=== PATIENT | male | born 1945 | race Caucasian/White ===

== ENCOUNTER 2023-03-28 07:35 | Outpatient (OUT) | payer MEDICARE, SELFPAY ==
--- NOTE | 2023-03-28 08:55 | CA_ITS ---
Patient: GHAZALA BOLAÑOS Exam Date: 03/28/2023 : 1945 Gender:M Ordering : DR ATIYA BREWER D.O. Admission #: [id number] Family : Order #: [id number] CLICK HERE TO VIEW EXAM ECHOCARDIOGRAM REPORT PROCEDURE: CA ECHO DOPPLER COMPLETE INDICATIONS: Nonrheumatic aortic stenosis, hypertension COMPARISON: None. DESCRIPTION: COMPLETE ECHOCARDIOGRAM Real-time transthoracic echocardiography with 2D, M-mode, spectral and color flow Doppler performed. QUALITY: Technical quality was good. LEFT VENTRICLE: Normal chamber size. Proximal septal hypertrophy (sigmoid septum). Normal systolic function. LV EF: Normal left ventricular ejection fraction, (>55%). DIASTOLIC: Grade I diastolic dysfunction. ATRIAL SEPTUM: LEFT ATRIUM: Normal chamber size. RIGHT ATRIUM: Normal chamber size. RIGHT VENTRICLE: Normal chamber size. Normal right ventricular systolic function. TRICUSPID VALVE: Normal mobility and thickness. Normal with mild regurgitation. Doppler studies reveal moderately (45-60) elevated right sided pressures. RVSP 46 mmHg MITRAL VALVE: Normal mobility and thickness. No evidence of mitral valve stenosis. There is no mitral annular calcification. Trivial mitral regurgitation. AORTIC VALVE: Normal trileaflet appearance. Moderately calcified aortic valve. Moderately diminished mobility. Doppler velocity suggest moderate aortic valve stenosis. DVI 0.36, FLAVIA 1.1 cm2. No aortic regurgitation. AORTIC ROOT: Normal diameter and appearance. PULMONIC VALVE: Normal thickness and mobility. No stenosis. Trivial regurgitation. PERICARDIUM: No evidence of pericardial effusion. IVC: Collapses with inspirations. IVC is normal in size. PLEURA: CONCLUSION: 1. Normal ventricular systolic function. LVEF is 55 to 60%. 2. Mild diastolic dysfunction. 3. Mild diastolic dysfunction. 4. Moderate aortic valve stenosis. 5. Moderately elevated right-sided pressures. RVSP is 46 mmHg. Adult Echocardiography Procedure Report Left Ventricle LVEDD (3.7 - 5.6 cm): 3.84 cm LVESD (2.2 - 4.0 cm): 2.38 cm LVIVS thickness (0.6 - 1.2 cm): 1.61 cm LVPW thickness (0.5 - 1.0 cm): 1.09 cm e': 0.07 m/s E - e': 8.78 LVOT Max Gradient: 4.34 mm[Hg], 4.46 mm[Hg] LVOT Area (cm2): 1.05 m/s Peak Velocity (LVOT): 1.04 m/s, 1.06 m/s Mean Velocity (LVOT): 0.79 m/s LVOT Diameter 2.02 cm Left Atrium Left Atrium Systolic Dimension: 3.70 cm Mitral Valve MV E to A Ratio: 0.55 Mitral Valve A-Wave Peak Velocity: 1.10 m/s Mitral Valve E-Wave Peak Velocity: 0.61 m/s Right Ventricle Aorta AO Root Diam: 3.11 cm Ascending Ao Diam: 2.23 cm Aortic Valve AoV Area (Peak Dwayne): 1.38 cm2, 1.62 cm2, 1.39 cm2 AoV Area (VTI): 1.51 cm2, 1.72 cm2, 1.56 cm2 Peak Velocity(Antegrade Flow): 2.06 m/s, 2.43 m/s, 2.76 m/s Peak Gradient(Antegrade Flow): 16.97 mm[Hg], 23.66 mm[Hg], 30.58 mm[Hg] Mean Velocity(Antegrade Flow): 1.49 m/s, 1.70 m/s, 1.98 m/s Mean Gradient(Antegrade Flow): 9.88 mm[Hg], 12.96 mm[Hg], 17.71 mm[Hg] Velocity Time Integral: 46.06 cm, 52.12 cm, 60.98 cm Tricuspid Valve Peak Velocity (Regurgitant Flow): 3.21 m/s, 3.29 m/s Pulmonic Valve Peak Velocity: 0.97 m/s Peak Gradient: 3.75 mm[Hg] Right Atrium Dictated by: Oscar Meyer M.D. on 03/28/2023 at 19:03 Approved by: Oscar Meyer M.D. on 03/28/2023 at 19:07
--- NOTE | 2023-03-28 08:55 | CA_ITS ---
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 (right MARYANA 1.07, left MARYANA 1.05) Electronically Signed On 03-30-2023 10:00:29 EDT by SIN GALICIA
== END 2023-03-28 07:36 | disposition home or self-care (01) ==
LOC: CARD 07:35
PROVIDERS: PCP Family Medicine; Visit Provider Family Medicine
DX: I35.0 Nonrheumatic aortic (valve) stenosis (principal); I73.9 Peripheral vascular disease, unspecified
CPT/HCPCS: 93306; 93923

== ENCOUNTER 2025-01-27 07:17 | Outpatient (OUT) | payer MEDICARE, SELFPAY ==
--- OUTSIDE RECORDS SUMMARY | 2024-04-07 06:00 | XMS_ITS | Encounter Summary ---
Author Name [facility] [place] [place] Organization [facility] [place] Address [address] [place] [id number] Care Team Providers Care Barista Name Role Phone NAY BARNES Primary Care Provider Unavail able Insurance Providers: All historical and current Section Date Range: From patient's date of to the date document was created. This section includes the names of all active insurance providers for the patient. Insurance Provider Type of Coverage Plan Name Start of Policy Coverage End of Policy Coverage Group Number Member ID Insurance Provider's Telephone Number Policy York's Name Patient's Relationship to Policy York [facility] (WNR) MEDICARE ADVANTAGE [facility] (WNR) Sep 09, 2021 [facility] 0 [id number] Aleta BOLAÑOS PATIENT [facility] (WNR) MEDICARE ADVANTAGE [facility] (WNR) Sep 09, 2021 [facility] [id number] Aleta BOLAÑOS PATIENT Selected Encounter This section includes the information on record at [place] for the Encounter. Date/Time Encounter Type Encounter Description Reason Provider Source Apr 07, 2024 10:00 AM OFFICE O/P NEW MOD 45 MIN PRIMARY CARE/MEDICINE ICD-10-CM I10 Essential (primary) hypertension NARESH PARK Encounter Template Text not used by [facility] Assessments - Encounter Diagnoses This section includes the primary and secondary diagnoses documented for the Encounter. Date/Time Primary/Secondary Diagnosis Diagnosis Name Provider Source Apr 07, 2024 10:44 AM PRIMARY Essential (primary) hypertension NARESH PARK [facility] Apr 07, 2024 10:44 AM SECONDARY Benign prostatic hyperplasia with lower urinary tract symp NARESH PARK [facility] Apr 07, 2024 10:44 AM SECONDARY Cardiac arrhythmia, unspecified NARESH PARK [facility] Apr 07, 2024 10:44 AM SECONDARY Cardiac murmur, unspecified NARESH PARK [facility] Apr 07, 2024 10:44 AM SECONDARY Hyperlipidemia, unspecified NARESH PARK [facility] Apr 07, 2024 10:44 AM SECONDARY Tobacco use NARESH PARK [facility] Apr 07, 2024 10:44 AM SECONDARY Unspecified macular degeneration NARESH PARK [facility] Plan of Treatment: Future Appointments (+ 6 months) and Future Tests (+/- 45 days) The Plan of Treatment section includes future care activities for the patient from [facility] [place] [facility] This section includes future appointments and future orders which are active, pending or scheduled. Future Appointments This section includes appointments that were scheduled to occur 6 months from the date of the Encounter, up to a maximum of 20 appointments. The data comes from all [place] treatment facilities. Appointment Date/Time Appointment Type Appointme nt Facility Name Apr 20, 2024 10:30 AM AMBULATORY - PSYCHIATRY [facility] May 25, 2024 10:30 AM AMBULATORY - PSYCHIATRY [facility] Oct 01, 2024 10:00 AM AMBULATORY - NONE [facility] Oct 08, 2024 09:30 AM AMBULATORY - NONE [facility] Lab Results: +/- 30 days of the encounter This section includes the Chemistry and Hematology Lab Results on record with [place] for the patient. Radiology Reports and Pathology Reports are provided separately, in subsequent sections. Lab Results This section contains the Chemistry/Hematology Results that were resulted 30 days before or 30 daysafter the date of the Encounter. Date/Time Source Result Type Result - Unit Interpretation Reference Range Specimen Type Comment Apr 07, 2024 10:44 AM [facility] COMPREHENSIVE METABOLIC PANEL PLASMA Specimen Type: PLASMA Comment: LDL REF RANGE: OPTIMAL: <100 mg/dL BORDERLINE HIGH: 130-159 mg/dL LDL HIGH: 160-189 mg/dL VERY HIGH: >=190 TRIG REF RANGE: NORMAL <150 mg/dL BORDERLINE HIGH: 150-199 mg/dL TRIG HIGH: 200-499 mg/dL VERY HIGH: >=500 mg/dL Ordering Provider: NARESH PARK Report Released Date/Time: Apr 07, 2024 10:25 AM Reporting Lab: [address] [id number] Performing Lab: [address] [phone] ALBUMIN 4.5 g/dL 3.2-4.6 ALKALINE PHOSPHATASE 177 U/L H 46-116 ALT/SGPT 24 U/L 0-55 AST/SGOT 28 U/L 5-34 BUN 18 mg/dL 9-23 CALCIUM 9.9 mg/dL 8.5-10.1 CREATININE 1.1 mg/dL 0.7-1.3 CO2 24 mmol/L 22-29 GLUCOSE 109 mg/dL H 74-100 PROTEIN, TOTAL 7.9 g/dL 6.4-8.3 SODIUM 136 mmol/L 136-145 CHLORIDE 103 mmol/L 98-107 BILIRUBIN, TOTAL 0.8 mg/dL 0.2-1.2 POTASSIUM 4.1 mmol/L 3.5-5.1 ANION GAP 13.0 10-20 EGFR (CALCULATED) 68.0 mL/min Apr 07, 2024 10:44 AM [facility] LIPID PROFILE PLASMA Specimen Type: PLASMA Comment: LDL REF RANGE: OPTIMAL: <100 mg/dL BORDERLINE HIGH: 130-159 mg/dL LDL HIGH: 160-189 mg/dL VERY HIGH: >=190 TRIG REF RANGE: NORMAL <150 mg/dL BORDERLINE HIGH: 150-199 mg/dL TRIG HIGH: 200-499 mg/dL VERY HIGH: >=500 mg/dL Ordering Provider: NARESH PARK Report Released Date/Time: Apr 07, 2024 10:25 AM Reporting Lab: [address] [id number] Performing Lab: [address] [phone] CHOLESTEROL 175 mg/dL 0-200 LDL CHOLESTEROL 128 mg/dL H 0-100 HDL CHOLESTEROL 39 mg/dL L 40-60 TRIGLYCERIDE 150 mg/dL 0-150 Apr 07, 2024 10:44 AM [facility] CBC BLOOD Specimen Type: BLOOD No comment entered. Ordering Provider: NARESH PARK Report Released Date/Time: Apr 07, 2024 10:25 AM Reporting Lab: [address] [phone] Performing Lab: [address] [address] WBC COUNT 9.7 10*3/uL 3.6-11.0 RBC COUNT 4.56 10*6/uL 4.47-5.83 HGB 14.4 g/dL 13.6-17.4 HCT 43.3 40.0-51.0 MCV 95.1 fL 80.0-96.0 MCH 31.6 pg H 27.0-31.0 MCHC 33.2 g/dL 31.5-36.5 PLT 374 10*3/uL 150-400 LYMPHS % 34.1 21.0-51.0 MONOCYTES % 7.3 4.0-8.0 NUCLEATED RBC/100WBC 0.2 /100{WBCs} None Established-None Established RDW 15.0 11.2-15.8 NEUTROPHIL % 57.3 54.0-78.0 EOSINOPHIL % 0.7 0.0-3.0 BASOPHIL % 0.6 0.0-3.0 ABSOLUTE LYMPHOCYTE COUNT 3.3 10*3/uL 0. 8-5.0 ABSOLUTE NEUTROPHIL COUNT 5.5 10*3/uL 1. 9-8.6 ABSOLUTE BASOPHIL COUNT 0.1 10*3/uL 0.0- 0.3 ABSOLUTE MONOCYTE COUNT 0.7 10*3/uL 0.1- 0.9 ABSOLUTE EOSINOPHIL COUNT 0.1 10*3/uL 0. 0-0.3 MPV 7.6 fL 7.4-11.4 Apr 07, 2024 10:44 AM [facility] MAGNESIUM PLASMA Specimen Type: PLASMA Comment: LDL REF RANGE: OPTIMAL: <100 mg/dL BORDERLINE HIGH: 130-159 mg/dL LDL HIGH: 160-189 mg/dL VERY HIGH: >=190 TRIG REF RANGE: NORMAL <150 mg/dL BORDERLINE HIGH: 150-199 mg/dL TRIG HIGH: 200-499 mg/dL VERY HIGH: >=500 mg/dL Ordering Provider: NARESH PARK Report Released Date/Time: Apr 07, 2024 10:25 AM Reporting Lab: [address] [phone] Performing Lab: [address] [address] MAGNESIUM 2.3 mg/dL 1.6-2.6 Apr 07, 2024 10:44 AM [facility] URINALYSIS URINE Specimen Type: URINE No comment entered. Ordering Provider: NARESH PARK Report Released Date/Time: Apr 07, 2024 10:25 AM Reporting Lab: [address] [phone] Performing Lab: [address] [address] SPECIFIC GRAVITY 1.009 L 1.016-1.022 URINE GLUCOSE Negative mg/dL Negative URINE PROTEIN Negative mg/dL Negative URINE PH 7.0 5.0-8.0 NITRITE, URINE Negative Negative ESTERASE(WBC) Negative Negative URINE CLARITY Clear Clear URINE BILIRUBIN Negative mg/dL <=0.4 URINE BLOOD Negative mg/dL <0.05 UROBILINOGEN Negative mg/dL <=1 URINE KETONES Negative mg/dL <=9 URINE COLOR Light-Yellow Social History: Smoking Status (Most current) and Tobacco Use (All prior to encounter date) This section includes the most current, and the historical, smoking and tobacco- related health factors from the [place] facility where the Encounter took place. Current Smoking Status This section includes the most current smoking, or tobacco-related health factor, from the [place] facility where the Encounter took place. Date/Time Current Smoking Status Comment Marlys ity Apr 07, 2024 10:00 AM [place]-TOBACCO FORMER USER [facility] Tobacco Use History This section includes a history of the smoking, or tobacco-related health factors, that were collected on or before the date of the Encounter. The data comes from the [place] facility where the Encounter took place. Date/Time Smoking Status/Tobacco Use Comment F acility Apr 07, 2024 10:00 AM [place]-TOBACCO QUIT 15 YRS OR MORE [facility] Encounter Notes: All associated encounter notes This section contains the clinical notes associated to the Encounter. Date/Time Encounter Note(s) Provider Source Apr 08, 2024 06:35 AM DISCHARGE NOTE: LOCAL TITLE: AFTER VISIT SUMMARY NOTE STANDARD TITLE: DISCHARGE NOTE DICT DATE: APR 08, 2024@06:35:28 ENTRY DATE: APR 08, 2024@06:35:29 DICTATED BY: NARESH PARK EXP COSIGNER: URGENCY: STATUS: COMPLETED If the patient did not receive a copy of the after-visit summary or had a virtual visit, a copy of the after-visit summary will be mailed. The after-visit summary includes information pertaining to the patient's encounter, including diagnoses, vital signs, medications, and new orders, as well as a list of any any upcoming appointments and information regarding the patient's ongoing care. The patient's medications were reviewed with the patient by the provider and were provided to the patient as an updated list of medications. The patient was instructed to inform the provider of any medication changes or discrepancies that were noted. Otherwise, the patient was instructed to continue the medications as prescribed. A copy of the after-visit summary provided to the patient is available in [employer]. SCANNED DOCUMENT SIGNATURE NOT REQUIRED Electronically Filed: 04/08/2024 by: NARESH GREGORY [facility] Apr 07, 2024 10:04 AM INTERNAL MEDICINE OUTPATIENT NOTE: LOCAL TITLE: PRIMARY CARE OUTPATIENT NOTE (T) STANDARD TITLE: INTERNAL MEDICINE OUTPATIENT NOTE DATE OF NOTE: APR 07, 2024@10:04 ENTRY DATE: APR 07, 2024@10:04:26 AUTHOR: NARESH PARK EXP COSIGNER: URGENCY: STATUS: COMPLETED In-person Note Emergency contact number obtained/confirmed. 78yo Reason for Visit: initial visit to [facility] with clinic. lmd - dr. ontiveros. retinal spec - dr. janette chapman PAST MEDICAL HISTORY: Medical: hx of hypertension, hyperlipidemia, bph with luts. hx of arrhythmia and cardiac murmur. hx of dry macular degeneration. denies any hx of dm, renal or hepatic dz. denies any seizure disorders Surgical: prostate bx - benign. lap lam. vein stripping left leg per dr. hodges. hx of bilat cats with iol Psychiatric: denies FAMILY HISTORY: Cancers: denies Diabetes: mother Hypertension: mother Coronary Disease: mother Stroke: father in his 80's SOCIAL HISTORY: History: us [employer]. 1962-. 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 pouch would last 2 wks- states started prior to being a teenager. also smoked as a child, once per week. smoked x 10 yrs with a suni lasting over 1 wk Alcohol History / Current Use: aver 1-2 beers per month Illicit Substance Use History / Current Use: denies Family/Living Situation: . 3 daugh and 1 son REVIEW OF SYSTEMS: const: (-) fever (-)chills (-)fatigue (-) changes in weight (-)night sweats heent: (-)headache (-)vision changes (-)hearing changes (-)tinnitis (-) earache (-)sore throat (-)nasal congestion (-)dysphagia (-odynophagia (-)hoarseness neck: (-)pain (-)stiffness (-)swelling lymph: (-)swollen (-)tender (-) cervical (-)axillary (-)inguinal endo: (-)polyuria (-)polydipsia (-)polyphagia (-)fatigue (-)weight gain/loss (-)heat or cold intolerance cor: (-)cp (-)sob (-)dizziness (-)palpitations (-)alcala (-)edema (-)pnd (-)alcala ()orthopnea pulm: (-)cough (-)congestion (-)sob (-)wheezing (-)pain with breathing (-)hemoptysis gi: (-)abd pain (-)nausea (-)vomitting (-)dysphagia (-)constipation (-) diarrhea (-)blood in stool (-)change in stool (-)dark stools (-)mucus in stool gu: (-)dysuria (-)frequency (-)urgency (-)malodorous (-)dribbling (-) hematuria (-)nocturia msk: (-)muscle pain (-)weakness (-)spasms (-)muscle tone (-)back pain (-)joint pain neuro: (-)headache (-)change in vision (-)weakness (-)change in memory (-)seizures (-)abnormal movements (-) tremors (-)radiculopathy integ: (-)rash (-)lesions (-)itching (-)xerosis psyche: (-)anxiety (-)depression (-)ptsd PATIENT ALLERGIES DETAILED ALLERGIES/ADVERSE REACTIONS Type: OTHER Date/Time Reactant Severity Reaction 04/07/2024 09:51 SEASONAL ALLERGIES WATERING EYE AMRS - MEDS (REC SUCCINCT) Active and Recently Inpatient, Outpatient and Clinic Medications (including Supplies): atorvastatin 10mg daily lisinopril 30mg daily meloxicam 7.5mg amlodipine 10mg daily hctz 12.5mg daily tamsulosin 0.4mg daily asa 81 mg b12 2500 micrograms lutein 6mg vit 3 180mg adult mvi coq10 zyrtec 10mg z-areds 2 plus PHYSICAL EXAM: Vital Signs: T: 99.6 F [37.6 C] (04/07/2024 09:46) P: 94 (04/07/2024 09:46) R: 16 (04/07/2024 09:46) BP: 152/68 (04/07/2024 09:46) Pain: 3 (04/07/2024 09:46) Height: 66.5 in [168.9 cm] (04/07/2024 09:46) Weight: 199.6 lb [90.54 kg] (04/07/2024 09:46) Pulse Ox: PE gen: 78y w/m alert ox4, well-groomed and dressed, ambulatory without assistive devices heent: normocephalic anicteric perrla eomi. (+)arcus senilus. nares patent. eacs/tms without giselle, bulging or retractions. oral mucosa and hypopharynx moist and pink. uvula midline. no oral lesions noted neck: supple. trachea midline. no bruits noted lymph: no ant or posterior adenopathy noted endo: no thyromegaly appreciated cor: hrrr with m noted. no c or g chest: ctab. chest symm abd: soft, nt, nd, bs x 4 ausc. no organomegaly or bruits noted msk: (+)5/5 ue and lower extrem prox and distally integ: no rashes noted. (+)sks, skin tags neuro: pt alert ox4, perrla, eomi, cn 2-12 intact. no tremors or abnormal movts noted psyche: mood and affect appropriate. recent and remote memory intact ASSESSMENT/PLAN: 1) hypertension- cont with current meds. encouraged to monitor bp 2) hyperlipidemia- cont with atorvastatin. obtain lipids, lfts. will forward results to pt. reviewed a heart healthy diet. daily exercise 3) bph with luts- cont with tamsulosin 4) heart murmur- asym. 5) hx of arrhythmia- asym. cont with daily asa 6) remote tobacco use- cont with abstinence 7) hx of dry macular degeneration- followed per retinal spec - dr. chapman 8) hx of vein stripping lle- cont with daily asa 9) (+)depression/ptsd screen - denied need for warm handoff. submit consult to [facility] 10) meds reviewed with pt. declined need for meds at this time. agreeable to labs. will forward results to pt 11) reviewed a heart healthy diet of no added salt, diet low in fat, chol and processed foods. increase fluids, fruits, veg, fiber and bran in diet. daily exercise for 30 min, increase as tolerated HEALTH MAINTENANCE/CLINICAL REMINDERS: Clinical Reminders Activity HIV Screening: Patient has been offered HIV testing and has declined. I have explained that HIV testing is recommended for all adults, even if all risk factors are absent. Hepatitis C Testing: Patient declines HCV lab test. Sexual Orientation: The patient thinks of their sexual orientation as: Straight or Heterosexual Follow-Up Pos PTSD/Depression: I have reviewed the results of the Mental Health screens and have evaluated the patient. Based on the evaluation, the following disposition plan will be implemented: Patient to be evaluated by Mental Health Routine/Non-emergent Mental Health Evaluation needed. MEDICATION RECONCILIATION Medication Reconciliation report reviewed and discussed with patient/caregiver. VA prescription medications, non-VA prescription medications, OTC and herbal medications reviewed: Patient/caregiver verifies that the list is complete and accurate and voices understanding. FOLLOW-UP: 6mos with labs 1- 2 wks including cbc, cmp, mg, lipids I am the Attending Physician. TOTAL TIME SPENT: Spent 45 minutes in care of this patient today including review of records, exam, and placing orders. /lester/ NARESH PARK PHYSICIAN Signed: 04/07/2024 10:49 NARESH PARK [facility] Apr 07, 2024 09:45 AM PRIMARY CARE IBIS BARRETT NOTE: LOCAL TITLE: OUTPATIENT NURSING INTAKE NOTE (T) STANDARD TITLE: PRIMARY CARE NURSING NOTE DATE OF NOTE: APR 07, 2024@09:45 ENTRY DATE: APR 07, 2024@09:45:37 AUTHOR: ATIYA OBANDO EXP COSIGNER: URGENCY: STATUS: COMPLETED Hemoglobin A1C Results: No Hemoglobin A1C Results Review Allergies <----Click here to document new allergy or toni No Known Allergies box. New temperature reading was documented at this visit. 99.6 F (37.6 C) Pulse reading was documented at this visit. 94 Respiration reading was documented at this visit. 16 New blood pressure reading was documented at this visit. 152/68 Pain scale was documented at this visit. 3 A new weight was documented at this visit. 199.6 lb (90.7 kg) A new height was documented at this visit. 66.5 in [168.9 cm) Click here to document a new pulse ox. 96 MEDICATION LIST REVIEW REPORT Other - List 1. Has the patient been feeling sad or distressed? Yes. Name of PCP notified for follow-up/disposition: Dr. Park 2. Has the patient been having personal or family problems? No 3. Has the patient been experiencing worry and/or stress? Yes. Name of PCP notified for follow-up/disposition: Dr. Park 4. Has the patient been having problems with drugs and/or alcohol? No 5. [place] [facility] pocket card was provided to patient. Yes [facility] MAP ('s [place], [place] and [place]) What matters most to you? Comment: Family and health Clinical Reminders Activity Advance Directive Education Screen: Patient received information regarding Advance Directives: Yes - Patient has been given information/education regarding Advance Directives. Patient advised to follow up with Social Work Service. Level of Understanding: Fair Alcohol Use Screen (AUDIT-C): Alcohol Screen: SCREEN FOR ALCOHOL (AUDIT-C) An alcohol screening test (AUDIT-C) was negative (score=2). 1. How often did you have a drink containing alcohol in the past year? Consider a drink to be a 12 ounce can or bottle of regular beer, 8 ounces of malt liquor, a 5 ounce glass of table wine, or a 1.5 ounce shot of liquor (like scotch, gin, or vodka). Two to four times a month 2. How many drinks containing alcohol did you have on a typical day when you were drinking in the past year? One or two drinks 3. How often did you have six or more drinks on one occasion in the past year? Never COVID-19 Immunization: Refused Pfizer Monovalent COVID-19 vaccine Immunization: COVID-19 (PFIZER), MRNA, LNP-S, PF, KUSUM-SUCROSE, 30 MCG/0.3 ML (AGES 12+ YEARS) Refusal Reason: PATIENT DECISION Patient refuses all immunization(s) in the COVID-19 group Date Documented: 04/07/24 09:53 Depression Screening: Perform PHQ-2 A PHQ-2 screen was performed. The score was 2 which is a negative screen for depression. Over the past two weeks, how often have you been bothered by the following problems? 1. Little interest or pleasure in doing things Several days 2. Feeling down, depressed, or hopeless Several days Fall Screen: Patient was asked if he/she has had any falls within the past 12 months. Patients states no falls in past 12 months. Teaching Method: Verbal discussion Education Topic: Falls Risk Level of Understanding: Fair Frail/Elderly Screen: ADL Screen - Escobar Index of [place] in Activities of Daily Living Record INDEX of ADL. Score = 17 1. Bathing: either sponge bath, tub bath or shower. Receives no assistance (gets in and out of tub by self, if tub is usual means of bathing). 2. Dressing: gets clothes from closets and drawers, including under-clothes, outer garments and using fasteners (including braces if worn). Gets clothes and dresses self without assistance. 3. Toileting: going to the toilet room for bowel and urine elimination; cleaning self after elimination and arranging clothes. (May use cane, walker, or wheelchair, and manage bedpan or commode, emptying same next morning). No assistance needed. 4. Transfer: Moves in and out of bed, or chair, without assistance (may use support object like cane or walker). 5. Continence: Has occasional accidents of urination or bowels. 6. Feeding: Feeds self without assistance. IADL Screen - Julio César Instrumental Activities of Daily Living Scale Ability to use telephone: (1 point) Operates Telephone on own initiative; looks up and dials numbers. Shopping: (0 points) Needs to be accompanied on any shopping trip. Food preparation: (1 point) Plans, prepares, and serves adequate meals independently. Housekeeping: (1 point) Maintains house alone with occasional assistance (heavy work). Laundry: (1 point) Does personal laundry completely. Mode of transportation: (1 point) Travels independently on public transportation or drives own car. Responsibility for own medications: (1 point) Is responsible for taking medications in correct dosages at correct times. Ability to handle finances: (1 point) Manages financial matters independently (budgets, writes checks, pays rent and bills, goes to bank); collects and keeps track of income. Total score: 7 points 8 = High function, independent 0 = Low function, dependent Homelessness/Food Insecurity Screen: In the past 2 months, have you been living in stable housing that you own, rent, or stay in as part of a household? Yes - Living in stable housing. Are you worried or concerned that in the next 2 months you may NOT have stable housing that you own, rent, or stay in as part of a household? No - Not worried about housing near future The [place] reports the following: Within the past 12 months, you worried whether your food would run out before you got money to buy more. Never true Within the past 12 months, the food you bought just didn't last and you didn't have money to get more. Never true Learning Assessment: LEARNING NEEDS ASSESSMENT: I. Learning Preference: Hands-on II. Barriers to Learning: No Barriers to Learning Visual Limitations : Macular degeneration III. Social Influences Related to Educational Needs: No social barriers to learning IV. Readiness to Learn: Patient Appears ready to learn. MST Screening: Patient denies experiencing sexual trauma (MST). PTSD Screening: PC-PTSD-5 A PTSD screening test (PC-PTSD-5) was positive (score=4). IN THE PAST MONTH, have you ever had any experience that was so frightening, horrible or traumatic. For example: A serious accident or fire a physical or sexual assault or abuse An earthquake or flood A war Seeing someone be killed or seriously injured Having a loved one through homicide or suicide 1. Have you ever experienced this kind of event? YES 2. Had nightmares about the event(s) or thought about the event(s) when you did not want to? YES 3. Tried hard not to think about the event(s) or went out of your way to avoid situations that reminded you of the event(s)? YES 4. Been constantly on guard, watchful, or easily startled? YES 5. [place] numb or detached from people, activities, or your surroundings? YES 6. [place] guilty or unable to stop blaming yourself or others for the event(s) or any problems the event(s) may have caused? NO Licensed Independent Provider notified of positive screen and need for follow-up. Name of provider notified: Dr. Park Suicide Screen: C-SSRS Screening [place] Suicide Severity Rating Scale (C-SSRS) screener 1. Over the past month, have you wished you were or wished you could go to sleep and not wake up? No 2. Over the past month, have you had any actual thoughts of killing yourself? No 3. Over the past month, have you been thinking about how you might do this? Response not required due to responses to other questions. 4. Over the past month, have you had these thoughts and had some intention of acting on them? Response not required due to responses to other questions. 5. Over the past month, have you started to work out or worked out the details of how to kill yourself? Response not required due to responses to other questions. 6. If yes, at any time in the past month did you intend to carry out this plan? Response not required due to responses to other questions. 7. In your lifetime, have you ever done anything, started to do anything, or prepared to do anything to end your life (for example, collected pills, obtained a gun, gave away valuables, went to the roof but didn't jump)? No 8. If YES, was this within the past 3 months? Response not required due to responses to other questions. Tdap Immunization: The patient declines to receive the recommended dose of Tdap vaccine. Immunization: TDAP Refusal Reason: PATIENT DECISION Patient refuses all immunization(s) in the TDAP group Date Documented: 04/07/24 10:02 Tobacco Pack Year History: Patient used cigarettes in the past, but quit and does not currently use them: Quit smoking GREATER THAN OR EQUAL to 15 years ago. Tobacco Use Screening: The patient is a former tobacco user. The patient quit fifteen or more years ago. 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 Printed information was offered and contact information for local resources were provided if requested. No questions at this time /caregiver was informed of local points of contact. Contact information for local resources: Presumptive Condition(s): Shayla Vásquez, Environmental Health Clinician, ext. [phone] Benefits/Claims: Adela Mejia, Legal Admin Specialist, ext. [phone] [facility] Enrollment: Filiberto Gomes, Video Game Script Writer. ext. [phone] Registry: Shayla Vásquez, Environmental Health Clinician, ext. [phone] /es/ ATIYA OBANDO LICENSED PRACTICAL NURSE Signed: 04/07/2024 10:05 ATIYA OBANDO OC
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
--- OUTSIDE RECORDS SUMMARY | 2024-05-25 06:30 | XMS_ITS | Encounter Summary ---
Author Name [facility] [place] Organization [place] Address [address] [place] [address] Care Team Providers Care Shaving Machine Operator Name Role Phone NAY BARNES Primary Care [...] York's Name Patient's Relationship to Policy [facility] (WNR) Sep 09, 2021 OHRWP 0 [id number] Aleta BOLAÑOS [facility] (WNR) Sep 09, 2021 [facility] [id number] Aleta BOLAÑOS PATIENT Selected Encounter This section includes the information on record at [place] for the Encounter. Date/Time Encounter Type Encounter Description Reason Provider Source May 25, 2024 10:30 AM PSYTX W PT 30 MINUTES PCMHI INDIV ICD-10-CM F43.23 Adjustment disorder with mixed anxiety and depressed mood CHAYO CHENG Encounter Template Text not used by [facility] Assessments - Encounter Diagnoses This section includes the primary and secondary diagnoses documented for the Encounter. Date/Time Primary/Secondary Diagnosis Diagnosis Name Provider Source May 25, 2024 04:36 PM PRIMARY Adjustment disorder with mixed anxiety and depressed mood CHAYO CHENG [facility] May 25, 2024 04:36 PM SECONDARY Insomnia, unspecified CHAYO CHENG CB May 25, 2024 04:36 PM SECONDARY Other specified problems related to upbringing CHAYO CHENG Plan of Treatment: Future Appointments (+ 6 months) and Future Tests (+/- 45 days) The Plan of Treatment section includes future care activities for the patient from all [place] treatment[place]ilities. This section includes future appointments and future orders which are active, pending or scheduled. Future Appointments This section includes appointments that were scheduled to occur 6 months from the date of the Encounter, up to a maximum of 20 appointments. The data comes from all [place] treatment facilities. Appointment Date/Time Appointment Type Appointme nt Facility Name Oct 01, 2024 10:00 AM AMBULATORY - NONE RAF[facility] Oct 08, 2024 09:30 AM AMBULATORY - NONE SHASHANK Underwood [facility] Social History: Smoking Status (Most current) and Tobacco Use (All prior to encounter date) This section includes the most current, and the historical, smoking and tobacco- related health factors from the [place] facility where the Encounter took place. Current Smoking Status This section includes the most current smoking, or tobacco-related health factor, from the [place] facility where the Encounter took place. Date/Time Current Smoking Status Comment Facil ity Apr 07, 2024 10:00 AM [place]-TOBACCO FORMER USER [facility] Tobacco Use History This section includes a history of the smoking, or tobacco-related health factors, that were collected on or before the date of the Encounter. The data comes from the [place] facility where the Encounter took place. Date/Time Smoking Status/Tobacco Use Comment F acility Apr 07, 2024 10:00 AM [place]IT 15 YRS OR MORE [facility] Encounter Notes: All associated encounter notes This section contains the clinical notes associated to the Encounter. Date/Time Encounter Note(s) Provider Source May 25, 2024 10:50 AM MENTAL HEALTH NOTE : LOCAL TITLE: PRIMARY CARE MENTAL HEALTH INTEGRATION NOTE STANDARD TITLE: MENTAL HEALTH NOTE DATE OF NOTE: MAY 25, 2024@10:50 ENTRY DATE: MAY 25, 2024@10:50:40 AUTHOR: CHAYO CHENG EXP COSIGNER: URGENCY: STATUS: COMPLETED PRIMARY CARE MENTAL HEALTH INTEGRATION NOTE SESSION TIME AND DURATION: 10:29am - 11:06am 37 minutes SESSION NUMBER: 3 SESSION MODALITY: Face to face; Individual Kelly participated in PCMHI session today as a scheduled in person apt. Kelly was informed of the purpose and process of [facility] sessions, information about this provider, limits of confidentiality, and agreed to proceed. Kelly informed of crisis hotline. CONCERN: Kelly reported issues with his eyes, sensitivity to light. He mentioned that the office lights were bothering him and after the provider turned them off and allowed natural light from outside, the expressed feeling better. The client also shared that he had recently returned from a trip to [place], he visited his daughter and son-in-la. he reported having a great time, enjoying good food and noted that the cost of dinner was surprisingly high. Client also expressed feeling pleased after seeing his doctor, he has lost 7lbs. He mentioned that his goal is to lose an additional 7lbs. he conveyed that brief counseling sessions were helpful but feels that he no longer needs to continue. The expressed gratitude to the provider for listening and stated that it was beneficial to have someone to talk to. DIAGNOSIS: Adjustment disorder with mixed anxiety and depressed mood. Problems Related to Upbringing,Oth Spec Insomnia D/O,Unspec ASSESSMENT: Kelly shows progress in managing health and emotional well-being. His recent weight loss and commitment to continuing his goals demonstrate positive physical health progress. The has expressed that the brief counseling sessions were effective and he feels confident in his ability to manage independently. No further counseling sessions scheduled as per the veterans request. Mental Status: ORIENTATION AND CONSCIOUSNESS: Alert and [...] VIOLENT IDEATION: None MEMORY: Intact SUICIDAL/HOMICIDAL RISK: Kelly denies SI/HI now or since last session. PHQ-9 Total Score (past 180 days): 05/25/2024 3 04/20/2024 8 04/08/2024 7 The patient stated that the symptoms made it somewhat difficult to work, take care of things at home, or get along with others. MI-7 Total Score (past 180 days): 05/25/2024 5 04/20/2024 6 04/08/2024 6 INTERVENTION: - Used active listening, empathic reflection, and emotion validation to gather information on presenting problem. - Facilitated discussions through open-ended questions and reflections. - Encouraged Vet to engage in activities that have previously brought him kathy, such as spending time with his or engaging in hobbies like fishing. -Validated the veterans efforts to improve his mood and reinforce the importance of seeking support when needed. -Encouraged the to follow up with healthcare provider regarding eye sensitivity. -The provider respected the clients decision to conclude counseling, acknowledging the veterans self-assessment that he no longer felt the need for continued sessions while expressing openness for future support if needed. Plan: 1. No further counseling (PCMHI) sessions scheduled as per the 's request. is aware to contact the clinic or the Veterans Crisis Line with concerns. /lester/ CHAYO CHENG CLINICAL ENTRY LEVEL ACCOUNT MANAGER Signed: 05/26/2024 11:13 CHAYO CHENG [facility]
--- OUTSIDE RECORDS SUMMARY | 2024-10-08 05:30 | XMS_ITS | Encounter Summary ---
Author Name [facility] [place] Organization [facility] ([place] Address [address] [place] [address] Care Team Providers Care Publication Manager Name Role Phone NAY BARNES Primary Care [...] York's Name Patient's Relationship to Policy [place] [facility] ([facility]NR[facility] MEDICARE ADVANTAGE [facility] (WNR) Sep 09, 2021 OHRWP 0 [id number] Aleta BOLAÑOS PATIENT ANTHALEX [facility] (WNR) MEDICARE ADVANTAGE [facility] (WNR) Sep 09, 2021 [facility] [id number] Aleta BOLAÑOS PATIENT Selected Encounter This section includes the information on record at [place] for the Encounter. Date/Time Encounter Type Encounter Description Reason Provider Source Oct 08, 2024 09:30 AM [facility] FEE PRIMARY CARE/MEDICINE ICD-10-CM I10 Essential (primary) hypertension ATIYA OBANDO Encounter Template Text not used by [facility] Assessments - Encounter Diagnoses This section includes the primary and secondary diagnoses documented for the Encounter. Date/Time Primary/Secondary Diagnosis Diagnosis Name Provider Source Oct 08, 2024 01:28 PM PRIMARY Essential (primary) hypertension ATIYA OBANDO [facility] Lab Results: +/- 30 days of the encounter This section includes the Chemistry and Hematology Lab Results on record with [facility] for the patient. Radiology Reports and Pathology Reports are provided separately, in subsequent sections. Lab Results This section contains the Chemistry/Hematology Results that were resulted 30 days before or 30 daysafter the date of the Encounter. Date/Time Source Result Type Result - Unit Interpretation Reference Range Specimen Type Comment Oct 01, 2024 09:46 AM [facility] COMPREHENSIVE METABOLIC PANEL PLASMA Specimen Type: PLASMA Comment: DLDLREF RANGE: NEAR OR ABOVE OPTIMAL: 100-129 mg/dL BORDERLINE DLDLHIGH: 130-159 mg/dL HIGH: 160-189 mg/dL VERY HIGH: >=190 GLUCOSE The ADA recommends a fasting glucose of 99 mg/dL as the GLUCOSE upper limit of normal. TP Per package insert reference range for recumbent is 6.0 to 7.8 TP g/dL and for >60 y/o is lower by 0.2 g/dL. Plasma samples will TP generally have higher values (about 0.2 to 0.4 g/dL higher) due TP to presence of fibrinogen. TRIG REF RANGE: BORDERLINE HIGH: 150-199 mg/dL HIGH: 200-499 mg/dL TRIG VERY HIGH: >=500 mg/dL CHOL REF RANGE: BORDERLINE HIGH: 200-239 mg/dL HIGH: >=240 mg/dL HDLC Values >60 are a negative risk factor for heart disease. Ordering Provider: NARESH ACE Report Released Date/Time: Apr 07, 2024 10:34 AM Reporting Lab: [facility] [id number] [place] [phone] Performing Lab: [facility] [id number] [place] [phone] ALBUMIN 4.0 g/dL 3.5-4.8 ALKALINE PHOSPHATASE 392 U/L H 40-150 ALT/SGPT 73 U/L H <55 AST/SGOT 53 U/L H 10-40 BUN 29.0 mg/dL H 8.4-25.7 CALCIUM 9.2 mg/dL 8.6-10.3 CREATININE 1.0 mg/dL 0.7-1.3 CO2 27 mmol/L 22-30 GLUCOSE 108 mg/dL H 74-99 PROTEIN, TOTAL 7.6 g/dL 6.4-8.3 SODIUM 142 mmol/L 134-144 CHLORIDE 107 mmol/L 99-112 BILIRUBIN, TOTAL 0.7 mg/dL 0.2-1.2 POTASSIUM 4.4 mmol/L 3.5-5.1 ANION GAP 12 mmol/L 10-20 EGFR (CALCULATED) 76.0 mL/min Oct 01, 2024 09:46 AM [facility] LIPID PROFILE PLASMA Specimen Type: PLASMA Comment: DLDLREF RANGE: NEAR OR ABOVE OPTIMAL: 100-129 mg/dL BORDERLINE DLDLHIGH: 130-159 mg/dL HIGH: 160-189 mg/dL VERY HIGH: >=190 GLUCOSE The ADA recommends a fasting glucose of 99 mg/dL as the GLUCOSE upper limit of normal. TP Per package insert reference range for recumbent is 6.0 to 7.8 TP g/dL and for >60 y/o is lower by 0.2 g/dL. Plasma samples will TP generally have higher values (about 0.2 to 0.4 g/dL higher) due TP to presence of fibrinogen. TRIG REF RANGE: BORDERLINE HIGH: 150-199 mg/dL HIGH: 200-499 mg/dL TRIG VERY HIGH: >=500 mg/dL CHOL REF RANGE: BORDERLINE HIGH: 200-239 mg/dL HIGH: >=240 mg/dL HDLC Values >60 are a negative risk factor for heart disease. Ordering Provider: NARESH ACE Report Released Date/Time: Apr 07, 2024 10:34 AM Reporting Lab: [address] [phone] Performing Lab: [address] [phone] CHOLESTEROL 189 mg/dL <199 LDL CHOLESTEROL 136 mg/dL H 0-99 HDL CHOLESTEROL 47 mg/dL >40 TRIGLYCERIDE 154 mg/dL H <149 Oct 01, 2024 09:46 AM [facility] CBC BLOOD Specimen Type: BLOOD No comment entered. Ordering Provider: NARESH ACE Report Released Date/Time: Apr 07, 2024 10:34 AM Reporting Lab: [address] [id number] Performing Lab: [address] [phone] WBC COUNT 10.4 10*3/uL 3.6-11.0 RBC COUNT 4.42 10*6/uL L 4.47-5.83 HGB 14.2 g/dL 13.6-17.4 HCT 42.7 40.0-51.0 MCV 96.7 fL H 80.0-96.0 MCH 32.2 pg H 27.0-31.0 MCHC 33.3 g/dL 31.5-36.5 PLT 383 10*3/uL 150-400 LYMPHS % 34.5 21.0-51.0 MONOCYTES % 8.6 H 4.0-8.0 NUCLEATED RBC/100WBC 0.0 /100{WBCs} RDW 15.5 11.2-15.8 NEUTROPHIL % 55.1 54.0-78.0 EOSINOPHIL % 1.4 0.0-3.0 BASOPHIL % 0.4 0.0-3.0 ABSOLUTE LYMPHOCYTE COUNT 3.6 10*3/uL 0. 8-5.0 ABSOLUTE NEUTROPHIL COUNT 5.7 10*3/uL 1. 9-8.6 ABSOLUTE BASOPHIL COUNT 0.0 10*3/uL 0.0- 0.3 ABSOLUTE MONOCYTE COUNT 0.9 10*3/uL 0.1- 0.9 ABSOLUTE EOSINOPHIL COUNT 0.1 10*3/uL 0. 0-0.3 MPV 7.7 fL 7.4-11.4 Oct 01, 2024 09:46 AM [facility] MAGNESIUM PLASMA Specimen Type: PLASMA Comment: DLDLREF RANGE: NEAR OR ABOVE OPTIMAL: 100-129 mg/dL BORDERLINE DLDLHIGH: 130-159 mg/dL HIGH: 160-189 mg/dL VERY HIGH: >=190 GLUCOSE The ADA recommends a fasting glucose of 99 mg/dL as the GLUCOSE upper limit of normal. TP Per package insert reference range for recumbent is 6.0 to 7.8 TP g/dL and for >60 y/o is lower by 0.2 g/dL. Plasma samples will TP generally have higher values (about 0.2 to 0.4 g/dL higher) due TP to presence of fibrinogen. TRIG REF RANGE: BORDERLINE HIGH: 150-199 mg/dL HIGH: 200-499 mg/dL TRIG VERY HIGH: >=500 mg/dL CHOL REF RANGE: BORDERLINE HIGH: 200-239 mg/dL HIGH: >=240 mg/dL HDLC Values >60 are a negative risk factor for heart disease. Ordering Provider: NARESH ACE Report Released Date/Time: Apr 07, 2024 10:34 AM Reporting Lab: [facility] [address] [facility] [phone] Performing Lab: [facility] [address] [facility] [phone] MAGNESIUM 2.3 mg/dL 1.6-2.6 Social History: Smoking Status (Most current) and Tobacco Use (All prior to encounter date) This section includes the most current, and the historical, smoking and tobacco- related health factors from the [place] facility where the Encounter took place. Current Smoking Status This section includes the most current smoking, or tobacco-related health factor, from the [place] facility where the Encounter took place. Date/Time Current Smoking Status Comment Facil ity Apr 07, 2024 10:00 AM [place]-TOBACCO FORMER USER [facility] Tobacco Use History This section includes a history of the smoking, or tobacco-related health factors, that were collected on or before the date of the Encounter. The data comes from the [place] facility where the Encounter took place. Date/Time Smoking Status/Tobacco Use Comment F acility Apr 07, 2024 10:00 AM [place]-TOBACCO QUIT 15 YRS OR MORE [facility] Encounter Notes: All associated encounter notes This section contains the clinical notes associated to the Encounter. Date/Time Encounter Note(s) Provider Source Oct 08, 2024 09:28 AM PRIMARY CARE [facility] NOTE: LOCAL TITLE: OUTPATIENT NURSING INTAKE NOTE (T) STANDARD TITLE: PRIMARY CARE NURSING NOTE DATE OF NOTE: OCT 08, 2024@09:28 ENTRY DATE: OCT 08, 2024@09:28:13 AUTHOR: ATIYA OBANDO COSIGNER: URGENCY: STATUS: COMPLETED Hemoglobin A1C Results: No Hemoglobin A1C Results Review Allergies Allergies reviewed and updated per protocol. ALLERGIES/ADVERSE REACTIONS Type: OTHER Date/Time Reactant Severity Reaction 04/07/2024 09:51 SEASONAL ALLERGIES WATERING EYE New blood pressure reading was documented at this visit. 127/68 MEDICATION LIST REVIEW REPORT OTC/Herbal was documented at this visit. 1. Has the patient been feeling sad or distressed? No 2. Has the patient been having personal or family problems? Yes. Name of PCP notified for follow-up/disposition: Dr. Mohan 3. Has the patient been experiencing worry and/or stress? No 4. Has the patient been having problems with drugs and/or alcohol? No 5. [place] [facility] pocket card was provided to patient. No/patient declined Last Whole Health MAP ('s Muir, Aspiration, & Purpose): No Data Available Clinical Reminders Activity COVID-19 Immunization: Refused Pfizer Monovalent COVID-19 vaccine Immunization: COVID-19 (PFIZER), MRNA, LNP-S, PF, KUSUM-SUCROSE, 30 MCG/0.3 ML (AGES 12+ YEARS) Refusal Reason: PATIENT DECISION Patient refuses all immunization(s) in the COVID-19 group Date Documented: 10/08/24 09:33 Influenza Immunization: Deferral / Refusal The patient declines to receive the recommended dose of seasonal influenza vaccine. Immunization: INFLUENZA, UNSPECIFIED FORMULATION Refusal Reason: PATIENT DECISION Patient refuses all immunization(s) in the FLU group Date Documented: 10/08/24 09:33 Pain, Brief Evaluation: Type of pain: Ongoing Location: Low back Intensity: Currently: 3 Usually: 3 Description of Pain: Aching Evaluation: Patient declines pain evaluation today. Patient Education Documentation: LEARNING NEEDS ASSESSMENT: Learning Preference: Hearing Barriers to Learning: No Barriers to Learning Social Influences Related to Educational Needs: No social barriers to learning RSV Immunization: Respiratory Syncytial Virus (RSV) Vaccine: Refused Seeq (Abrysvo, RSVpreF vaccine). Immunization: RSV, BIVALENT, PROTEIN SUBUNIT RSVPREF, DILUENT RECONSTITUTED, 0.5 ML, PF Refusal Reason: PATIENT DECISION Patient refuses all immunization(s) in the RSV group Date Documented: 10/08/24 09:35 Tdap Immunization: The patient declines to receive the recommended dose of Tdap vaccine. Immunization: TDAP Refusal Reason: PATIENT DECISION Patient refuses all immunization(s) in the TDAP group Date Documented: 10/08/24 09:35 /lester/ ATIYA OBANDO LICENSED PRACTICAL NURSE Signed: 10/08/2024 09:36 ATIYA OBANDO OC
--- OUTSIDE RECORDS SUMMARY | 2024-12-22 05:26 | XMS_ITS ---
Author Organization [facility] [place] Address [address] [place] [address] Care Team Providers Care Household Refrigerator Mechanic Name Role Phone Ernesto Rodger Primary Care Provider REASON FOR VISIT med refill Medications Medication SIG (Take, Route, Frequency, Duration) Notes Start Date End Date Status hydroCHLOROthiazide 12.5 MG 1 tablet Ora lly Once a day for 90 days Active Atorvastatin Calcium 10 MG 1 tablet Oral ly Once a day for 90 days Active amLODIPine Besylate 10 MG 1 tablet Orall y Once a day for 90 days Active Lisinopril 30 MG 1 tablet Orally Once a day for 90 days Active Flomax 0.4 MG 1 capsule Orally Onc e a day for 30 days 11/08/2022 Active Meloxicam 7.5 MG 1 tablet Orally Once a day for 90 days Active Encounters Encounter Location Date Provider Diagnosis [facility] [address] [place] [address] 12/22/2024 Rodger Orozco Hypertensive chronic kidney disease with stage 1 through stage 4 chronic kidney disease, or unspecified chronic kidney disease I12.9 ; Hyperlipidemia, unspecified hyperlipidemia type E78.5 and Benign prostatic hyperplasia with lower urinary tract symptoms N40.1 Assessments Encounter Date Diagnosis (ICD Code) Assessment Notes Treatment Notes Treatment Clinical Notes Section Notes 12/22/2024 Hypertensive chronic kidney disease with stage 1 through stage 4 chronic kidney disease, or unspecified chronic kidney disease (ICD-10 - I12.9) 12/22/2024 Hyperlipidemia, unspecified hyperlipidemia type (ICD-10 - E78.5) 12/22/2024 Benign prostatic hyperplasia with lower urinary tract symptoms (ICD-10 - N40.1) Plan Of Treatment Medication Medication Name Sig Start Date Stop Date Notes hydroCHLOROthiazide 12.5 MG 1 tablet Ora lly Once a day for 90 days Atorvastatin Calcium 10 MG 1 tablet Oral ly Once a day for 90 days amLODIPine Besylate 10 MG 1 tablet Orall y Once a day for 90 days Lisinopril 30 MG 1 tablet Orally Once a day for 90 days Flomax 0.4 MG 1 capsule Orally Onc e a day for 30 days 11/08/2022 Meloxicam 7.5 MG 1 tablet Orally Once a day for 90 days Next Appt Details Provider Name:Rodger baugh, 03/24/2025 09:00:00 AM, [address] [place] [address], [phone], Progress Notes * Bro STOVERDOB:1945 (79 yo M)Acc No.[id number]:12/22/2024 Patient: Bro ENGEL :1945 A ge:79 Y S ex:Male Address:[address] [place] [phone] * Refills Refill Meloxicam Tablet, 7.5 MG, Orally, 90 Tablet, 1 tablet, Once a day, 90 days, Refills=1 Refill Lisinopril Tablet, 30 MG, Orally, 90 Tablet, 1 tablet, Once a day, 90 days, Refills=1 Refill Atorvastatin Calcium Tablet, 10 MG, Orally, 90, 1 tablet, Once a day, 90 days, Refills=1 Refill amLODIPine Besylate Tablet, 10 MG, Orally, 90 Tablet, 1 tablet, Once a day, 90 days, Refills=1 Refill hydroCHLOROthiazide Tablet, 12.5 MG, Orally, 90 Tablet, 1 tablet, Once a day, 90 days, Refills=1 Refill Flomax Capsule, 0.4 MG, Orally, 30 tablet, 1 capsule, Once a day, 30 days, Refills=11 * true * Date: Generated for Luis baugh/Mi/Ryan on: 0 01/27/2025 07:24 AM EDT
--- OUTSIDE RECORDS SUMMARY | 2024-12-30 05:30 | XMS_ITS | Continuity of Care Document ---
Author Organization [facility] Address [address] [email or web address] [address] Phone Care Team Providers Care Cryptologist Name Role Phone Zhao Dumont Jr, MD Unavailable Unavailable Allergies, Adverse Reactions, Alerts Substance Reaction Status Criticality latex Hives / Skin Rash(moderate) Active No Information Medications Medication Instructions Dosage Effective Dates (start - stop) Status Comments Avastin 25 mg/mL intravenous solution Direct Patient Administration Only - Active Flomax 0.4 mg capsule take 1 capsule by oral route every day 1/2 hour following the same meal each day 0.4 MG - Active PreserVision AREDS-2 250 mg-90 mg-40 mg-1 mg capsule take 2 capsule by oral route every day 2 capsule - Active Refresh Plus 0.5 % eye drops in a dropperette instill 1 drop by ophthalmic route every 8 hours as needed 1 drop - Active Vitamin C ER 500 mg tablet,extended release take 1 tablet by oral route every day 1 tablet - Active multivitamin with minerals tablet take 1 tablet by oral route every day 1 tablet - Active VITAMIN B-12 (unknown strength) take 1 tablet by oral route every day Not Available - Active CO Q-10 (unknown strength) take 1 tablet by oral route every day Not Available - Active Aspirin Low Dose 81 mg tablet,delayed release take 1 tablet by oral route every day 81 MG - Active hydrochlorothiazide 12.5 mg tablet take 1 tablet by oral route every day 12.5 MG - Active lisinopril 30 mg tablet take 1 tablet by oral route every day 30 MG - Active Mobic 7.5 mg tablet take 1 tablet by oral route every day 7.5 MG - Active atorvastatin 10 mg tablet take 1 tablet by oral route every day 10 MG - Active amlodipine 10 mg tablet take 1 tablet by oral route every day 10 MG - Active Procedures Procedure Date Ophthal DX Image Post Retina I And R Uni Or Bi OFFICE/OUTPATIENT VISIT, EST, Low Ophthal DX Image Post Retina I And R Uni Or Bi OFFICE/OUTPATIENT VISIT, EST, Low Intravitreal Injection Of Phamacologic A gent Ophthal DX Image Post Retina I And R Uni Or Bi Injection Bevacizumab .25 MG Intraocular Avastin Intravitreal Injection Of Phamacologic A gent Ophthal DX Image Post Retina I And R Uni Or Bi Injection Bevacizumab .25 MG Intraocular Avastin OFFICE/OUTPATIENT VISIT, EST, Moderate J Intravitreal Injection Of Phamacologic A gent Ophthal DX Image Post Retina I And R Uni Or Bi Injection Bevacizumab .25 MG Intraocular Avastin Intravitreal Injection Of Phamacologic A gent Ophthal DX Image Post Retina I And R Uni Or Bi Injection Bevacizumab .25 MG Intraocular Avastin Intravitreal Injection Of Phamacologic A gent Ophthal DX Image Post Retina I And R Uni Or Bi Injection Bevacizumab .25 MG Intraocular Avastin Intravitreal Injection Of Phamacologic A gent Ophthal DX Image Post Retina I And R Uni Or Bi Injection Bevacizumab .25 MG Intraocular Avastin Intravitreal Injection Of Phamacologic A gent Ophthal DX Image Post Retina I And R Uni Or Bi Fluorescein Angiography With I And R Uni Or Bi Injection Bevacizumab .25 MG Intraocular Avastin OFFICE/OUTPATIENT VISIT, EST, Moderate S Ophthal DX Image Post Retina I And R Uni Or Bi Eye Exam Established Patient Comprehensi ve 1 Or More Visits Ophthal DX Image Post Retina I And R Uni Or Bi Eye Exam New Patient Comprehensive 1 Or More Visits Advance Directives Directive Yes / No Effective Date File Name No Information Encounters Encounter Description Practice Location Reason(s) For Visit Diagnoses Date Provider Providers Copied on Encounter OFFICE/OUTPA TIENT VISIT, EST, Low [facility], [address] [place], [address], [place] tel:[phone] RVA Juan Carlos macular degeneration (chief complaint) AMD WET W/INACTIVE NV OSNexdt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 degn, bilateral, early dry stage 5 Julia Churchill. [address] [place] [place], [place], [place], [id number] , [place]. [phone] Referring Provider: Zhao Everett, [address] [place], [place], [address] . tel:[phone] OFFICE/OUTPA TIENT VISIT, EST, Low [facility], [address] [place], [place], [facility], [place] tel:[phone] RVA Juan Carlos AMD (chief complaint) Exdtve age-rel mclr degn, left eye, with actv chrdl neovasNexdt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 degn, bilateral, early dry stage 5 Julia Churchill. [address] [place], [place], [place], [id number] , [place]. [phone] Specialist : Marshal Wells, [facility] [address] [place], [address]. tel:[phone] erring Provider: Zhao Everett, [address], [place], [address] . tel:[phone] [facility], [address] [place], [address], [place] [phone] [facility] [place] No Information 5 Julia Churchill. [address] [place], [place], [place], [id number] , [place]. tel:[phone] [facility], [address] [place], [address], [place] tel: [phone] [facility] [place] macular degeneration followup (chief complaint) Exdtve age-rel mclr degn, left eye, with actv chrdl neovasNexdt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 degn, bilateral, early dry stage Oct-0 4 Julia Churchill. [address] [place], [place], [place], [id number] , [place]. tel:[phone] Referring Provider: Zhao Everett, [address] [place], [place], [address] . tel:[phone] OFFICE/OUTPA TIENT VISIT, EST, Moderate [facility], [address] [place], [address], [place] tel:[phone] [facility] [place] AMD (chief complaint) Exdtve age-rel mclr degn, left eye, with actv chrdl neovasNexdt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 degn, bilateral, early dry stage Jeremias-2 4 Julia Churchill. [address] [place], [place], [place], [id number] , [place]. tel:[phone] Referring Provider: Zhao Everett, [address] [place], [place], [address] . tel:[phone] [facility], [address] [place], [address], [place] [phone] RVA Juan Carlos macular degeneration followup/IO (chief complaint) Exdtve age-rel mclr degn, left eye, with actv chrdl neovas Mar-2 4 Julia Churchill. [address] [place], [place], [place], [id number] , [place]. tel:[phone] Referring Provider: Zhao Everett, [address] [place], [place], [address] . tel:[phone] [facility], [address] [place], [address], [place] tel:[phone] [facility] [place] macular degeneration followup (chief complaint) Exdtve age-rel mclr degn, left eye, with actv chrdl neovasNexdt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 degn, bilateral, early dry stage 4 Julia Churchill. [address] [place], [place], [place], [id number] , [place]. tel:[phone] Referring Provider: Zhao Everett, [address] [place], [place], [address] . tel:[phone] [facility], [address] [place], [place], [facility], [place] tel:[phone] [facility] [place] macular degeneration followup/IO (chief complaint) Exdtve age-rel mclr degn, left eye, with actv chrdl neovas Nov- 3 Julia Churchill. [address], [address], [place], [place], [id number] , [place]. tel:[phone] Referring Provider: Zhao Everett, [address] [place], [place], [address] . tel:[phone] [facility], [address] [place], [address], [place] tel:[phone] RVA Juan Carlos AMD (chief complaint) Exdtve age-rel mclr degn, left eye, with actv chrdl neovas Oct-0 3 Julia Churchill. [address] [place], [place], [place], [address] , [place]. tel:[phone] Referring Provider: Zhao Everett, [address], [place], [address] . tel:[phone] OFFICE/OUTPA TIENT VISIT, EST, Moderate [facility], [address] [place], [address], [place] tel:[phone] RVA Juan Carlos AMD (chief complaint) Exdtve age-rel mclr degn, left eye, with actv chrdl neovasNexdt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 degn, bilateral, early dry stage Sep-0 3 Julia Churchill. [address] [place], [place], [place], [id number] , [place]. tel:[phone] Specialist : Marshal Wells, [facility] [address] [place], [address]. tel:[phone] erring Provider: Zhao Everett, [address], [place], [address] . tel:[phone] [facility], [address] [place], [address], [place] tel:[phone] RVA Juan Carlos macular degeneration followup (chief complaint) Nexdt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 degn, bilateral, early dry stagePeripheral retinal neovascularization of left eye Apr-2 2 Julia Churchill. [address] [place], [place], [place], [id number] , [place]. tel:[phone] Referring Provider: Marshal Wells, [facility] [address], [address]. tel:[phone] [facility], [address] [place], [address], [place] tel:[phone] [facility] [place] retinal scar tissue (chief complaint)sta ble vision (chief complaint) Nexdt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 degn, bilateral, early dry stagePresence of intraocular lensPeripheral retinal neovascularization of left eye Oct-2 1 Julia Churchill. [address], [place], [place], [id number] , [place]. tel:[phone] Referring Provider: Marshal Wells, [facility] [address], [place], [address]. tel:[phone] [facility], [address] [facility], [place], [address], [place] tel:[phone] RVA Juan Carlos No Information Julia Churchill. [address], [address], [place], [place], [id number] , [place]. tel:[phone] Family History Family Member Type Diagnosis Age At Onset No Information Payers Payer name Insurance type Covered constitution party ID Miguel eganwendy(s) Anthem Medicare BL [id number] Social History Type Description Quantity Date Captured Comments Alcohol Use Details Unknown Caffeine Use Details Unknown Tobacco Use Status Ex-cigarette smoker 025 Smoking Status Former smoker Smoking Tobacco Use Details Cigarette: Age Started: 15, Age Stopped: 29, Years Used 13 Cigarette: 0.5 Packs per day, Pack Year: 7 Sex Male Vital Signs Date / Time: Height Weight BMI Pulse Rate Blood Pressure Temperature Respiratory Rate Body Surface Area Head Circumference Head Circ. Percentile Wt./Aleks. Percentile BMI percentile Pulse Ox Inhaled Ox 9:44 AM 83 /min 146/73 mm[Hg] Chief Complaint And Reason For Visit From encounter dated '12/30/2024 09:30'. macular degeneration (chief complaint). Description: The 79 year old patient presents for evaluation of macular degeneration in the right and left eyes. The patient denies new vision change in eithereye since his last exam about 10wks ago. The patient continues to have difficulty adjusting from light to dark. Reason For Referral Reason For Referral No Information Plan Of Treatment Date Type Action Status Goal Tobacco cessation counseling completed Goal Tobacco cessation counseling completed Goal Tobacco cessation counseling completed Goal Tobacco cessation counseling completed Goal Tobacco cessation counseling completed Goal Tobacco cessation counseling completed Goal Tobacco cessation counseling completed Appointment Bro Stover / 5 Mos Fu Oc t BOOKED History Of Present Illness Encounter Date Complaint History Of Prese nt Illness macular degeneration The 79 year old patient presents for evaluation of macular degeneration in the right and left eyes. The patient denies new vision change in either eye since his last exam about 10wks ago. The patient continues to have difficulty adjusting from light to dark. AMD The 79 year old male presents for evaluation of AMD in the right eye and left eye. Patient states vision has been stable since last visit. Patient states he still has squiggly lines in vision which is more prominent in brighter light. macular degeneration followup Th e 78 year old patient presents for evaluation of macular degeneration followup in the right and left eyes. C/O fluctuating vision OS x 4 months. AMD The 78 year old male presents for evaluation of AMD in the right eye and left eye. Patient reports stable vision since last visit 3 months ago. macular degeneration followup/IO The 78 year old patient presents for evaluation of macular degeneration followup/IO in the left eye. macular degeneration followup Th e 78 year old patient presents for evaluation of macular degeneration followup in the right and left eyes. The patient denies new vision change in either eye since his lst exam about 8 weeks ago. He describes continued poor central VA OS. macular degeneration followup/IO The 77 year old patient presents for evaluation of macular degeneration followup/IO in the left eye. AMD The 77 year old male presents for treatment of AMD in the left eye. AMD The 77 year old male presents for evaluation of AMD in the right eye and left eye. Patient reports decline in vision OS x 5-6 weeks. has a blur spot in central vision. Patient reports intermittent 'specs' in vision most visible in bright light. macular degeneration followup Th e 76 year old male presents for evaluation of macular degeneration followup in the right and left eyes. No noted change in vision OU x 6 months. C/O burning feeling OU x 3 months intermittently. 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 Masrhal Wells. stable vision The patient repo rts stable vision in the right and left eyes. It occurs constantly. It affects both near and distance vision. Associated symptoms include: floaters off and on. patient states that he went in for his regular eye exam and was referred to Dr. Dumont. Patient has history of cataract surgery OU by Dr. Kennedy. Functional Status Date Functional Assessmen t No Information Instructions Date Instruction Additional Infor mation 5mth fu oct ou Related to AMD W ET W/INACTIVE NV OS Impression/Plan Related to Prese nce of intraocular lens Impression/Plan Related to Nexdt 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 degn, bilateral, early dry stage Impression/Plan Related to AMD W ET W/INACTIVE NV OS Impression/Plan Related to Prese nce of intraocular lens Impression/Plan Related to Nexdt 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 degn, bilateral, early dry stage Impression/Plan Related to Exdtv e age-rel mclr degn, left eye, with actv chrdl neovas 4 months FU/OCT/poss AVN OS-january Related to Exdtve age-rel mclr degn, left eye, with actv chrdl neovas Impression/Plan Related to Nexdt 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 degn, bilateral, early dry stage Impression/Plan Related to Exdtv e age-rel mclr degn, left eye, with actv chrdl neovas Impression/Plan Related to Prese nce of intraocular lens Impression/Plan Related to Nexdt 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 degn, bilateral, early dry stage Impression/Plan Related to Exdtv e age-rel mclr degn, left eye, with actv chrdl neovas 10wk IO AVN OS OCT Related to Ex dtve age-rel mclr degn, left eye, with actv chrdl neovas Impression/Plan Related to Nexdt 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 degn, bilateral, early dry stage Impression/Plan Related to Exdtv e age-rel mclr degn, left eye, with actv chrdl neovas - Return in 4 weeks IO/OCT/AVN O S Impression/Plan Related to Nexdt 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 degn, bilateral, early dry stage Impression/Plan Related to Exdtv e age-rel mclr degn, left eye, with actv chrdl neovas Impression/Plan Related to Prese nce of intraocular lens Impression/Plan Related to 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 Left. Bilateral Patient Care Teams Name Effective Dates (start - stop) Status Members No Information
--- OUTSIDE RECORDS SUMMARY | 2025-01-13 17:42 | XMS_ITS | Continuity of Care Document ---
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 It does not include entries that were removed or entered in error. Problem Status Onset Date Problem Type Date of Resolution Comments Source Essential hypertension Active Condition [facility] Ex-tobacco user Active Condition [facility] Heart murmur, undetermined whether functional or organic Active Condition [facility] History of cardiac arrhythmia Active Condition [facility] History of macular degeneration Active Condition [facility] Hyperlipidemia Active [facility] Lower urinary tract symptoms due to benign prostatic hypertrophy Active Condition [facility] Diagnosis: ICD-10-CM I10 Essential (primary) hypertension Active Diagnosis [facility] Diagnosis: ICD-10-CM F43.23 Adjustment disorder with mixed anxiety and depressed mood Active Diagnosis [facility] Medications Combined list of outpatient medications from Department [facility] and [facility] facilities.Medications provided include 1) outpatient medications from the last 15 months, and 2) patient-reported medications. Medication Details Route Status Patient Instructions Prescription Expires Prescription Number Last Dispense Date Ordering Provider Order Date Order Qty Source AMLODIPINE BESYLATE 10MG TAB TAKE ONE TABLET BY MOUTH EVERY DAY ORAL ACTIVE SAJAN HDEZ 2024 [facility] ASPIRIN 81MG TAB,EC TAKE ONE TABLET BY MOUTH EVERY DAY ORAL ACTIVE SAJAN HDEZ 2024 [facility] ATORVASTATI N CA 10MG TAB TAKE ONE TABLET BY MOUTH EVERY DAY ORAL ACTIVE SAJAN HDEZ 2024 [facility] CETIRIZINE HCL 10MG TAB TAKE ONE TABLET BY MOUTH EVERY DAY ORAL ACTIVE SAJAN HDEZ 2024 [facility] CHOLECALCIF KENZIE CAP,ORAL TAKE BY MOUTH EVERY 4 WEEKS ORAL ACTIVE SAJAN HDEZ 2024 [facility] COENZYME Q10 CAP/TAB TAKE 1 CAPSULE (300MG) BY MOUTH EVERY DAY ORAL ACTIVE SAJAN HDEZ 2024 [facility] CYANOCOBALA MIN 500MCG TAB TAKE ONE TABLET BY MOUTH EVERY DAY ORAL ACTIVE LEMUEL,SAJAN 2024 [facility] HYDROCHLORO THIAZIDE 12.5MG CAP TAKE 1 CAPSULE BY MOUTH EVERY DAY ORAL ACTIVE ,SAJAN 2024 [facility] LISINOPRIL 30MG TAB TAKE ONE TABLET BY MOUTH EVERY DAY ORAL ACTIVE ,SAJAN 2024 [facility] LUTEIN SUPPLEMENTS CAP/TAB TAKE BY MOUTH TWICE A DAY ORAL ACTIVE ,SAJAN 2024 [facility] MELOXICAM 7.5MG TAB TAKE ONE TABLET BY MOUTH EVERY DAY ORAL ACTIVE ,SAJAN 2024 [facility] MULTIVITAMI NS W/MINERALS TAB TAKE ONE TABLET BY MOUTH EVERY DAY ORAL ACTIVE ,SAJAN 2024 [facility] PRESERVISIO N AREDS2 CAP/TAB TAKE BY MOUTH TWICE A DAY ORAL ACTIVE ,SAJAN 2024 [facility] TAMSULOSIN HCL 0.4MG CAP TAKE 1 CAPSULE BY MOUTH AT BEDTIME ORAL ACTIVE ,SAJAN 2024 [facility] VITAMIN E CAP,ORAL TAKE 200MG BY MOUTH EVERY DAY ORAL ACTIVE ,SAJAN 2024 [facility] Allergies, Adverse Reactions, Alerts Combined list of allergies from [facility] facilities. It does not include entries that were removed or entered in error. Substance Category Reaction Severity Reaction type Status Date Reported Comments Source SEASONAL ALLERGIES Propensity to adverse reaction (finding) Watery eye SEVERE active 4 [facility] Immunizations Combined list of available immunizations from the Department of Defense and Veterans Affairs facilities. Immunization Series Date Given Administered By Site Reaction Lot Number CVX Code Drug Grounds Restoration Specialist Status Comments Source ZOSTER RECOMBINANT 2 2022 187 complet ed HISTORICA L INFORMATI ON - FROM OTHER REGISTRY, [facility] INFLUENZA, HIGH-DOSE, QUADRIVALENT, PF 6 2022 197 complet ed HISTORICA L INFORMATI ON - FROM OTHER REGISTRY, [facility] ZOSTER RECOMBINANT 1 2022 187 complet ed HISTORICA L INFORMATI ON - FROM OTHER REGISTRY, [facility] PNEUMOCOCCAL CONJUGATE PCV20, POLYSACCHARID E [id number] CONJUGATE, ADJUVANT, PF 3 2022 216 complet ed HISTORICA L INFORMATI ON - FROM OTHER REGISTRY, [facility] INFLUENZA, RECOMBINANT, QUADRIVALENT, PF 5 2021 185 complet ed HISTORICA L INFORMATI ON - FROM OTHER REGISTRY, [facility] INFLUENZA, HIGH-DOSE, QUADRIVALENT, PF 4 2020 197 complet ed HISTORICA L INFORMATI ON - FROM OTHER REGISTRY, [facility] INFLUENZA, SPLIT VIRUS, QUADRIVALENT, PRESERVATIVE 3 2019 158 complet ed HISTORICA L INFORMATI ON - FROM OTHER REGISTRY, [facility] INFLUENZA, SPLIT VIRUS, QUADRIVALENT, PRESERVATIVE 2 2018 158 complet ed HISTORICA L INFORMATI ON - FROM OTHER REGISTRY, [facility] INFLUENZA, SPLIT VIRUS, QUADRIVALENT, PRESERVATIVE 1 2017 158 complet ed HISTORICA L INFORMATI ON - FROM OTHER REGISTRY, [facility] PNEUMOCOCCAL CONJUGATE PCV 13 2 2014 133 complet ed HISTORICA L INFORMATI ON - FROM OTHER REGISTRY, [facility] PNEUMOCOCCAL POLYSACCHARID E PPV23 1 2009 33 complet ed HISTORICA L INFORMATI ON - FROM OTHER REGISTRY, [facility] Results Combined list of recent chemistry, hematology and other laboratory results from [facility] Defense and [facility], ranging from 15 months to all on record, depending upon the facility. Order Name Results Value Reference Range Date Interpretation Specimen Comments Source COMPREHE NSIVE METABOLI C PANEL ALBUMIN [MASS/VOLU ME] IN SERUM OR PLASMA 4.0 g/dL 3.5 - 4.8 10/01 Specimen Type: PLASMA Comment: DLDLREF RANGE: NEAR [...] risk factor for heart disease. Ordering Provider: ROLLY ACE R Report Released Date/Time: Apr 07, 2024 10:34 AM Reporting Lab: [place] [phone] Performing Lab: [place] [phone] [facility] COMPREHE NSIVE METABOLI C PANEL ALKALINE PHOSPHATAS E [ENZYMATIC ACTIVITY/V OLUME] IN SERUM OR PLASMA 392 U/L 40 - 150 10/01 H Specimen Type: PLASMA Comment: DLDLREF RANGE: NEAR [...] risk factor for heart disease. Ordering Provider: ROLLY ACE R Report Released Date/Time: Apr 07, 2024 10:34 AM Reporting Lab: [address] [address] Performing Lab: [address] [address] [facility] COMPREHE NSIVE METABOLI C PANEL ALANINE AMINOTRANS FERASE [ENZYMATIC ACTIVITY/V OLUME] IN SERUM OR PLASMA 73 U/L <55 - 55 10/01 H Specimen Type: PLASMA Comment: DLDLREF RANGE: NEAR [...] risk factor for heart disease. Ordering Provider: ROLLY ACE Report Released Date/Time: Apr 07, 2024 10:34 AM Reporting Lab: [address] [address] Performing Lab: [address] [address] [facility] COMPREHE NSIVE METABOLI C PANEL ASPARTATE AMINOTRANS FERASE [ENZYMATIC ACTIVITY/V OLUME] IN SERUM OR PLASMA 53 U/L 10 - 40 10/01 H Specimen Type: PLASMA Comment: DLDLREF RANGE: NEAR [...] risk factor for heart disease. Ordering Provider: ROLLY ACE Report Released Date/Time: Apr 07, 2024 10:34 AM Reporting Lab: [address] [address] Performing Lab: [address] [address] [facility] COMPREHE NSIVE METABOLI C PANEL UREA NITROGEN [MASS/VOLU ME] IN SERUM OR PLASMA 29.0 mg/dL 8.4 - 25.7 10/01 H Specimen Type: PLASMA Comment: DLDLREF RANGE: NEAR [...] risk factor for heart disease. Ordering Provider: ROLLY ACE Report Released Date/Time: Apr 07, 2024 10:34 AM Reporting Lab: [address] [address] Performing Lab: [address] [address] [facility] COMPREHE NSIVE METABOLI C PANEL CALCIUM [MASS/VOLU ME] IN SERUM OR PLASMA 9.2 mg/dL 8.6 - 10.3 10/01 Specimen Type: PLASMA Comment: DLDLREF RANGE: NEAR [...] risk factor for heart disease. Ordering Provider: ROLLY ACE R Report Released Date/Time: Apr 07, 2024 10:34 AM Reporting Lab: [address] [address] Performing Lab: [place] [phone] [place] [address] [employer] [place] ProjectE NSIVE METABOLI C PANEL CREATININE [MASS/VOLU ME] IN SERUM OR PLASMA 1.0 mg/dL 0.7 - 1.3 10/01 Specimen Type: PLASMA Comment: DLDLREF RANGE: NEAR [...] risk factor for heart disease. Ordering Provider: ROLLY ACE R Report Released Date/Time: Apr 07, 2024 10:34 AM Reporting Lab: [address] [address] Performing Lab: [place] [id number] [place] [address] COMPREHE NSIVE METABOLI C PANEL CARBON DIOXIDE, TOTAL [MOLES/VOL UME] IN SERUM OR PLASMA 27 mmol/L 22 - 30 10/01 Specimen Type: PLASMA Comment: DLDLREF RANGE: NEAR [...] risk factor for heart disease. Ordering Provider: ROLLY ACE Report Released Date/Time: Apr 07, 2024 10:34 AM Reporting Lab: [address] [address] Performing Lab: [address] [address] [facility] COMPREHE NSIVE METABOLI C PANEL GLUCOSE [MASS/VOLU ME] IN SERUM OR PLASMA 108 mg/dL 74 - 99 10/01 H Specimen Type: PLASMA Comment: DLDLREF RANGE: NEAR [...] risk factor for heart disease. Ordering Provider: ROLLY ACE Report Released Date/Time: Apr 07, 2024 10:34 AM Reporting Lab: [address] [address] Performing Lab: [place] [phone] [facility] COMPREHE NSIVE METABOLI C PANEL PROTEIN [MASS/VOLU ME] IN SERUM OR PLASMA 7.6 g/dL 6.4 - 8.3 10/01 Specimen Type: PLASMA Comment: DLDLREF RANGE: NEAR [...] risk factor for heart disease. Ordering Provider: ROLLY ACE Report Released Date/Time: Apr 07, 2024 10:34 AM Reporting Lab: [address] [address] Performing Lab: [address] [address] [facility] COMPREHE NSIVE METABOLI C PANEL SODIUM [MOLES/VOL UME] IN SERUM OR PLASMA 142 mmol/L 134 - 144 10/01 Specimen Type: PLASMA Comment: DLDLREF RANGE: NEAR [...] risk factor for heart disease. Ordering Provider: ROLLY ACE Report Released Date/Time: Apr 07, 2024 10:34 AM Reporting Lab: [place] [phone] Performing Lab: [place] [phone] [facility] COMPREHE NSIVE METABOLI C PANEL CHLORIDE [MOLES/VOL UME] IN SERUM OR PLASMA 107 mmol/L 99 - 112 10/01 Specimen Type: PLASMA Comment: DLDLREF RANGE: NEAR [...] risk factor for heart disease. Ordering Provider: ROLLY ACE Report Released Date/Time: Apr 07, 2024 10:34 AM Reporting Lab: [place] [phone] Performing Lab: [address] [address] [facility] COMPREHE NSIVE METABOLI C PANEL BILIRUBIN. TOTAL [MASS/VOLU ME] IN SERUM OR PLASMA 0.7 mg/dL 0.2 - 1.2 10/01 Specimen Type: PLASMA Comment: DLDLREF RANGE: NEAR [...] risk factor for heart disease. Ordering Provider: ROLLY ACE Report Released Date/Time: Apr 07, 2024 10:34 AM Reporting Lab: [address] [address] Performing Lab: [address] [address] [facility] COMPREHE NSIVE METABOLI C PANEL POTASSIUM [MOLES/VOL UME] IN SERUM OR PLASMA 4.4 mmol/L 3.5 - 5.1 10/01 Specimen Type: PLASMA Comment: DLDLREF RANGE: NEAR [...] risk factor for heart disease. Ordering Provider: ROLLY ACE R Report Released Date/Time: Apr 07, 2024 10:34 AM Reporting Lab: [address] [address] Performing Lab: [address] [address] [facility] COMPREHE NSIVE METABOLI C PANEL ANION GAP IN SERUM OR PLASMA 12 mmol/L 10/01 Specimen Type: PLASMA Comment: DLDLREF RANGE: NEAR [...] risk factor for heart disease. Ordering Provider: ROLLY ACE Report Released Date/Time: Apr 07, 2024 10:34 AM Reporting Lab: [address] [address] Performing Lab: [address] [address] [facility] COMPREHE NSIVE METABOLI C PANEL GLOMERULAR FILTRATION RATE/1.73 SQ M.PREDICTE D [VOLUME RATE/AREA] IN SERUM, PLASMA OR BLOOD BY CREATININE -BASED FORMULA (CKD-EPI 2020) 76.0 mL/min 10/01 Specimen Type: PLASMA Comment: DLDLREF RANGE: NEAR [...] risk factor for heart disease. Ordering Provider: ROLLY ACE Report Released Date/Time: Apr 07, 2024 10:34 AM Reporting Lab: [address] [address] Performing Lab: [address] [address] [facility] LIPID PROFILE CHOLESTERO L [MASS/VOLU ME] IN SERUM OR PLASMA 189 mg/dL <199 - 199 10/01 Specimen Type: PLASMA Comment: DLDLREF RANGE: NEAR [...] risk factor for heart disease. Ordering Provider: ROLLY ACE R Report Released Date/Time: Apr 07, 2024 10:34 AM Reporting Lab: [address] [address] Performing Lab: [address] [address] [facility] LIPID PROFILE CHOLESTERO L IN LDL [MASS/VOLU ME] IN SERUM OR PLASMA BY DIRECT ASSAY 136 mg/dL 0 - 99 10/01 H Specimen Type: PLASMA Comment: DLDLREF RANGE: NEAR [...] risk factor for heart disease. Ordering Provider: ROLLY ACE R Report Released Date/Time: Apr 07, 2024 10:34 AM Reporting Lab: [address] [address] Performing Lab: [address] [address] [facility] LIPID PROFILE CHOLESTERO L IN HDL [MASS/VOLU ME] IN SERUM OR PLASMA 47 mg/dL 40 10/01 Specimen Type: PLASMA Comment: DLDLREF RANGE: NEAR [...] risk factor for heart disease. Ordering Provider: ROLLY ACE Report Released Date/Time: Apr 07, 2024 10:34 AM Reporting Lab: [address] [address] Performing Lab: [address] [address] [facility] LIPID PROFILE TRIGLYCERI DE [MASS/VOLU ME] IN SERUM OR PLASMA 154 mg/dL <149 - 149 10/01 H Specimen Type: PLASMA Comment: DLDLREF RANGE: NEAR [...] risk factor for heart disease. Ordering Provider: ROLLY ACE Report Released Date/Time: Apr 07, 2024 10:34 AM Reporting Lab: [address] [address] Performing Lab: [address] [address] [facility] CBC LEUKOCYTES [#/VOLUME] IN BLOOD BY AUTOMATED COUNT 10.4 10*3/uL 3.6 - 11.0 10/01 Specimen Type: BLOOD No comment entered. Ordering Provider: ROLLY ACE Report Released Date/Time: Apr 07, 2024 10:34 AM Reporting Lab: [address] [address] Performing Lab: [place] [phone] [place] [address] CBC ERYTHROCYT ES [#/VOLUME] IN BLOOD BY AUTOMATED COUNT 4.42 10*6/uL 4.47 - 5.83 10/01 L Specimen Type: BLOOD No comment entered. Ordering Provider: ROLLY ACE R Report Released Date/Time: Apr 07, 2024 10:34 AM Reporting Lab: [place] [phone] Performing Lab: [place] [phone] CBC HEMOGLOBIN [MASS/VOLU ME] IN BLOOD 14.2 g/dL 13.6 - 17.4 10/01 Specimen Type: BLOOD No comment entered. Ordering Provider: ROLLY ACE Report Released Date/Time: Apr 07, 2024 10:34 AM Reporting Lab: [place] [phone] Performing Lab: [place] [phone] CBC HEMATOCRIT [VOLUME FRACTION] OF BLOOD BY AUTOMATED COUNT 42.7 40.0 - 51.0 10/01 Specimen Type: BLOOD No comment entered. Ordering Provider: ROLLY ACE Report Released Date/Time: Apr 07, 2024 10:34 AM Reporting Lab: [address] [address] Performing Lab: [place] [phone] [facility] CBC MCV [ENTITIC VOLUME] BY AUTOMATED COUNT 96.7 fL 80.0 - 96.0 10/01 H Specimen Type: BLOOD No comment entered. Ordering Provider: ROLLY ACE R Report Released Date/Time: Apr 07, 2024 10:34 AM Reporting Lab: [address] [address] Performing Lab: [place] [phone] [facility] CBC MCH [ENTITIC MASS] BY AUTOMATED COUNT 32.2 pg 27.0 - 31.0 10/01 H Specimen Type: BLOOD No comment entered. Ordering Provider: ROLLY ACE Report Released Date/Time: Apr 07, 2024 10:34 AM Reporting Lab: [place] [phone] Performing Lab: [place] [phone] [place] [address] CBC MCHC [MASS/VOLU ME] BY AUTOMATED COUNT 33.3 g/dL 31.5 - 36.5 10/01 Specimen Type: BLOOD No comment entered. Ordering Provider: ROLLY ACE Report Released Date/Time: Apr 07, 2024 10:34 AM Reporting Lab: [place] [phone] Performing Lab: [place] [phone] CBC PLATELETS [#/VOLUME] IN BLOOD BY AUTOMATED COUNT 383 10*3/uL 150 - 400 10/01 Specimen Type: BLOOD No comment entered. Ordering Provider: ROLLY ACE Report Released Date/Time: Apr 07, 2024 10:34 AM Reporting Lab: [place] [phone] Performing Lab: [place] [phone] [place] [address] CBC LYMPHOCYTE S/100 LEUKOCYTES IN BLOOD BY AUTOMATED COUNT 34.5 21.0 - 51.0 10/01 Specimen Type: BLOOD No comment entered. Ordering Provider: ROLLY ACE Report Released Date/Time: Apr 07, 2024 10:34 AM Reporting Lab: [place] [phone] Performing Lab: [place] [phone] CBC MONOCYTES/ 100 LEUKOCYTES IN BLOOD BY AUTOMATED COUNT 8.6 4.0 - 8.0 10/01 H Specimen Type: BLOOD No comment entered. Ordering Provider: ROLLY ACE R Report Released Date/Time: Apr 07, 2024 10:34 AM Reporting Lab: [address] [address] Performing Lab: [address] [address] [facility] CBC NUCLEATED ERYTHROCYT ES/100 LEUKOCYTES [RATIO] IN BLOOD BY MANUAL COUNT 0.0 /100{WBC s} 10/01 Specimen Type: BLOOD No comment entered. Ordering Provider: ROLLY ACE Report Released Date/Time: Apr 07, 2024 10:34 AM Reporting Lab: [address] [address] Performing Lab: [address] [address] [facility] CBC ERYTHROCYT E DISTRIBUTI ON WIDTH [RATIO] BY AUTOMATED COUNT 15.5 11.2 - 15.8 10/01 Specimen Type: BLOOD No comment entered. Ordering Provider: ROLLY ACE Report Released Date/Time: Apr 07, 2024 10:34 AM Reporting Lab: [address] [address] Performing Lab: [address] [address] [facility] CBC NEUTROPHIL S/100 LEUKOCYTES IN BLOOD BY AUTOMATED COUNT 55.1 54.0 - 78.0 10/01 Specimen Type: BLOOD No comment entered. Ordering Provider: ROLLY ACE Report Released Date/Time: Apr 07, 2024 10:34 AM Reporting Lab: [address] [address] Performing Lab: [place] [phone] [facility] CBC EOSINOPHIL S/100 LEUKOCYTES IN BLOOD BY AUTOMATED COUNT 1.4 0.0 - 3.0 10/01 Specimen Type: BLOOD No comment entered. Ordering Provider: ROLLY ACE Report Released Date/Time: Apr 07, 2024 10:34 AM Reporting Lab: [address] [address] Performing Lab: [address] [address] [facility] CBC BASOPHILS/ 100 LEUKOCYTES IN BLOOD BY AUTOMATED COUNT 0.4 0.0 - 3.0 10/01 Specimen Type: BLOOD No comment entered. Ordering Provider: ROLLY ACE R Report Released Date/Time: Apr 07, 2024 10:34 AM Reporting Lab: [address] [address] Performing Lab: [place] [phone] [facility] CBC LYMPHOCYTE S [#/VOLUME] IN BLOOD BY AUTOMATED COUNT 3.6 10*3/uL 0.8 - 5.0 10/01 Specimen Type: BLOOD No comment entered. Ordering Provider: ROLLY ACE R Report Released Date/Time: Apr 07, 2024 10:34 AM Reporting Lab: [place] [phone] Performing Lab: [place] [phone] [place] [address] CBC NEUTROPHIL S [#/VOLUME] IN BLOOD 5.7 10*3/uL 1.9 - 8.6 10/01 Specimen Type: BLOOD No comment entered. Ordering Provider: ROLLY ACE R Report Released Date/Time: Apr 07, 2024 10:34 AM Reporting Lab: [place] [phone] Performing Lab: [place] [phone] [facility] CBC BASOPHILS [#/VOLUME] IN BLOOD BY AUTOMATED COUNT 0.0 10*3/uL 0.0 - 0.3 10/01 Specimen Type: BLOOD No comment entered. Ordering Provider: ROLLY ACE R Report Released Date/Time: Apr 07, 2024 10:34 AM Reporting Lab: [address] [address] Performing Lab: [place] [phone] [facility] CBC MONOCYTES [#/VOLUME] IN BLOOD BY AUTOMATED COUNT 0.9 10*3/uL 0.1 - 0.9 10/01 Specimen Type: BLOOD No comment entered. Ordering Provider: ROLLY ACE R Report Released Date/Time: Apr 07, 2024 10:34 AM Reporting Lab: [address] [address] Performing Lab: [place] [phone] [facility] CBC EOSINOPHIL S [#/VOLUME] IN BLOOD BY AUTOMATED COUNT 0.1 10*3/uL 0.0 - 0.3 10/01 Specimen Type: BLOOD No comment entered. Ordering Provider: ROLLY ACE Report Released Date/Time: Apr 07, 2024 10:34 AM Reporting Lab: [place] [phone] Performing Lab: [place] [phone] [place] [address] CBC PLATELET MEAN VOLUME [ENTITIC VOLUME] IN BLOOD BY AUTOMATED COUNT 7.7 fL 7.4 - 11.4 10/01 Specimen Type: BLOOD No comment entered. Ordering Provider: ROLLY ACE Report Released Date/Time: Apr 07, 2024 10:34 AM Reporting Lab: [place] [phone] Performing Lab: [place] [phone] MAGNESIU M MAGNESIUM [MASS/VOLU ME] IN SERUM OR PLASMA 2.3 mg/dL 1.6 - 2.6 10/01 Specimen Type: PLASMA Comment: DLDLREF RANGE: NEAR [...] risk factor for heart disease. Ordering Provider: ROLLY ACE Report Released Date/Time: Apr 07, 2024 10:34 AM Reporting Lab: [address] [place] [address] Performing Lab: [address] [address] [facility] COMPREHE NSIVE METABOLI C PANEL ALBUMIN [MASS/VOLU ME] IN SERUM OR PLASMA 4.5 g/dL 3.2 - 4.6 04/07 Specimen Type: PLASMA Comment: LDL REF RANGE: OPTIMAL: <100 mg/dL BORDERLINE HIGH: 130-159 mg/dL LDL HIGH: 160-189 mg/dL VERY HIGH: >=190 TRIG REF RANGE: NORMAL <150 mg/dL BORDERLINE HIGH: 150-199 mg/dL TRIG HIGH: 200-499 mg/dL VERY HIGH: >=500 mg/dL Ordering Provider: ROLLY ACE Report Released Date/Time: Apr 07, 2024 10:25 AM Reporting Lab: [address] [address] Performing Lab: [address] [address] [facility] COMPREHE NSIVE METABOLI C PANEL ALKALINE PHOSPHATAS E [ENZYMATIC ACTIVITY/V OLUME] IN SERUM OR PLASMA 177 U/L 46 - 116 04/07 H Specimen Type: PLASMA Comment: LDL REF RANGE: OPTIMAL: <100 mg/dL BORDERLINE HIGH: 130-159 mg/dL LDL HIGH: 160-189 mg/dL VERY HIGH: >=190 TRIG REF RANGE: NORMAL <150 mg/dL BORDERLINE HIGH: 150-199 mg/dL TRIG HIGH: 200-499 mg/dL VERY HIGH: >=500 mg/dL Ordering Provider: ROLLY ACE Report Released Date/Time: Apr 07, 2024 10:25 AM Reporting Lab: [address] [address] Performing Lab: [address] [address] [facility] COMPREHE NSIVE METABOLI C PANEL ALANINE AMINOTRANS FERASE [ENZYMATIC ACTIVITY/V OLUME] IN SERUM OR PLASMA 24 U/L 0 - 55 04/07 Specimen Type: PLASMA Comment: LDL REF RANGE: OPTIMAL: <100 mg/dL BORDERLINE HIGH: 130-159 mg/dL LDL HIGH: 160-189 mg/dL VERY HIGH: >=190 TRIG REF RANGE: NORMAL <150 mg/dL BORDERLINE HIGH: 150-199 mg/dL TRIG HIGH: 200-499 mg/dL VERY HIGH: >=500 mg/dL Ordering Provider: ROLLY ACE R Report Released Date/Time: Apr 07, 2024 10:25 AM Reporting Lab: [place] [phone] Performing Lab: [place] [phone] [place] [address] COMPREHE NSIVE METABOLI C PANEL ASPARTATE AMINOTRANS FERASE [ENZYMATIC ACTIVITY/V OLUME] IN SERUM OR PLASMA 28 U/L 5 - 34 04/07 Specimen Type: PLASMA Comment: LDL REF RANGE: OPTIMAL: <100 mg/dL BORDERLINE HIGH: 130-159 mg/dL LDL HIGH: 160-189 mg/dL VERY HIGH: >=190 TRIG REF RANGE: NORMAL <150 mg/dL BORDERLINE HIGH: 150-199 mg/dL TRIG HIGH: 200-499 mg/dL VERY HIGH: >=500 mg/dL Ordering Provider: ROLLY ACE R Report Released Date/Time: Apr 07, 2024 10:25 AM Reporting Lab: [place] [phone] Performing Lab: [place] [id number] [place] [address] COMPREHE NSIVE METABOLI C PANEL UREA NITROGEN [MASS/VOLU ME] IN SERUM OR PLASMA 18 mg/dL - 04/07 Specimen Type: PLASMA Comment: LDL REF RANGE: OPTIMAL: <100 mg/dL BORDERLINE HIGH: 130-159 mg/dL LDL HIGH: 160-189 mg/dL VERY HIGH: >=190 TRIG REF RANGE: NORMAL <150 mg/dL BORDERLINE HIGH: 150-199 mg/dL TRIG HIGH: 200-499 mg/dL VERY HIGH: >=500 mg/dL Ordering Provider: ROLLY ACE EX R Report Released Date/Time: Apr 07, 2024 10:25 AM Reporting Lab: [facility] [id number] Performing Lab: [facility] [id number] [place] [address] COMPREHE NSIVE METABOLI C PANEL CALCIUM [MASS/VOLU ME] IN SERUM OR PLASMA 9.9 mg/dL 8.5 - 10.1 04/07 Specimen Type: PLASMA Comment: LDL REF RANGE: OPTIMAL: <100 mg/dL BORDERLINE HIGH: 130-159 mg/dL LDL HIGH: 160-189 mg/dL VERY HIGH: >=190 TRIG REF RANGE: NORMAL <150 mg/dL BORDERLINE HIGH: 150-199 mg/dL TRIG HIGH: 200-499 mg/dL VERY HIGH: >=500 mg/dL Ordering Provider: ROLLY ACE R Report Released Date/Time: Apr 07, 2024 10:25 AM Reporting Lab: [facility] [id number] Performing Lab: [facility] [id number] [place] [address] COMPREHE NSIVE METABOLI C PANEL CREATININE [MASS/VOLU ME] IN SERUM OR PLASMA 1.1 mg/dL 0.7 - 1.3 04/07 Specimen Type: PLASMA Comment: LDL REF RANGE: OPTIMAL: <100 mg/dL BORDERLINE HIGH: 130-159 mg/dL LDL HIGH: 160-189 mg/dL VERY HIGH: >=190 TRIG REF RANGE: NORMAL <150 mg/dL BORDERLINE HIGH: 150-199 mg/dL TRIG HIGH: 200-499 mg/dL VERY HIGH: >=500 mg/dL Ordering Provider: ROLLY ACE Report Released Date/Time: Apr 07, 2024 10:25 AM Reporting Lab: [place] [phone] Performing Lab: [place] [id number] [place] [address] COMPREHE NSIVE METABOLI C PANEL CARBON DIOXIDE, TOTAL [MOLES/VOL UME] IN SERUM OR PLASMA 24 mmol/L 04/07 Specimen Type: PLASMA Comment: LDL REF RANGE: OPTIMAL: <100 mg/dL BORDERLINE HIGH: 130-159 mg/dL LDL HIGH: 160-189 mg/dL VERY HIGH: >=190 TRIG REF RANGE: NORMAL <150 mg/dL BORDERLINE HIGH: 150-199 mg/dL TRIG HIGH: 200-499 mg/dL VERY HIGH: >=500 mg/dL Ordering Provider: ROLLY ACE R Report Released Date/Time: Apr 07, 2024 10:25 AM Reporting Lab: [place] [phone] Performing Lab: [address] [phone] [facility] COMPREHE NSIVE METABOLI C PANEL GLUCOSE [MASS/VOLU ME] IN SERUM OR PLASMA 109 mg/dL 74 - 100 04/07 H Specimen Type: PLASMA Comment: LDL REF RANGE: OPTIMAL: <100 mg/dL BORDERLINE HIGH: 130-159 mg/dL LDL HIGH: 160-189 mg/dL VERY HIGH: >=190 TRIG REF RANGE: NORMAL <150 mg/dL BORDERLINE HIGH: 150-199 mg/dL TRIG HIGH: 200-499 mg/dL VERY HIGH: >=500 mg/dL Ordering Provider: ROLLY ACE R Report Released Date/Time: Apr 07, 2024 10:25 AM Reporting Lab: [place] [phone] Performing Lab: [place] [phone] [facility] COMPREHE NSIVE METABOLI C PANEL PROTEIN [MASS/VOLU ME] IN SERUM OR PLASMA 7.9 g/dL 6.4 - 8.3 04/07 Specimen Type: PLASMA Comment: LDL REF RANGE: OPTIMAL: <100 mg/dL BORDERLINE HIGH: 130-159 mg/dL LDL HIGH: 160-189 mg/dL VERY HIGH: >=190 TRIG REF RANGE: NORMAL <150 mg/dL BORDERLINE HIGH: 150-199 mg/dL TRIG HIGH: 200-499 mg/dL VERY HIGH: >=500 mg/dL Ordering Provider: ROLLY ACE R Report Released Date/Time: Apr 07, 2024 10:25 AM Reporting Lab: [address] [phone] Performing Lab: [place] [phone] [facility] COMPREHE NSIVE METABOLI C PANEL SODIUM [MOLES/VOL UME] IN SERUM OR PLASMA 136 mmol/L 136 - 145 04/07 Specimen Type: PLASMA Comment: LDL REF RANGE: OPTIMAL: <100 mg/dL BORDERLINE HIGH: 130-159 mg/dL LDL HIGH: 160-189 mg/dL VERY HIGH: >=190 TRIG REF RANGE: NORMAL <150 mg/dL BORDERLINE HIGH: 150-199 mg/dL TRIG HIGH: 200-499 mg/dL VERY HIGH: >=500 mg/dL Ordering Provider: DB,AL EX R Report Released Date/Time: Apr 07, 2024 10:25 AM Reporting Lab: [place] [phone] Performing Lab: [place] [phone] COMPREHE NSIVE METABOLI C PANEL CHLORIDE [MOLES/VOL UME] IN SERUM OR PLASMA 103 mmol/L 98 - 107 04/07 Specimen Type: PLASMA Comment: LDL REF RANGE: OPTIMAL: <100 mg/dL BORDERLINE HIGH: 130-159 mg/dL LDL HIGH: 160-189 mg/dL VERY HIGH: >=190 TRIG REF RANGE: NORMAL <150 mg/dL BORDERLINE HIGH: 150-199 mg/dL TRIG HIGH: 200-499 mg/dL VERY HIGH: >=500 mg/dL Ordering Provider: ROLLY ACE R Report Released Date/Time: Apr 07, 2024 10:25 AM Reporting Lab: [place] [phone] Performing Lab: [place] [id number] [place] [address] COMPREHE NSIVE METABOLI C PANEL BILIRUBIN. TOTAL [MASS/VOLU ME] IN SERUM OR PLASMA 0.8 mg/dL 0.2 - 1.2 04/07 Specimen Type: PLASMA Comment: LDL REF RANGE: OPTIMAL: <100 mg/dL BORDERLINE HIGH: 130-159 mg/dL LDL HIGH: 160-189 mg/dL VERY HIGH: >=190 TRIG REF RANGE: NORMAL <150 mg/dL BORDERLINE HIGH: 150-199 mg/dL TRIG HIGH: 200-499 mg/dL VERY HIGH: >=500 mg/dL Ordering Provider: ROLLY ACE Report Released Date/Time: Apr 07, 2024 10:25 AM Reporting Lab: [place] [phone] Performing Lab: [place] [id number] [place] [address] COMPREHE NSIVE METABOLI C PANEL POTASSIUM [MOLES/VOL UME] IN SERUM OR PLASMA 4.1 mmol/L 3.5 - 5.1 04/07 Specimen Type: PLASMA Comment: LDL REF RANGE: OPTIMAL: <100 mg/dL BORDERLINE HIGH: 130-159 mg/dL LDL HIGH: 160-189 mg/dL VERY HIGH: >=190 TRIG REF RANGE: NORMAL <150 mg/dL BORDERLINE HIGH: 150-199 mg/dL TRIG HIGH: 200-499 mg/dL VERY HIGH: >=500 mg/dL Ordering Provider: ROLLY ACE Report Released Date/Time: Apr 07, 2024 10:25 AM Reporting Lab: [place] [phone] Performing Lab: [place] [phone] [facility] COMPREHE NSIVE METABOLI C PANEL ANION GAP IN SERUM OR PLASMA 13.0 10 - 20 04/07 Specimen Type: PLASMA Comment: LDL REF RANGE: OPTIMAL: <100 mg/dL BORDERLINE HIGH: 130-159 mg/dL LDL HIGH: 160-189 mg/dL VERY HIGH: >=190 TRIG REF RANGE: NORMAL <150 mg/dL BORDERLINE HIGH: 150-199 mg/dL TRIG HIGH: 200-499 mg/dL VERY HIGH: >=500 mg/dL Ordering Provider: ROLLY ACE Report Released Date/Time: Apr 07, 2024 10:25 AM Reporting Lab: [place] [phone] Performing Lab: [place] [phone] [facility] COMPREHE NSIVE METABOLI C PANEL GLOMERULAR FILTRATION RATE/1.73 SQ M.PREDICTE D [VOLUME RATE/AREA] IN SERUM, PLASMA OR BLOOD BY CREATININE -BASED FORMULA (CKD-EPI 2020) 68.0 mL/min 04/07 Specimen Type: PLASMA Comment: LDL REF RANGE: OPTIMAL: <100 mg/dL BORDERLINE HIGH: 130-159 mg/dL LDL HIGH: 160-189 mg/dL VERY HIGH: >=190 TRIG REF RANGE: NORMAL <150 mg/dL BORDERLINE HIGH: 150-199 mg/dL TRIG HIGH: 200-499 mg/dL VERY HIGH: >=500 mg/dL Ordering Provider: ROLLY ACE Report Released Date/Time: Apr 07, 2024 10:25 AM Reporting Lab: [address] [phone] Performing Lab: [place] [phone] [facility] LIPID PROFILE CHOLESTERO L [MASS/VOLU ME] IN SERUM OR PLASMA 175 mg/dL 0 - 200 04/07 Specimen Type: PLASMA Comment: LDL REF RANGE: OPTIMAL: <100 mg/dL BORDERLINE HIGH: 130-159 mg/dL LDL HIGH: 160-189 mg/dL VERY HIGH: >=190 TRIG REF RANGE: NORMAL <150 mg/dL BORDERLINE HIGH: 150-199 mg/dL TRIG HIGH: 200-499 mg/dL VERY HIGH: >=500 mg/dL Ordering Provider: ROLLY ACE Report Released Date/Time: Apr 07, 2024 10:25 AM Reporting Lab: [place] [phone] Performing Lab: [place] [id number] [place] [address] LIPID PROFILE CHOLESTERO L IN LDL [MASS/VOLU ME] IN SERUM OR PLASMA BY DIRECT ASSAY 128 mg/dL 0 - 100 04/07 H Specimen Type: PLASMA Comment: LDL REF RANGE: OPTIMAL: <100 mg/dL BORDERLINE HIGH: 130-159 mg/dL LDL HIGH: 160-189 mg/dL VERY HIGH: >=190 TRIG REF RANGE: NORMAL <150 mg/dL BORDERLINE HIGH: 150-199 mg/dL TRIG HIGH: 200-499 mg/dL VERY HIGH: >=500 mg/dL Ordering Provider: ROLLY ACE Report Released Date/Time: Apr 07, 2024 10:25 AM Reporting Lab: [place] [phone] Performing Lab: [place] [id number] [place] [address] LIPID PROFILE CHOLESTERO L IN HDL [MASS/VOLU ME] IN SERUM OR PLASMA 39 mg/dL 40 - 60 04/07 L Specimen Type: PLASMA Comment: LDL REF RANGE: OPTIMAL: <100 mg/dL BORDERLINE HIGH: 130-159 mg/dL LDL HIGH: 160-189 mg/dL VERY HIGH: >=190 TRIG REF RANGE: NORMAL <150 mg/dL BORDERLINE HIGH: 150-199 mg/dL TRIG HIGH: 200-499 mg/dL VERY HIGH: >=500 mg/dL Ordering Provider: ROLLY ACE Report Released Date/Time: Apr 07, 2024 10:25 AM Reporting Lab: [place] [phone] Performing Lab: [address] [phone] [facility] LIPID PROFILE TRIGLYCERI DE [MASS/VOLU ME] IN SERUM OR PLASMA 150 mg/dL 0 - 150 04/07 Specimen Type: PLASMA Comment: LDL REF RANGE: OPTIMAL: <100 mg/dL BORDERLINE HIGH: 130-159 mg/dL LDL HIGH: 160-189 mg/dL VERY HIGH: >=190 TRIG REF RANGE: NORMAL <150 mg/dL BORDERLINE HIGH: 150-199 mg/dL TRIG HIGH: 200-499 mg/dL VERY HIGH: >=500 mg/dL Ordering Provider: ROLLY ACE R Report Released Date/Time: Apr 07, 2024 10:25 AM Reporting Lab: [address] [phone] Performing Lab: [phone] [place] [address] CBC LEUKOCYTES [#/VOLUME] IN BLOOD BY AUTOMATED COUNT 9.7 10*3/uL 3.6 - 11.0 04/07 Specimen Type: BLOOD No comment entered. Ordering Provider: ROLLY ACE Report Released Date/Time: Apr 07, 2024 10:25 AM Reporting Lab: [address] [address] Performing Lab: [address] [phone] [facility] CBC ERYTHROCYT ES [#/VOLUME] IN BLOOD BY AUTOMATED COUNT 4.56 10*6/uL 4.47 - 5.83 04/07 Specimen Type: BLOOD No comment entered. Ordering Provider: ROLLY ACE Report Released Date/Time: Apr 07, 2024 10:25 AM Reporting Lab: [address] [phone] Performing Lab: [address] [address] [facility] CBC HEMOGLOBIN [MASS/VOLU ME] IN BLOOD 14.4 g/dL 13.6 - 17.4 04/07 Specimen Type: BLOOD No comment entered. Ordering Provider: ROLLY ACE R Report Released Date/Time: Apr 07, 2024 10:25 AM Reporting Lab: [address] [phone] Performing Lab: [address] [address] [facility] CBC HEMATOCRIT [VOLUME FRACTION] OF BLOOD BY AUTOMATED COUNT 43.3 40.0 - 51.0 04/07 Specimen Type: BLOOD No comment entered. Ordering Provider: ROLLY ACE Report Released Date/Time: Apr 07, 2024 10:25 AM Reporting Lab: [address] [address] Performing Lab: [place] [phone] [facility] CBC MCV [ENTITIC VOLUME] BY AUTOMATED COUNT 95.1 fL 80.0 - 96.0 04/07 Specimen Type: BLOOD No comment entered. Ordering Provider: ROLLY ACE Report Released Date/Time: Apr 07, 2024 10:25 AM Reporting Lab: [place] [phone] Performing Lab: [place] [id number] [place] [address] CBC MCH [ENTITIC MASS] BY AUTOMATED COUNT 31.6 pg 27.0 - 31.0 04/07 H Specimen Type: BLOOD No comment entered. Ordering Provider: ROLLY ACE Report Released Date/Time: Apr 07, 2024 10:25 AM Reporting Lab: [address] [address] Performing Lab: [place] [phone] [place] [address] CBC MCHC [MASS/VOLU ME] BY AUTOMATED COUNT 33.2 g/dL 31.5 - 36.5 04/07 Specimen Type: BLOOD No comment entered. Ordering Provider: ROLLY ACE Report Released Date/Time: Apr 07, 2024 10:25 AM Reporting Lab: [address] [address] Performing Lab: [place] [phone] [facility] CBC PLATELETS [#/VOLUME] IN BLOOD BY AUTOMATED COUNT 374 10*3/uL 150 - 400 04/07 Specimen Type: BLOOD No comment entered. Ordering Provider: DB,AL EX R Report Released Date/Time: Apr 07, 2024 10:25 AM Reporting Lab: [place] [phone] Performing Lab: [place] [phone] [place] [address] CBC LYMPHOCYTE S/100 LEUKOCYTES IN BLOOD BY AUTOMATED COUNT 34.1 21.0 - 51.0 04/07 Specimen Type: BLOOD No comment entered. Ordering Provider: ROLLY ACE R Report Released Date/Time: Apr 07, 2024 10:25 AM Reporting Lab: [address] [address] Performing Lab: [place] [phone] [place] [address] CBC MONOCYTES/ 100 LEUKOCYTES IN BLOOD BY AUTOMATED COUNT 7.3 4.0 - 8.0 04/07 Specimen Type: BLOOD No comment entered. Ordering Provider: ROLLY ACE R Report Released Date/Time: Apr 07, 2024 10:25 AM Reporting Lab: [place] [phone] Performing Lab: [place] [phone] [place] [address] CBC NUCLEATED ERYTHROCYT ES/100 LEUKOCYTES [RATIO] IN BLOOD BY MANUAL COUNT 0.2 /100{WBC s} 04/07 Specimen Type: BLOOD No comment entered. Ordering Provider: ROLLY ACE R Report Released Date/Time: Apr 07, 2024 10:25 AM Reporting Lab: [place] [phone] Performing Lab: [place] [phone] [place] [address] CBC ERYTHROCYT E DISTRIBUTI ON WIDTH [RATIO] BY AUTOMATED COUNT 15.0 11.2 - 15.8 04/07 Specimen Type: BLOOD No comment entered. Ordering Provider: ROLLY ACE R Report Released Date/Time: Apr 07, 2024 10:25 AM Reporting Lab: [address] [phone] Performing Lab: [address] [address] [facility] CBC NEUTROPHIL S/100 LEUKOCYTES IN BLOOD BY AUTOMATED COUNT 57.3 54.0 - 78.0 04/07 Specimen Type: BLOOD No comment entered. Ordering Provider: ROLLY ACE R Report Released Date/Time: Apr 07, 2024 10:25 AM Reporting Lab: [place] [phone] Performing Lab: [place] [phone] [place] [address] CBC EOSINOPHIL S/100 LEUKOCYTES IN BLOOD BY AUTOMATED COUNT 0.7 0.0 - 3.0 04/07 Specimen Type: BLOOD No comment entered. Ordering Provider: ROLLY ACE R Report Released Date/Time: Apr 07, 2024 10:25 AM Reporting Lab: [place] [phone] Performing Lab: [place] [phone] CBC BASOPHILS/ 100 LEUKOCYTES IN BLOOD BY AUTOMATED COUNT 0.6 0.0 - 3.0 04/07 Specimen Type: BLOOD No comment entered. Ordering Provider: ROLLY ACE Report Released Date/Time: Apr 07, 2024 10:25 AM Reporting Lab: [place] [phone] Performing Lab: [place] [phone] CBC LYMPHOCYTE S [#/VOLUME] IN BLOOD BY AUTOMATED COUNT 3.3 10*3/uL 0.8 - 5.0 04/07 Specimen Type: BLOOD No comment entered. Ordering Provider: ROLLY ACE Report Released Date/Time: Apr 07, 2024 10:25 AM Reporting Lab: [place] [phone] Performing Lab: [place] [phone] CBC NEUTROPHIL S [#/VOLUME] IN BLOOD 5.5 10*3/uL 1.9 - 8.6 04/07 Specimen Type: BLOOD No comment entered. Ordering Provider: ROLLY ACE Report Released Date/Time: Apr 07, 2024 10:25 AM Reporting Lab: [place] [phone] Performing Lab: [place] [phone] [facility] CBC BASOPHILS [#/VOLUME] IN BLOOD BY AUTOMATED COUNT 0.1 10*3/uL 0.0 - 0.3 04/07 Specimen Type: BLOOD No comment entered. Ordering Provider: ROLLY ACE Report Released Date/Time: Apr 07, 2024 10:25 AM Reporting Lab: [place] [phone] Performing Lab: [place] [phone] [place] [address] CBC MONOCYTES [#/VOLUME] IN BLOOD BY AUTOMATED COUNT 0.7 10*3/uL 0.1 - 0.9 04/07 Specimen Type: BLOOD No comment entered. Ordering Provider: ROLLY ACE Report Released Date/Time: Apr 07, 2024 10:25 AM Reporting Lab: [place] [phone] Performing Lab: [place] [phone] CBC EOSINOPHIL S [#/VOLUME] IN BLOOD BY AUTOMATED COUNT 0.1 10*3/uL 0.0 - 0.3 04/07 Specimen Type: BLOOD No comment entered. Ordering Provider: ROLLY ACE Report Released Date/Time: Apr 07, 2024 10:25 AM Reporting Lab: [place] [phone] Performing Lab: [place] [phone] CBC PLATELET MEAN VOLUME [ENTITIC VOLUME] IN BLOOD BY AUTOMATED COUNT 7.6 fL 7.4 - 11.4 04/07 Specimen Type: BLOOD No comment entered. Ordering Provider: ROLLY ACE Report Released Date/Time: Apr 07, 2024 10:25 AM Reporting Lab: [place] [phone] Performing Lab: [place] [phone] [facility] MAGNESIU M MAGNESIUM [MASS/VOLU ME] IN SERUM OR PLASMA 2.3 mg/dL 1.6 - 2.6 04/07 Specimen Type: PLASMA Comment: LDL REF RANGE: OPTIMAL: <100 mg/dL BORDERLINE HIGH: 130-159 mg/dL LDL HIGH: 160-189 mg/dL VERY HIGH: >=190 TRIG REF RANGE: NORMAL <150 mg/dL BORDERLINE HIGH: 150-199 mg/dL TRIG HIGH: 200-499 mg/dL VERY HIGH: >=500 mg/dL Ordering Provider: ROLLY ACE Report Released Date/Time: Apr 07, 2024 10:25 AM Reporting Lab: [place] [phone] Performing Lab: [place] [phone] URINALYS IS SPECIFIC GRAVITY OF URINE 1.009 1.016 - 1.022 04/07 L Specimen Type: URINE No comment entered. Ordering Provider: ROLLY ACE Report Released Date/Time: Apr 07, 2024 10:25 AM Reporting Lab: [place] [phone] Performing Lab: [place] [phone] URINALYS IS GLUCOSE [MASS/VOLU ME] IN URINE BY TEST STRIP Negative mg/dL 04/07 Specimen Type: URINE No comment entered. Ordering Provider: ROLLY ACE Report Released Date/Time: Apr 07, 2024 10:25 AM Reporting Lab: [place] [phone] Performing Lab: [place] [phone] URINALYS IS PROTEIN [MASS/VOLU ME] IN URINE BY TEST STRIP Negative mg/dL 04/07 Specimen Type: URINE No comment entered. Ordering Provider: ROLLY ACE Report Released Date/Time: Apr 07, 2024 10:25 AM Reporting Lab: [place] [phone] Performing Lab: [address] URINALYS IS PH OF URINE BY TEST STRIP 7.0 5.0 - 8.0 04/07 Specimen Type: URINE No comment entered. Ordering Provider: ROLLY ACE Report Released Date/Time: Apr 07, 2024 10:25 AM Reporting Lab: [place] [phone] Performing Lab: [place] [phone] [facility] URINALYS IS NITRITE [PRESENCE] IN URINE BY TEST STRIP Negative 04/07 Specimen Type: URINE No comment entered. Ordering Provider: ROLLY ACE Report Released Date/Time: Apr 07, 2024 10:25 AM Reporting Lab: [place] [phone] Performing Lab: [place] [phone] [place] [address] URINALYS IS LEUKOCYTE ESTERASE [PRESENCE] IN URINE BY TEST STRIP Negative 04/07 Specimen Type: URINE No comment entered. Ordering Provider: ROLLY ACE Report Released Date/Time: Apr 07, 2024 10:25 AM Reporting Lab: [place] [phone] Performing Lab: [place] [phone] URINALYS IS CLARITY OF URINE Clear 04/07 Specimen Type: URINE No comment entered. Ordering Provider: ROLLY ACE Report Released Date/Time: Apr 07, 2024 10:25 AM Reporting Lab: [place] [phone] Performing Lab: [place] [phone] [place] [address] URINALYS IS BILIRUBIN. TOTAL [MASS/VOLU ME] IN URINE BY TEST STRIP Negative mg/dL - 0.4 04/07 Specimen Type: URINE No comment entered. Ordering Provider: ROLLY ACE Report Released Date/Time: Apr 07, 2024 10:25 AM Reporting Lab: [place] [phone] Performing Lab: [place] [phone] URINALYS IS HEMOGLOBIN [PRESENCE] IN URINE BY TEST STRIP Negative mg/dL <0.05 - 0.05 04/07 Specimen Type: URINE No comment entered. Ordering Provider: ROLLY ACE Report Released Date/Time: Apr 07, 2024 10:25 AM Reporting Lab: [address] [address] Performing Lab: [place] [phone] [facility] URINALYS IS UROBILINOG EN [MASS/VOLU ME] IN URINE Negative mg/dL - 1 04/07 Specimen Type: URINE No comment entered. Ordering Provider: ROLLY ACE Report Released Date/Time: Apr 07, 2024 10:25 AM Reporting Lab: [address] [phone] Performing Lab: [address] [address] [facility] URINALYS IS KETONES [MASS/VOLU ME] IN URINE BY TEST STRIP Negative mg/dL - 9 04/07 Specimen Type: URINE No comment entered. Ordering Provider: ROLLY ACE Report Released Date/Time: Apr 07, 2024 10:25 AM Reporting Lab: [address] [address] Performing Lab: [address] [address] [facility] URINALYS IS COLOR OF URINE Light-Ye llow 04/07 Specimen Type: URINE No comment entered. Ordering Provider: ROLLY ACE Report Released Date/Time: Apr 07, 2024 10:25 AM Reporting Lab: [address] [phone] Performing Lab: [place] [phone] [facility] Vital Signs Combined list of inpatient and outpatient Vital Signs from Department of Defense and Veterans Affairs, ranging from 12 months to all on record, depending upon the facility. Vital Sign Value Date Comments Source SYSTOLIC BLOOD PRESSURE 145 10/08/2024 09:26:47 [facility] DIASTOLIC BLOOD PRESSURE 69 10/08/2024 09:26:47 [facility] PULSE OXIMETRY 95 10/08/2024 09:26:47 [facility] WEIGHT 201.6 10/08/2024 09:26:47 [facility] BMI 32 kg/m2 10/08/2024 09:26:47 [facility] PAIN 3 10/08/2024 09:26:47 [facility] TEMPERATURE 99.8 10/08/2024 09:26:47 [facility] PULSE 89 10/08/2024 09:26:47 [facility] RESPIRATION 16 10/08/2024 09:26:47 [facility] SYSTOLIC BLOOD PRESSURE 152 04/07/2024 09:46:00 [facility] DIASTOLIC BLOOD PRESSURE 68 04/07/2024 09:46:00 [facility] WEIGHT 199.6 04/07/2024 09:46:00 [facility] BMI 32 kg/m2 04/07/2024 09:46:00 [facility] PAIN 3 04/07/2024 09:46:00 [facility] HEIGHT 66.5 04/07/2024 09:46:00 [facility] TEMPERATURE 99.6 04/07/2024 09:46:00 [facility] PULSE 94 04/07/2024 09:46:00 [facility] RESPIRATION 16 04/07/2024 09:46:00 [facility] Encounters Combined list of: 1) Encounters from Department of Veterans Affairs facilities going backup to the last 18 months, not all [place] inpatient encounters are included; 2) Encounters from the Department of Defense facilities going backup to 280 months. 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 Social History Type Response Date Comment Sourc e Tobacco smoking status NHIS [facility]AC[facility] FORMER USER 04/07/2024 [facility] History of tobacco use [place]-TO[place]ACCO QUIT 1 5 YRS OR MORE 04/07/2024 [facility] Plan of Care List of future care activities from Department of Veterans Affairs facilities. Additional future care activities may be listed in the Assessment and Plan section. Date/Time Care Activity Care Activity Detail Facili ty 04/20/2025 AMBULATORY - NONE AMBULATORY - NONE [facility]
--- OUTSIDE RECORDS SUMMARY | 2025-01-15 05:45 | XMS_ITS ---
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) Active confirmed Vital Signs Blood pressure systolic 150 mm Hg 01/16/20 25 Blood pressure diastolic 62 mm Hg 025 Heart Rate 92 /min 01/15/2025 Respiratory Rate 16 /min 01/15/2025 Height 67 in 01/15/2025 Weight 201.7 lbs 01/15/2025 BMI 31.59 kg/m2 01/15/2025 Oximetry 95 % 01/15/2025 Encounters Encounter Location Date Provider Diagnosis [facility] [address] [place] [address] 01/15/2025 Rodger Orozco Cellulitis of right toe [...] call if not better and then rec reagan echavarria and then jia d/w pt steroid shot if worsens rtc prn Plan Of Treatment Medication Medication Name Sig Start Date Stop Date Notes Lisinopril 30 MG 1 tablet Orally Once a day hydroCHLOROthiazide 12.5 MG 1 tablet Orally Once a day amLODIPine Besylate 10 MG 1 tablet Orally Once a day Mupirocin 2 % 1 application Bicycle Messenger ally bid for 5 days 01/15/2025 Atorvastatin [...] Name Order Date HEMOGLOBIN A1C (GLYCO) 01/15/2025 LIPID PANEL (CHOL/TRIG/HDL/LDL) 01/16/20 25 PSA, TOTAL 01/15/2025 MICROALBUMIN w POLICE COMMISSIONER RATIO 01/15/2025 CMP (COMP MET CHE) w/eGFR CKD-EPI 2024 Next Appt Details Follow Up: 3 Months, Reason: MWV Provider Name:Rodger baugh, 03/24/2025 09:00:00 AM, [address] [place] [address], [address], Progress Notes * Bro STOVERDOB:1945 (79 yo M)Acc No.[id number]:01/15/2025 Established Patient: Bro ENGEL Provider: Yasmine Orozco DO :1945 A ge:79 Y S ex:Male Date:01/15/2025 Address:[address] [place], [place] [id number] Check In:09:20 AM ESTCheck O ut:10:00 AM [...] u nspecified seasonality, unspecified trigger Onset Date:01/12/2018Modified On:02/02/2022W/U Status:confirmed I35.0 Nonrheumatic aortic (valve) stenosis Onset Date:01/13/2018Modified On:11/13/2023W/U Status:confirmed I51.9 Heart disease, unspe cified Onset Date:10/12/2019Modified On:02/02/2022W/U Status:confirmed I51.7 Left ventricular hyp ertrophy Onset Date:10/12/2019Modified On:02/02/2022W/U Status:confirmed 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 Onset Date:03/19/2018Modified On:02/02/2022W/U Status:confirmed N40.1 Benign prostatic hyp erplasia with lower urinary tract symptoms, symptom details unspecified Onset Date:03/26/2021Modified On:02/27/2022U Status:confirmed H35.30 Macular degeneration of both eyes, unspecified type Onset Date:09/21/2021Modified On:11/08/2022 Status:confirmed R25.2 Cramp and spasm Onset Date:03/26/2021Modified On:02/02/2022U Status:confirmed K21.9 Gastro-esophageal re flux disease without esophagitis Onset Date:09/22/2019Modified On:02/02/2022U Status:confirmed E78.5 Hyperlipidemia, unsp ecified hyperlipidemia type [...] macular degeneration, left eye, stage unspecified Modified On:11/13/2023U Status:confirmed Z68.30 Body mass index [BMI ] [...] Once a day. L AB: MICROALBUMIN w POLICE COMMISSIONER RATIO Notes: monitor bmp and urine diet/exercise [...] HK (Check Out) true * Provider: Yasmine Orozco DO Date: 01/15/2025 Generated for Luis baugh/Mi/eTransmitting on: 01/27/2025 07:21 AM EDT History and Physical Notes * [...]
--- OUTSIDE RECORDS SUMMARY | 2025-01-16 17:36 | XMS_ITS ---
Author Organization The [facility] in [place] Address [address] [place] [address] Care Team Providers Care Stars Analytical Lead Name Role Phone Rodger Orozco Primary Care Provider REASON FOR VISIT [facility] Encounters Encounter Location Date Provider Diagnosis [facility] [address] [place] [address] 01/16/2025 Rodger Orozco Plan Of Treatment Next Appt Details Provider Name:Rodger baugh, 03/24/2025 09:00:00 AM, [address] [place], [address], Progress Notes * Bro STOVERDOB:1945 (79 yo M)Acc No.[id number]:01/16/2025 Patient: Norma Bro MASSEY :1945 A ge:79 Y S ex:Male Address:[address] [place] [phone] * true * Date: Generated for Luis baugh/Mi/eTransmitting on: 0 01/27/2025 07:23 AM EDT
--- OUTSIDE RECORDS SUMMARY | 2025-01-27 07:22 | XMS_ITS | Clinical Summary ---
Author Organization [employer] [facility] tem Address [id number] [address] [place] [address] Care Team Providers Care Emergency Worker Name Role Phone Rodger Orozco DO Primary Care Provider Allergies No known active allergies Medications lisinopril (PRINIVIL,ZESTRI L) 10 mg tablet Take 10 mg by mouth daily. Active atorvastatin (LIPITOR) 10 mg tablet Take 10 mg by mouth daily. Active aspirin 81 mg Take 81 mg by mouth daily. Active Active Problems Problem Noted Date Diagnosed Date Hypertension goal BP (blood pressure) < 130/80 1 Blood cholesterol decreased 06/20/2017 Overview (06/09/2018): problem replaced by 2018 ICD 18 June Update Family History Medical History Relation Name Comments Diabetes Mother Heart disease Mother Kidney disease Mother Relation Name Status Comments Father Mother Social History Tobacco Use Types Packs/Day Years Used Date Smoking Tobacco: Never Smokeless Tobacco: Never Alcohol Use Standard Drinks/Week Comments Yes 0 (1 standard drink = 0.6 oz pur e alcohol) rarely Childcare Answer Date Recorded Childcare Unknown 02/18/2019 Employment Answer Date Recorded Employment Unknown 02/18/2019 Purpose - Life Answer Date Recorded Purpose and direction in life Unknown Sex and Gender Information Value Date Recorded Sex Assigned at Not on file Legal Sex Male 11:30 AM EDT Gender Identity Not on file Sexual Orientation Not on file Last Filed Vital Signs Vital Sign Reading Time Taken Comments Blood Pressure 135/70 08/22/2017 12:16 PM EST Pulse 75 08/22/2017 12:16 PM EST Temperature 37.6 C (99.6 F) 08/22/2017 10:28 AM EST Respiratory Rate 16 08/22/2017 10:28 AM EST Oxygen Saturation 95% 08/22/2017 12:16 PM EST Inhaled Oxygen Concentration - - Weight 77.1 kg (170 lb) 08/22/2017 10:28 AM EST Height 170.2 cm (5' 7 ) 08/22/2017 10:28 AM EST Body Mass Index 26.63 08/22/2017 10:28 AM EST Plan of Treatment Not on file Medical Devices Implanted Type Area Pest Control Chemical Technician Device Identifier Shelf Expiration Date Model / Serial / Lot Lens 22.5 Diopter Repl [id number] - [id number] - [id number] Implanted:Qty: 1 on 06/26/2017 by Prabha Kennedy MD at [facility] Lens [employer] 10/27/2021 [id number] / [id number] / [id number] Lens 22.5 Diopter Repl [id number] - [id number] - [id number] Implanted:Qty: 1 on 08/22/2017 by Prabha Kennedy MD at [facility] Lens Left: Eye [employer] 09/08/2021 [id number] / [id number] / N/A Insurance MEDICARE [facility] Care Teams Emergency Worker Relationship Specialty Start Date End Date Rodger Orozco DO [address] [place] [address] PCP - General 06/13/17
--- OUTSIDE RECORDS SUMMARY | 2025-01-27 07:24 | XMS_ITS | Encounter Summary ---
Author Name [facility] ([place]) Organization [facility] ([place] Address [address] [place] [address] Care Team Providers Care Cte Teacher Name Role Phone NAY BARNES Primary Care [...] York's Name Patient's Relationship to Policy York [facility] MEDICARE ADVANTAGE [facility] (WNR) Sep 09, 2021 [facility] [id number] Aleta BOLAÑOS PATIENT [facility]) MEDICARE ADVANTAGE [facility] (WNR) Sep 09, 2021 [facility] [id number] Aleta BOLAÑOS PATIENT Selected Encounter This section includes the information on record at [place] for the Encounter. Date/Time Encounter Type Encounter Description Reason Pro vider Source IHE Encounter Template Text not used by [place]
--- OUTSIDE RECORDS SUMMARY | 2025-01-27 07:24 | XMS_ITS | Patient Health Record ---
Author Organization The [facility] in [place] Address [address] [place] [address] Care Team Providers Care Craft Coordinator Name Role Phone Rodger Orozco Primary Care Provider Allergies No Known Allergies Results Component Value Reference Range Notes UA DIP AUTO WO MICRO (65877) - IN OFFICE Reviewed date:07/30/2024 10:11:51 AM Interpretation: Performing Lab: Notes/Report: COLOR dark yellow YELLOW - AYESHA CLARITY clear CLEAR - CLEAR GLUCOSE, URINE neg NEG - NEG MG/DL BILIRUBIN, URINE neg NEG - NEG KETONES, URINE neg NEG - NEG MG/DL SPECIFIC GRAVITY 1.015 1.001 - 1.035 BLOOD, URINE neg NEG - NEG MG/DL PH, URINE 6.0 5.0 - 9.0 PROTEIN (ALB), URINE neg NEG - NEG MG/DL UROBILINOGEN, URINE 0.2 0.2 - 1.0 MG/DL NITRITE, URINE neg NEG - NEG ESTERASE neg NEG - NEG Reason For Referral No Information Medications Medication SIG (Take, Route, Frequency, Duration) Notes Start Date End Date Status hydroCHLOROthiazide 12.5 MG 1 tablet Ora lly Once a day Active Mupirocin 2 % 1 application Externally bid for 5 days 01/15/2025 Active Lisinopril 30 MG 1 tablet Orally Once a day Active B12 po daily Active amLODIPine Besylate 10 MG 1 tablet Orall y Once a day Active Atorvastatin Calcium 10 MG 1 tablet Oral ly Once a day Active Lutein 20 MG 1 capsule Orally Once a day Active Flomax 0.4 MG 1 capsule Orally Once a day for 30 days 11/08/2022 Active Aspirin 81 MG 1 tablet Orally Once a day Active Vitamin E 400iu QD Active Turmeric Not-Taking Allergy Relief otc Activ e Meloxicam 7.5 MG 1 tablet Orally Once a day for 90 days Active PreserVision AREDS 2 Active Centrum Silver 1 po qd Activ e Cephalexin 500 MG 1 capsule Orally tid for 7 days 01/15/2025 Active Co Q10 100 MG - Orally Active Immunizations Vaccine Route Administration Date Status Comme nts Flu, Flublok (52894) 18yr+, single-dose (9841-4471) Unknown 08/08/2022 Administered Pneumococcal (Pneumovax 23) Unknown 09/09/2009 Administ ered Pneumococcal (Prevnar 13) Unknown 06/30/2015 Administer ed Social History Tobacco Use: Social History Observation Description Date Details (start date - stop date) Never Smoker NA - NA Tobacco Use/Smoking Question Answer Notes Patient is a nonsmoker Alcohol Screen (Audit-C) Question Answer Notes Did you have a drink containing alcohol in the p ast year? Yes How often did you have 6 or more drinks on one occasion in the past year? Never (0 point) Points 0 Interpretation Negative Problems Problem Type SNOMED Code ICD Code Onset Dates Problem Status W/U Status Risk Notes Problem 00352921 Peripheral vascu lar disease, unspecified (I73.9) Active confirmed Problem 575939728 Gastro-esophagea l reflux disease without esophagitis (K21.9) 2019 Active confirmed diet stable monitor pepcid 20mg daily if worsens Problem 833703730 Personal history of malignant neoplasm of prostate (Z85.46) Active confirmed Problem 544510347 Other obesity du e to excess calories (E66.09) Active confirmed Problem 289536420750938 Obesity, unspeci fied (E66.9) Active confirmed Problem 03135172 Post-traumatic stress disorder, unspecified (F43.10) Active confirmed Problem 31483306 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, or unspecified chronic kidney disease (I12.9) Active confirmed Problem 948151743 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) 2017 Active confirmed rec echo - pt to hold off as no acute CHF s/s Problem 2543463 Other ill-define d heart diseases (I51.89) Active confirmed Problem 64415076 Heart disease, unspecified (I51.9) 2019 Active confirmed continue meds stable monitor echo BP control Problem 59341131 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) 2017 Active confirmed continue compression stockings refer to vascular if worsens Problem 056311429 Other seasonal allergic rhinitis (J30.2) Active confirmed Problem 96355063 Other allergic rhinitis (J30.89) Active confirmed Problem 308811644 Spondylosis with out myelopathy or radiculopathy, lumbar region (M47.816) Active confirmed Problem 584982530 Chronic kidney disease, stage 2 (mild) (N18.2) Active confirmed Problem 91815725 Cramp and spasm (R25.2) 2020 Active confirmed hydrate d/w pt that he can try otc Mg/Ca/K if wishes daily to see if helps Problem 88804673 Left ventricular hypertrophy (I51.7) 2019 Active confirmed Problem 722244669 Prostate cancer (C61) Active confirmed Problem 72033178 Constipation, unspecified constipation type (K59.00) Active confirmed Problem 486578342 Primary osteoarthritis of both knees (M17.0) Active confirmed Problem 939208697 Primary pulmonar y HTN (I27.0) Active confirmed Problem 90010027 Hyperlipidemia, unspecified hyperlipidemia type (E78.5) 2017 Active confirmed continue lipitor 10mg daily - erx done labs yearly diet/exercis e Problem 6040751600118 Benign prostatic hyperplasia with lower urinary tract symptoms (N40.1) Active confirmed Problem 609283761 Pure hypercholesterolemia (E78.00) Active confirmed Problem 294950555 Nonexudative age-related macular degeneration, left eye, 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) Active confirmed Problem 882676323 Other specified diabetes mellitus without complication, without long-term current use of insulin (E13.9) Active confirmed Problem 08573923 Primary hyperten bettina (I10) Active confirmed Problem 863990231 Benign prostatic hyperplasia with lower urinary tract symptoms, symptom details unspecified (N40.1) 2020 Active confirmed d/w pt flomax if wishes Problem 350768313 Macular degenera tion of both eyes, unspecified type (H35.30) 2021 Active confirmed f/u eye doctor as directed Problem 97534162 Allergic rhiniti s, unspecified seasonality, unspecified trigger (J30.9) 2017 Active confirmed flonase/clar itin otc rtc if s/s worsen Problem 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) Active confirmed Problem 819835528 Body mass index [BMI] 31.0-31.9, adult (Z68.31) Active confirmed Problem 508766773 Body mass index [BMI] 32.0-32.9, adult (Z68.32) Active confirmed Problem 432135928 Body mass index [BMI] 30.0-30.9, adult (Z68.30) Active confirmed Vital Signs Heart Rate 92 /min 01/15/2025 Respiratory Rate 16 /min 01/15/2025 Oximetry 95 % 01/15/2025 Blood pressure diastolic 62 mm Hg 01/15/2025 Height 67 in 01/15/2025 Blood pressure systolic 150 mm Hg 01/15/2025 Weight 201.7 lbs 01/15/2025 BMI 31.59 kg/m2 01/15/2025 Encounters Encounter Location Date Provider Diagnosis [facility] [address] [place] [address] 04/01/2024 Rodger Orozco Primary hypertension I10 [facility] [address] [place] [address] 04/02/2024 Rodger Orozco Primary hypertension I10 [facility] [address] [place] [address] 05/09/2024 Rodger Orozco [facility] [address] [place] [address] 06/03/2024 Rodger Orozco Hyperlipidemia, unspecified hyperlipidemia type E78.5 [facility] [address] [place] [address] 06/17/2024 Rodger Orozco [facility] [address] [place] [address] 06/22/2024 Rodger Orozco Hypertensive chronic kidney disease with stage 1 through stage 4 chronic kidney disease, or unspecified chronic kidney disease I12.9 [facility] [address] [place] [address] 06/30/2024 Rodger Orozco Hypertensive chronic kidney disease with stage 1 through stage 4 chronic kidney disease, or unspecified chronic kidney disease I12.9 [facility] [address] [place] [address] 08/19/2024 Rodger Orozco Hypertensive chronic kidney disease with stage 1 through stage 4 chronic kidney disease, or unspecified chronic kidney disease I12.9 [facility] [address] [place] [address] 09/07/2024 Rodger Orozco Hyperlipidemia, unspecified hyperlipidemia type E78.5 [facility] [address] [place] [address] 12/22/2024 Rodger Orozco Hypertensive chronic kidney disease with stage 1 through stage 4 chronic kidney disease, or unspecified chronic kidney disease I12.9 ; Hyperlipidemia, unspecified hyperlipidemia type E78.5 and Benign prostatic hyperplasia with lower urinary tract symptoms N40.1 [facility] [address] [place] [address] 01/16/2025 Rodger Orozco [facility] [address] [place] [address] 05/08/2024 Rodger Orozco Other obesity due to excess calories E66.09 ; Body mass index [BMI] 31.0-31.9, adult Z68.31 ; Post-traumatic stress disorder, unspecified F43.10 ; Nonrheumatic aortic (valve) stenosis I35.0 ; Allergic rhinitis, unspecified seasonality, unspecified trigger J30.9 ; Chronic kidney disease, stage 2 (mild) N18.2 ; Prediabetes R73.03 ; Hyperlipidemia, unspecified hyperlipidemia type E78.5 ; Peripheral vascular disease, unspecified I73.9 and Hypertensive chronic kidney disease with stage 1 through stage 4 chronic kidney disease, or unspecified chronic kidney disease I12.9 [facility] [address] [place] [address] 07/30/2024 Rodger Orozco Generalized abdomina l pain R10.84 ; Other obesity due to excess calories E66.09 ; Body mass index [BMI] 30.0-30.9, adult Z68.30 ; Obesity, class 1 E66.811 and Spondylosis without myelopathy or radiculopathy, lumbar region M47.816 [facility] [address] [place] [address] 01/15/2025 Rodger Orozco Cellulitis of right toe [...] Treatment Notes Treatment Clinical Notes Section Notes 05/08/2024 Other obesity due to excess calories (ICD-10 - E66.09) diet/exercise 05/08/2024 Body mass index [BMI] 31.0-31.9, adult (ICD-10 - Z68.31) 07/30/2024 Generalized abdominal pain (ICD-10 - R10.84) ?constipation vs kidney stone vs ? rec metamucil daily to r/o constipation as an issue UA negative for blood/infection d/w pt that I dont think his pains are renal related 07/30/2024 Other obesity due to excess calories (ICD-10 - E66.09) diet/exercise 01/15/2025 Cellulitis of right toe (ICD-10 - L03.031) keep clean rtc if not better ?podiatry if not better with tx rec foot exam daily 01/15/2025 Unspecified open wound of unspecified toe(s) without damage to nail, initial encounter (ICD-10 - S91.109A) see above 04/01/2024 Primary hypertension (ICD-10 - I10) 04/02/2024 Primary hypertension (ICD-10 - I10) 06/03/2024 Hyperlipidemia, unspecified hyperlipidemia type (ICD-10 - E78.5) 06/22/2024 Hypertensive chronic kidney disease with stage 1 through stage 4 chronic kidney disease, or unspecified chronic kidney disease (ICD-10 - I12.9) 06/30/2024 Hypertensive chronic kidney disease with stage 1 through stage 4 chronic kidney disease, or unspecified chronic kidney disease (ICD-10 - I12.9) 08/19/2024 Hypertensive chronic kidney disease with stage 1 through stage 4 chronic kidney disease, or unspecified chronic kidney disease (ICD-10 - I12.9) 09/07/2024 Hyperlipidemia, unspecified hyperlipidemia type (ICD-10 - E78.5) 12/22/2024 Hypertensive chronic kidney disease with stage 1 through stage 4 chronic kidney disease, or unspecified chronic kidney disease (ICD-10 - I12.9) 12/22/2024 Hyperlipidemia, unspecified hyperlipidemia type (ICD-10 - E78.5) 01/15/2025 Prediabetes (ICD-10 - R73.03) monitor a1c and tx if >7 diet/execise eye exam yearly - dilated foot exam daily stable 07/30/2024 Body mass index [BMI] 30.0-30.9, adult (ICD-10 - Z68.30) 05/08/2024 Post-traumatic stress disorder, unspecified (ICD-10 - F43.10) f/u counselor at [facility] as directed 05/08/2024 Nonrheumatic aortic (valve) stenosis (ICD-10 - I35.0) no s/s of acute CHF from rec monitoring echo in 2024 call if edema worsens or isnt improved in the am as well as if CAMACHO worsens 07/30/2024 Obesity, class 1 (ICD-10 - E66.811) 01/15/2025 Hyperlipidemia, unspecified hyperlipidemia type (ICD-10 - E78.5) diet/exercise LDL goal <100 uncontrolled ?add zetia 12/22/2024 Benign prostatic hyperplasia with lower urinary tract symptoms (ICD-10 - N40.1) 01/15/2025 Encounter for screening for malignant neoplasm of prostate (ICD-10 - Z12.5) 07/30/2024 Spondylosis without myelopathy or radiculopathy, lumbar region (ICD-10 - M47.816) ?KUB/L spine xray if persists heat/massage to lumbar area 05/08/2024 Allergic rhinitis, unspecified seasonality, unspecified trigger (ICD-10 - J30.9) continue antihistamine daily rec flonase otc daily d/w pt that we can do kenalog 40mg IM if he wishes - he will hold off ?singulair rtc prn 05/08/2024 Chronic kidney disease, stage 2 (mild) (ICD-10 - N18.2) stable monitor bp control MEGAN montior urine microalbumin 01/15/2025 Other obesity due to excess calories (ICD-10 - E66.09) diet/exercise due to HTN/prediabetes - see above for tx 01/15/2025 Body mass index [BMI] 31.0-31.9, adult (ICD-10 - Z68.31) 05/08/2024 Prediabetes (ICD-10 - R73.03) stable monitor a1c diet/exercise med if >7 05/08/2024 Hyperlipidemia, unspecified hyperlipidemia type (ICD-10 - E78.5) uncontrolled ?add zetia or fibrate diet/exercise monitor lab 01/15/2025 Obesity, class 1 (ICD-10 - E66.811) 01/15/2025 Hypertensive chronic kidney disease with stage 1 through stage 4 chronic kidney disease, or unspecified chronic kidney disease (ICD-10 - I12.9) monitor bmp and urine diet/exercise bp check daily goal <130/80 uncontrolled today ?increase MEGAN or hctz if not at goal rtc 3 months 05/08/2024 Peripheral vascular disease, unspecified (ICD-10 - I73.9) MARYANA normal recently rec weight loss elevate legs rec JESSICA hose rec walking more 05/08/2024 Hypertensive chronic kidney disease with stage 1 through stage 4 chronic kidney disease, or unspecified chronic kidney disease (ICD-10 - I12.9) bp check daily goal <130/80 diet/exercise controlled for age 0501/15/2025 Chronic kidney disease, stage 2 (mild) (ICD-10 [...] pt steroid shot if worsens rtc prn 05/08/2024 Other Plan Of Treatment Pending Test Test Name Order Date HEMOGLOBIN A1C (GLYCO) 01/15/2025 LIPID PANEL (CHOL/TRIG/HDL/LDL) 01/16/20 25 Cerumen Removal - performed 03/11/2023 Echocardiogram 2D M Mode w/ Doppler (maria teresa sure RVSP) 03/11/2023 PSA, TOTAL 01/15/2025 MARYANA Ankle Brachial Index (74290) 023 MICROALBUMIN w RICE FARMWORKER RATIO 01/15/2025 CMP (COMP MET CHE) w/eGFR CKD-EPI 2024 Next Appt Details Provider Name:Rodger baugh, 03/24/2025 09:00:00 AM, [address] [place], [address], Insurance Providers Payer Name Payer Address Payer Phone Subscriber Number Group Number Insured Name Patient Relationship to Insured Coverage Start Date Coverage End Date [employer]TH MEDICARE ADV PLAN [address] [place] [phone] [id number] [id number] - patient is the insured 3 Medical (General) History Medical History History ICD Code Hypercholesterolemia Hypertension macular degeneration OA allergic rhinitis prostate cancer diastolic dysfunction moderate aortic stenosis L DDD CKD-2 Surgical History Surgery Date(Month/Year) Biopsy of prostate - all negative 2019 Cholecystectomy 01/27/2014 Colonoscopy 08/09/2007 Left leg vein stripping 2009 cologuard - negative - 11/2022
[2025-01-27 08:07] LABS: Alanine Aminotransferase 252 U/L (16-63); Albumin Globulin Ratio 0.8; Albumin Level 3.5 g/dL (3.4-5.0); Alkaline Phosphatase 575 U/L (46-116); Aspartate Amino Transferase 122 U/L (15-37); BUN Creatinine Ratio 20.6; Bilirubin Total 0.9 mg/dL (0.2-1.0); Calcium 9.3 mg/dL (8.5-10.1); Carbon Dioxide 29.1 mmol/L (21.0-32.0); Chloride 105 mmol/L (98-107); Chol HDL Ratio 2.8; Cholesterol 185 mg/dL (<=200); Estimated GFR (African America >60 (>=60 mL/min/1.73m^2); Estimated GFR (Non-African Ame >60 (>=60 mL/min/1.73m^2); Globulin 4.3 g/dL; Glucose 108 mg/dL (74-106); HDL Cholesterol 65 mg/dL (40-60); Potassium 4.1 mmol/L (3.5-5.1); Sodium 144 mmol/L (136-145); Total Protein 7.8 g/dL (6.4-8.2); Triglycerides 95 mg/dL (<=150)
[2025-01-27 08:08] LABS: Creatinine Urine Random 86.66 mg/dL (20.00-300.00); Microalbumin Urine Random <1.3 mg/dL (<=30.0)
[2025-01-27 08:25] LABS: Prostate Specific Antigen Scrn 6.17 ng/mL (<=4.00)
[2025-01-27 08:42] LABS: Estimated Average Glucose 123 mg/dL; Glycohemoglobin A1C 5.9 % (4.5-6.2)
== END 2025-01-27 07:18 | disposition home or self-care (01) ==
LOC: LAB 07:19
PROVIDERS: PCP Family Medicine; Visit Provider Family Medicine
DX: E78.5 Hyperlipidemia, unspecified (principal); Z12.5 Encounter for screening for malignant neoplasm of prostate; I10 Essential (primary) hypertension; R73.03 Prediabetes
CPT/HCPCS: 36415; 80053; 80061; 82043; 82570; 83036; G0103

== ENCOUNTER 2025-03-21 18:13 | Emergency (ER) | payer MEDICARE, SELFPAY ==
[2025-03-21] VITALS (8 sets, daily range): BP systolic 133–177; BP diastolic 65–86; PULSE 83–89; TEMP 37.1; O2SAT 96–100; BMI 29.0
--- NOTE | 2025-03-21 19:33 | ECG_ITS ---
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
--- NOTE | 2025-03-21 19:33 | ED.GENADUL1 ---
HPI HPI - General Adult General Chief complaint: Nausea/Vomiting/Diarrhea Stated complaint: JAUNDICE SKIN Time Seen by Provider: 03/21/25 18:48 Source: patient Mode of arrival: walk-in Limitations: no limitations History of Present Illness HPI narrative: This 79-year-old male who is status post cholecystectomy 8 to 10 years ago presents for evaluation of generalized abdominal pain and jaundice skin color. The patient and his recently returned from a trip to [place]. While he was down there his granddaughter told him that his eyes looked yellow. He has gradually become jaundiced over the course of the last week. He has also been having intermittent lower abdominal pain, cramping in nature and multiple episodes of diarrhea. He states at times he has had some blood in his stool but his stool has not been melanotic. He denies any chest pain or shortness of breath. He does not drink alcohol. He states his abdomen is smaller than it typically is. He denies any recent fever. He admits to an approx 15 pound weight loss in the past several months. He states he does not have much of an appetite and everything he eats has been running thru him. Related Data Home Medications ?Medication ?Instructions ?Recorded ?Confirmed amlodipine 10 mg tablet mg 03/21/25 atorvastatin 10 mg tablet mg 03/21/25 hydrochlorothiazide 12.5 mg tablet mg 03/21/25 lisinopril 30 mg tablet 30 mg PO DAILY 03/21/25 03/21/25 meloxicam 7.5 mg tablet 7.5 mg PO DAILY 03/21/25 03/21/25 tamsulosin 0.4 mg capsule 0.4 mg PO DAILY 03/21/25 03/21/25 Allergies Allergy/AdvReac Type Severity Reaction Status Date / Time latex Allergy Mild Rash Verified 03/21/25 18:43 Review of Systems ROS Status of ROS 10 or more systems reviewed and unremarkable except as noted in history and below PFSH PFSH Social History Little interest or pleasure in doing things: not at all Feeling down, depressed, or hopeless: not at all Exam Narrative Exam Narrative: Vital signs and Nursing Notes reviewed: Patient is afebrile with a normal pulse, blood pressure is elevated 159/71, he is not hypoxic with pulse ox of 99% on room air General: Awake, alert, oriented, no acute distress, lying comfortably on the stretcher HEENT: Normocephalic atraumatic, mucous membranes are moist and pink, sclera are jaundiced Neck: Supple, no meningeal signs, no anterior or posterior cervical lymphadenopathy Chest: Lungs are clear to auscultation with good air entry, there is no wheezing rhonchi or rales appreciated no accessory muscle use, patient is speaking in complete sentences-no chest wall tenderness to palpation CVS: Regular rate and rhythm S1-S2, no murmurs rubs or gallops, pulses are brisk and equal bilaterally ABD: Soft, round, positive fluid wave, diffusely tender localizing to the left lower quadrant Extremities: Moving all extremities, no lower extremity tenderness or swelling noted, negative Homans' sign, pulses are brisk and equal bilaterally Skin: Normal in appearance without rash,pallor, petechiae or purpura Neuro: No focal deficits Constitutional Vital Signs, click to edit/add: Last Vital Signs Temp 98.7 F 03/21/25 18:39 Pulse 83 03/21/25 22:43 Resp 18 03/21/25 22:43 BP 138/69 03/22/25 00:30 Pulse Ox 98 03/22/25 00:30 O2 Del Method Room Air 03/21/25 18:39 Course Vital Signs Vital signs: Vital Signs Temperature 98.7 F 03/21/25 18:39 Pulse Rate 88 03/21/25 18:39 Respiratory Rate 16 03/21/25 18:39 Blood Pressure 159/71 H 03/21/25 18:39 Pulse Oximetry 99 03/21/25 18:39 Oxygen Delivery Method Room Air 03/21/25 18:39 Temperature 98.7 F 03/21/25 18:39 Pulse Rate 83 03/21/25 22:43 Respiratory Rate 18 03/21/25 22:43 Blood Pressure 138/69 03/22/25 00:30 Pulse Oximetry 98 03/22/25 00:30 Oxygen Delivery Method Room Air 03/21/25 18:39 Medical Decision Making MDM Narrative Medical decision making narrative: This 79-year-old male who is status postcholecystectomy many years ago with Dr. Greer presents for evaluation of lower abdominal pain with jaundice. The patient has been having diarrhea for the past week or so some with small amounts of blood in it. He was visiting family members in [place] when his granddaughter told him that his eyes looked yellow. He has marked jaundice with scleral icterus. He is mentating normally. He denies any chest pain or shortness of breath. He does have a distended abdomen with a fluid wave. An IV was placed and he was medicated with gentle hydration. Routine labs were ordered. His white count is elevated at 13.3 with a stable hemoglobin of 13. Platelet count is normal. Electrolytes are normal. Lactic acid is normal 0.9. Liver function tests are abnormal with total bilirubin of 15.8. AST of 166, ALT of 146, alk phos is 1125. Ammonia is normal at 28. Troponin is normal at 7.4. EKG done upon arrival is a sinus rhythm with a right bundle branch block at 83 bpm. Left axis deviation, no acute ST segment elevation or T wave inversion noted CT scan of the abdomen pelvis with IV contrast shows normal heart size with cholecystectomy with dilated intrahepatic bile ducts, ectatic common bile duct, no acute process seen in the pancreas or spleen. 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 Case discussed with Dr Paredes, [facility] Hospitalists - he states that he will require transfer to a tertiary hospital capable of doing ERCP or MRCP. This was discussed with the patient's and the patient himself. I explained to them that the CT scan does not show any acute findings but he will need additional testing that is not able to be performed here. He request to be transferred to [facility] in [place] where his son works. 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 Case discussed with Dr Rm at [facility] and he is accepted for transfer to [facility]. Medical Records Medical records reviewed: Yes I reviewed the patient's medical records Lab Data Lab results reviewed: Yes I reviewed the patient's lab results Labs: Lab Results 03/21/25 03/21/25 Range/Units 19:40 19:50 WBC 13.3 H (4.0-11.0) 10^3/uL RBC 3.95 L (4.70-6.10) 10^6/uL Hgb 13.1 L (14.0-18.0) g/dL Hct 37.8 L (42.0-54.0) % MCV 95.7 H (80.0-94.0) fL MCH 33.2 (25.9-34.0) pg MCHC 34.7 (29.9-35.2) g/dL RDW 19.7 H (11.0-15.0) % Plt Count 345 (150-450) 10^3/uL MPV 10.2 (9.5-13.5) fL Neut % (Auto) 65.7 (43.0-75.0) % Lymph % (Auto) 21.9 (20.5-60.0) % [place] % (Auto) 10.2 (1.7-12.0) % Eos % (Auto) 1.1 (0.9-7.0) % Baso % (Auto) 0.5 (0.2-2.0) % Neut # (Auto) 8.7 H (1.4-6.5) 10^3/uL Lymph # (Auto) 2.9 (1.2-3.8) 10^3/uL [place] # (Auto) 1.4 H (0.3-0.8) 10^3/uL Eos # (Auto) 0.1 (0.0-0.7) 10^3/uL Baso # (Auto) 0.1 (0.0-0.1) 10^3/uL Abs Immat Gran (auto) 0.08 H (0.00-0.03) 10^3/uL Imm/Tot Granulo (auto) 0.6 H (0.0-0.5) % PT 15.1 H (9.0-11.6) sec INR 1.48 Sodium 139 (136-145) mmol/L Potassium 3.4 L (3.5-5.1) mmol/L Chloride 102 (98-107) mmol/L Carbon Dioxide 24.9 (21.0-32.0) mmol/L Anion Gap 15.5 BUN 30.0 H (7.0-18.0) mg/dL Creatinine 0.87 (0.70-1.30) mg/dL Est GFR ( Amer) >60 (>=60 mL/min/1.73m^2) Est GFR (Non-Af Amer) >60 (>=60 mL/min/1.73m^2) BUN/Creatinine Ratio 34.5 Glucose 111 H (74-106) mg/dL Lactate 0.9 (0.4-2.0) mmol/L Calcium 9.1 (8.5-10.1) mg/dL Total Bilirubin 15.8 H (0.2-1.0) mg/dL AST 166 H (15-37) U/L ALT 146 H (16-63) U/L Alkaline Phosphatase 1125 H (46-116) U/L Ammonia 28 (11-32) umol/L Troponin I High Sens 7.4 (4.0-76.1) pg/mL Total Protein 7.5 (6.4-8.2) g/dL Albumin 2.5 L (3.4-5.0) g/dL Globulin 5.0 g/dL Albumin/Globulin Ratio 0.5 Lipase 17.0 (16.0-77.0) U/L Urine Color Dk. orange (YELLOW) Urine Clarity Clear (CLEAR) Urine pH 5.5 (5.0-9.0) Ur Specific [place] 1.025 (1.005-1.025) Urine Protein Trace (NEG/TRACE) mg/dL Urine Glucose (UA) Negative (NEGATIVE) mg/dL Urine Ketones Negative (NEGATIVE) mg/dL Urine Occult Blood Negative (NEGATIVE) Urine Nitrite Negative (NEGATIVE) Urine Bilirubin Large A (NEGATIVE) Urine Urobilinogen 0.2 (0.2-1.0) EU/dL Ur Leukocyte Esterase Negative (NEGATIVE) Urine RBC None seen (0-2) #/HPF Urine WBC 0-2 A (NONE SEEN) #/HPF Ur Squamous Epith Cells Rare (NONE/RARE) #/LPF Urine Crystals Seen A (None Seen) #/HPF Amorphous Sediment Rare Urine Bacteria None seen (NONE SEEN) #/HPF Urine Casts None seen (NONE SEEN) #/LPF Urine Mucus None seen (NONE SEEN) Ur Culture Indicated? No ECG Data Attestation: I personally reviewed and interpreted this ECG as follows: (Sinus rhythm 83 bpm, right bundle branch block, left axis deviation, no acute ST segment elevation or T wave inversion) Discharge Plan Discharge Chief Complaint: Nausea/Vomiting/Diarrhea Clinical Impression: Jaundice, Diarrhea Patient Disposition: [facility] Time of Disposition Decision: 04:04 Discharge Location: [facility] Condition: Fair Mode of Transportation: EMS
[2025-03-21 19:47] LABS: Hematocrit 37.8 % (42.0-54.0); Hemoglobin 13.1 g/dL (14.0-18.0); Immature Granulocytes Abs Auto 0.08 10^3/uL (0.00-0.03); Immature Granulocytes Pct Auto 0.6 % (0.0-0.5); Lymphocytes Absolute Auto 2.9 10^3/uL (1.2-3.8); Mean Corpuscular HGB Conc 34.7 g/dL (29.9-35.2); Mean Corpuscular Hemoglobin 33.2 pg (25.9-34.0); Mean Corpuscular Volume 95.7 fL (80.0-94.0); Platelet Count 345 10^3/uL (150-450); Red Blood Count 3.95 10^6/uL (4.70-6.10); White Blood Count 13.3 10^3/uL (4.0-11.0)
--- NOTE | 2025-03-21 19:49 | XR_ITS ---
The [address] [address] Patient Name: GHAZALA BOLAÑOS MRN: [id number] date: 1945 Sex: M Assigned Patient Location: ED.MAIN Current Patient Location: Accession/Order Number: [id number] Exam Date: 03/22/2025 08:52 Report Date: 03/22/2025 08:54 At the request of: DAYTON ZAMORANO MD Procedure: XR chest 2V PA AND LATERAL CHEST: CLINICAL HISTORY: new onset jaundice COMPARISON: None There is subpleural fat at the mid to lower periphery of the lungs as well as pericardial fat pads. There is no focal parenchymal consolidation, effusion or pneumothorax. The cardiac, hilar and mediastinal silhouettes are within normal limits. There is no vascular congestion. The visualized bony thorax is intact. End plate spurring is seen. XR/XR chest 2V IMPRESSION: NO ACUTE CARDIOPULMONARY ABNORMALITY. Impression dictated by: Kellee Donato M.D. 03/22/2025 8:54 AM Dictation Location: [place] [address] Electronically authenticated by: [id number] Y Date: 03/22/2025 08:54
[2025-03-21 20:01] LABS: Ammonia 28 umol/L (11-32)
[2025-03-21 20:02] LABS: INR 1.48; Prothrombin Time 15.1 sec (9.0-11.6)
[2025-03-21 20:07] LABS: Lactate/Lactic Acid 0.9 mmol/L (0.4-2.0)
[2025-03-21 20:18] LABS: Alanine Aminotransferase 146 U/L (16-63); Albumin Globulin Ratio 0.5; Albumin Level 2.5 g/dL (3.4-5.0); Alkaline Phosphatase 1125 U/L (46-116); Anion Gap 15.5; Aspartate Amino Transferase 166 U/L (15-37); Blood Urea Nitrogen 30.0 mg/dL (7.0-18.0); Calcium 9.1 mg/dL (8.5-10.1); Carbon Dioxide 24.9 mmol/L (21.0-32.0); Chloride 102 mmol/L (98-107); Estimated GFR (African America >60 (>=60 mL/min/1.73m^2); Estimated GFR (Non-African Ame >60 (>=60 mL/min/1.73m^2); Globulin 5.0 g/dL; Glucose 111 mg/dL (74-106); Potassium 3.4 mmol/L (3.5-5.1); Sodium 139 mmol/L (136-145); Total Protein 7.5 g/dL (6.4-8.2)
[2025-03-21] MEDS: 0.9 % SODIUM CHLORIDE 1,000 ML 125 ML IV (20:20)
[2025-03-21 21:46] LABS: Glucose Urine UA NEGATIVE (NEGATIVE)
[2025-03-21 21:50] LABS: Lipase 17.0 U/L (16.0-77.0)
[2025-03-21 21:53] LABS: Crystals Seen? Seen #/HPF (None Seen)
[2025-03-21 21:54] LABS: Cast Seen? NONE SEEN #/LPF (NONE SEEN); Urine Culture Indicated NO
--- NOTE | 2025-03-21 23:40 | PC.NURSE ---
Call placed to [facility] transfer line and spoke with Shaylee. Awaiting return call at this time. Dr. Lehman aware.
[2025-03-22] VITALS: BP 147/80; O2SAT 98
[2025-03-22 00:30] VITALS: BP 138/69; O2SAT 98
--- NOTE | 2025-03-22 00:44 | PC.NURSE ---
Dr. Lehman speaks with [facility] at this time.
[2025-03-22 07:08] VITALS: BP 136/88
== END 2025-03-22 07:46 | disposition short-term general hospital (02) ==
PROVIDERS: Emergency Medicine; Emergency Provider Emergency Medicine; PCP Family Medicine
DX: R17 Unspecified jaundice (principal); R19.7 Diarrhea, unspecified; Z90.49 Acquired absence of other specified parts of digestive tract; R10.84 Generalized abdominal pain; M51.369 Other intervertebral disc degeneration, lumbar region without mention of lumbar back pain or lower extremity pain; K40.20 Bilateral inguinal hernia, without obstruction or gangrene, not specified as recurrent; K42.9 Umbilical hernia without obstruction or gangrene
CPT/HCPCS: 36415; 71046; 74177; 80053; 81001; 82140; 83605; 83690; 84484; 85025; 85610; 93005; 99285; Q9967

== ENCOUNTER 2025-03-29 07:30 | Outpatient (OUT) | payer MEDICARE, SELFPAY ==
--- OUTSIDE RECORDS SUMMARY | 2024-04-20 06:30 | XMS_ITS | Encounter Summary ---
Author Name [facility] [place] Organization [place] Address [address] [place] [id number] Care Team Providers Care Manager Environmental Services Name Role Phone NAY BARNES Primary Care [...] York's Name Patient's Relationship to Policy York [facility] (WNR) MEDICARE ADVANTAGE [facility] (WNR) Sep 09, 2021 OHRWP 0 [id number] Aleta BOLAÑOS PATIENT [facility] ([facility]NR) MEDICARE ADVANTAGE [facility] (WNR) Sep 09, 2021 [facility] [id number] Aleta BOLAÑOS PATIENT Selected Encounter This section includes the information on record at [place] for the Encounter. Date/Time Encounter Type Encounter Description Reason Provider Source Apr 20, 2024 10:30 AM PSYTX W PT 45 MINUTES PCMHI INDIV ICD-10-CM F43.23 Adjustment disorder with mixed anxiety and depressed mood CHAYO CHENG Encounter Template Text not used by [facility] Assessments - Encounter Diagnoses This section includes the primary and secondary diagnoses documented for the Encounter. Date/Time Primary/Secondary Diagnosis Diagnosis Name Provider Source Apr 20, 2024 11:53 AM PRIMARY Adjustment disorder with mixed anxiety and depressed mood CHAYO CHENGY [facility] Apr 20, 2024 11:53 AM SECONDARY Insomnia, unspecified CHAYO CHENG [facility] Apr 20, 2024 11:53 AM SECONDARY Other specified problems related to upbringing CHAYO CHENG RAFAT DONOVAN Plan of Treatment: Future Appointments (+ 6 months) and Future Tests (+/- 45 days) The Plan of Treatment section includes future care activities for the patient from [facility] [place] [facility]. This section includes future appointments and future orders which are active, pending or scheduled. Future Appointments This section includes appointments that were scheduled to occur 6 months from the date of the Encounter, up to a maximum of 20 appointments. The data comes from all [place] treatment facilities. Appointment Date/Time Appointment Type Appointme nt Facility Name May 25, 2024 10:30 AM AMBULATORY - PSYCHIATRY [facility] Oct 01, 2024 10:00 AM AMBULATORY - NONE RAFAT [facility] Oct 08, 2024 09:30 AM AMBULATORY - NONE SHASHANK Underwood [facility] Lab Results: +/- 30 days of the encounter This section includes the Chemistry and Hematology Lab Results on record with [place] for the patient. Radiology Reports and Pathology Reports are provided separately, in subsequent sections. Lab Results This section contains the Chemistry/Hematology Results that were resulted 30 days before or 30 daysafter the date of the Encounter. Date/Time Source Result Type Result - Unit Interpretation Reference Range Specimen Type Comment Apr 07, 2024 10:44 AM [facility] COMPREHENSIVE METABOLIC PANEL PLASMA Specimen Type: PLASMA Comment: LDL REF RANGE: OPTIMAL: <100 mg/dL BORDERLINE HIGH: 130-159 mg/dL LDL HIGH: 160-189 mg/dL VERY HIGH: >=190 TRIG REF RANGE: NORMAL <150 mg/dL BORDERLINE HIGH: 150-199 mg/dL TRIG HIGH: 200-499 mg/dL VERY HIGH: >=500 mg/dL Ordering Provider: NARESH ACE Report Released Date/Time: Apr 07, 2024 10:25 AM Reporting Lab: [facility] [id number] [place] [id number] Performing Lab: [address] [phone] ALBUMIN 4.5 g/dL 3.2-4.6 ALKALINE PHOSPHATASE 177 [...] 68.0 mL/min Apr 07, 2024 10:44 AM [facility] LIPID PROFILE PLASMA Specimen Type: PLASMA Comment: LDL REF RANGE: OPTIMAL: <100 mg/dL BORDERLINE HIGH: 130-159 mg/dL LDL HIGH: 160-189 mg/dL VERY HIGH: >=190 TRIG REF RANGE: NORMAL <150 mg/dL BORDERLINE HIGH: 150-199 mg/dL TRIG HIGH: 200-499 mg/dL VERY HIGH: >=500 mg/dL Ordering Provider: NARESH ACE Report Released Date/Time: Apr 07, 2024 10:25 AM Reporting Lab: [address] [id number] Performing Lab: [address] [phone] CHOLESTEROL 175 mg/dL 0-200 LDL CHOLESTEROL 128 mg/dL H 0-100 HDL CHOLESTEROL 39 mg/dL L 40-60 TRIGLYCERIDE 150 mg/dL 0-150 Apr 07, 2024 10:44 AM [facility] CBC BLOOD Specimen Type: BLOOD No comment entered. Ordering Provider: NARESH ACE Report Released Date/Time: Apr 07, 2024 10:25 AM Reporting Lab: [address] [phone] Performing Lab: [address] [phone] WBC COUNT 9.7 10*3/uL 3.6-11.0 RBC COUNT [...] fL 7.4-11.4 Apr 07, 2024 10:44 AM [facility] MAGNESIUM PLASMA Specimen Type: PLASMA Comment: LDL REF RANGE: OPTIMAL: <100 mg/dL BORDERLINE HIGH: 130-159 mg/dL LDL HIGH: 160-189 mg/dL VERY HIGH: >=190 TRIG REF RANGE: NORMAL <150 mg/dL BORDERLINE HIGH: 150-199 mg/dL TRIG HIGH: 200-499 mg/dL VERY HIGH: >=500 mg/dL Ordering Provider: NARESH ACE Report Released Date/Time: Apr 07, 2024 10:25 AM Reporting Lab: [address] [phone] Performing Lab: [address] [phone] MAGNESIUM 2.3 mg/dL 1.6-2.6 Apr 07, 2024 10:44 AM [facility] URINALYSIS URINE Specimen Type: URINE No comment entered. Ordering Provider: NARESH ACE Report Released Date/Time: Apr 07, 2024 10:25 AM Reporting Lab: [address] [phone] Performing Lab: [address] [address] SPECIFIC GRAVITY 1.009 L 1.016-1.022 URINE GLUCOSE [...] and tobacco- related health factors from the [place] facility where the Encounter took place. Current Smoking Status This section includes the most current smoking, or tobacco-related health factor, from the [place] facility where the Encounter took place. Date/Time Current Smoking Status Comment Facil ity Apr 07, 2024 10:00 AM [place]-TOBACCO FORMER USER [facility] Tobacco Use History This section includes a history of the smoking, or tobacco-related health factors, that were collected on or before the date of the Encounter. The data comes from the [place] facility where the Encounter took place. Date/Time Smoking Status/Tobacco Use Comment F acility Apr 07, 2024 10:00 AM [place]-TOBACCO QUIT 15 YRS OR MORE [facility] Encounter Notes: All associated encounter notes This section contains the clinical notes associated to the Encounter. Date/Time Encounter Note(s) Provider Source Apr 20, 2024 10:59 AM MENTAL HEALTH NOTE : LOCAL TITLE: PRIMARY CARE MENTAL HEALTH INTEGRATION NOTE STANDARD TITLE: MENTAL HEALTH NOTE DATE OF NOTE: APR 20, 2024@10:59 ENTRY DATE: APR 20, 2024@11:00:01 AUTHOR: CHAYO CHENG EXP COSIGNER: URGENCY: STATUS: COMPLETED PRIMARY CARE MENTAL HEALTH INTEGRATION NOTE SESSION TIME AND DURATION: 10:29am - 11:09pm 40 minutes SESSION NUMBER: 2 SESSION MODALITY: Individual Kegley participated in PCMHI session today as a scheduled in person apt. was informed of the purpose and process of PCMHI sessions, information about this provider, limits of confidentiality, and agreed to proceed. informed of crisis hotline. CONCERN: The reports a noticeable improvement in is mood since the last session. He mentions a significant decrease in episodes of crying, which has provided some relief. He reports although intrusive thoughts persist, he is actively trying to stay busy and engage in distraction to manage them. The also reports that his spiritual beliefs play an essential role in keeping him grounded. Despite the mood improvement, he continues to experience fatigue due to inadequate sleep. The reports waking up a couple times during the night to use the restroom, which he finds frustrating but necessary to avoid accidents. He reports having a wonderful weekend with is family, celebrating his daughters 40th birthday. DIAGNOSIS: Adjustment disorder with mixed anxiety and depressed mood. Problems Related to Upbringing,Oth Spec Insomnia D/O,Unspec ASSESSMENT: The 's mood has improved, with a ojtswid5nd in emotional distress. Intrusive thoughts are still present but are being actively managed with distraction techniques. Sleep disturbance remain an issues, contributing to ongoing fatigue, but the is taking steps to manage. Social interaction with family and his reliance on spiritual beliefs appear to have had a positive impact on his mood. No other needs at this time. Kegley is calm and stable at the end of the appointment. No S/H ideation noted. Mental Status: ORIENTATION AND CONSCIOUSNESS: Alert and attentive appeared more relaxed and engaged. No signs of distress APPEARANCE AND BEHAVIOR: Cooperative and reasonable SPEECH: Normal rate/rhythm LANGUAGE: Intact MOOD AND AFFECT: Anxious mood affect brighter more talkative PERCEPTUAL DISTURBANCE (Hallucinations, Illusions): None THOUGHT PROCESS AND ASSOCIATION: Normal, coherent THOUGHT CONTENT (delusions, Obsessions, etc): No unusual thought content SUICIDAL OR VIOLENT IDEATION: None MEMORY: Intact SUICIDAL/HOMICIDAL RISK: Kegley denies SI/HI now or since last session. PHQ-9 Total Score (past 180 days): 04/20/2024 8 04/08/2024 7 MI-7 Total Score (past 180 days): 04/20/2024 6 04/08/2024 6 GOAL/TARGETED BEHAVIOR: The wants to reduce the number of nighttime awakenings to once per night by limiting fluid intake in the evening and engaging in relaxation techniques before bed. RESPONSE: The responded positively to the goal of improving sleep quality, recognizing that it will help with his fatigue. He expressed a willingness to make an effort to enhance his sleep routine and address his nighttime awakenings. INTERVENTION: - Used active listening, empathic reflection, and emotion validation to gather information on presenting problem. - Facilitated discussions through open-ended questions and reflections. - Explored the possibility of trauma-focused therapy (BHIP)to address unresolved issues from his childhood. - Encouraged Vet to engage in activities that have previously brought him kathy, such as spending time with his or engaging in hobbies like fishing. -Validated the veterans efforts to improve his mood and reinforce the importance of seeking support when needed. Plan: 1. to follow up with this therapist in [facility] clinic 2. Kegley will contact clinic/VCL with concerns PRN. 3. will start implementing the sleep hygiene strategies discussed. NEXT APPOINTMENT: RTC placed is aware to contact the clinic or the Veterans Crisis Line with concerns prior to the next scheduled visit. /lester/ CHAYO CHENG CLINICAL DOCUMENTATION LIAISON Signed: 04/21/2024 15:04 CHAYO CHENGUSKY [facility]
--- OUTSIDE RECORDS SUMMARY | 2025-01-15 05:45 | XMS_ITS ---
Author Organization 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 Name Role Phone Rodger Orozco Primary Care Provider Allergies No Known Allergies Results Component Value Reference Range Notes LIPID PANEL (CHOL/TRIG/HDL/L DL) Reviewed date:01/27/2025 11:49:20 AM Interpretation: Performing Lab: Notes/Report: REASON FOR VISIT sore on foot Medications Medication SIG (Take, Route, Frequency, Duration) Notes Start Date End Date Status Vitamin E 400iu QD Active Turmeric Not-Taking Meloxicam 7.5 MG 1 tablet Orally Once a day for 90 days Active PreserVision AREDS 2 Active Lisinopril 30 MG 1 tablet Orally Once a day Active Lutein 20 MG 1 capsule Orally Once a day Active Flomax 0.4 MG 1 capsule Orally Once a day for 30 days 11/08/2022 Active hydroCHLOROthiazide 12.5 MG 1 tablet Ora lly Once a day Active amLODIPine Besylate 10 MG 1 tablet Orall y Once a day Active Co Q10 100 MG - Orally Active Aspirin 81 MG 1 tablet Orally Once a day Active Mupirocin 2 % 1 application Externally bid for 5 days 01/15/2025 Active B12 po daily Active Atorvastatin Calcium 10 MG 1 tablet Oral ly Once a day Active Centrum Silver 1 po qd Activ e Allergy Relief otc Activ e Cephalexin 500 MG 1 capsule Orally tid for 7 days 01/15/2025 Active Social History Tobacco Use: Social History Observation Description Date Details (start date - stop date) Never Smoker NA - NA Tobacco Use/Smoking Question Answer Notes Patient is a nonsmoker Problems Problem Type SNOMED Code ICD Code Onset Dates Problem Status W/U Status Risk Notes Problem [id number] Other seasonal allergic rhinitis (J30.2) Active confirmed Problem 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) Active confirmed Vital Signs Weight 201.7 lbs 01/15/2025 Height 67 in 01/15/2025 Blood pressure systolic 150 mm Hg 01/16/20 25 Blood pressure diastolic 62 mm Hg 025 Heart Rate 92 /min 01/15/2025 Respiratory Rate 16 /min 01/15/2025 BMI 31.59 kg/m2 01/15/2025 Oximetry 95 % 01/15/2025 Encounters Encounter Location Date Provider Diagnosis [facility] [address] [place] [address] 01/15/2025 Rodger Orozco Cellulitis of right toe L03.031 ; Unspecified open wound of unspecified toe(s) without damage to nail, initial encounter S91.109A ; Prediabetes R73.03 ; Hyperlipidemia, unspecified hyperlipidemia type E78.5 ; Encounter for screening for malignant neoplasm of prostate Z12.5 ; Other obesity due to excess calories E66.09 ; Body mass index [BMI] 31.0-31.9, adult Z68.31 ; Obesity, class 1 E66.811 ; Hypertensive chronic kidney disease with stage 1 through stage 4 chronic kidney disease, or unspecified chronic kidney disease I12.9 ; Chronic kidney disease, stage 2 (mild) N18.2 ; Personal history of malignant neoplasm of prostate Z85.46 and Other seasonal allergic rhinitis J30.2 Assessments Encounter Date Diagnosis (ICD Code) Assessment Notes Treatment Notes Treatment Clinical Notes Section Notes 01/15/2025 Cellulitis of right toe (ICD-10 - L03.031) keep clean rtc if not better ?podiatry if not better with tx rec foot exam daily 01/15/2025 Unspecified open wound of unspecified toe(s) without damage to nail, initial encounter (ICD-10 - S91.109A) see above 01/15/2025 Prediabetes (ICD-10 - R73.03) monitor a1c and tx if >7 diet/execise eye exam yearly - dilated foot exam daily stable 01/15/2025 Hyperlipidemia, unspecified hyperlipidemia type (ICD-10 - E78.5) diet/exercise LDL goal <100 uncontrolled ?add zetia 01/15/2025 Encounter for screening for malignant neoplasm of prostate (ICD-10 - Z12.5) 01/15/2025 Other obesity due to excess calories (ICD-10 - E66.09) diet/exercise due to HTN/prediabetes - see above for tx 01/15/2025 Body mass index [BMI] 31.0-31.9, adult (ICD-10 - Z68.31) 01/15/2025 Obesity, class 1 (ICD-10 - E66.811) 01/15/2025 Hypertensive chronic kidney disease with stage 1 through stage 4 chronic kidney disease, or unspecified chronic kidney disease (ICD-10 - I12.9) monitor bmp and urine diet/exercise bp check daily goal <130/80 uncontrolled today ?increase MEGAN or hctz if not at goal rtc 3 months 01/15/2025 Chronic kidney disease, stage 2 (mild) (ICD-10 - N18.2) monitor bmp neph if worsens ?farxiga urine microablumin yearly continue MEGAN bp control 01/15/2025 Personal history of malignant neoplasm of prostate (ICD-10 - Z85.46) psa yearly rec urology as directed 01/15/2025 Other seasonal allergic rhinitis (ICD-10 - J30.2) continue zyrtec call if not better and then rec flonase daioy and then singulair d/w pt steroid shot if worsens rtc prn Plan Of Treatment Medication Medication Name Sig Start Date Stop Date Notes Lisinopril 30 MG 1 tablet Orally Once a day hydroCHLOROthiazide 12.5 MG 1 tablet Orally Once a day amLODIPine Besylate 10 MG 1 tablet Orally Once a day Mupirocin 2 % 1 application Stained Glass Glazier Helper ally bid for 5 days 01/15/2025 Atorvastatin Calcium 10 MG 1 tablet Orally Once a day Cephalexin 500 MG 1 capsule Orally tid for 7 days 01/15/2025 Treatment Notes Assessment Notes Cellulitis of right toe keep clean rtc if not better ?podiatry if not better with tx rec foot exam daily Unspecified open wound of un specified toe(s) without damage to nail, initial encounter see above Prediabetes monitor a1c and tx if >7 diet/execise eye exam yearly - dilated foot exam daily stable Hyperlipidemia, unspecified hyperlipidemia type diet/exercise LDL goal <100 uncontrolled ?add zetia Other obesity due to excess calories diet/exercise due to HTN/prediabetes - see above for tx Hypertensive chronic kidney disease with stage 1 through stage 4 chronic kidney disease, or unspecified chronic kidney disease monitor bmp and urine diet/exercise bp check daily goal <130/80 uncontrolled today ?increase MEGAN or hctz if not at goal rtc 3 months Chronic kidney disease, stage 2 (mild) monitor bmp neph if worsens ?farxiga urine microablumin yearly continue MEGAN bp control Personal history of malignan t neoplasm of prostate psa yearly rec urology as directed Other seasonal allergic rhinitis continue zyrtec call if not better and then rec flonase daioy and then singulair d/w pt steroid shot if worsens rtc prn Pending Test Test Name Order Date HEMOGLOBIN A1C (GLYCO) 01/15/2025 PSA, TOTAL 01/15/2025 MICROALBUMIN w TEAM PSYCHOLOGIST RATIO 01/15/2025 CMP (COMP MET CHE) w/eGFR CKD-EPI 2024 Next Appt Details Follow Up: 3 Months, Reason: MWV Progress Notes * STOVER, BroDOB:1945 (79 yo M)Acc No.[id number]:01/15/2025 Established Patient: Bro ENGEL Provider: Yasmine Orozco DO :1945 A ge:79 Y S ex:Male Date:01/15/2025 Address:[address] [place], [place] [id number] Check In:09:20 AM ESTCheck O ut:10:00 AM EST Subjective: * Chief Complaints: * S ore on foot * HPI: G eneral: Patient presents today for sore on the bottom of foot. Patient states it has been there for awhile. He states he has some allergy concerns as well.-MV - - - - - - - - -- R 4th toe with medial area with drainage and erythema no otc tx done pt just keeps it clean s/s for 2 months - - - - - - - - started zyrtec recently for allergy flare ups sneezing/rhinorrhea/watery eyes no f/c no sore throat - - - - - - - no CP/palp/dizzy/SOB no GI/ c/o no rashes mood ok - - - - - - - - - 08/2024 A1c 5.9 tolerating all meds without side effects not checking BS at home - - - - - - - - 04/2024 labs reviewed - cbc normal, Cr 1.1, GFR 68, TC 175, TG 150, HDL 39, LDL 128 - - - - - - -- not checking BP at home - - - - - - - 2018 prostate bx +cancer 2019 prostate bx - negative per pt not seeing urology 2023 PSA 3.83. * ROS: G eneral/Constitutional: Significant change in weight d enies. E xercise Intolerance d enies. N ight sweats d enies. F ever d enies. E yes: Dry eyes D enies. V ision changes a dmits. ? E NMT: Sore Throat d enies. N ose Bleeds d enies. D ifficulty hearing a dmits. E ar pain d enies. N ose/sinus problems a dmits. S noring d enies. B leeding gums d enies. D ry mouth d enies. M outh ulcers denies. O ral abnormalities d enies. T eeth problems d enies. C ardiovascular: Shortness of Breath w/Walking d enies. S hortness of Breath w/lying flat d enies. A rm pain on exertion d enies. C hest pain d enies.?Heart murmur d enies. P alpitations d enies. R espiratory: Coughing up blood d enies. C ough d enies. S hortness of breath d enies. W heezing d enies. G astrointestinal: Change in appetite d enies. V omiting blood d enies. A bdominal pain d enies. C onstipation d enies. D iarrhea d enies. V omiting d enies. G enitourinary: Dysuria/Increased Frequency d enies. H ematuria d enies. I ncontinence d enies. D ifficulty urinating , admits. M usculoskeletal: Swelling in the extremities d enies. A rthralgias/joint pain A dmits. B ack pain d enies. W eakness of muscles d enies. M uscle aches d enies.? S kin: Jaundice D enies. M ole(s) d enies. R khris d enies. N eurologic: Dizziness d enies. L oss of consciousness d enies.?Numbness d enies. W eakness d enies. H eadache d enies. S eizures d enies. P sychiatric: Alcohol abuse d enies. F eeling safe in relationship?denies. D epression d enies. A nxiety d enies. S leep Disturbances d enies. E ndocrine: Fatigue a dmits. H ematologic/Lymphatic: Swollen Glands d enies. B ruising d enies. ? A llergy/Immunology: Runny nose a dmits. S inus pressure d enies. F requent sneezing a dmits. H javier d enies. I tching d enies. 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 Onset Date:03/19/2018Modified On:02/02/2022W/U Status:confirmed N40.1 Benign prostatic hyp erplasia with lower urinary tract symptoms, symptom details unspecified Onset Date:03/26/2021Modified On:02/27/2022W/U Status:confirmed H35.30 Macular degeneration of both eyes, unspecified type Onset Date:09/21/2021Modified On:11/08/2022 Status:confirmed R25.2 Cramp and spasm Onset Date:03/26/2021Modified On:02/02/2022 Status:confirmed K21.9 Gastro-esophageal re flux disease without esophagitis Onset Date:09/22/2019Modified On:02/02/2022 Status:confirmed E78.5 Hyperlipidemia, unsp ecified hyperlipidemia type Onset Date:01/10/2018Modified On:11/13/2023 Status:confirmed E13.9 Other specified diab etes mellitus without complication, without long-term current use of insulin Modified On:02/27/2022 Status:confirmed E78.00 Pure hypercholestero lemia Modified On:03/18/2023 Status:confirmed K59.00 Constipation, unspec ified constipation type Modified On:11/13/2023 Status:confirmed C61 Prostate cancer Modified On:11/13/2023 Status:confirmed I27.0 Primary pulmonary HT N Modified On:07/12/2022 Status:confirmed I10 Primary hypertension Modified On:11/13/2023 Status:confirmed N40.1 Benign prostatic hyp erplasia with lower urinary tract symptoms Modified On:11/08/2022 Status:confirmed 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 Modified On:11/08/2022 Status:confirmed I73.9 Peripheral vascular disease, unspecified Modified On:11/13/2023 Status:confirmed Z68.31 Body mass index [BMI ] 31.0-31.9, adult Modified On:03/18/2023 Status:confirmed E66.9 Obesity, unspecified Modified On:05/15/2023 Status:confirmed 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, left eye, stage unspecified Modified On:11/13/2023 Status:confirmed Z68.30 Body mass index [BMI ] 30.0-30.9, adult Modified On:05/15/2023 Status:confirmed J30.89 Other allergic rhini tis Modified On:05/15/2023 Status:confirmed I51.89 Other ill-defined he art diseases Modified On:05/15/2023 Status:confirmed M47.816 Spondylosis without myelopathy or radiculopathy, lumbar region Modified On:11/13/2023 Status:confirmed E66.09 Other obesity due to excess calories Modified On:11/13/2023 Status:confirmed Z68.32 Body mass index [BMI ] 32.0-32.9, adult Modified On:11/13/2023 Status:confirmed Z85.46 Personal history of malignant neoplasm of prostate Modified On:11/13/2023 Status:confirmed F43.10 Post-traumatic stres s disorder, unspecified Modified On:05/09/2024 Status:confirmed N18.2 Chronic kidney disea se, stage 2 (mild) Modified On:05/09/2024 Status:confirmed I12.9 Hypertensive chronic kidney disease with stage 1 through stage 4 chronic kidney disease, or unspecified chronic kidney disease Modified On:05/11/2024 Status:confirmed E11.3513 Diabetic macular che ma of both eyes with proliferative retinopathy associated with type 2 diabetes mellitus Modified On:01/16/2025 Status:confirmed J30.2 Other seasonal aller gic rhinitis Modified On:01/16/2025 Status:confirmed * Medical History: * Surgical History: B iopsy of prostate - all negative 06/16/2020Cholecystectomy 01/27/2014Colonoscopy 08/09/2007Left leg vein stripping 2009cologuard - negative - 11/2022 * Hospitalization/Major Diagno stic Procedure: N o Hospitalization History. * Family History: F ather: , coronary arteriosclerosis, cerebrovascular accident. M other: , coronary arteriosclerosis. * Social History: T obacco Use: T obacco Use/Smoking P atient is a n onsmoker * Medications: T akingAllergy Relief , Notes to Pharmacist: otcamLODIPine Besylate 10 MG Tablet 1 tablet Orally Once a day Aspirin 81 MG Tablet Delayed Release 1 tablet Orally Once a day Atorvastatin Calcium 10 MG Tablet 1 tablet Orally Once a day B12 , Notes to Pharmacist: po dailyCentrum Silver , Notes to Pharmacist: 1 po qdCo Q10 100 MG Capsule - Orally Flomax 0.4 MG Capsule 1 capsule Orally Once a day hydroCHLOROthiazide 12.5 MG Tablet 1 tablet Orally Once a day Lisinopril 30 MG Tablet 1 tablet Orally Once a day Lutein 20 MG Capsule 1 capsule Orally Once a day Meloxicam 7.5 MG Tablet 1 tablet Orally Once a day PreserVision AREDS 2 Vitamin E , Notes to Pharmacist: 400iu QDTaking Allergy Relief , Notes to Pharmacist: otcTaking amLODIPine Besylate 10 MG Tablet 1 tablet Orally Once a day Taking Aspirin 81 MG Tablet Delayed Release 1 tablet Orally Once a day Taking Atorvastatin Calcium 10 MG Tablet 1 tablet Orally Once a day Taking B12 , Notes to Pharmacist: po dailyTaking Centrum Silver , Notes to Pharmacist: 1 po qdTaking Co Q10 100 MG Capsule - Orally Taking Flomax 0.4 MG Capsule 1 capsule Orally Once a day Taking hydroCHLOROthiazide 12.5 MG Tablet 1 tablet Orally Once a day Taking Lisinopril 30 MG Tablet 1 tablet Orally Once a day Taking Lutein 20 MG Capsule 1 capsule Orally Once a day Taking Meloxicam 7.5 MG Tablet 1 tablet Orally Once a day Taking PreserVision AREDS 2 Taking Vitamin E , Notes to Pharmacist: 400iu QDNot-Taking/PRNTurmeric Medication List reviewed and reconciled with the patientNot-Taking/PRN Turmeric Medication List reviewed and reconciled with the patient * Allergies: N .K.D.A.no[Allergies Verified] Objective: * Vitals: W t:201.7lbs, Ht: 67 in, BP:150/62mm Hg, HR:92/min, RR:16/min, BMI:31.59Index, Oxygen sat %:95%, Ht-cm: 170.18 cm, Wt-k.49 kg. * Examination: G eneral Examination: GENERAL APPEARANCE: h ealthy Appearing , well nourished , well developed Level of distress: NAD, + gait abnormal, obese. ENMT: E ACs clear, TMs clear, +poor hearing b/l, no lesions on external ears, +nares pink and congested turbinates b/l, no sinus tenderness, no nasal discharge, no mouth or lip ulcers, no bleeding gums, moist mucous membranes, no erythema, no exudates. HEAD: n ormocephalic, atraumatic. EYES: n on-injected, no discharge, no pallor, PERRLA , EOMI, s clera non-icteric, peripheral vision grossly intact, acuity grossly intact. LUNGS: n o dyspnea, breath sounds normal , good air movement, CTA except as noted, no wheezing, no rales/crackles, no rhonchi. CARDIO: n ot displaced, RRR, S1, S2 normal , no murmurs, rubs, gallops , no carotid bruits, normal throughout. ABDOMEN: n ormal bowel sounds , soft, non tender. BACK: n ormal curvature. MUSCULOSKELETAL: n ormal motor strength, normal tone, normal movement of all extremities, +OA changes b/l hands. SKIN: n o rash, no lesions, no ulcer, no abnormal nevi, no induration, no nodules, good turgor, no jaundice. EXTREMITIES: + R 4th toe medially and proximally with erythema and mild drainage - mildly dry skin noted as well (see picture). NEUROLOGIC: c ranial nerves grossly intact, sensation grossly intact, no tremor. PSYCH: j udgement and insight good, active and alert, normal mood, normal affect. NECK/THYROID: N ethel supple, trachea midline, no masses, FROM, no cervical LAD, no enlargement, non-tender, no nodules. Assessment: * Assessment: 1. C ellulitis of right toe - L03.031 (Primary) 2 . U nspecified open wound of unspecified toe(s) without damage to nail, initial encounter - S91.109A 3 . P rediabetes - R73.03 4 . H yperlipidemia, unspecified hyperlipidemia type - E78.5 5 . E ncounter for screening for malignant neoplasm of prostate - Z12.5 ? 6 . O ther obesity due to excess calories - E66.09 7 . B kendrick mass index [BMI] 31.0-31.9, adult - Z68.31 8 . O besity, class 1 - E66.811 & #160; 9 . H ypertensive chronic kidney disease with stage 1 through stage 4 chronic kidney disease, or unspecified chronic kidney disease - I12.9 1 0. C hronic kidney disease, stage 2 (mild) - N18.2 1 1. P ersonal history of malignant neoplasm of prostate - Z85.46 1 2. O ther seasonal allergic rhinitis - J30.2 Plan: * Treatment: 2. U nspecified open wound of unspecified toe(s) without damage to nail, initial encounter Notes: see above 3. P rediabetes L AB: HEMOGLOBIN A1C (GLYCO) Notes: monitor a1c and tx if >7 diet/execise eye exam yearly - dilated foot exam daily stable 4. H yperlipidemia, unspecified hyperlipidemia type Continue Atorvastatin Calcium Tablet, 10 MG, 1 tablet, Orally, Once a day. L AB: LIPID PANEL (CHOL/TRIG/HDL/LDL) L AB: CMP (COMP MET CHE) w/eGFR CKD-EPI Notes: diet/exercise LDL goal <100 uncontrolled ?add zetia 5. E ncounter for screening for malignant neoplasm of prostate L AB: PSA, TOTAL 6. O ther obesity due to excess calories Notes: diet/exercise due to HTN/prediabetes - see above for tx 7. H ypertensive chronic kidney disease with stage 1 through stage 4 chronic kidney disease, or unspecified chronic kidney disease Continue hydroCHLOROthiazide Tablet, 12.5 MG, 1 tablet, Orally, Once a day; C ontinue amLODIPine Besylate Tablet, 10 MG, 1 tablet, Orally, Once a day; C ontinue Lisinopril Tablet, 30 MG, 1 tablet, Orally, Once a day. L AB: MICROALBUMIN w TEAM PSYCHOLOGIST RATIO Notes: monitor bmp and urine diet/exercise bp check daily goal <130/80 uncontrolled today ?increase MEGAN or hctz if not at goal rtc 3 months 8. C hronic kidney disease, stage 2 (mild) Notes: monitor bmp neph if worsens ?farxiga urine microablumin yearly continue MEGAN bp control 9. P ersonal history of malignant neoplasm of prostate Notes: psa yearly rec urology as directed 10. O ther seasonal allergic rhinitis Notes: continue zyrtec call if not better and then rec flonase daioy and then singulair d/w pt steroid shot if worsens rtc prn * Procedure Codes: * Follow Up: 3 Months (Reason: MWV) * Images * mobile_01/15/2025 09:46:22 * Sign off status: Completed Visit Status: C HK (Check Out) true * Provider: Yasmine Orozco, DO Date: 0 01/15/2025 Generated for Luis baugh/Mi/Priyaitting on: 0 03/29/2025 07:33 AM EDT History and Physical Notes * Examination Category Sub-Category Detail Notes Category Not es General Examination GENERAL APPEARANCE: healthy Appearing , well nourished , well developed Level of distress: NAD, +gait abnormal, obese EYES: non-injected, no dis charge, no pallor, PERRLA , EOMI, sclera non-icteric, peripheral vision grossly intact, acuity grossly intact CARDIO: not displaced, RRR, S1, S2 normal , no murmurs, rubs, gallops , no carotid bruits, normal throughout LUNGS: no dyspnea, breath s ounds normal , good air movement, CTA except as noted, no wheezing, no rales/crackles, no rhonchi ABDOMEN: normal bowel sounds , soft, non tender NEUROLOGIC: cranial nerves gross ly intact, sensation grossly intact, no tremor SKIN: no rash, no lesions, no ulcer, no abnormal nevi, no induration, no nodules, good turgor, no jaundice EXTREMITIES: +R 4th toe medially and proximally with erythema and mild drainage - mildly dry skin noted as well (see picture) BACK: normal curvature MUSCULOSKELETAL: normal motor strengt h, normal tone, normal movement of all extremities, +OA changes b/l hands PSYCH: judgement and insigh t good, active and alert, normal mood, normal affect ENMT: EACs clear, TMs eveline r, +poor hearing b/l, no lesions on external ears, +nares pink and congested turbinates b/l, no sinus tenderness, no nasal discharge, no mouth or lip ulcers, no bleeding gums, moist mucous membranes, no erythema, no exudates HEAD: normocephalic, atrau matic NECK/THYROID: Neck supple, trachea midline, no masses, FROM, no cervical LAD, no enlargement, non-tender, no nodules
--- OUTSIDE RECORDS SUMMARY | 2025-01-16 17:36 | XMS_ITS ---
Author Organization The [facility] in [place] Address [address] [place] [address] Care Team Providers Care Christian Science Practitioner Name Role Phone Rodger Orozco Primary Care Provider REASON FOR VISIT [facility] Encounters Encounter Location Date Provider Diagnosis [facility] [address] [place] [address] 01/16/2025 Rodger Orozco Plan Of Treatment No Information Progress Notes * Bro BOLAÑOSDOB:1945 (79 yo M)Acc No.[id number]:01/16/2025 Patient: Bro ENGEL :1945 A ge:79 Y S ex:Male Address:[address] [place] [phone] * true * Date: Generated for Taei amauri/Mi/eTransmitting on: 0 03/29/2025 07:33 AM EDT
--- OUTSIDE RECORDS SUMMARY | 2025-02-12 21:14 | XMS_ITS | Continuity of Care Document ---
Author Name [facility] Organization [facility] Care Team Providers Care Staff Certified Nurse Midwife Name Role Phone [facility] Unavailable Unavailable Problems Combined list of problems from Department [facility] and [facility] facilities. It does not include entries that [...] ICD-10-CM I10 Essential (primary) hypertension Active Diagnosis [facility] Diagnosis: ICD-10-CM F43.23 Adjustment disorder with mixed anxiety and depressed mood Active Diagnosis [facility] Medications Combined list of outpatient medications from Department [facility] and [facility] facilities.Medications provided include 1) outpatient medications from the last 15 months, and 2) patient-reported medications. Medication Details Route Status Patient Instructions Prescription Expires Prescription Number Last Dispense Date Ordering Provider Order Date Order Qty Source AMLODIPINE BESYLATE 10MG TAB TAKE ONE TABLET BY MOUTH EVERY DAY ORAL ACTIVE SAJNA HDEZ 2024 [facility] ASPIRIN 81MG [...] reaction (finding) Watery eye SEVERE active 4 [facility] Immunizations Combined list of available immunizations from the Department of Defense and Veterans Affairs facilities. 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 Comments Source ZOSTER RECOMBINANT 2 2022 187 complet ed HISTORICA L INFORMATI ON - FROM OTHER REGISTRY, [facility] INFLUENZA, HIGH-DOSE, QUADRIVALENT, PF 6 2022 197 complet ed HISTORICA L INFORMATI ON - FROM OTHER REGISTRY, [facility] ZOSTER RECOMBINANT 1 2022 187 complet ed HISTORICA L INFORMATI ON - FROM OTHER REGISTRY, [facility] PNEUMOCOCCAL CONJUGATE PCV20, POLYSACCHARID E [id number] CONJUGATE, ADJUVANT, PF 3 2022 216 complet ed HISTORICA L INFORMATI ON - FROM OTHER REGISTRY, [facility] INFLUENZA, RECOMBINANT, QUADRIVALENT, PF 5 2021 185 complet ed HISTORICA L INFORMATI ON - FROM OTHER REGISTRY, [facility] INFLUENZA, HIGH-DOSE, QUADRIVALENT, PF 4 2020 197 complet ed HISTORICA L INFORMATI ON - FROM OTHER REGISTRY, [facility] INFLUENZA, SPLIT VIRUS, QUADRIVALENT, PRESERVATIVE 3 2019 158 complet ed HISTORICA L INFORMATI ON - FROM OTHER REGISTRY, [facility] INFLUENZA, SPLIT VIRUS, QUADRIVALENT, PRESERVATIVE 2 2018 158 complet ed HISTORICA L INFORMATI ON - FROM OTHER REGISTRY, [facility] INFLUENZA, SPLIT VIRUS, QUADRIVALENT, PRESERVATIVE 1 2017 158 complet ed HISTORICA L INFORMATI ON - FROM OTHER REGISTRY, [facility] PNEUMOCOCCAL CONJUGATE PCV 13 2 2014 133 complet ed HISTORICA L INFORMATI ON - FROM OTHER REGISTRY, [facility] PNEUMOCOCCAL POLYSACCHARID E PPV23 1 2009 33 complet ed HISTORICA L INFORMATI ON - FROM OTHER REGISTRY, [facility] Results Combined list of recent chemistry, hematology [...] Apr 07, 2024 10:34 AM Reporting Lab: [place] [id number] Performing Lab: [place] [id number] [facility] COMPREHE NSIVE METABOLI C PANEL ALKALINE PHOSPHATAS [...] Apr 07, 2024 10:34 AM Reporting Lab: [address] [address] Performing Lab: [address] [address] [facility] COMPREHE NSIVE METABOLI C PANEL ALANINE AMINOTRANS [...] Apr 07, 2024 10:34 AM Reporting Lab: [address] [address] Performing Lab: [address] [address] [facility] COMPREHE NSIVE METABOLI C PANEL ASPARTATE AMINOTRANS [...] Apr 07, 2024 10:34 AM Reporting Lab: [address] [address] Performing Lab: [address] [address] [facility] COMPREHE NSIVE METABOLI C PANEL UREA NITROGEN [...] Apr 07, 2024 10:34 AM Reporting Lab: [address] [address] Performing Lab: [address] [address] [facility] COMPREHE NSIVE METABOLI C PANEL CALCIUM [MASS/VOLU [...] Apr 07, 2024 10:34 AM Reporting Lab: [address] [address] Performing Lab: [place] [phone] [place] [address] [facility] Expect[facility] NSIVE METABOLI C PANEL CREATININE [MASS/VOLU ME] [...] Apr 07, 2024 10:34 AM Reporting Lab: [address] [address] Performing Lab: [place] [id number] [place] [address] COMPREHE NSIVE METABOLI C PANEL CARBON DIOXIDE, [...] Apr 07, 2024 10:34 AM Reporting Lab: [address] [address] Performing Lab: [address] [address] [facility] COMPREHE NSIVE METABOLI C PANEL GLUCOSE [MASS/VOLU [...] Apr 07, 2024 10:34 AM Reporting Lab: [address] [address] Performing Lab: [place] [phone] [facility] COMPREHE NSIVE METABOLI C PANEL PROTEIN [MASS/VOLU [...] Apr 07, 2024 10:34 AM Reporting Lab: [address] [address] Performing Lab: [address] [address] [facility] COMPREHE NSIVE METABOLI C PANEL SODIUM [MOLES/VOL [...] Apr 07, 2024 10:34 AM Reporting Lab: [place] [id number] Performing Lab: [place] [phone] [facility] COMPREHE NSIVE METABOLI C PANEL CHLORIDE [MOLES/VOL [...] Apr 07, 2024 10:34 AM Reporting Lab: [place] [id number] Performing Lab: [address] [address] [facility] COMPREHE NSIVE METABOLI C PANEL BILIRUBIN. TOTAL [...] Apr 07, 2024 10:34 AM Reporting Lab: [address] [address] Performing Lab: [address] [address] [facility] COMPREHE NSIVE METABOLI C PANEL POTASSIUM [MOLES/VOL [...] Apr 07, 2024 10:34 AM Reporting Lab: [address] [address] Performing Lab: [address] [address] [facility] COMPREHE NSIVE METABOLI C PANEL ANION GAP [...] factor for heart disease. Ordering Provider: ROLLY CAE Report Released Date/Time: Apr 07, 2024 10:34 AM Reporting Lab: [address] [address] Performing Lab: [address] [address] [facility] COMPREHE NSIVE METABOLI C PANEL GLOMERULAR FILTRATION [...] Apr 07, 2024 10:34 AM Reporting Lab: [address] [address] Performing Lab: [address] [address] [facility] LIPID PROFILE CHOLESTERO L [MASS/VOLU ME] IN [...] Apr 07, 2024 10:34 AM Reporting Lab: [address] [address] Performing Lab: [address] [address] [facility] LIPID PROFILE CHOLESTERO L IN LDL [MASS/VOLU [...] Apr 07, 2024 10:34 AM Reporting Lab: [address] [address] Performing Lab: [address] [address] [facility] LIPID PROFILE CHOLESTERO L IN HDL [MASS/VOLU [...] Apr 07, 2024 10:34 AM Reporting Lab: [address] [address] Performing Lab: [address] [address] [facility] LIPID PROFILE TRIGLYCERI DE [MASS/VOLU ME] IN [...] Apr 07, 2024 10:34 AM Reporting Lab: [address] [address] Performing Lab: [address] [address] [facility] CBC LEUKOCYTES [#/VOLUME] IN BLOOD BY AUTOMATED COUNT 10.4 10*3/uL 3.6 - 11.0 10/01 Specimen Type: BLOOD No comment entered. Ordering Provider: ROLLY ACE Report Released Date/Time: Apr 07, 2024 10:34 AM Reporting Lab: [address] [address] Performing Lab: [place] [phone] [place] [address] CBC ERYTHROCYT ES [#/VOLUME] IN BLOOD BY AUTOMATED COUNT 4.42 10*6/uL 4.47 - 5.83 10/01 L Specimen Type: BLOOD No comment entered. Ordering Provider: ROLLY ACE R Report Released Date/Time: Apr 07, 2024 10:34 AM Reporting Lab: [place] [id number] Performing Lab: [place] [phone] CBC HEMOGLOBIN [MASS/VOLU ME] IN BLOOD 14.2 g/dL 13.6 - 17.4 10/01 Specimen Type: BLOOD No comment entered. Ordering Provider: ROLLY ACE Report Released Date/Time: Apr 07, 2024 10:34 AM Reporting Lab: [place] [id number] Performing Lab: [place] [phone] CBC HEMATOCRIT [VOLUME FRACTION] OF BLOOD BY AUTOMATED COUNT 42.7 40.0 - 51.0 10/01 Specimen Type: BLOOD No comment entered. Ordering Provider: ROLLY ACE Report Released Date/Time: Apr 07, 2024 10:34 AM Reporting Lab: [address] [address] Performing Lab: [place] [phone] [facility] CBC MCV [ENTITIC VOLUME] BY AUTOMATED COUNT 96.7 fL 80.0 - 96.0 10/01 H Specimen Type: BLOOD No comment entered. Ordering Provider: ROLLY ACE R Report Released Date/Time: Apr 07, 2024 10:34 AM Reporting Lab: [address] [address] Performing Lab: [place] [phone] [facility] CBC MCH [ENTITIC MASS] BY AUTOMATED COUNT 32.2 pg 27.0 - 31.0 10/01 H Specimen Type: BLOOD No comment entered. Ordering Provider: ROLLY ACE Report Released Date/Time: Apr 07, 2024 10:34 AM Reporting Lab: [place] [phone] Performing Lab: [place] [phone] [place] [address] CBC MCHC [MASS/VOLU ME] BY AUTOMATED COUNT 33.3 g/dL 31.5 - 36.5 10/01 Specimen Type: BLOOD No comment entered. Ordering Provider: ROLLY ACE Report Released Date/Time: Apr 07, 2024 10:34 AM Reporting Lab: [place] [phone] Performing Lab: [place] [phone] CBC PLATELETS [#/VOLUME] IN BLOOD BY AUTOMATED COUNT 383 10*3/uL 150 - 400 10/01 Specimen Type: BLOOD No comment entered. Ordering Provider: ROLLY ACE Report Released Date/Time: Apr 07, 2024 10:34 AM Reporting Lab: [place] [phone] Performing Lab: [place] [phone] [place] [address] CBC LYMPHOCYTE S/100 LEUKOCYTES IN BLOOD BY AUTOMATED COUNT 34.5 21.0 - 51.0 10/01 Specimen Type: BLOOD No comment entered. Ordering Provider: ROLLY ACE Report Released Date/Time: Apr 07, 2024 10:34 AM Reporting Lab: [place] [phone] Performing Lab: [place] [phone] CBC MONOCYTES/ 100 LEUKOCYTES IN BLOOD BY AUTOMATED COUNT 8.6 4.0 - 8.0 10/01 H Specimen Type: BLOOD No comment entered. Ordering Provider: ROLLY ACE R Report Released Date/Time: Apr 07, 2024 10:34 AM Reporting Lab: [address] [address] Performing Lab: [address] [address] [facility] CBC NUCLEATED ERYTHROCYT ES/100 LEUKOCYTES [RATIO] IN BLOOD BY MANUAL COUNT 0.0 /100{WBC s} 10/01 Specimen Type: BLOOD No comment entered. Ordering Provider: ROLLY ACE Report Released Date/Time: Apr 07, 2024 10:34 AM Reporting Lab: [address] [address] Performing Lab: [address] [address] [facility] CBC ERYTHROCYT E DISTRIBUTI ON WIDTH [RATIO] BY AUTOMATED COUNT 15.5 11.2 - 15.8 10/01 Specimen Type: BLOOD No comment entered. Ordering Provider: ROLLY ACE Report Released Date/Time: Apr 07, 2024 10:34 AM Reporting Lab: [address] [address] Performing Lab: [address] [address] [facility] CBC NEUTROPHIL S/100 LEUKOCYTES IN BLOOD BY AUTOMATED COUNT 55.1 54.0 - 78.0 10/01 Specimen Type: BLOOD No comment entered. Ordering Provider: ROLLY ACE Report Released Date/Time: Apr 07, 2024 10:34 AM Reporting Lab: [address] [address] Performing Lab: [place] [phone] [facility] CBC EOSINOPHIL S/100 LEUKOCYTES IN BLOOD BY AUTOMATED COUNT 1.4 0.0 - 3.0 10/01 Specimen Type: BLOOD No comment entered. Ordering Provider: ROLLY ACE Report Released Date/Time: Apr 07, 2024 10:34 AM Reporting Lab: [address] [address] Performing Lab: [address] [address] [facility] CBC BASOPHILS/ 100 LEUKOCYTES IN BLOOD BY AUTOMATED COUNT 0.4 0.0 - 3.0 10/01 Specimen Type: BLOOD No comment entered. Ordering Provider: ROLLY ACE R Report Released Date/Time: Apr 07, 2024 10:34 AM Reporting Lab: [address] [address] Performing Lab: [place] [phone] [facility] CBC LYMPHOCYTE S [#/VOLUME] IN BLOOD BY AUTOMATED COUNT 3.6 10*3/uL 0.8 - 5.0 10/01 Specimen Type: BLOOD No comment entered. Ordering Provider: ROLLY ACE R Report Released Date/Time: Apr 07, 2024 10:34 AM Reporting Lab: [place] [phone] Performing Lab: [place] [phone] [place] [address] CBC NEUTROPHIL S [#/VOLUME] IN BLOOD 5.7 10*3/uL 1.9 - 8.6 10/01 Specimen Type: BLOOD No comment entered. Ordering Provider: ROLLY ACE R Report Released Date/Time: Apr 07, 2024 10:34 AM Reporting Lab: [place] [phone] Performing Lab: [place] [phone] [facility] CBC BASOPHILS [#/VOLUME] IN BLOOD BY AUTOMATED COUNT 0.0 10*3/uL 0.0 - 0.3 10/01 Specimen Type: BLOOD No comment entered. Ordering Provider: ROLLY ACE R Report Released Date/Time: Apr 07, 2024 10:34 AM Reporting Lab: [address] [address] Performing Lab: [place] [phone] [facility] CBC MONOCYTES [#/VOLUME] IN BLOOD BY AUTOMATED COUNT 0.9 10*3/uL 0.1 - 0.9 10/01 Specimen Type: BLOOD No comment entered. Ordering Provider: ROLLY ACE R Report Released Date/Time: Apr 07, 2024 10:34 AM Reporting Lab: [address] [address] Performing Lab: [place] [phone] [facility] CBC EOSINOPHIL S [#/VOLUME] IN BLOOD BY AUTOMATED COUNT 0.1 10*3/uL 0.0 - 0.3 10/01 Specimen Type: BLOOD No comment entered. Ordering Provider: ROLLY ACE Report Released Date/Time: Apr 07, 2024 10:34 AM Reporting Lab: [place] [phone] Performing Lab: [place] [phone] [place] [address] CBC PLATELET MEAN VOLUME [ENTITIC VOLUME] IN BLOOD BY AUTOMATED COUNT 7.7 fL 7.4 - 11.4 10/01 Specimen Type: BLOOD No comment entered. Ordering Provider: ROLLY ACE Report Released Date/Time: Apr 07, 2024 10:34 AM Reporting Lab: [place] [phone] Performing Lab: [place] [phone] MAGNESIU M MAGNESIUM [MASS/VOLU ME] IN [...] Apr 07, 2024 10:34 AM Reporting Lab: [address] [place] [address] Performing Lab: [address] [address] [facility] COMPREHE NSIVE METABOLI C PANEL ALBUMIN [MASS/VOLU [...] Apr 07, 2024 10:25 AM Reporting Lab: [address] [address] Performing Lab: [address] [address] [facility] COMPREHE NSIVE METABOLI C PANEL ALKALINE PHOSPHATAS [...] Apr 07, 2024 10:25 AM Reporting Lab: [address] [address] Performing Lab: [address] [address] [facility] COMPREHE NSIVE METABOLI C PANEL ALANINE AMINOTRANS [...] Apr 07, 2024 10:25 AM Reporting Lab: [place] [phone] Performing Lab: [place] [phone] [place] [address] COMPREHE NSIVE METABOLI C PANEL ASPARTATE AMINOTRANS [...] Apr 07, 2024 10:25 AM Reporting Lab: [place] [phone] Performing Lab: [place] [phone] [place] [address] COMPREHE NSIVE METABOLI C PANEL UREA NITROGEN [...] Apr 07, 2024 10:25 AM Reporting Lab: [place] [phone] Performing Lab: [place] [phone] [place] [address] COMPREHE NSIVE METABOLI C PANEL CALCIUM [MASS/VOLU [...] Apr 07, 2024 10:25 AM Reporting Lab: [place] [phone] Performing Lab: [place] [phone] [place] [address] COMPREHE NSIVE METABOLI C PANEL CREATININE [MASS/VOLU [...] Apr 07, 2024 10:25 AM Reporting Lab: [place] [phone] Performing Lab: [place] [phone] [place] [address] COMPREHE NSIVE METABOLI C PANEL CARBON DIOXIDE, [...] Apr 07, 2024 10:25 AM Reporting Lab: [place] [phone] Performing Lab: [address] [address] [facility] COMPREHE NSIVE METABOLI C PANEL GLUCOSE [MASS/VOLU [...] Apr 07, 2024 10:25 AM Reporting Lab: [place] [phone] Performing Lab: [place] [phone] [facility] COMPREHE NSIVE METABOLI C PANEL PROTEIN [MASS/VOLU [...] Apr 07, 2024 10:25 AM Reporting Lab: [address] [address] Performing Lab: [place] [phone] [facility] COMPREHE NSIVE METABOLI C PANEL SODIUM [MOLES/VOL [...] Apr 07, 2024 10:25 AM Reporting Lab: [place] [phone] Performing Lab: [place] [phone] COMPREHE NSIVE METABOLI C PANEL CHLORIDE [...] Apr 07, 2024 10:25 AM Reporting Lab: [place] [phone] Performing Lab: [place] [phone] [place] [address] COMPREHE NSIVE METABOLI C PANEL BILIRUBIN. TOTAL [...] Apr 07, 2024 10:25 AM Reporting Lab: [place] [phone] Performing Lab: [place] [phone] [place] [address] COMPREHE NSIVE METABOLI C PANEL POTASSIUM [MOLES/VOL [...] Apr 07, 2024 10:25 AM Reporting Lab: [place] [phone] Performing Lab: [place] [phone] [facility] COMPREHE NSIVE METABOLI C PANEL ANION GAP [...] Apr 07, 2024 10:25 AM Reporting Lab: [place] [phone] Performing Lab: [place] [phone] [facility] COMPREHE NSIVE METABOLI C PANEL GLOMERULAR FILTRATION [...] Apr 07, 2024 10:25 AM Reporting Lab: [address] [address] Performing Lab: [place] [phone] [facility] LIPID PROFILE CHOLESTERO L [MASS/VOLU ME] IN [...] Apr 07, 2024 10:25 AM Reporting Lab: [place] [phone] Performing Lab: [place] [phone] [place] [address] LIPID PROFILE CHOLESTERO L IN LDL [MASS/VOLU [...] Apr 07, 2024 10:25 AM Reporting Lab: [place] [phone] Performing Lab: [place] [phone] [place] [address] LIPID PROFILE CHOLESTERO L IN HDL [MASS/VOLU [...] Apr 07, 2024 10:25 AM Reporting Lab: [place] [id number] Performing Lab: [address] [address] [facility] LIPID PROFILE TRIGLYCERI DE [MASS/VOLU ME] IN [...] Apr 07, 2024 10:25 AM Reporting Lab: [address] [address] Performing Lab: [address] [phone] [place] [address] CBC LEUKOCYTES [#/VOLUME] IN BLOOD BY AUTOMATED COUNT 9.7 10*3/uL 3.6 - 11.0 04/07 Specimen Type: BLOOD No comment entered. Ordering Provider: ROLLY ACE Report Released Date/Time: Apr 07, 2024 10:25 AM Reporting Lab: [address] [address] Performing Lab: [address] [address] [facility] CBC ERYTHROCYT ES [#/VOLUME] IN BLOOD BY AUTOMATED COUNT 4.56 10*6/uL 4.47 - 5.83 04/07 Specimen Type: BLOOD No comment entered. Ordering Provider: ROLLY ACE Report Released Date/Time: Apr 07, 2024 10:25 AM Reporting Lab: [address] [address] Performing Lab: [address] [address] [facility] CBC HEMOGLOBIN [MASS/VOLU ME] IN BLOOD 14.4 g/dL 13.6 - 17.4 04/07 Specimen Type: BLOOD No comment entered. Ordering Provider: ROLLY ACE R Report Released Date/Time: Apr 07, 2024 10:25 AM Reporting Lab: [address] [address] Performing Lab: [address] [address] [facility] CBC HEMATOCRIT [VOLUME FRACTION] OF BLOOD BY AUTOMATED COUNT 43.3 40.0 - 51.0 04/07 Specimen Type: BLOOD No comment entered. Ordering Provider: ROLLY ACE Report Released Date/Time: Apr 07, 2024 10:25 AM Reporting Lab: [address] [address] Performing Lab: [place] [phone] [facility] CBC MCV [ENTITIC VOLUME] BY AUTOMATED COUNT 95.1 fL 80.0 - 96.0 04/07 Specimen Type: BLOOD No comment entered. Ordering Provider: ROLLY ACE Report Released Date/Time: Apr 07, 2024 10:25 AM Reporting Lab: [place] [phone] Performing Lab: [place] [phone] [place] [address] CBC MCH [ENTITIC MASS] BY AUTOMATED COUNT 31.6 pg 27.0 - 31.0 04/07 H Specimen Type: BLOOD No comment entered. Ordering Provider: ROLLY ACE Report Released Date/Time: Apr 07, 2024 10:25 AM Reporting Lab: [address] [address] Performing Lab: [place] [phone] [place] [address] CBC MCHC [MASS/VOLU ME] BY AUTOMATED COUNT 33.2 g/dL 31.5 - 36.5 04/07 Specimen Type: BLOOD No comment entered. Ordering Provider: ROLLY ACE Report Released Date/Time: Apr 07, 2024 10:25 AM Reporting Lab: [address] [address] Performing Lab: [place] [phone] [facility] CBC PLATELETS [#/VOLUME] IN BLOOD BY AUTOMATED COUNT 374 10*3/uL 150 - 400 04/07 Specimen Type: BLOOD No comment entered. Ordering Provider: DB,AL EX R Report Released Date/Time: Apr 07, 2024 10:25 AM Reporting Lab: [place] [phone] Performing Lab: [place] [phone] [place] [address] CBC LYMPHOCYTE S/100 LEUKOCYTES IN BLOOD BY AUTOMATED COUNT 34.1 21.0 - 51.0 04/07 Specimen Type: BLOOD No comment entered. Ordering Provider: ROLLY ACE R Report Released Date/Time: Apr 07, 2024 10:25 AM Reporting Lab: [address] [address] Performing Lab: [place] [phone] [place] [address] CBC MONOCYTES/ 100 LEUKOCYTES IN BLOOD BY AUTOMATED COUNT 7.3 4.0 - 8.0 04/07 Specimen Type: BLOOD No comment entered. Ordering Provider: ROLLY ACE R Report Released Date/Time: Apr 07, 2024 10:25 AM Reporting Lab: [place] [phone] Performing Lab: [place] [phone] [place] [address] CBC NUCLEATED ERYTHROCYT ES/100 LEUKOCYTES [RATIO] IN BLOOD BY MANUAL COUNT 0.2 /100{WBC s} 04/07 Specimen Type: BLOOD No comment entered. Ordering Provider: ROLLY ACE R Report Released Date/Time: Apr 07, 2024 10:25 AM Reporting Lab: [place] [phone] Performing Lab: [place] [phone] [place] [address] CBC ERYTHROCYT E DISTRIBUTI ON WIDTH [RATIO] BY AUTOMATED COUNT 15.0 11.2 - 15.8 04/07 Specimen Type: BLOOD No comment entered. Ordering Provider: ROLLY ACE R Report Released Date/Time: Apr 07, 2024 10:25 AM Reporting Lab: [address] [address] Performing Lab: [address] [address] [facility] CBC NEUTROPHIL S/100 LEUKOCYTES IN BLOOD BY AUTOMATED COUNT 57.3 54.0 - 78.0 04/07 Specimen Type: BLOOD No comment entered. Ordering Provider: ROLLY ACE R Report Released Date/Time: Apr 07, 2024 10:25 AM Reporting Lab: [place] [phone] Performing Lab: [place] [phone] [place] [address] CBC EOSINOPHIL S/100 LEUKOCYTES IN BLOOD BY AUTOMATED COUNT 0.7 0.0 - 3.0 04/07 Specimen Type: BLOOD No comment entered. Ordering Provider: ROLLY ACE R Report Released Date/Time: Apr 07, 2024 10:25 AM Reporting Lab: [place] [id number] Performing Lab: [place] [phone] CBC BASOPHILS/ 100 LEUKOCYTES IN BLOOD BY AUTOMATED COUNT 0.6 0.0 - 3.0 04/07 Specimen Type: BLOOD No comment entered. Ordering Provider: ROLLY ACE Report Released Date/Time: Apr 07, 2024 10:25 AM Reporting Lab: [place] [id number] Performing Lab: [place] [phone] CBC LYMPHOCYTE S [#/VOLUME] IN BLOOD BY AUTOMATED COUNT 3.3 10*3/uL 0.8 - 5.0 04/07 Specimen Type: BLOOD No comment entered. Ordering Provider: ROLLY ACE Report Released Date/Time: Apr 07, 2024 10:25 AM Reporting Lab: [place] [phone] Performing Lab: [place] [id number] CBC NEUTROPHIL S [#/VOLUME] IN BLOOD 5.5 10*3/uL 1.9 - 8.6 04/07 Specimen Type: BLOOD No comment entered. Ordering Provider: ROLLY ACE Report Released Date/Time: Apr 07, 2024 10:25 AM Reporting Lab: [place] [id number] Performing Lab: [place] [id number] [facility] CBC BASOPHILS [#/VOLUME] IN BLOOD BY AUTOMATED COUNT 0.1 10*3/uL 0.0 - 0.3 04/07 Specimen Type: BLOOD No comment entered. Ordering Provider: ROLLY ACE Report Released Date/Time: Apr 07, 2024 10:25 AM Reporting Lab: [place] [id number] Performing Lab: [place] [id number] [place] [address] CBC MONOCYTES [#/VOLUME] IN BLOOD BY AUTOMATED COUNT 0.7 10*3/uL 0.1 - 0.9 04/07 Specimen Type: BLOOD No comment entered. Ordering Provider: ROLLY ACE Report Released Date/Time: Apr 07, 2024 10:25 AM Reporting Lab: [place] [id number] Performing Lab: [place] [phone] CBC EOSINOPHIL S [#/VOLUME] IN BLOOD BY AUTOMATED COUNT 0.1 10*3/uL 0.0 - 0.3 04/07 Specimen Type: BLOOD No comment entered. Ordering Provider: ROLLY ACE Report Released Date/Time: Apr 07, 2024 10:25 AM Reporting Lab: [place] [id number] Performing Lab: [place] [phone] CBC PLATELET MEAN VOLUME [ENTITIC VOLUME] IN BLOOD BY AUTOMATED COUNT 7.6 fL 7.4 - 11.4 04/07 Specimen Type: BLOOD No comment entered. Ordering Provider: ROLLY ACE Report Released Date/Time: Apr 07, 2024 10:25 AM Reporting Lab: [place] [id number] Performing Lab: [place] [id number] [facility] MAGNESIU M MAGNESIUM [MASS/VOLU ME] IN SERUM [...] Apr 07, 2024 10:25 AM Reporting Lab: [place] [id number] Performing Lab: [place] [id number] URINALYS IS SPECIFIC GRAVITY OF URINE 1.009 1.016 - 1.022 04/07 L Specimen Type: URINE No comment entered. Ordering Provider: ROLLY ACE Report Released Date/Time: Apr 07, 2024 10:25 AM Reporting Lab: [place] [id number] Performing Lab: [place] [phone] URINALYS IS GLUCOSE [MASS/VOLU ME] IN URINE BY TEST STRIP Negative mg/dL 04/07 Specimen Type: URINE No comment entered. Ordering Provider: ROLLY ACE Report Released Date/Time: Apr 07, 2024 10:25 AM Reporting Lab: [place] [id number] Performing Lab: [place] [phone] URINALYS IS PROTEIN [MASS/VOLU ME] IN URINE BY TEST STRIP Negative mg/dL 04/07 Specimen Type: URINE No comment entered. Ordering Provider: ROLLY ACE Report Released Date/Time: Apr 07, 2024 10:25 AM Reporting Lab: [place] [id number] Performing Lab: [address] URINALYS IS PH OF URINE BY TEST STRIP 7.0 5.0 - 8.0 04/07 Specimen Type: URINE No comment entered. Ordering Provider: ROLLY ACE Report Released Date/Time: Apr 07, 2024 10:25 AM Reporting Lab: [place] [id number] Performing Lab: [place] [id number] [facility] URINALYS IS NITRITE [PRESENCE] IN URINE BY TEST STRIP Negative 04/07 Specimen Type: URINE No comment entered. Ordering Provider: ROLLY ACE Report Released Date/Time: Apr 07, 2024 10:25 AM Reporting Lab: [place] [id number] Performing Lab: [place] [phone] [place] [address] URINALYS IS LEUKOCYTE ESTERASE [PRESENCE] IN URINE BY TEST STRIP Negative 04/07 Specimen Type: URINE No comment entered. Ordering Provider: ROLLY ACE Report Released Date/Time: Apr 07, 2024 10:25 AM Reporting Lab: [place] [id number] Performing Lab: [place] [phone] URINALYS IS CLARITY OF URINE Clear 04/07 Specimen Type: URINE No comment entered. Ordering Provider: ROLLY ACE Report Released Date/Time: Apr 07, 2024 10:25 AM Reporting Lab: [place] [id number] Performing Lab: [place] [phone] [place] [address] URINALYS IS BILIRUBIN. TOTAL [MASS/VOLU ME] IN URINE BY TEST STRIP Negative mg/dL - 0.4 04/07 Specimen Type: URINE No comment entered. Ordering Provider: ROLLY ACE Report Released Date/Time: Apr 07, 2024 10:25 AM Reporting Lab: [place] [id number] Performing Lab: [place] [phone] URINALYS IS HEMOGLOBIN [PRESENCE] IN URINE BY TEST STRIP Negative mg/dL <0.05 - 0.05 04/07 Specimen Type: URINE No comment entered. Ordering Provider: ROLLY ACE Report Released Date/Time: Apr 07, 2024 10:25 AM Reporting Lab: [address] [phone] Performing Lab: [place] [phone] [facility] URINALYS IS UROBILINOG EN [MASS/VOLU ME] IN URINE Negative mg/dL - 1 04/07 Specimen Type: URINE No comment entered. Ordering Provider: ROLLY ACE Report Released Date/Time: Apr 07, 2024 10:25 AM Reporting Lab: [address] [phone] Performing Lab: [address] [address] [facility] URINALYS IS KETONES [MASS/VOLU ME] IN URINE BY TEST STRIP Negative mg/dL - 9 04/07 Specimen Type: URINE No comment entered. Ordering Provider: ROLLY ACE Report Released Date/Time: Apr 07, 2024 10:25 AM Reporting Lab: [address] [phone] Performing Lab: [address] [address] [facility] URINALYS IS COLOR OF URINE Light-Ye llow 04/07 Specimen Type: URINE No comment entered. Ordering Provider: ROLLY ACE Report Released Date/Time: Apr 07, 2024 10:25 AM Reporting Lab: [address] [phone] Performing Lab: [place] [id number] [facility] Vital Signs Combined list of inpatient and outpatient Vital Signs from Department of Defense and Veterans Affairs, ranging from 12 months to all on record, depending upon the facility. Vital Sign Value Date Comments Source SYSTOLIC BLOOD PRESSURE 145 10/08/2024 09:26:47 [facility] DIASTOLIC BLOOD PRESSURE 69 10/08/2024 09:26:47 [facility] PULSE OXIMETRY 95 10/08/2024 09:26:47 [facility] [place] WEIGHT 201.6 10/08/2024 09:26:47 [facility] BMI 32 kg/m2 10/08/2024 09:26:47 [facility] PAIN 3 10/08/2024 09:26:47 [facility] TEMPERATURE 99.8 10/08/2024 09:26:47 [facility] PULSE 89 10/08/2024 09:26:47 [facility] RESPIRATION 16 10/08/2024 09:26:47 [facility] SYSTOLIC BLOOD PRESSURE 152 04/07/2024 09:46:00 [facility] DIASTOLIC BLOOD PRESSURE 68 04/07/2024 09:46:00 [facility] WEIGHT 199.6 04/07/2024 09:46:00 [facility] BMI 32 kg/m2 04/07/2024 09:46:00 [facility] PAIN 3 04/07/2024 09:46:00 [facility] HEIGHT 66.5 04/07/2024 09:46:00 [facility] TEMPERATURE 99.6 04/07/2024 09:46:00 [facility] PULSE 94 04/07/2024 09:46:00 [facility] RESPIRATION 16 04/07/2024 09:46:00 [facility] Encounters Combined list of: 1) Encounters from Department of Veterans Affairs facilities going backup to the last 18 months, not all [place] inpatient encounters are included; 2) Encounters from the Department of Defense facilities going backup to 280 months. 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 GETTIS,RAQ UEL M 04/07 [facility] Outpatient Encounter [id number] 04/09 [facility] PSYTX W PT 45 MINUTES [id number] Diagnos is: ICD-10- CM 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 CHAGO CHENG 04/20 [place] [facility] PSYTX W PT 30 MINUTES [id number] Diagnos is: ICD-10- CM 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 Social History Type Response Date Comment Sourc e Tobacco smoking status NHIS [facility]-TO[facility]AC[place] FORMER USER 04/07/2024 [facility] History of tobacco use [place] 1 5 YRS OR MORE 04/07/2024 [facility] Plan of Care List of future care activities from Department of Veterans Affairs facilities. Additional future care activities may be listed in the Assessment and Plan section. Date/Time Care Activity Care Activity Detail Facili ty 04/20/2025 AMBULATORY - NONE AMBULATORY - NONE [facility]
--- OUTSIDE RECORDS SUMMARY | 2025-03-22 09:17 | XMS_ITS | Encounter Summary ---
Author Organization [facility] Address [address] [place] [address] Care Team Providers Care Mud Tank Operator Name Role Phone OrozcoRodger Primary Care Provider [phone] Reason for Referral * Consultation (Routine) - Pending Review Specialty Diagnoses / Procedures Referred By Contac t Referred To Contact Hematology and Oncology Diagnoses Increased bilirubin level Coagulopathy Procedures RI OFFICE/OUTPATIENT NEW HIGH MDM 60 MINUTES Man Costa MD [address] [place] [address] Phone: tel: fax: Yolanda Kirkland [facility] [address] [place] [place] [address] Phone: tel: fax: Referral ID Status Reason Start Date Expiration Date Visits Requested Visits Authorized [id number] Pending Review Specialty Services Required 03/26/2025 03/26/2026 1 1 * (Routine) - Pending Review Specialty Diagnoses / Procedures Referred By Contac t Referred To Contact Procedures ECG 12 lead Dario Prieto PA-C [address] [place] [address] Phone: tel: fax: Referral ID Status Reason Start Date Expiration Date V isits Requested Visits Authorized [id number] Pending Review 03/22/2025 03/22/2026 1 1 Reason for Visit * Auth/Cert (Routine) Specialty Diagnoses / Procedures Referred By Contac t Referred To Contact Diagnoses Liver failure, Elevated liver enzymes Procedures NO CODEDED SERVICE Mazin Marks MD [place] [address] Phone: tel: fax: [address] [place] [address] Phone: tel: Referral ID Status Reason Start Date Expiration Date Visits Re quested Visits Authorized [id number] 1 1 Encounter Details Date Type Department Care Team (Late st Contact Info) Description 03/22/2025 9:17 AM EDT - 03/26/2025 11:25 AM EDT Hospital Encounter [facility] 6A Ortho [place] [address] Mazin Marks MD [address] [place] [address] Man Costa MD [address] [place] [address] Shaikh Warner MD [address] [place], [place] [address]sp[place]. [place] [address] [place], [place] [id number] Increased bilirubin level (Primary Dx); Coagulopathy Discharge Disposition: Home or Self Care () Social History Tobacco Use Types Packs/Day Years Used Date Smoking Tobacco: Former Cigarettes Smokeless Tobacco: Never Tobacco Cessation:Counseling Given: No [facility] Utilities Answer Date Recorded In the past 12 months has [employer], gas, oil, or water [employer] threatened to shut off services in your home? No 03/22/2025 Humiliation, Afraid, Rape, and Kick questionnair e Answer Date Recorded Within the last year, have y ou been afraid of your partner or ex-partner? No 03/22/2025 Emotionally Abused Not on file 03/22/2025 Physically Abused Not on file 03/22/2025 Sexually Abused Not on file 03/22/2025 Overall Financial Resource Strain (CARDIA) Answe r Date Recorded How hard is it for you to pa y for the very basics like food, housing, medical care, and heating? Not very hard 03/22/2025 Transportation Answer Date Recorded In the past 12 months, has l ack of transportation kept you from medical appointments or from getting medications? No 03/22/2025 Lack of Transportation (Non-Medical) Not on file 03/22/2025 Housing Stability Vital Sign Answer Ezra e Recorded In the last 12 months, was t here a time when you were not able to pay the mortgage or rent on time? No 03/22/2025 Number of Times Moved in the Last Year Not on fi le 03/22/2025 At any time in the past 12 m [facility], were you homeless or living in a alf (including now)? No 03/22/2025 Hunger Vital Sign Answer Date Recorded Within the past 12 months, y ou worried that your food would run out before you got the money to buy more. Never true 03/22/20 25 Ran Out of Food in the Last Year Not on file 03/22/2025 Sex and Gender Information Value Date Recorded Sex Assigned at Male 03/23/2025 4:50 PM EDT Legal Sex Male 11:55 PM EDT Gender Identity Male 03/23/2025 4:50 PM EDT Sexual Orientation Heterosexual or Straight 03/09 4:50 PM EDT Travel History Travel Start Travel End [place] 03/20/2025 03/22/2025 documented as of this encounter Last Filed Vital Signs Vital Sign Reading Time Taken Comments Blood Pressure 130/71 03/26/2025 8:26 AM EDT Pulse 92 03/26/2025 8:26 AM EDT Temperature 36.9 C (98.4 F) 03/26/2025 8:26 AM EDT Respiratory Rate 16 03/26/2025 8:26 AM EDT Oxygen Saturation 97% 03/26/2025 8:26 AM EDT Inhaled Oxygen Concentration - - Weight 79.5 kg (175 lb 4.3 oz) 03/26/2025 6:42 A M EDT Height 170.2 cm (5' 7 ) 03/23/2025 5:32 PM EDT Body Mass Index 27.45 03/23/2025 5:32 PM EDT documented in this encounter Functional Status * Suicidal Ideation Question Answer Date of Assessment Author 1. Wish to be (Lifetime) No 03/22/2025 10:20 AM EDT Ata Pacheco RN 2. Non-Specific Active Suici barbi Thoughts (Lifetime) No 03/22/2025 10:20 AM EDT Ata Pacheco, R N documented as of this encounter Discharge Summaries * Man Costa MD - 03/26/2025 11:25 AM EDT Images from the original note were not included. 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 The patient reported noticing yellowing of the skin beginning approximately one week prior to admission. He also endorsed a 6- week history of worsening diarrhea, described as foul-smelling with a grassy or sauerkraut-like odor. He had noted blood in the stool previously, though this resolved a week ago. He denied a history of hemorrhoids and reported a negative Cologuard test two years ago. Associated symptoms included chills, nausea, palpitations, and increased flatulence. On admission, further evaluation for the cause of jaundice and diarrhea was undertaken. HOSPITAL COURSE: 1. 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 ERCP on 03/23/2025 revealed a stricture involving the common bile duct and both right and left hepatic ducts. Two biliary stents were placed. Biopsy of the stricture obtained during ERCP. 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 Referrals to hematology/oncology were placed. Patient is scheduled for oncology follow-up on 03/29/2025. 2. Clostridioides difficile Colitis Treated with oral vancomycin. To complete a total 10-day course. 3. Hypokalemia Potassium repleted during hospitalization. Discharged with plan to monitor electrolytes with repeat BMP in 1 week. 4. Coagulopathy Likely secondary to underlying liver dysfunction. Treated with vitamin K and FFP preoperatively for ERCP. No active bleeding or further intervention required during hospitalization. FOLLOW-UP PLAN: Oncology: Appointment scheduled for 03/29/2025 Primary Care: Within 1 week for repeat BMP and lab monitoring GI/Hepatology: As coordinated based on biopsy results DISCHARGE CONDITION: The patient is medically stable for discharge home on 03/26/2025. Discharge instructions and plan of care were discussed thoroughly with the patient and his at the bedside. He is alert, oriented, and tolerating oral intake. Surgical, Invasive or Diagnostic Procedures Done During Admission: ERCP Consultations During Admission: Gastroenterology Dear DO Orozco James is advised to follow up with you within 1-2 weeks. Items to follow up in ambulatory setting: Biopsy results. Follow-up with: Gastroenterology and Hematology/Oncology Scheduled appointments: Future Appointments Date Time Provider Department Center 03/29/2025 10:30 AM Lew Contreras MD [facility] Your medication list START taking these medications Instructions Last Dose Given Next Dose Due vancomycin 50 mg/mL oral solution Commonly known as: Firvanq Take 2.5 mL (125 mg) by mouth four times daily for 31 doses. CONTINUE taking these medications Instructions Last Dose Given Next Dose Due amLODIPine 10 mg tablet Commonly known as: Norvasc hydroCHLOROthiazide 12.5 mg tablet lisinopril 30 mg tablet meloxicam 7.5 mg tablet Commonly known as: Mobic tamsulosin 0.4 mg 24 hr capsule Commonly known as: Flomax STOP taking these medications atorvastatin 10 mg tablet Commonly known as: Lipitor Where to Get Your Medications These medications were sent to [facility] - [address] [place] [address] [address] [facility] [place] [address], [facility] [address] vancomycin 50 mg/mL oral solution Bro is allergic to latex. Disposition: Home or Self Care () Discharge Condition: Stable Code Status: Prior Diagnostic Results Hematology: Results from last 7 days Lab Units 03/26/25 0440 03/25/25 0557 03/24/25 0610 03/23/25 1623 03/23/25 0521 03/22/25 1234 WBC AUTO 10*3/uL 14.43* 16.77* < > -- < > 12.96* HEMOGLOBIN g/dL 10.9* 11.8* < > -- < > 12.1* HEMATOCRIT % 31.4* 34.5* < > -- < > 35.3* MCV fL 95.2 95.0 < > -- < > 94.1 PLATELETS AUTO 10*3/uL 355 343 < > -- < > 337 INR -- -- -- 1.24* -- 1.63* < > = values in this interval not displayed. Chemistry: Results from last 7 days Lab Units 03/26/25 0440 03/25/25 0556 03/24/25 0610 SODIUM mmol/L 136 135* 137 POTASSIUM mmol/L 3.0* 3.3* 3.2* CHLORIDE mmol/L 102 102 103 CO2 mmol/L 27 25 24 BUN mg/dL 25 23 22 CREATININE mg/dL 0.89 0.92 0.99 GLUCOSE mg/dL 105* 113* 118* CALCIUM mg/dL 8.4* 8.7 9.0 Results from last 7 days Lab Units 03/26/25 0440 03/25/25 0556 03/24/25 0610 03/23/25 0520 03/22/25 1234 AST U/L 118* 125* 126* 123* 133* ALT U/L 86* 89* 92* 96* 103* ALK PHOS U/L 664* 669* 778* 796* 901* BILIRUBIN TOTAL mg/dL 16.9* 17.7* 17.9* 13.7* 14.6* BILIRUBIN DIRECT mg/dL -- -- -- 7.9* 8.1* Test Results Pending At Discharge: Pending Labs Order Current Status Histology - tissue exam In process Non-locomotive engineer electric cytology - cellular exam In process Diet at the time of discharge: regular diet and cardiac diet Nutrition Screen Activity: Patient currently has no discharge activity orders Objective Blood pressure 130/71, pulse 92, temperature 36.9 ??C (98.4 ??F), resp. rate 16, height 1.702 m (5'7 ), weight 79.5 kg (175 lb 4.3 oz), SpO2 97%. Cardiology: Normal rate, regular rhythm. Lungs: Clear to auscultation, no wheezes, rales or rhonchi, symmetric air entry. Abdomen: Soft, non tender, non distended. Total time for discharge - review of data, exam, discussion with providers and care-team, med-rec and orders, arranging follow up, counseling of patient and/or family and documentation was 42 minutes. Signed Man Costa MD [facility] Medicine 03/26/2025 4:25 PM CC: DO Ernesto documented in this encounter Discharge Instructions * Discharge Instructions* Man Costa MD - 03/26/2025 9:30 AM EDT -Call Hospitalist Dr Costa at [phone] for questions regarding your discharge. -Follow up closely with Gastroenterology and Oncology as discussed. What Is a Biliary Tumor? The biliary system includes the gallbladder and bile ducts, which help in digesting fats by transporting bile from the liver to the intestine. A biliary tumor is an abnormal growth in this system. These tumors can be benign (non- cancerous) or malignant (cancerous), and they can affect bile flow, causing symptoms such as: Jaundice (yellowing of the skin or eyes) Abdominal pain Itchy skin Nausea or vomiting Pale stools or dark urine Why Do I Need a Biopsy? A biopsy is a procedure to collect a small sample of the tumor tissue. This sample is sent to a laboratory to determine the nature of the tumor -- whether it is benign or malignant, and if malignant,what type of cancer it may be. The results of the biopsy will help your doctors decide: Whether treatment is needed What type of treatment would be most effective (e.g., surgery, chemotherapy, or other therapies) What to Expect While Waiting Waiting for biopsy results can be stressful, but it's an important part of getting the right diagnosis and treatment. While you wait: Follow any dietary or activity guidelines given by your care team Take any medications as prescribed (e.g., for itching, nausea, or pain) Stay hydrated and rest when needed Reach out for emotional support -- anxiety is normal, and talking with a counselor or support groupcan help Next Steps After Results Once biopsy results are available, your doctor will: Explain the findings in detail Discuss whether the tumor is cancerous or not Talk through treatment options if needed Refer you to other specialists (e.g., oncologist, surgeon) if appropriate [place] Points to Remember Not all biliary tumors are cancerous. Biopsy is essential for accurate diagnosis and personalized treatment. Your care team is here to support you every step of the way. * Discharge Instr - Activity* Casandra Ramirez LPN - 03/26/2025 8:56 AM EDT ASSIST WITH ADLS/TRANSFERS FALL RISK PRECAUTIONS * Discharge Instr - Diet* Casandra Ramirez LPN - 03/26/2025 8:31 AM EDT REGULAR DIET,THIN LIQUIDS * Appointments* Alma Landin RN - 03/26/2025 10:22 AM EDT [facility] APPOINTMENTS : List of future care activities from [facility] facilities. Additional future care activities may be listed in the Assessment and Plan section. Plan of Care Date/Time Care Activity Care Activity Detail Facility 04/20/2025 AMBULATORY - NONE AMBULATORY - NONE [facility] NOTES : Recommend oncology consult, as ERCP findings highly suspicious for Klatskin tumor Follow-up histopathology results Patient will need repeat ERCP in 6 weeks for biliary stent removal * Discharge Instr - Other Orders* Alma Landin RN - 03/26/2025 10:17 AM EDT LABS : CHECK BMP in 3-5 DAYS(~around MARCH 29)-->>results to Your PCP (Script given to patient). You may return to [facility] Outpatient lab or go to Outpatient Lab of your choice for lab drawl. documented in this encounter Medications at Time of Discharge amLODIPine (Norvasc) 10 mg tablet Take 10 mg by mouth in the morning. hydroCHLOROthiazi de 12.5 mg tablet Take 12.5 mg by mouth in the morning. lisinopril 30 mg tablet Take 30 mg by mouth in the morning. meloxicam (Mobic) 7.5 mg tablet Take 7.5 mg by mouth in the morning. tamsulosin (Flomax) 0.4 mg 24 hr capsule Take 0.4 mg by mouth in the morning. vancomycin (Firvanq) 50 mg/mL oral solutionIndicatio ns:Increased bilirubin level Take 2.5 mL (125 mg) by mouth four times daily for 31 doses. 77.5 mL 03/26/2025 04/03/2025 documented as of this encounter Progress Notes * Guilherme Brink, NOLVIA - 03/26/2025 8:36 AM EDT Gastroenterology/Hepatology Progress Note IDENTIFYING DATA PATIENT: Bro Stover ADMIT DATE: 03/22/2025 TIME OF EVALUATION: 03/26/2025 8:36 AM Reason for Consult: Jaundice Admitting Physician: Man Costa MD SUBJECTIVE/INTERVAL HISTORY Bro Stover's overnight events were reviewed. 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 Common hepatic duct stricture and right/main hepatic ducts were dilated with balloon dilator, and 2 plastic biliary stents placed. Patient seen and evaluated, sitting in chair at bedside. He reports feeling well without nausea, vomiting, abdominal pain. Reports that early this morning he had a formed bowel movement. LFTs remain elevated with AST 118, ALT 86, ALP 664, TB 16.9. OBJECTIVE MEDICATIONS SCHEDULED: amLODIPine, 10 mg, oral, Daily [Held by provider] enoxaparin, 40 mg, subcutaneous, Daily hydroCHLOROthiazide, 12.5 mg, oral, Daily lisinopril, 30 mg, oral, Daily potassium chloride CR, 40 mEq, oral, q1h tamsulosin, 0.4 mg, oral, Daily vancomycin, 125 mg, oral, 4x daily PRNs: [Held by provider] acetaminophen, 650 mg, q6h PRN ondansetron ODT, 4 mg, q8h PRN Or ondansetron, 4 mg, q6h PRN sennosides-docusate sodium, 1 tablet, BID PRN sodium chloride, 10 mL, q8h PRN Physical VITALS: BP 130/71 Pulse 92 Temp 36.9 ??C (98.4 ??F) Resp 16 Ht 1.702 m (5' 7 ) Wt 79.5 kg(175 lb 4.3 oz) SpO2 97% BMI 27.45 kg/m?? GEN: Alert and oriented x3, NAD CV: Regular rate and rhythm PULM: Breathing comfortably ABD: Soft, non-tender, non-distended NEURO: Moves all visualized extremities spontaneously LABS AND IMAGING CBC: Results from last 7 days Lab Units 03/26/25 0440 03/25/25 0557 03/24/25 0610 WBC AUTO 10*3/uL 14.43* 16.77* 14.84* RBC AUTO 10*6/uL 3.30* 3.63* 3.83* HEMOGLOBIN g/dL 10.9* 11.8* 12.2* HEMATOCRIT % 31.4* 34.5* 36.1* MCV fL 95.2 95.0 94.3 RDW % 19.6* 19.3* 19.4* PLATELETS AUTO 10*3/uL 355 343 374 PT/INR Results from last 7 days Lab Units 03/23/25 1623 03/22/25 1234 PROTIME Seconds 15.7* 19.4* INR 1.24* 1.63* BMP: Results from last 7 days Lab Units 03/26/25 0440 03/25/25 0556 03/24/25 0610 SODIUM mmol/L 136 135* 137 POTASSIUM mmol/L 3.0* 3.3* 3.2* CHLORIDE mmol/L 102 102 103 BUN mg/dL 25 23 22 CREATININE mg/dL 0.89 0.92 0.99 EGFR mL/min/1.73m*2 86.6 84.1 77.0 GLUCOSE mg/dL 105* 113* 118* LFTs: Results from last 7 days Lab Units 03/26/25 0440 03/25/25 0556 03/24/25 0610 03/23/25 0520 03/22/25 1234 BILIRUBIN TOTAL mg/dL 16.9* 17.7* 17.9* 13.7* 14.6* BILIRUBIN DIRECT mg/dL -- -- -- 7.9* 8.1* ALK PHOS U/L 664* 669* 778* 796* 901* GGT U/L -- -- -- -- 573* AST U/L 118* 125* 126* 123* 133* ALT U/L 86* 89* 92* 96* 103* ALBUMIN g/dL 2.9* 3.1* 3.3* 2.9* 3.0* TOTAL PROTEIN g/dL 5.6* 6.4 6.9 5.7* 6.2 B12/Folate/Iron studies: No results found for: EDWPIOHF89 , FOLATE , IRON , TIBC , UIBC , IRONSAT , FERRITIN Viral Hepatitis No results found for: HEPAIGM , HAV , HEPBSAG , HEPBSAB , HEPBEAB , HEPBIGM , HEPBCAB , HEPBCOREAB , HBVNAT , HCVSCR , HEPCAB , HCVNAT , HCVPCR , HCVTMA Liver workup No results found for: LORENZO , SMOOTHMUSCAB , CERULOPLSM , [id number] , TTGA , IGA , TSH , FREET4 , AFP Pancreatitis Lab Results Component Value Date CALCIUM 8.4 (L) 03/26/2025 IMAGING: MR abdomen w and wo contrast MRCP 03/22/25: IMPRESSION: 1. Apparent nodular lesion near the biliary confluence causing moderate to severe intrahepatic biliary dilatation, findings worrisome for Klatskin tumor. Consider ERCP/tissue sampling, as appropriate. 2. Nodular 2 cm enhancing splenic observation, favor benign angiomatous lesion. ASSESSMENT AND PLAN Bro Stover is a 79 y.o. male with PMHx of hypertension, hyperlipidemia, BPH, history of arrhythmia presenting from [facility] due to concern for yellowish discoloration of skin. Patient is transferred from [facility] for further evaluation by GI for jaundice Assessment Hyperbilirubinemia differential diagnosis obstructive jaundice versus intrahepatic cholestasis CT abdomen pelvis at [facility] demonstrated intrahepatic biliary dilation, ectatic common bile duct, cholecystectomy, no obstructing mass or stone identified. Total bilirubin of 14.6, direct bilirubin 8.1 Differential diagnoses include cholangiocarcinoma, intrahepatic cholestasis. 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 Common hepatic duct stricture and right/main hepatic ducts were dilated with balloon dilator, and 2 plastic biliary stents placed. Elevated liver enzymes likely due to above C difficile positive, started on PO vancomycin Plan Okay for regular diet as tolerated from GI standpoint Trend daily LFTs Recommend oncology consult, as ERCP findings highly suspicious for Klatskin tumor Follow-up histopathology results Patient will need repeat ERCP in 6 weeks for biliary stent replacement/removal Agree with PO vancomycin for treatment of C. Diff Remainder of care per primary No contraindication to discharge from GI perspective GI will respectfully sign off; however, we are readily available if additional questions or concerns arise. We will arrange for outpatient ERCP in 6 weeks. The case will be discussed with the attending physician Gastroenterology 6 am to 4 pm weekdays in house: [phone] 4 pm to 6 am or weekends: Please contact the platen drier operator to page the fellow content strategist * Man Costa MD - 03/25/2025 3:40 PM EDT Images from the original note were not included. Hospital Medicine Daily Progress Note - 03/25/2025 3:41 PM; Room: [address] [place] [address] Admission: 03/22/2025 9:17 AM; Length of stay: 3 days THE HOSPITALIST TEAM PREFERS TO USE [employer] CHAT FOR NON-URGENT COMMUNICATION 7AM- 7PM. IF I DO NOT RESPOND WITHIN 20 MINUTES OR URGENT MATTERS, PLEASE CALL THROUGH THE HIDE DYER. FROM 7PM-7AM, PLEASE PAGE [phone](COVR). Code Status: Full Code Barriers to Discharge: Pending improvement with LFT Expected Discharge Date: 1 to 2 days Discharge Destination: home Overview Patient is seen for evaluation and management of obstructive jaundice. Subjective patient seen evaluated bedside, at the bedside, patient reporting no new symptoms. Overall feeling better and tolerating diet. Physical Exam Visit Vitals BP 114/53 (BP Location: Left arm, Patient Position: Lying) Pulse 88 Temp 36.3 ??C (97.3 ??F) (Oral) Resp 16 No intake or output data in the 24 hours ending 03/25/25 1541 Physical Exam Eyes: General: Scleral icterus present. Pupils: Pupils are equal, round, and reactive to light. Cardiovascular: Rate and Rhythm: Normal rate and regular rhythm. Pulmonary: Effort: Pulmonary effort is normal. Breath sounds: Normal breath sounds. Abdominal: General: Bowel sounds are normal. Palpations: Abdomen is soft. Neurological: Mental Status: He is alert and oriented to person, place, and time. Psychiatric: Mood and Affect: Mood normal. Estimated body mass index is 27.86 kg/m?? as calculated from the following: Height as of this encounter: 1.702 m (5' 7 ). Weight as of this encounter: 80.7 kg (177 lb 14.6 oz). Assessment and Plan Assessment & Plan Jaundice Transaminitis - Status post MRCP 03/23/2025 showing nodular lesion near the biliary confluence causing moderate tosevere intrahepatic biliary dilation. 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 we will send referrals to hematology/oncology clinic. C. difficile colitis - continue with oral vancomycin Hyperlipidemia Atorvastatin held at this time Benign prostatic hyperplasia with lower urinary tract symptoms Continue home medication Hypokalemia -Replace and monitor. Coagulopathy -Due to liver injury, status post vitamin K and FFP infusion preoperatively VTE Prophylaxis: Contraindicated due to coagulopathy Scheduled Meds amLODIPine, 10 mg, oral, Daily [Held by provider] enoxaparin, 40 mg, subcutaneous, Daily hydroCHLOROthiazide, 12.5 mg, oral, Daily lisinopril, 30 mg, oral, Daily tamsulosin, 0.4 mg, oral, Daily vancomycin, 125 mg, oral, 4x daily Pertinent Investigations Hematology: Results from last 7 days Lab Units 03/25/25 0557 03/24/25 0610 03/23/25 1623 03/23/25 0521 03/22/25 1234 WBC AUTO 10*3/uL 16.77* 14.84* -- < > 12.96* HEMOGLOBIN g/dL 11.8* 12.2* -- < > 12.1* HEMATOCRIT % 34.5* 36.1* -- < > 35.3* MCV fL 95.0 94.3 -- < > 94.1 PLATELETS AUTO 10*3/uL 343 374 -- < > 337 INR -- -- 1.24* -- 1.63* < > = values in this interval not displayed. Chemistry: Results from last 7 days Lab Units 03/25/25 0556 03/24/25 0610 03/23/25 0520 SODIUM mmol/L 135* 137 137 POTASSIUM mmol/L 3.3* 3.2* 3.2* CHLORIDE mmol/L 102 103 108* CO2 mmol/L 25 24 23 BUN mg/dL 23 22 25 CREATININE mg/dL 0.92 0.99 1.10 GLUCOSE mg/dL 113* 118* 100 CALCIUM mg/dL 8.7 9.0 8.2* Results from last 7 days Lab Units 03/25/25 0556 03/24/25 0610 03/23/25 0520 03/22/25 1234 AST U/L 125* 126* 123* 133* ALT U/L 89* 92* 96* 103* ALK PHOS U/L 669* 778* 796* 901* BILIRUBIN TOTAL mg/dL 17.7* 17.9* 13.7* 14.6* BILIRUBIN DIRECT mg/dL -- -- 7.9* 8.1* Historical Values: (Includes values prior to this admission) No results found for: PREALBUMIN , TSH , T3FREE , FREET4 , CORTISOL , FEV1 , [id number] , DLCO , RVSP , HDL , LDL No results found for: [id number] , IRON , TIBC , C3 , C4 , LORENZO , CANCA , ASO , PSA , CEA , CA125 , CA199 , AFP , CA153 Imaging Fl in Endo Narrative: CLINICAL INFORMATION: Obstructive jaundice. FINDINGS: Reference air kerma = 442 mGy. Impression: * Intraoperative fluoroscopy provided for ERCP, biopsy and stent. Please note, no radiologist was present during the procedure. A radiologist reviewed the procedural images. Electronically signed: AKBAR ALBRIGHT MD. ERCP w/ Biopsy, w/ Stent Placement Table formatting from the original result was not included. Endoscopic Retrograde Cholangiopancreatography (ERCP) Procedure Note Procedure: ERCP with stent placement, balloon dilations, biopsies, brushing, and biliary sphincterotomy Indications: An 79-year-old male presented with jaundice and weight loss. CT abdomen pelvis at [facility] demonstrated intrahepatic biliary dilation, ectatic common bile duct, and cholecystectomy. Total bilirubin of 14.6, direct bilirubin 8.1. MRCP revealed nodular lesion near the biliary confluence causing moderate to severe intrahepatic biliary dilatation, findings worrisome for Klatskin tumor. Plan for ERCP today. 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 Risks of pancreatitis, infection, perforation, hemorrhage, adverse drug reaction and aspiration were discussed. The patient was placed in the left lateral decubitus position. The patient was monitored continuously with ECG tracing, pulse oximetry, blood pressure monitoring, and direct observations. The duodenoscope was inserted into the mouth and advanced to the third portion of the duodenum; findings and interventions are described below. The patient tolerated the procedure well, and there were no immediate complications. He was taken to the recovery area in stable condition. Findings: The major papilla was identified and looked unremarkable. The Rx/44 sphincterotome loaded with a 0.035 inch guidewire was then used to cannulate the common bile duct which was successfully achieved. Contrast was injected. High-grade stricture was noted at the common hepatic duct extending to right and left main hepatic ducts. Biliary sphincterotomy was performed and the sphincterotome was removed after placing the guidewire up to the left intrahepatic ducts. A second guidewire was then used through the sphincterotome to access the right intrahepatic duct which was successfully achieved. The sphincterotome was removed over the guidewire. A 6 mm x 4 cm HurriCaine dilating balloon catheter was then advanced over the guidewire up to the right main hepatic duct. The stricture was dilated then the balloon was advanced up to the left intrahepatic duct and the stricture was dilated as well. The dilating balloon catheter was removed over the guidewire and the pediatric biopsy forceps was advanced into the common bile duct. Biopsies were obtained from the common hepatic duct/right main hepatic duct. The biopsy forceps was removed and the brushing catheter was then advanced over the guidewire into the common bile duct and up to the common hepatic duct and left main hepatic duct. Brushing for cytology was performed. The brushing catheter was removed over the guidewire and two 7 [place] by 15 cm plastic biliary stents were placed up to the right and left intrahepatic ducts. Good biliary drainage was achieved. The procedure was performed under fluoroscopic guidance and I did the interpretation of the fluoroscopic images. The scope was then withdrawn and the patient tolerated the procedure well and was sent to the recovery area in stable condition. 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 Biopsies and brushing were obtained to rule out malignancy. The common hepatic duct stricture and the right and main hepatic ducts were dilated with 6 mm balloon dilator. Two 7 [place] by 15 cm plastic biliary stents were placed into the common bile duct up to the right and left intrahepatic ducts. Good biliary drainage was achieved. Recommendations: Keep the patient n.p.o. overnight and start diet the following day if patient is asymptomatic. Follow-up histopathology results. Follow-up liver function test. Further plan depends upon the histopathology results. Repeat ERCP in 6 weeks for biliary stents replacement. Attending Attestation: I performed the procedure. Discharge Planning Expected Discharge Disposition: Home or Self Care () OT Discharge Recommendations: Patient is able to return to prior living environment Signed Man Costa MD Hospital Medicine 03/25/2025 3:41 PM * Guilherme Brink CNP - 03/25/2025 10:00 AM EDT Gastroenterology/Hepatology Progress Note IDENTIFYING DATA PATIENT: Bro Stover ADMIT DATE: 03/22/2025 TIME OF EVALUATION: 03/25/2025 10:14 AM Reason for Consult: Jaundice Admitting Physician: Man Costa MD SUBJECTIVE/INTERVAL HISTORY Bro Stover's overnight events were reviewed. 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 Common hepatic duct stricture and right/main hepatic ducts were dilated with balloon dilator, and 2 plastic biliary stents placed. Today patient seen and evaluated, sitting in chair at bedside. He reports mild abdominal fullness/discomfort after eating breakfast this morning, however no significant pain or nausea/vomiting. Last evening he had a bowel movements which he describes as formed. LFTs remain elevated with AST 125, ALT 89, ALP 669, TB 17.7. OBJECTIVE MEDICATIONS SCHEDULED: amLODIPine, 10 mg, oral, Daily [Held by provider] enoxaparin, 40 mg, subcutaneous, Daily hydroCHLOROthiazide, 12.5 mg, oral, Daily lisinopril, 30 mg, oral, Daily tamsulosin, 0.4 mg, oral, Daily vancomycin, 125 mg, oral, 4x daily PRNs: [Held by provider] acetaminophen, 650 mg, q6h PRN ondansetron ODT, 4 mg, q8h PRN Or ondansetron, 4 mg, q6h PRN sennosides-docusate sodium, 1 tablet, BID PRN sodium chloride, 10 mL, q8h PRN Physical VITALS: BP 114/53 (BP Location: Left arm, Patient Position: Lying) Pulse 88 Temp 36.3 ??C (97.3??F) (Oral) Resp 16 Ht 1.702 m (5' 7 ) Wt 80.7 kg (177 lb 14.6 oz) SpO2 94% BMI 27.86 kg/m?? GEN: Alert and oriented x3, NAD CV: Regular rate and rhythm PULM: Breathing comfortably ABD: Soft, non-tender, non-distended NEURO: Moves all visualized extremities spontaneously LABS AND IMAGING CBC: Results from last 7 days Lab Units 03/25/25 0557 03/24/25 0610 03/23/25 0521 WBC AUTO 10*3/uL 16.77* 14.84* 11.78* RBC AUTO 10*6/uL 3.63* 3.83* 3.48* HEMOGLOBIN g/dL 11.8* 12.2* 11.1* HEMATOCRIT % 34.5* 36.1* 33.2* MCV fL 95.0 94.3 95.4 RDW % 19.3* 19.4* 19.4* PLATELETS AUTO 10*3/uL 343 374 331 PT/INR Results from last 7 days Lab Units 03/23/25 1623 03/22/25 1234 PROTIME Seconds 15.7* 19.4* INR 1.24* 1.63* BMP: Results from last 7 days Lab Units 03/25/25 0556 03/24/25 0610 03/23/25 0520 SODIUM mmol/L 135* 137 137 POTASSIUM mmol/L 3.3* 3.2* 3.2* CHLORIDE mmol/L 102 103 108* BUN mg/dL 23 22 25 CREATININE mg/dL 0.92 0.99 1.10 EGFR mL/min/1.73m*2 84.1 77.0 67.9 GLUCOSE mg/dL 113* 118* 100 LFTs: Results from last 7 days Lab Units 03/25/25 0556 03/24/25 0610 03/23/25 0520 03/22/25 1234 BILIRUBIN TOTAL mg/dL 17.7* 17.9* 13.7* 14.6* BILIRUBIN DIRECT mg/dL -- -- 7.9* 8.1* ALK PHOS U/L 669* 778* 796* 901* GGT U/L -- -- -- 573* AST U/L 125* 126* 123* 133* ALT U/L 89* 92* 96* 103* ALBUMIN g/dL 3.1* 3.3* 2.9* 3.0* TOTAL PROTEIN g/dL 6.4 6.9 5.7* 6.2 B12/Folate/Iron studies: No results found for: [id number] , FOLATE , IRON , TIBC , UIBC , IRONSAT , FERRITIN Viral Hepatitis Lab Results Component Value Date HEPAIGM Nonreactive 03/22/2025 HEPBSAG Nonreactive 03/22/2025 HEPBCAB Nonreactive 03/22/2025 HEPCAB Nonreactive 03/22/2025 Liver workup No results found for: LORENZO , SMOOTHMUSCAB , CERULOPLSM , [id number] , TTGA , IGA , TSH , FREET4 , AFP Pancreatitis Lab Results Component Value Date CALCIUM 8.7 03/25/2025 IMAGING: MR abdomen w and wo contrast MRCP 03/22/25: IMPRESSION: 1. Apparent nodular lesion near the biliary confluence causing moderate to severe intrahepatic biliary dilatation, findings worrisome for Klatskin tumor. Consider ERCP/tissue sampling, as appropriate. 2. Nodular 2 cm enhancing splenic observation, favor benign angiomatous lesion. ASSESSMENT AND PLAN Bro Stover is a 79 y.o. male with PMHx of hypertension, hyperlipidemia, BPH, history of arrhythmia presenting from [facility] due to concern for yellowish discoloration of skin. Patient is transferred from [facility] for further evaluation by GI for jaundice Assessment Hyperbilirubinemia differential diagnosis obstructive jaundice versus intrahepatic cholestasis CT abdomen pelvis at [facility] demonstrated intrahepatic biliary dilation, ectatic common bile duct, cholecystectomy, no obstructing mass or stone identified. Total bilirubin of 14.6, direct bilirubin 8.1 Differential diagnoses include cholangiocarcinoma, intrahepatic cholestasis. 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 Common hepatic duct stricture and right/main hepatic ducts were dilated with balloon dilator, and 2 plastic biliary stents placed. Elevated liver enzymes likely due to above C difficile positive, started on PO vancomycin Plan Okay for regular diet as tolerated from GI standpoint Trend daily LFTs Recommend oncology consult, as ERCP findings highly suspicious for Klatskin tumor Follow-up histopathology results Patient will need repeat ERCP in 6 weeks for biliary stent removal Agree with PO vancomycin for treatment of C. Diff Remainder of care per primary No contraindication to discharge from GI perspective The case will be discussed with the attending physician Gastroenterology 6 am to 4 pm weekdays in house: [phone] 4 pm to 6 am or weekends: Please contact the platen drier operator to page the fellow content strategist * Leanna Andrade OT - 03/24/2025 3:32 PM EDT Occupational Therapy Occupational Therapy Evaluation Patient Name: Bro Stover : 1945 Today's Date: 03/24/2025 Start Time: 1427 Stop Time: 1454 Time Calculation (min): 27 min OT Evaluation Time Entry OT Evaluation (Moderate) Time Entry: 27 General Subjective: The patient stated he has been sitting on edge of bed to eat meals and has been walkingto bathroom. The patient was friendly and cooperative during evaluation. Patient Summary: The patient is an 79 year old male who was admitted from [place] with new onset jaundice. Patient has PMH of HTN, HPL, BPH, and arrhythmia. Problem List[1] Medical History[2] Surgical History[3] Precautions Precautions Medical Precautions: telemetry, isolation (C-Diff Precautions) Pain Pain Assessment Pain Assessment: No/denies pain Cognition Cognition Overall Cognitive Status: Within Functional Limits Arousal/Alertness: Appropriate responses to stimuli Orientation Level: Oriented X4 Following Commands: Follows all commands and directions without difficulty Safety Judgment: Good awareness of safety precautions Deficits: Fully aware of deficits Memory: Appears intact Problem Solving: Able to problem solve independently Communication: Intact General Assessment General Assessment Hearing: WNL. Skin Integrity: All visible areas intact. Patient reports he tends to get skin breakdown on his coccyx if he lays or sits in one spot too long. Hand Dominance: Right Home Living Home Living Type of Home: House Lives With: Spouse, Daughter Home Adaptive Equipment: Cane, Transport chair Home Living Comments: Patient reports his older daughter stays on second floor. Patient reports he frequently goes down into basement and his family recently put wider steps and a rail on the left going down to the basement. Home Layout: Multi-level, Stairs to alternate level with rails, Able to live on main level with bedroom/bathroom Alternate Level Stairs-Rails: Left (Stairs to basement. The patient rarely walks upstairs to secondfloor.) Alternate Level Stairs-Number of Steps: Full flight Home Access: Stairs to enter without rails Entrance Stairs-Rails: None (Patient reports he plans to have his family put railing back up.) Entrance Stairs-Number of Steps: 3 Bathroom Shower/Tub: Tub/shower unit, Door, Curtain (Patient reports the shower/tub has both a curtain and a door) Bathroom Toilet: Handicapped height Prior Level of Function Prior Function Level of [place]: Independent with ADLs and functional transfers, Independent with homemaking with ambulation Prior Functional Mobility: Independent without device, Community distances, Household distances Receives Help From: Family ADL Assistance: Independent Homemaking Assistance: Needs assistance Meal Prep: Total ( does most of the cooking. Patient has macular degeneration.) Laundry: Total ( normally does laundry) Vacuuming: Total Yard Work: Independent Driving: Independent (Patient drives occasionally only in daytime due to macular degeneration.) Vocational: Retired Leisure: Patient reported he enjoys walking down to his neighbors house to visit, fishing, travelling, going on [employer], and watching his grand-daughters softball games. Prior Function Comments: Patient reports he has not been as active the last 6 weeks due to C-Diff. Prior IADLs Static Sitting Balance Static Sitting Balance Static Sitting-Balance Support: Feet supported Static Sitting-Level of Assistance: Independent Dynamic Sitting Balance Dynamic Sitting Balance Dynamic Sitting-Balance Support: Feet supported Dynamic Sitting-Balance: Reaching for objects Dynamic Sitting Balance-Level of Assistance: Independent Static Standing Balance Static Standing Balance Static Standing-Balance Support: No upper extremity supported Static Standing-Level of Assistance: Independent Dynamic Standing Balance Dynamic Standing Balance Dynamic Standing-Balance Support: No upper extremity supported Dynamic Standing-Balance: Reaching for objects Dynamic Standing Balance-Level of Assistance: Independent Dynamic Standing-Comments: Patient stood to reach for his shirt off the bed and put his shirt on. ADL ADL Eating Assistance: Independent UE Dressing Assistance: Independent (Patient retrieved and put on a t-shirt while standing.) LE Dressing Assistance: Independent (Patient put on socks and slip on shoes independently) Bed Mobility Bed Mobility Bed Mobility: Yes Bed Mobility 1 Bed Mobility From 1: Supine Bed Mobility Type 1: To Bed Mobility to 1: Short sit Transfers Transfers Ambulation comments: The patient walked the length of hallway with distant supervision and occasional cues regarding obstacles in hallway as the bright lights and glare made it difficult for the patient to see with his macular degeneration. Patient demonstrated good balance and did not need an assistive device. Transfer: Yes Transfer 1 Transfer From 1: Bed Transfer Type 1: To and from Transfer to 1: Chair with arms Technique 1: Sit to stand, Stand to sit Transfer Level of Assistance 1: Independent Objective General Assessments Activity Tolerance Endurance: Stage IV Activity Tolerance Comments: Patient walked in hallway with good balance with no signs of shortnessor breath or fatigue. Vision - Basic Assessment Current Vision: Wears glasses only for reading (Occasionally wears [facility] glasses for reading) Visual History: Macular degeneration, Corrective eye surgery (Patient reports he had cataracts removed and lens implants) Vision - Complex Assessment Static Visual Acuity: Patient able to read the menu in a well lit room without a glare and by usinghis finger as a guide on the line to follow the print. Vision Comments: The patient had some difficulty with the glare of the lights in the hallway which affected his ability to see some of the obstacles in the hallway. Sensation Light Touch: No apparent deficits Perception Inattention/Neglect: Appears intact Initiation: Appears intact Perseveration: Not present Coordination Movements are Fluid and Coordinated: Yes Hand Function Gross Grasp: Functional Coordination: Functional Extremity Assessments RUE Assessment RUE Assessment: Within Functional Limits LUE Assessment LUE Assessment: Within Functional Limits RLE Assessment RLE Assessment: Within Functional Limits LLE Assessment LLE Assessment: Within Functional Limits Outcome Assessments AM-PAC 6 Clicks Putting on and taking off regular lower body clothing?: None (Independent) Bathing(Including washing,rinsing,drying)?: None (Independent) Toileting, which includes using the toilet,bedpan,or urinal?: None (Independent) Putting on and taking off regular upper body clothing?: None (Independent) Taking care of personal grooming such as brushing teeth?: None (Independent) Eating meals?: None (Independent) Total Score OT [facility]: 24 Assessment/Plan OT Assessment OT Impairments: Visual deficit OT Assessment/SATYA Summary: Patient is performing ADLS and walking independently in the room. OT encouraged the patient to keep walking to bathroom and to sit up 3 times a day for meals. The patient has macular degeneration and the bright lights and glare made it difficult for the patient to see obstacles in the hallway. OT suggested patient walk with family or staff in hallway due to patient's vision problems. No additional OT treatment is needed at this time as patient is functioning at baseline. The patient hopes to be discharged home with his after testing is completed. Prognosis: Good Evaluation/Treatment Tolerance: Patient tolerated treatment well Medical Staff Made Aware: Yes Strengths: Ability to acquire knowledge, Living arrangement secure, Support and attitude of living partners, Leisure activity, Capable of completing ADLs semi/independent Plan OT Plan: No skilled OT No Skilled OT: At baseline function OT Discharge Recommendations: Patient is able to return to prior living environment OT - Discharge Recommendations Placed: Yes OT Goals Multi-Disciplinary Problems (from Occupational Therapy) Active Problems Problem: OT Misc Start Date: 03/24/25 Goal Start Date Expected End Date End Date LTG - Patient will complete OT evaluation and discharge recommendations will be made. 03/24/25 03/24/25 -- [1] Patient Active Problem List Diagnosis Jaundice Primary hypertension Hyperlipidemia Benign prostatic hyperplasia with lower urinary tract symptoms Coagulopathy Transaminitis Hypokalemia C. difficile colitis [2] History reviewed. No pertinent past medical history. [3] History reviewed. No pertinent surgical history. * Dione Vanessa PT - 03/24/2025 3:17 PM EDT Physical Therapy Name: Bro Stover Date of : 1945 Today's Date: 03/24/25 Pt seen by OT- she reports pt is independent with mobility and strength is WNL. No PT needs identified at this time. PT signing off- please re-consult if new needs arise. Check No Charge Dione Vanessa PT, MPT * Man Costa MD - 03/24/2025 12:42 PM EDT Images from the original note were not included. [facility] Medicine Daily Progress Note - 03/24/2025 12:42 PM; Room: 6126/6126-01 Admission: 03/22/2025 9:17 AM; Length of stay: 2 days THE HOSPITALIST TEAM PREFERS TO USE [employer] CHAT FOR NON-URGENT COMMUNICATION 7AM- 7PM. IF I DO NOT RESPOND WITHIN 20 MINUTES OR URGENT MATTERS, PLEASE CALL THROUGH THE HIDE D[employer]ER. FROM 7PM-7AM, PLEASE PAGE [phone](COVR). Code Status: Full Code Barriers to Discharge: Pending improvement with LFT Expected Discharge Date: 1 to 2 days Discharge Destination: home Overview Patient is seen for evaluation and management of obstructive jaundice. Subjective patient seen evaluated bedside, is reporting feeling better today, no nausea or vomiting, no abdominal pain. Physical Exam Visit Vitals BP 107/50 (BP Location: Left arm, Patient Position: Lying) Pulse 81 Temp 36.9 ??C (98.4 ??F) (Oral) Resp 14 Intake/Output Summary (Last 24 hours) at 03/24/2025 1242 Last data filed at 03/23/2025 2345 Gross per 24 hour Intake 1477.17 ml Output 759 ml Net 718.17 ml Physical Exam Eyes: General: Scleral icterus present. Pupils: Pupils are equal, round, and reactive to light. Cardiovascular: Rate and Rhythm: Normal rate and regular rhythm. Pulmonary: Effort: Pulmonary effort is normal. Breath sounds: Normal breath sounds. Abdominal: General: Bowel sounds are normal. Palpations: Abdomen is soft. Neurological: Mental Status: He is alert and oriented to person, place, and time. Psychiatric: Mood and Affect: Mood normal. Estimated body mass index is 27.45 kg/m?? as calculated from the following: Height as of this encounter: 1.702 m (5' 7 ). Weight as of this encounter: 79.5 kg (175 lb 4.3 oz). Assessment and Plan Assessment & Plan Jaundice Transaminitis - Status post MRCP 03/23/2025 showing nodular lesion near the biliary confluence causing moderate tosevere intrahepatic biliary dilation. 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 we will send referrals to hematology/oncology clinic. - discussed with GI. C. difficile colitis - continue with oral vancomycin Hyperlipidemia Atorvastatin held at this time Benign prostatic hyperplasia with lower urinary tract symptoms Continue home medication Hypokalemia -Replace and monitor. Coagulopathy -Due to liver injury, status post vitamin K and FFP infusion preoperatively VTE Prophylaxis: Contraindicated due to coagulopathy Scheduled Meds amLODIPine, 10 mg, oral, Daily [Held by provider] enoxaparin, 40 mg, subcutaneous, Daily hydroCHLOROthiazide, 12.5 mg, oral, Daily lisinopril, 30 mg, oral, Daily tamsulosin, 0.4 mg, oral, Daily vancomycin, 125 mg, oral, 4x daily Pertinent Investigations Hematology: Results from last 7 days Lab Units 03/24/25 0610 03/23/25 1623 03/23/25 0521 03/22/25 1234 WBC AUTO 10*3/uL 14.84* -- 11.78* 12.96* HEMOGLOBIN g/dL 12.2* -- 11.1* 12.1* HEMATOCRIT % 36.1* -- 33.2* 35.3* MCV fL 94.3 -- 95.4 94.1 PLATELETS AUTO 10*3/uL 374 -- 331 337 INR -- 1.24* -- 1.63* Chemistry: Results from last 7 days Lab Units 03/24/25 0610 03/23/25 0520 03/22/25 1234 SODIUM mmol/L 137 137 137 POTASSIUM mmol/L 3.2* 3.2* 3.3* CHLORIDE mmol/L 103 108* 107 CO2 mmol/L 24 23 22 BUN mg/dL 22 25 19 CREATININE mg/dL 0.99 1.10 0.76 GLUCOSE mg/dL 118* 100 102* CALCIUM mg/dL 9.0 8.2* 8.5* Results from last 7 days Lab Units 03/24/25 0610 03/23/25 0520 03/22/25 1234 AST U/L 126* 123* 133* ALT U/L 92* 96* 103* ALK PHOS U/L 778* 796* 901* BILIRUBIN TOTAL mg/dL 17.9* 13.7* 14.6* BILIRUBIN DIRECT mg/dL -- 7.9* 8.1* Historical Values: (Includes values prior to this admission) No results found for: PREALBUMIN , TSH , T3FREE , FREET4 , CORTISOL , FEV1 , GCQ3TMB , DLCO , RVSP , HDL , LDL No results found for: [id number] , IRON , TIBC , C3 , C4 , LORENZO , CANCA , ASO , PSA , CEA , CA125 , CA199 , AFP , CA153 Imaging Fl in Endo Narrative: CLINICAL INFORMATION: Obstructive jaundice. FINDINGS: Reference air kerma = 442 mGy. Impression: * Intraoperative fluoroscopy provided for ERCP, biopsy and stent. Please note, no radiologist was present during the procedure. A radiologist reviewed the procedural images. Electronically signed: AKBAR ALBRIGHT MD. ERCP w/ Biopsy, w/ Stent Placement Table formatting from the original result was not included. Endoscopic Retrograde Cholangiopancreatography (ERCP) Procedure Note Procedure: ERCP with stent placement, balloon dilations, biopsies, brushing, and biliary sphincterotomy Indications: An 79-year-old male presented with jaundice and weight loss. CT abdomen pelvis at [facility] demonstrated intrahepatic biliary dilation, ectatic common bile duct, and cholecystectomy. Total bilirubin of 14.6, direct bilirubin 8.1. MRCP revealed nodular lesion near the biliary confluence causing moderate to severe intrahepatic biliary dilatation, findings worrisome for Klatskin tumor. Plan for ERCP today. 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 Risks of pancreatitis, infection, perforation, hemorrhage, adverse drug reaction and aspiration were discussed. The patient was placed in the left lateral decubitus position. The patient was monitored continuously with ECG tracing, pulse oximetry, blood pressure monitoring, and direct observations. The duodenoscope was inserted into the mouth and advanced to the third portion of the duodenum; findings and interventions are described below. The patient tolerated the procedure well, and there were no immediate complications. He was taken to the recovery area in stable condition. Findings: The major papilla was identified and looked unremarkable. The Rx/44 sphincterotome loaded with a 0.035 inch guidewire was then used to cannulate the common bile duct which was successfully achieved. Contrast was injected. High-grade stricture was noted at the common hepatic duct extending to right and left main hepatic ducts. Biliary sphincterotomy was performed and the sphincterotome was removed after placing the guidewire up to the left intrahepatic ducts. A second guidewire was then used through the sphincterotome to access the right intrahepatic duct which was successfully achieved. The sphincterotome was removed over the guidewire. A 6 mm x 4 cm HurriCaine dilating balloon catheter was then advanced over the guidewire up to the right main hepatic duct. The stricture was dilated then the balloon was advanced up to the left intrahepatic duct and the stricture was dilated as well. The dilating balloon catheter was removed over the guidewire and the pediatric biopsy forceps was advanced into the common bile duct. Biopsies were obtained from the common hepatic duct/right main hepatic duct. The biopsy forceps was removed and the brushing catheter was then advanced over the guidewire into the common bile duct and up to the common hepatic duct and left main hepatic duct. Brushing for cytology was performed. The brushing catheter was removed over the guidewire and two 7 [place] by 15 cm plastic biliary stents were placed up to the right and left intrahepatic ducts. Good biliary drainage was achieved. The procedure was performed under fluoroscopic guidance and I did the interpretation of the fluoroscopic images. The scope was then withdrawn and the patient tolerated the procedure well and was sent to the recovery area in stable condition. 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 Biopsies and brushing were obtained to rule out malignancy. The common hepatic duct stricture and the right and main hepatic ducts were dilated with 6 mm balloon dilator. Two 7 [place] by 15 cm plastic biliary stents were placed into the common bile duct up to the right and left intrahepatic ducts. Good biliary drainage was achieved. Recommendations: Keep the patient n.p.o. overnight and start diet the following day if patient is asymptomatic. Follow-up histopathology results. Follow-up liver function test. Further plan depends upon the histopathology results. Repeat ERCP in 6 weeks for biliary stents replacement. Attending Attestation: I performed the procedure. Discharge Planning Expected Discharge Disposition: Home or Self Care () Signed Man Costa MD [facility] 03/24/2025 12:42 PM * Guilherme Brink CNP - 03/24/2025 9:30 AM EDT Gastroenterology/Hepatology Progress Note IDENTIFYING DATA PATIENT: Bro Stover ADMIT DATE: 03/22/2025 TIME OF EVALUATION: 03/24/2025 10:04 AM Reason for Consult: Jaundice Admitting Physician: Man Costa MD SUBJECTIVE/INTERVAL HISTORY Bro Stover's overnight events were reviewed. 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 Common hepatic duct stricture and right/main hepatic ducts were dilated with balloon dilator, and 2 plastic biliary stents placed. Today patient seen and evaluated, sitting in chair at bedside. He reports significant improvement in abdominal pain following procedure yesterday. Remains NPO at this time without nausea or vomiting.In addition, patient tested positive for C. Diff and was started on PO vancomycin. He has had no bowel movements overnight or this morning. LFTs remain elevated with AST 126, ALT 92, ALP 778, TB 17.9. OBJECTIVE MEDICATIONS SCHEDULED: amLODIPine, 10 mg, oral, Daily [Held by provider] enoxaparin, 40 mg, subcutaneous, Daily hydroCHLOROthiazide, 12.5 mg, oral, Daily lisinopril, 30 mg, oral, Daily potassium chloride CR, 20 mEq, oral, q1h tamsulosin, 0.4 mg, oral, Daily vancomycin, 125 mg, oral, 4x daily PRNs: [Held by provider] acetaminophen, 650 mg, q6h PRN ondansetron ODT, 4 mg, q8h PRN Or ondansetron, 4 mg, q6h PRN sennosides-docusate sodium, 1 tablet, BID PRN sodium chloride, 10 mL, q8h PRN Physical VITALS: BP 107/50 (BP Location: Left arm, Patient Position: Lying) Pulse 81 Temp 36.9 ??C (98.4??F) (Oral) Resp 14 Ht 1.702 m (5' 7 ) Wt 79.5 kg (175 lb 4.3 oz) SpO2 94% BMI 27.45 kg/m?? GEN: Alert and oriented x3, NAD CV: Regular rate and rhythm PULM: Breathing comfortably ABD: Soft, non-tender, non-distended NEURO: Moves all visualized extremities spontaneously LABS AND IMAGING CBC: Results from last 7 days Lab Units 03/24/25 0610 03/23/25 0521 03/22/25 1234 WBC AUTO 10*3/uL 14.84* 11.78* 12.96* RBC AUTO 10*6/uL 3.83* 3.48* 3.75* HEMOGLOBIN g/dL 12.2* 11.1* 12.1* HEMATOCRIT % 36.1* 33.2* 35.3* MCV fL 94.3 95.4 94.1 RDW % 19.4* 19.4* 19.6* PLATELETS AUTO 10*3/uL 374 331 337 PT/INR Results from last 7 days Lab Units 03/23/25 1623 03/22/25 1234 PROTIME Seconds 15.7* 19.4* INR 1.24* 1.63* BMP: Results from last 7 days Lab Units 03/24/25 0610 03/23/25 0520 03/22/25 1234 SODIUM mmol/L 137 137 137 POTASSIUM mmol/L 3.2* 3.2* 3.3* CHLORIDE mmol/L 103 108* 107 BUN mg/dL 22 25 19 CREATININE mg/dL 0.99 1.10 0.76 EGFR mL/min/1.73m*2 77.0 67.9 90.9 GLUCOSE mg/dL 118* 100 102* LFTs: Results from last 7 days Lab Units 03/24/25 0610 03/23/25 0520 03/22/25 1234 BILIRUBIN TOTAL mg/dL 17.9* 13.7* 14.6* BILIRUBIN DIRECT mg/dL -- 7.9* 8.1* ALK PHOS U/L 778* 796* 901* GGT U/L -- -- 573* AST U/L 126* 123* 133* ALT U/L 92* 96* 103* ALBUMIN g/dL 3.3* 2.9* 3.0* TOTAL PROTEIN g/dL 6.9 5.7* 6.2 B12/Folate/Iron studies: No results found for: [id number] , FOLATE , IRON , TIBC , UIBC , IRONSAT , FERRITIN Viral Hepatitis Lab Results Component Value Date HEPAIGM Nonreactive 03/22/2025 HEPBSAG Nonreactive 03/22/2025 HEPBCAB Nonreactive 03/22/2025 HEPCAB Nonreactive 03/22/2025 Liver workup No results found for: LORENZO , SMOOTHMUSCAB , CERULOPLSM , [id number] , TTGA , IGA , TSH , FREET4 , AFP Pancreatitis Lab Results Component Value Date CALCIUM 9.0 03/24/2025 IMAGING: MR abdomen w and wo contrast MRCP 03/22/25: IMPRESSION: 1. Apparent nodular lesion near the biliary confluence causing moderate to severe intrahepatic biliary dilatation, findings worrisome for Klatskin tumor. Consider ERCP/tissue sampling, as appropriate. 2. Nodular 2 cm enhancing splenic observation, favor benign angiomatous lesion. ASSESSMENT AND PLAN Bro Stover is a 79 y.o. male with PMHx of hypertension, hyperlipidemia, BPH, history of arrhythmia presenting from [facility] due to concern for yellowish discoloration of skin. Patient is transferred from [facility] for further evaluation by GI for jaundice Assessment Hyperbilirubinemia differential diagnosis obstructive jaundice versus intrahepatic cholestasis CT abdomen pelvis at [facility] demonstrated intrahepatic biliary dilation, ectatic common bile duct, cholecystectomy, no obstructing mass or stone identified. Total bilirubin of 14.6, direct bilirubin 8.1 Differential diagnoses include cholangiocarcinoma, intrahepatic cholestasis. 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 Common hepatic duct stricture and right/main hepatic ducts were dilated with balloon dilator, and 2 plastic biliary stents placed. Elevated liver enzymes likely due to above C difficile positive, started on PO vancomycin Plan Okay for clear liquid diet from GI standpoint, advance as tolerated Trend daily LFTs Recommend oncology consult, as ERCP findings highly suspicious for Klatskin tumor Follow-up histopathology results Patient will need repeat ERCP in 6 weeks for biliary stent removal Agree with PO vancomycin for treatment of C. Diff Remainder of care per primary The case will be discussed with the attending physician Gastroenterology 6 am to 4 pm weekdays in house: [phone] 4 pm to 6 am or weekends: Please contact the platen drier operator to page the fellow content strategist * Man Costa MD - 03/23/2025 5:45 PM EDT Images from the original note were not included. Hospital Medicine Daily Progress Note - 03/23/2025 5:45 PM; Room: [address] [place] [address] Admission: 03/22/2025 9:17 AM; Length of stay: 1 days THE HOSPITALIST TEAM PREFERS TO USE [facility] FOR NON-URGENT COMMUNICATION 7AM- 7PM. IF I DO NOT RESPOND WITHIN 20 MINUTES OR URGENT MATTERS, PLEASE CALL THROUGH THE HIDE D[facility]ER. FROM 7PM-7AM, PLEASE PAGE [phone](COVR). Code Status: Full Code Barriers to Discharge: Pending ERCP Expected Discharge Date: 1 to 2 days Discharge Destination: home Overview Patient is seen for evaluation and management of obstructive jaundice. Subjective -At bedside, at the bedside, patient reporting no new symptoms, no nausea or vomiting, he doeshave abdominal pain but is more with pressing the abdomen on the right side. Last BM was yesterday which was pale. Physical Exam Visit Vitals BP 154/62 Pulse 104 Temp 36.6 ??C (97.9 ??F) (Temporal) Resp 16 Intake/Output Summary (Last 24 hours) at 03/23/2025 1745 Last data filed at 03/23/2025 1645 Gross per 24 hour Intake 464.17 ml Output -- Net 464.17 ml Physical Exam Eyes: Pupils: Pupils are equal, round, and reactive to light. Cardiovascular: Rate and Rhythm: Normal rate and regular rhythm. Pulmonary: Effort: Pulmonary effort is normal. Breath sounds: Normal breath sounds. Abdominal: General: Bowel sounds are normal. Palpations: Abdomen is soft. Neurological: Mental Status: He is alert and oriented to person, place, and time. Psychiatric: Mood and Affect: Mood normal. Estimated body mass index is 29.69 kg/m?? as calculated from the following: Height as of this encounter: 1.702 m (5' 7 ). Weight as of this encounter: 86 kg (189 lb 9.5 oz). Assessment and Plan Assessment & Plan Jaundice Transaminitis - Status post MRCP 03/23/2025 showing nodular lesion near the biliary confluence causing moderate tosevere intrahepatic biliary dilation. Discussed with GI at the bedside, plan for ERCP today. C. difficile colitis - Started on oral vancomycin Hyperlipidemia Atorvastatin held at this time Benign prostatic hyperplasia with lower urinary tract symptoms Continue home medication Hypokalemia - Replace and monitor. Coagulopathy - Due to liver injury, status post vitamin K and FFP infusion preoperatively VTE Prophylaxis: Contraindicated due to coagulopathy Scheduled Meds amLODIPine, 10 mg, oral, Daily [Held by provider] enoxaparin, 40 mg, subcutaneous, Daily hydroCHLOROthiazide, 12.5 mg, oral, Daily lisinopril, 30 mg, oral, Daily tamsulosin, 0.4 mg, oral, Daily sodium chloride, 20 mL/hr, Last Rate: 20 mL/hr (03/23/25 1313) Pertinent Investigations Hematology: Results from last 7 days Lab Units 03/23/25 1623 03/23/25 0521 03/22/25 1234 WBC AUTO 10*3/uL -- 11.78* 12.96* HEMOGLOBIN g/dL -- 11.1* 12.1* HEMATOCRIT % -- 33.2* 35.3* MCV fL -- 95.4 94.1 PLATELETS AUTO 10*3/uL -- 331 337 INR 1.24* -- 1.63* Chemistry: Results from last 7 days Lab Units 03/23/25 0520 03/22/25 1234 SODIUM mmol/L 137 137 POTASSIUM mmol/L 3.2* 3.3* CHLORIDE mmol/L 108* 107 CO2 mmol/L 23 22 BUN mg/dL 25 19 CREATININE mg/dL 1.10 0.76 GLUCOSE mg/dL 100 102* CALCIUM mg/dL 8.2* 8.5* Results from last 7 days Lab Units 03/23/25 0520 03/22/25 1234 AST U/L 123* 133* ALT U/L 96* 103* ALK PHOS U/L 796* 901* BILIRUBIN TOTAL mg/dL 13.7* 14.6* BILIRUBIN DIRECT mg/dL 7.9* 8.1* Historical Values: (Includes values prior to this admission) No results found for: PREALBUMIN , TSH , T3FREE , FREET4 , CORTISOL , FEV1 , OYA8AIZ , DLCO , RVSP , HDL , LDL No results found for: [id number] , IRON , TIBC , C3 , C4 , LORENZO , CANCA , ASO , PSA , CEA , CA125 , CA199 , AFP , CA153 Imaging ECG 12 lead Sinus rhythm with 1st degree A-V block Right bundle branch block Abnormal ECG No previous ECGs available Confirmed by Cedric YEUNG, ARIELA Robertson ([id number]) on 03/23/2025 10:30:10 AM US abdomen limited liver Narrative: ULTRASOUND ABDOMEN LIMITED HISTORY: Jaundice COMPARISON: MRI abdomen 03/22/2025 FINDINGS: Visualized portions of pancreatic body are unremarkable. Remaining portions of the pancreas are obscured by overlying bowel gas. Moderate intrahepatic biliary ductal dilatation. Main portal vein is patent. No focal mass identified on CT. The common bile duct is not dilated measuring 0.5 cm. Gallbladder not visualized. Impression: * Moderate intrahepatic biliary ductal dilatation. Please refer to separate MRI report for further details and findings. Electronically signed: Charles Childs MD. MR abdomen w and wo contrast MRCP Narrative: Study: MRI abdomen with and without contrast and M.R.C.P. Clinical history: Obstructive jaundice, abdominal pain. Comparison: None. Technique: Technique: Routine multiplanar multisequence MR imaging of the abdomen was performed prior to and following uneventful administration of 20 cc Gadoterate Meglumine intravenous gadolinium contrast. M.R.C.P. was performed with 3-D volume rendered reformatted and maximum intensity projection rotational images for the evaluation of the pancreatic and biliary ductal system at the MR console under concurrent physician supervision. Findings: Moderate to severe intrahepatic biliary dilatation involving left and right lobes extending to the biliary confluence where there is a. 1.5 cm nodular enhancing lesion [series [id number] [id number]]. Nondistended common bile duct. No pancreatic ductal dilatation. Notable to D2 segment duodenal diverticula near the ampulla. 3D reformatted images confirm the source data findings 2 cm nodular splenic observation, likely angiomatous. Simple and hemorrhagic renal cysts, no suspicious renal lesion. No collecting system dilatation. No dilatation or wall thickening of the bowel. Mild colonic stool burden. Normal appendix. Dextroconvex lumbar curvature. No aggressive osseous lesions. Impression: Impression: 1. Apparent nodular lesion near the biliary confluence causing moderate to severe intrahepatic biliary dilatation, findings worrisome for Klatskin tumor. Consider ERCP/tissue sampling, as appropriate. 2. Nodular 2 cm enhancing splenic observation, favor benign angiomatous lesion. Electronically signed: Conner Benavides MD. Discharge Planning Signed Man Costa MD [facility] 03/23/2025 5:45 PM * Shaikh Alana MD - 03/22/2025 9:15 PM EDT Case was discussed with the LULÚ on 03/22/2025. I personally saw the patient, reviewed the LULÚ's history, exam, and medical decision-making (MDM). I agree with the assessment and plan unless otherwise noted below. The LULÚ performed the substantive portion of the visit. Physical Exam: Visit Vitals BP 140/56 (Patient Position: Sitting) Pulse 88 Temp 36 ??C (96.8 ??F) Resp 16 General: Alert and oriented x3. Patient visibly jaundiced Cardiology: Normal rate, regular rhythm. Lungs: Clear to auscultation, no wheezes, rales or rhonchi, symmetric air entry. Abdomen: Soft, non tender, distended abdomen Extremities: No pitting edema. Neurology: No focal neuro deficit noted. AOX 3 Assessment/Plan: Patient transferred from outside hospital for abnormal liver enzymes. Found to have hyperbilirubinemia with bilirubin of 15, ALPO4 >1100 and minimally elevated AST/ALT. Patient reports ongoing diarrhea for 1 month along with 15 lbs weight loss. Denies using any new drugs, heavy alcohol use, excess tylenol use. Denies substance abuse. No prior hx of Liver pathology. Medical records from outside hospital reviewed. 1-Jaundice 2- Diarrhea 3- Essential HTN Admit to Med Surg. Ordered work up for Jaundice. GI consulted. US liver ordered. Will benefit from MRCP - defer to GI. Shaikh Alana MD documented in this encounter H&P Notes * Connor Pollard MD - 03/23/2025 6:28 PM EDT H&P reviewed. The patient was examined and there are no changes to the H&P. Hyperbilirubinemia differential diagnosis obstructive jaundice versus intrahepatic cholestasis. CT abdomen pelvis at [facility] demonstrated intrahepatic biliary dilation, ectatic common bile duct, and cholecystectomy. Total bilirubin of 14.6, direct bilirubin 8.1. MRCP revealed nodular lesion near the biliary confluence causing moderate to severe intrahepatic biliary dilatation, findings worrisome for Klatskin tumor. Plan for ERCP today. Source Note - Akin Jade MD - 03/22/2025 3:15 PM EDT Initial Gastroenterology/Hepatology Consultation Note IDENTIFYING DATA PATIENT: Bro Stover ADMIT DATE: 03/22/2025 TIME OF EVALUATION: 03/22/2025 3:16 PM Reason for Consult: Jaundice Admitting Physician: Mazin Marks MD HISTORY OF PRESENT ILLNESS Bro Stover is a 79 y.o. male with PMHx of hypertension, hyperlipidemia, BPH, history of arrhythmia presenting from [facility] due to concern for yellowish discoloration of skin. Patient endorsed his granddaughter noticed yellowish discoloration last Saturday and he went to [facility] yesterday. He also reports for the past 6 weeks he is having diarrhea. Last week he also noticed blood in his stool which was stopped. His last bowel movement was today morning withoutbleeding. Patient endorsed he has a history of constipations and sometimes bleeding with his stoolsdue to constipation. Patient endorses his abdomen is bloated with excessive gas. Has mild left lower quadrant abdominal pain. Endorse weight loss at least 15 pounds over a month. Denies alcohol, smoking. Denies taking any blood thinner or NSAIDs chronically. Denies any family history of liver disease, colon cancer or stomach cancer. Labs report after hospital showed elevated bilirubin. CT brain pelvis was performed at [facility] which showed intrahepatic biliary dilation, ectatic common bile duct, cholecystectomy, no obstructing mass or stone identified. Current patient experiencing no fever, chills, nausea, vomiting, SOB, cough, lightness, dizziness. Patient is A and O x 4. He is symptomatic stable. Labs reviewed showed to bilirubin of 14.6, direct bilirubin 8.1, GGT 573, INR 1.63, AST 133, ALT 23, alk phos 901. GI HISTORY SUMMARY TABLE Last EGD Never formed Last colonoscopy 10 years back-unremarkable per patient, Cologuard 2 years back which was normal. Primary GI physician PAST MEDICAL, SURGICAL, FAMILY, and SOCIAL HISTORY Past Medical History: Medical History[1] Past Surgical History: Surgical History[2] Family History: Family History[3] Social History: Social History[4] Allergies: Allergies[5] MEDICATIONS Home Medications: Prior to Admission medications Medication Sig Start Date End Date Taking? Authorizing Provider amLODIPine (Norvasc) 10 mg tablet Take 10 mg by mouth in the morning. Historical Provider, atorvastatin (Lipitor) 10 mg tablet Take 10 mg by mouth in the morning. Historical Provider, hydroCHLOROthiazide 12.5 mg tablet Take 12.5 mg by mouth in the morning. Historical Provider, lisinopril 30 mg tablet Take 30 mg by mouth in the morning. Historical Provider, meloxicam (Mobic) 7.5 mg tablet Take 7.5 mg by mouth in the morning. Historical Provider, tamsulosin (Flomax) 0.4 mg 24 hr capsule Take 0.4 mg by mouth in the morning. Historical Provider, Current Medications: amLODIPine, 10 mg, oral, Daily [Held by provider] enoxaparin, 40 mg, subcutaneous, Daily hydroCHLOROthiazide, 12.5 mg, oral, Daily lisinopril, 30 mg, oral, Daily tamsulosin, 0.4 mg, oral, Daily PRNs: [Held by provider] acetaminophen, 650 mg, q6h PRN ondansetron ODT, 4 mg, q8h PRN Or ondansetron, 4 mg, q6h PRN sennosides-docusate sodium, 1 tablet, BID PRN sodium chloride, 10 mL, q8h PRN REVIEW OF SYSTEMS See HPI, otherwise ROS negative as below CONSTITUTIONAL: negative HEENT: Patient looks icteric RESPIRATORY: negative CARDIOVASCULAR: negative GASTROINTESTINAL: as in HPI GENITOURINARY: negative OBJECTIVE DATA Vitals: BP 140/56 (Patient Position: Sitting) Pulse 88 Temp 36 ??C (96.8 ??F) Resp 16 SpO2 99% GEN: Alert and oriented x3, NAD HEENT: Atraumatic, normocephalic CV: Regular rate and rhythm PULM: Breathing comfortably ABD: Soft, non-tender, non-distended NEURO: Moves all 4 extremities spontaneously LABS AND IMAGING CBC: Results from last 7 days Lab Units 03/22/25 1234 WBC AUTO 10*3/uL 12.96* RBC AUTO 10*6/uL 3.75* HEMOGLOBIN g/dL 12.1* HEMATOCRIT % 35.3* MCV fL 94.1 RDW % 19.6* PLATELETS AUTO 10*3/uL 337 PT/INR Results from last 7 days Lab Units 03/22/25 1234 PROTIME Seconds 19.4* INR 1.63* BMP: Results from last 7 days Lab Units 03/22/25 1234 SODIUM mmol/L 137 POTASSIUM mmol/L 3.3* CHLORIDE mmol/L 107 BUN mg/dL 19 CREATININE mg/dL 0.76 EGFR mL/min/1.73m*2 90.9 GLUCOSE mg/dL 102* LFTs: Results from last 7 days Lab Units 03/22/25 1234 BILIRUBIN TOTAL mg/dL 14.6* ALK PHOS U/L 901* AST U/L 133* ALT U/L 103* ALBUMIN g/dL 3.0* TOTAL PROTEIN g/dL 6.2 B12/Folate/Iron studies: No results found for: [id number] , FOLATE , IRON , TIBC , UIBC , IRONSAT , FERRITIN Viral Hepatitis Lab Results Component Value Date HEPAIGM Nonreactive 03/22/2025 HEPBSAG Nonreactive 03/22/2025 HEPBCAB Nonreactive 03/22/2025 HEPCAB Nonreactive 03/22/2025 Liver workup No results found for: LORENZO , SMOOTHMUSCAB , CERULOPLSM , [id number] , TTGA , IGA , TSH , FREET4 , AFP Pancreatitis Lab Results Component Value Date CALCIUM 8.5 (L) 03/22/2025 IMAGING: Imaging for last 3 days: No X-ray results found for the past [address] results found for the past 3 days No MRI results found for the past 3 days ASSESSMENT AND PLAN Bro Stover is a 79 y.o. male with PMHx of hypertension, hyperlipidemia, BPH, history of arrhythmia presenting from [facility] due to concern for yellowish discoloration of skin. Patient is transferred from [facility] for further evaluation by GI for jaundice Assessment Hyperbilirubinemia differential diagnosis obstructive jaundice versus intrahepatic cholestasis CT abdomen pelvis at [facility] demonstrated intrahepatic biliary dilation, ectatic common bile duct, cholecystectomy, no obstructing mass or stone identified. Total bilirubin of 14.6, direct bilirubin 8.1 Differential diagnoses include cholangiocarcinoma, intrahepatic cholestasis. Elevated liver enzymes likely due to above Chronic diarrhea with blood in his stool currently stable Last bowel movement today morning was without blood in the stool. Plan Okay to have clear liquid diet from GI standpoint. Follow-up hepatitis panel. Trend liver enzymes. Follow-up stool pathogen panel, C. Difficile. Will obtain MRI with MRCP with and without contrast to further delineate the biliary tree and pancreas. Further recommendation based on MRCP. N.p.o. at midnight. Recommend continue hold anticoagulation including DVT prophylaxis. Rest care for Primary care. This consult will be discussed with attending physician. If you have any questions please feel freeto contact the GI Service. Thank you for allowing us to participate in the care of Bro Stover. Gastroenterology 6 am to 4 pm weekdays in house: [phone] 4 pm to 6 am or weekends: Please contact the platen drier operator to page the fellow content strategist [1] History reviewed. No pertinent past medical history. [2] History reviewed. No pertinent surgical history. [3] No family history on file. [4] Social History Tobacco Use Smoking status: Former Types: Cigarettes Smokeless tobacco: Never Vaping Use Vaping status: Never Used [5] Allergies Allergen Reactions Latex Fever Cosigned by Lisseth Turner MD at 03/23/2025 3:39 PM EDT * Dario Prieto PA-C - 03/22/2025 12:48 PM EDT Images from the original note were not included. Hospital Medicine History and Physical 03/22/2025 12:48 PM THE HOSPITALIST TEAM PREFERS TO USE [employer] CHAT FOR NON-URGENT COMMUNICATION 7AM- 7PM. IF I DO NOT RESPOND WITHIN 20 MINUTES OR URGENT MATTERS, PLEASE CALL THROUGH THE HIDE DYER. FROM 7PM-7AM, PLEASE PAGE [phone](COVR). Chief Complaint Jaundice History of Present Illness Bro Stover is an 79 y.o. male who came from [place] with new onset jaundice. Patient has past medical history of hypertension, hyperlipidemia, BPH, history of arrhythmia. Patient states he went to the hospital because of how yellow he looked. Patient began looking yellowish last Saturday. Patient says he's had diarrhea for past 6 weeks that has worsened over the last week. He states that it smells like grass and sauerkraut. Previously he noted blood in the stool but it stopped a week ago. He denies history of hemorrhoids and had cologuard 2 years ago. Patient said he has been experiencing chills, nausea, palpitations and feeling gassy. Patient denies: fevers, sweats, confusion, chest pain, shortness of breath, cough, abdominal pain, constipation, vomiting, lightheadedness, dizziness. Patient denies drinking alcohol or any other substance use. Review of System and Physical Exam Temp: [35.8 ??C (96.4 ??F)] 35.8 ??C (96.4 ??F) Heart Rate: [76] 76 Resp: [16] 16 BP: (149)/(68) 149/68 Physical Exam Eyes: Extraocular Movements: Extraocular movements intact. Pupils: Pupils are equal, round, and reactive to light. Cardiovascular: Rate and Rhythm: Normal rate and regular rhythm. Pulses: Normal pulses. Heart sounds: Murmur heard. Pulmonary: Effort: Pulmonary effort is normal. Breath sounds: Normal breath sounds. Abdominal: General: Bowel sounds are normal. There is distension. Palpations: Abdomen is soft. Tenderness: There is no abdominal tenderness. Musculoskeletal: Right lower leg: Edema present. Left lower leg: Edema present. Skin: Coloration: Skin is jaundiced. Neurological: General: No focal deficit present. Mental Status: He is alert and oriented to person, place, and time. Motor: No tremor. Review of Systems Constitutional: Positive for chills and unexpected weight change. Negative for fatigue and fever. Respiratory: Negative for cough and shortness of breath. Cardiovascular: Positive for palpitations. Negative for chest pain. Gastrointestinal: Positive for anal bleeding (last week one last bloody bowel movement), diarrhea and nausea. Negative for abdominal pain, constipation and vomiting. Skin: Positive for color change (jaundice). Neurological: Negative for dizziness, tremors and light-headedness. Assessment and Plan Assessment & Plan Jaundice Relevant Hx: patient present to [facility] with jaundice. Patient had elevated LFTs and bilirubin. Course: patient has an alkaline phosphatase of 901, ast 133, alt 103, albumin 3.0, total bilirubin of 14.6, APTT 37.9 Daily Update: patient admitted to the floor Today's Plan: GI consulted, ultrasound of liver ordered, GGT ordered, direct bilirubin ordered. Defer to GI regarding management of jaundice. Primary hypertension Continue home medications Hyperlipidemia Atorvastatin held at this time Benign prostatic hyperplasia with lower urinary tract symptoms Continue home medication VTE Prophylaxis: Anticoagulation held due to reported bloody bowel movement. ----- Focus of this inpatient stay will remain on problems that need acute care setting for care. We will review available studies and will order additional labs, imaging and other studies as appropriate. As needed medicines are ordered as appropriate. VTE Prophylaxis will be ordered as appropriate. Please see above for management plan for individual hospital problems. Home medications are reviewed and will be continued as appropriate. Patient will be continued to be followed during this hospital stay by a member of [facility]. Past Medical History Medical History[1] Past Surgical History Surgical History[2] Social History Social History Socioeconomic History Marital status: Spouse name: Not on file Number of children: Not on file Years of education: Not on file Highest education level: Not on file Occupational History Not on file Tobacco Use Smoking status: Former Types: Cigarettes Smokeless tobacco: Never Vaping Use Vaping status: Never Used Substance and Sexual Activity Alcohol use: Not on file Drug use: Not on file Sexual activity: Not on file Other Topics Concern Not on file Social History Narrative Not on file Social Drivers of Health Financial Resource Strain: Low Risk (03/22/2025) Overall Financial Resource Strain (CARDIA) Difficulty of Paying Living Expenses: Not very hard Food Insecurity: No Food Insecurity (03/22/2025) Hunger Vital Sign Worried About Running Out of Food in the Last Year: Never true Ran Out of Food in the Last Year: Not on file Transportation Needs: No Transportation Needs (03/22/2025) Transportation Lack of Transportation (Medical): No Lack of Transportation (Non-Medical): Not on file Physical Activity: Not on file Stress: Not on file Social Connections: Not on file Intimate Partner Violence: Unknown (03/22/2025) Humiliation, Afraid, Rape, and Kick questionnaire Fear of Current or Ex-Partner: No Emotionally Abused: Not on file Physically Abused: Not on file Sexually Abused: Not on file Housing Stability: Low Risk (03/22/2025) Housing Stability Vital Sign Unable to Pay for Housing in the Last Year: No Number of Times Moved in the Last Year: Not on file Homeless in the Last Year: No Family History family history is not on file. Allergies is allergic to latex. Prior to Admission Medications Prescriptions Prior to Admission[3] Labs Labs Reviewed COMPREHENSIVE METABOLIC PANEL CBC HEPATITIS PANEL, ACUTE DRUG SCREEN PANEL 9, SERUM CMV DNA, QUALITATIVE, PCR LATIA-JACKSON VIRUS BY QUANTITATIVE NAAT, PLASMA APTT POCT INR Imaging No image results found. Signed Dario Prieto PA-C [facility] 03/22/2025 12:48 PM [1] History reviewed. No pertinent past medical history. [2] History reviewed. No pertinent surgical history. [3] Medications Prior to Admission Medication Sig Dispense Refill Last Dose/Taking amLODIPine (Norvasc) 10 mg tablet Take 10 mg by mouth in the morning. atorvastatin (Lipitor) 10 mg tablet Take 10 mg by mouth in the morning. hydroCHLOROthiazide 12.5 mg tablet Take 12.5 mg by mouth in the morning. lisinopril 30 mg tablet Take 30 mg by mouth in the morning. meloxicam (Mobic) 7.5 mg tablet Take 7.5 mg by mouth in the morning. tamsulosin (Flomax) 0.4 mg 24 hr capsule Take 0.4 mg by mouth in the morning. Cosigned by Shaikh Alana MD at 03/22/2025 9:13 PM EDT documented in this encounter Consult Notes * Akin Jade MD - 03/22/2025 3:15 PM EDTAssociated Order(s): IP CONSULT TO GASTROENTEROLOGY Initial Gastroenterology/Hepatology Consultation Note IDENTIFYING DATA PATIENT: Bro Stover ADMIT DATE: 03/22/2025 TIME OF EVALUATION: 03/22/2025 3:16 PM Reason for Consult: Jaundice Admitting Physician: Mazin Marks MD HISTORY OF PRESENT ILLNESS Bro Stover is a 79 y.o. male with PMHx of hypertension, hyperlipidemia, BPH, history of arrhythmia presenting from [facility] due to concern for yellowish discoloration of skin. Patient endorsed his granddaughter noticed yellowish discoloration last Saturday and he went to [facility] yesterday. He also reports for the past 6 weeks he is having diarrhea. Last week he also noticed blood in his stool which was stopped. His last bowel movement was today morning withoutbleeding. Patient endorsed he has a history of constipations and sometimes bleeding with his stoolsdue to constipation. Patient endorses his abdomen is bloated with excessive gas. Has mild left lower quadrant abdominal pain. Endorse weight loss at least 15 pounds over a month. Denies alcohol, smoking. Denies taking any blood thinner or NSAIDs chronically. Denies any family history of liver disease, colon cancer or stomach cancer. Labs report after hospital showed elevated bilirubin. CT brain pelvis was performed at [facility] which showed intrahepatic biliary dilation, ectatic common bile duct, cholecystectomy, no obstructing mass or stone identified. Current patient experiencing no fever, chills, nausea, vomiting, SOB, cough, lightness, dizziness. Patient is A and O x 4. He is symptomatic stable. Labs reviewed showed to bilirubin of 14.6, direct bilirubin 8.1, GGT 573, INR 1.63, AST 133, ALT 23, alk phos 901. GI HISTORY SUMMARY TABLE Last EGD Never formed Last colonoscopy 10 years back-unremarkable per patient, Cologuard 2 years back which was normal. Primary GI physician PAST MEDICAL, SURGICAL, FAMILY, and SOCIAL HISTORY Past Medical History: Medical History[1] Past Surgical History: Surgical History[2] Family History: Family History[3] Social History: Social History[4] Allergies: Allergies[5] MEDICATIONS Home Medications: Prior to Admission medications Medication Sig Start Date End Date Taking? Authorizing Provider amLODIPine (Norvasc) 10 mg tablet Take 10 mg by mouth in the morning. Historical Provider, atorvastatin (Lipitor) 10 mg tablet Take 10 mg by mouth in the morning. Historical Provider, hydroCHLOROthiazide 12.5 mg tablet Take 12.5 mg by mouth in the morning. Historical Provider, lisinopril 30 mg tablet Take 30 mg by mouth in the morning. Historical Provider, meloxicam (Mobic) 7.5 mg tablet Take 7.5 mg by mouth in the morning. Historical Provider, tamsulosin (Flomax) 0.4 mg 24 hr capsule Take 0.4 mg by mouth in the morning. Historical Provider, Current Medications: amLODIPine, 10 mg, oral, Daily [Held by provider] enoxaparin, 40 mg, subcutaneous, Daily hydroCHLOROthiazide, 12.5 mg, oral, Daily lisinopril, 30 mg, oral, Daily tamsulosin, 0.4 mg, oral, Daily PRNs: [Held by provider] acetaminophen, 650 mg, q6h PRN ondansetron ODT, 4 mg, q8h PRN Or ondansetron, 4 mg, q6h PRN sennosides-docusate sodium, 1 tablet, BID PRN sodium chloride, 10 mL, q8h PRN REVIEW OF SYSTEMS See HPI, otherwise ROS negative as below CONSTITUTIONAL: negative HEENT: Patient looks icteric RESPIRATORY: negative CARDIOVASCULAR: negative GASTROINTESTINAL: as in HPI GENITOURINARY: negative OBJECTIVE DATA Vitals: BP 140/56 (Patient Position: Sitting) Pulse 88 Temp 36 ??C (96.8 ??F) Resp 16 SpO2 99% GEN: Alert and oriented x3, NAD HEENT: Atraumatic, normocephalic CV: Regular rate and rhythm PULM: Breathing comfortably ABD: Soft, non-tender, non-distended NEURO: Moves all 4 extremities spontaneously LABS AND IMAGING CBC: Results from last 7 days Lab Units 03/22/25 1234 WBC AUTO 10*3/uL 12.96* RBC AUTO 10*6/uL 3.75* HEMOGLOBIN g/dL 12.1* HEMATOCRIT % 35.3* MCV fL 94.1 RDW % 19.6* PLATELETS AUTO 10*3/uL 337 PT/INR Results from last 7 days Lab Units 03/22/25 1234 PROTIME Seconds 19.4* INR 1.63* BMP: Results from last 7 days Lab Units 03/22/25 1234 SODIUM mmol/L 137 POTASSIUM mmol/L 3.3* CHLORIDE mmol/L 107 BUN mg/dL 19 CREATININE mg/dL 0.76 EGFR mL/min/1.73m*2 90.9 GLUCOSE mg/dL 102* LFTs: Results from last 7 days Lab Units 03/22/25 1234 BILIRUBIN TOTAL mg/dL 14.6* ALK PHOS U/L 901* AST U/L 133* ALT U/L 103* ALBUMIN g/dL 3.0* TOTAL PROTEIN g/dL 6.2 B12/Folate/Iron studies: No results found for: [id number] , FOLATE , IRON , TIBC , UIBC , IRONSAT , FERRITIN Viral Hepatitis Lab Results Component Value Date HEPAIGM Nonreactive 03/22/2025 HEPBSAG Nonreactive 03/22/2025 HEPBCAB Nonreactive 03/22/2025 HEPCAB Nonreactive 03/22/2025 Liver workup No results found for: LORENZO , SMOOTHMUSCAB , CERULOPLSM , [id number] , TTGA , IGA , TSH , FREET4 , AFP Pancreatitis Lab Results Component Value Date CALCIUM 8.5 (L) 03/22/2025 IMAGING: Imaging for last 3 days: No X-ray results found for the past [address] results found for the past 3 days No MRI results found for the past 3 days ASSESSMENT AND PLAN Bro Stover is a 79 y.o. male with PMHx of hypertension, hyperlipidemia, BPH, history of arrhythmia presenting from [facility] due to concern for yellowish discoloration of skin. Patient is transferred from [facility] for further evaluation by GI for jaundice Assessment Hyperbilirubinemia differential diagnosis obstructive jaundice versus intrahepatic cholestasis CT abdomen pelvis at [facility] demonstrated intrahepatic biliary dilation, ectatic common bile duct, cholecystectomy, no obstructing mass or stone identified. Total bilirubin of 14.6, direct bilirubin 8.1 Differential diagnoses include cholangiocarcinoma, intrahepatic cholestasis. Elevated liver enzymes likely due to above Chronic diarrhea with blood in his stool currently stable Last bowel movement today morning was without blood in the stool. Plan Okay to have clear liquid diet from GI standpoint. Follow-up hepatitis panel. Trend liver enzymes. Follow-up stool pathogen panel, C. Difficile. Will obtain MRI with MRCP with and without contrast to further delineate the biliary tree and pancreas. Further recommendation based on MRCP. N.p.o. at midnight. Recommend continue hold anticoagulation including DVT prophylaxis. Rest care for Primary care. This consult will be discussed with attending physician. If you have any questions please feel freeto contact the GI Service. Thank you for allowing us to participate in the care of Bro Stover. Gastroenterology 6 am to 4 pm weekdays in house: [phone] 4 pm to 6 am or weekends: Please contact the platen drier operator to page the fellow content strategist [1] History reviewed. No pertinent past medical history. [2] History reviewed. No pertinent surgical history. [3] No family history on file. [4] Social History Tobacco Use Smoking status: Former Types: Cigarettes Smokeless tobacco: Never Vaping Use Vaping status: Never Used [5] Allergies Allergen Reactions Latex Fever Cosigned by Lisseth Turner MD at 03/23/2025 3:39 PM EDT Associated attestation - Lisseth Turner MD - 03/23/2025 3:39 PM EDT I saw and evaluated the patient on 03/22/2025. I reviewed the resident's/fellow's note and agree with the findings and plan documents in the resident's/fellow's note documented in this encounter Nursing Notes * Luz Maria Romero RN - 03/23/2025 8:05 PM EDT Skin WNL after removal of grounding pad from right flank area documented in this encounter Miscellaneous Notes * Care Plan - Saira Zuniga RN - 03/25/2025 4:55 PM EDT Daily Case Management Update Multidisciplinary rounds have been completed. Barriers to Discharge: LFT's continue to remain elevated. S/p ERCCP and stent placement yesterday. Hem/onc consult for [place] tumor s/p biopsy. PT/OT= return home. Diet: Dietary Orders (From admission, onward) Start Ordered 03/24/25 1444 Regular Diet Diet effective now Question: Room Service? Answer: No 03/24/25 1444 Physician Expected Discharge Date: 03/25/2025 Discharge Delays: PT Six Click Score: OT Six Click Score: 24 PT Recommendations: OT Recommendations: Patient is able to return to prior living environment Is expected discharge disposition appropriate for patient?: Yes New Consults: * Assessment & Plan Note - Man Costa MD - 03/25/2025 3:42 PM EDTAssociated Problem(s): Jaundice - Status post MRCP 03/23/2025 showing nodular lesion near the biliary confluence causing moderate tosevere intrahepatic biliary dilation. 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 we will send referrals to hematology/oncology clinic. * Assessment & Plan Note - Man Costa MD - 03/25/2025 3:42 PM EDTAssociated Problem(s): Transaminitis - Status post MRCP 03/23/2025 showing nodular lesion near the biliary confluence causing moderate tosevere intrahepatic biliary dilation. 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 we will send referrals to hematology/oncology clinic. * Assessment & Plan Note - Man Costa MD - 03/25/2025 3:42 PM EDTAssociated Problem(s): C. difficile colitis - continue with oral vancomycin * Assessment & Plan Note - Man Costa MD - 03/25/2025 3:42 PM EDTAssociated Problem(s): Hyperlipidemia Atorvastatin held at this time * Assessment & Plan Note - Man Costa MD - 03/25/2025 3:42 PM EDTAssociated Problem(s): Benign prostatic hyperplasia with lower urinary tract symptoms Continue home medication * Assessment & Plan Note - Man Costa MD - 03/25/2025 3:42 PM EDTAssociated Problem(s): Hypokalemia -Replace and monitor. * Assessment & Plan Note - Man Costa MD - 03/25/2025 3:42 PM EDTAssociated Problem(s): Coagulopathy -Due to liver injury, status post vitamin K and FFP infusion preoperatively * Care Plan - Saira Zuniga RN - 03/24/2025 5:53 PM EDT Daily Case Management Update Multidisciplinary rounds have been completed. Barriers to Discharge: s/p MRCP 03/23/2025 showing nodular lesion near the biliary confluence causing moderate to severe intrahepatic biliary dilation. ERCP yesterday showed stricture of CBD. 2 stentsplaced. findings concerning for [place] tumor status post biopsy. Referrals for hem/onc clinic. LFTs elevated today. Continue to monitor.PO vanco for cdiff. PT/OT=return to prior environment. Diet: Dietary Orders (From admission, onward) Start Ordered 03/24/25 1444 Regular Diet Diet effective now Question: Room Service? Answer: No 03/24/25 1444 Physician Expected Discharge Date: 03/25/2025 Discharge Delays: PT Six Click Score: OT Six Click Score: 24 PT Recommendations: OT Recommendations: Patient is able to return to prior living environment Is expected discharge disposition appropriate for patient?: Yes New Consults: * Care Plan - Waylon Blum RN - 03/24/2025 5:20 PM EDT The patient is Moderately Stable - Low risk of patient condition declining or worsening The patient's goals for the shift include comfort The clinical goals for the shift include comfort Over the shift, the patient did not make progress toward the following goals. Barriers to progression include post procedure pain. Recommendations to address these barriers include meds as prescribed. * Assessment & Plan Note - Man Costa MD - 03/24/2025 12:45 PM EDTAssociated Problem(s): Jaundice - Status post MRCP 03/23/2025 showing nodular lesion near the biliary confluence causing moderate tosevere intrahepatic biliary dilation. 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 we will send referrals to hematology/oncology clinic. - discussed with GI. * Assessment & Plan Note - Man Costa MD - 03/24/2025 12:45 PM EDTAssociated Problem(s): Transaminitis - Status post MRCP 03/23/2025 showing nodular lesion near the biliary confluence causing moderate tosevere intrahepatic biliary dilation. 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 we will send referrals to hematology/oncology clinic. - discussed with GI. * Assessment & Plan Note - Man Costa MD - 03/24/2025 12:45 PM EDTAssociated Problem(s): C. difficile colitis - continue with oral vancomycin * Assessment & Plan Note - Man Costa MD - 03/24/2025 12:45 PM EDTAssociated Problem(s): Hyperlipidemia Atorvastatin held at this time * Assessment & Plan Note - Man Costa MD - 03/24/2025 12:45 PM EDTAssociated Problem(s): Benign prostatic hyperplasia with lower urinary tract symptoms Continue home medication * Assessment & Plan Note - Man Costa MD - 03/24/2025 12:45 PM EDTAssociated Problem(s): Hypokalemia -Replace and monitor. * Assessment & Plan Note - Man Costa MD - 03/24/2025 12:45 PM EDTAssociated Problem(s): Coagulopathy -Due to liver injury, status post vitamin K and FFP infusion preoperatively * Assessment & Plan Note - Man Costa MD - 03/23/2025 5:50 PM EDTAssociated Problem(s): Jaundice - Status post MRCP 03/23/2025 showing nodular lesion near the biliary confluence causing moderate tosevere intrahepatic biliary dilation. Discussed with GI at the bedside, plan for ERCP today. * Assessment & Plan Note - Man Costa MD - 03/23/2025 5:50 PM EDTAssociated Problem(s): Transaminitis - Status post MRCP 03/23/2025 showing nodular lesion near the biliary confluence causing moderate tosevere intrahepatic biliary dilation. Discussed with GI at the bedside, plan for ERCP today. * Assessment & Plan Note - Man Costa MD - 03/23/2025 5:50 PM EDTAssociated Problem(s): C. difficile colitis - Started on oral vancomycin * Assessment & Plan Note - Man Costa MD - 03/23/2025 5:50 PM EDTAssociated Problem(s): Hyperlipidemia Atorvastatin held at this time * Assessment & Plan Note - Man Costa MD - 03/23/2025 5:50 PM EDTAssociated Problem(s): Benign prostatic hyperplasia with lower urinary tract symptoms Continue home medication * Assessment & Plan Note - Man Costa MD - 03/23/2025 5:50 PM EDTAssociated Problem(s): Hypokalemia - Replace and monitor. * Assessment & Plan Note - Man Costa MD - 03/23/2025 5:50 PM EDTAssociated Problem(s): Coagulopathy - Due to liver injury, status post vitamin K and FFP infusion preoperatively * Care Plan - Prabha Hines RN - 03/23/2025 12:46 PM EDT Daily Case Management Update Multidisciplinary rounds have been completed. Barriers to Discharge: Pending clinical course and improvement in clinical condition. Presented from [place] with new onset jaundice. C/o Diarrhea for past 6 weeks: ruling out cdiff. GI consulted, ultrasound of liver ordered. Obtain MRI with MRCP. Diet: Dietary Orders (From admission, onward) Start Ordered 03/23/25 0858 Diet NPO Diet effective now Comments: Sips with medications Question: Reason for NPO: Answer: Operation/Procedure 03/23/25 0857 Physician Expected Discharge Date: 03/25/2025 Discharge Delays: PT Six Click Score: OT Six Click Score: PT Recommendations: OT Recommendations: New Consults: Therapy Orders (From admission, onward) Start Ordered 03/23/25 1246 PT eval and treat Until therapy completed Question: Reason for PT? Answer: weakness 03/23/25 1245 03/23/25 1246 OT eval and treat Until therapy completed Question: Reason for OT? Answer: weakness 03/23/25 1245 * Assessment & Plan Note - Dario Prieto PA-C - 03/22/2025 4:13 PM EDTAssociated Problem(s): Jaundice Relevant Hx: patient present to [facility] with jaundice. Patient had elevated LFTs and bilirubin. Course: patient has an alkaline phosphatase of 901, ast 133, alt 103, albumin 3.0, total bilirubin of 14.6, APTT 37.9 Daily Update: patient admitted to the floor Today's Plan: GI consulted, ultrasound of liver ordered, GGT ordered, direct bilirubin ordered. Defer to GI regarding management of jaundice. * Assessment & Plan Note - Dario Prieto PA-C - 03/22/2025 2:59 PM EDTAssociated Problem(s): Primary hypertension Continue home medications * Assessment & Plan Note - Dario Prieto PA-C - 03/22/2025 2:59 PM EDTAssociated Problem(s): Hyperlipidemia Atorvastatin held at this time * Assessment & Plan Note - Dario Prieto PA-C - 03/22/2025 2:59 PM EDTAssociated Problem(s): Benign prostatic hyperplasia with lower urinary tract symptoms Continue home medication documented in this encounter Plan of Treatment Upcoming Encounters Date Type Department Care Team (Late st Contact Info) Description 03/29/2025 10:30 AM EDT [facility] [address] [place] [id number] Lwe Contreras MD [address] [place] [id number] Pending Results Name Type Priority Associated Diagnoses Date /Time Histology - tissue exam Pathology and Cytology Routine Increased bilirubin level 03/23/2025 8:00 PM EDT Scheduled Orders Name Type Priority Associated Diagnoses Order Schedule Histology - tissue exam Pathology and Cytology Timed Increased bilirubin level Release Upon Ordering for 1 Occurrences starting 03/23/2025, 1 completed Basic metabolic panel Lab Routine Increased bilirubin level Expected: 03/29/2025 (Approximate), Expires: 03/26/2026 Scheduled Referrals Name Type Priority Associated Diagnoses Order Schedule Ambulatory referral to Hematology / Oncology Outpatient Referral Routine Increased bilirubin level Coagulopathy Expected: 03/26/2025 (Approximate), Expires: 09/26/2025 documented as of this encounter Procedures Procedure Name Priority Date/Time Associated Diagnosis Comments CBC Pending Discharge 03/26/2025 4:40 AM EDT COMPREHENSIVE METABOLIC PANEL Pending Discharge 03/26/2025 4:40 AM EDT CBC Pending Discharge 03/25/2025 5:57 AM EDT COMPREHENSIVE METABOLIC PANEL Pending Discharge 03/25/2025 5:56 AM EDT CBC Routine 03/24/2025 6:10 AM EDT COMPREHENSIVE METABOLIC PANEL Routine 6:10 AM EDT FL LESS THAN 1 HOUR INTRAOPERATIVE Routine 03/23/2025 8:18 PM EDT ENDOSCOPIC RETROGRADE CHOLANGIOPANCREATOGRAPHY Routine 03/23/2025 8:09 PM EDT NON-OB/GYN PHYSICIAN CYTOLOGY - CELLULAR EXAM Routine 03/23/2025 7:49 PM EDT Increased bilirubin level PREPARE FRESH FROZEN PLASMA Routine 03/09 6:19 PM EDT TRANSFUSE FRESH FROZEN PLASMA Routine 5:03 PM EDT PROTIME-INR STAT 03/23/2025 4:23 PM EDT PREPARE FRESH FROZEN PLASMA Routine 03/09 4:15 PM EDT TRANSFUSE FRESH FROZEN PLASMA Routine 1:03 PM EDT TYPE AND SCREEN Routine 03/23/2025 10:03 AM EDT CLOSTRIDIOIDES DIFFICILE DNA AMPLIFICATION Routine 03/23/2025 9:08 AM EDT US ABDOMEN LIMITED LIVER Routine 025 8:56 AM EDT CBC Routine 03/23/2025 5:21 AM EDT HEPATIC FUNCTION PANEL Add-On 5:20 AM EDT BASIC METABOLIC PANEL Routine 03/23/2025 5:20 AM EDT MR ABDOMEN W AND WO CONTRAST MRCP STAT 03/22/2025 9:41 PM EDT ECG 12-LEAD Routine 03/22/2025 12:59 PM EDT CMV DNA, QUALITATIVE, PCR Routine 2024 12:34 PM EDT DRUG SCREEN PANEL 9, SERUM Routine 03/22 12:34 PM EDT HEPATITIS PANEL, ACUTE Routine 12:34 PM EDT LATIA-JACKSON VIRUS BY QUANTITATIVE NAAT, PLASMA Routine 03/22/2025 12:34 PM EDT APTT Routine 03/22/2025 12:34 PM EDT PROTIME-INR STAT Add-on 03/22/2025 12:34 PM EDT CBC Routine 03/22/2025 12:34 PM EDT GAMMA GT Add-On 03/22/2025 12:34 PM EDT BILIRUBIN, DIRECT Add-On 03/22/2025 12:34 PM EDT COMPREHENSIVE METABOLIC PANEL Routine 12:34 PM EDT documented in this encounter Results * (ABNORMAL) CBC (03/26/2025 4:40 AM EDT) Auto WBC 14.43(H) 4.00 - 10.60 10*3/uL 03/26/2025 5:59 AM EDT [facility] ([facility]) RBC 3.30(L) 4.20 - 5.70 10*6/uL 03/26/2025 5:59 AM EDT [facility] ([facility]) Hemoglobin 10.9(L) 13.0 - 17.0 g/dL 03/26/2025 5:59 AM EDT [facility] ([facility]) Hematocrit 31.4(L) 39.0 - 50.0 % 03/26/2025 5:59 AM EDT [facility] ([facility]) MCV 95.2 82.0 - 98.0 fL 03/26/2025 5:59 AM EDT [facility] ([facility]) MCH 33.0 27.0 - 33.0 pg 03/26/2025 5:59 AM EDT [facility] ([facility]) MCHC 34.7 32.0 - 35.0 g/dL 03/26/2025 5:59 AM EDT [facility] ([facility]) RDW 19.6(H) 11.5 - 15.0 % 03/26/2025 5:59 AM EDT [facility] ([facility]) Platelets 355 150 - 400 10*3/uL 03/26/2025 5:59 AM EDT [facility] ([facility]) Blood Venous blood specimen / Unknown Venipuncture / Unknown 03/26/2025 4:40 AM EDT 03/26/2025 5:34 AM EDT us Man Costa MD LAB BLOOD ORDERABLES Final Resu lt [facility] ([facility]) [address] [place] [address] * (ABNORMAL) Comprehensive metabolic panel (03/26/2025 4:40 AM EDT) Sodium 136 136 - 145 mmol/L 03/26/2025 6:03 AM EDT [facility] ([facility]) Potassium 3.0(L) 3.5 - 5.1 mmol/L 03/26/2025 6:03 AM EDT [facility] ([facility]) Chloride 102 98 - 107 mmol/L 03/26/2025 6:03 AM EDT [facility] ([facility]) CO2 27 21 - 31 mmol/L 03/26/2025 6:03 AM EDT [facility] ([facility]) Anion Gap 10 7 - 20 mmol/L 03/26/2025 6:03 AM EDT [facility] ([facility]) BUN 25 7 - 25 mg/dL 03/26/2025 6:03 AM [facility] ([facility]) Creatinine 0.89 0.70 - 1.30 mg/dL 03/26/2025 6:03 AM [facility] ([facility]) BUN/Creatinine Ratio 28.1 03/09 6:03 AM [facility] ([facility]) Glucose 105(H) 70 - 100 mg/dL 03/26/2025 6:03 AM [facility] ([facility]) Calcium 8.4(L) 8.6 - 10.3 mg/dL 03/26/2025 6:03 AM [facility] ([facility]) AST 118(H) 13 - 39 U/L 03/26/2025 6:03 AM [facility] ([facility]) ALT (SGPT) 86(H) 7 - 52 U/L 03/26/2025 6:03 AM [facility] ([facility]) Alkaline Phosphatase 664(H) 34 - 104 U/L 03/26/2025 6:03 AM [facility] ([facility]) Total Protein 5.6(L) 6.0 - 8.3 g/dL 03/26/2025 6:03 AM [facility] ([facility]) Albumin 2.9(L) 3.5 - 5.7 g/dL 03/26/2025 6:03 AM [facility] ([facility]) Total Bilirubin 16.9(H) 0.3 - 1.0 mg/dL 03/26/2025 6:03 AM [facility] ([facility]) eGFR 86.6 >60.0 mL/min/1. 73m*2 03/26/2025 6:03 AM [facility] ([facility]) Comment:The [facility] s estimated glomerular filtration rate (eGFR) will no longer include consideration of race in its calculation. The [employer] s eGFR Task Force developed new recommendations for the estimation of the glomerular filtration rate in the [place] They recommend immediate implementation of the new equation refit without the race variable in all laboratories because the calculation does not include race. In addition to not including race in the calculation and reporting, it included diversity in its development, and has acceptable performance characteristics and potential consequences that do not disproportionately affect any one group of individuals. Blood Venous blood specimen / Unknown Venipuncture / Unknown 03/26/2025 4:40 AM EDT 03/26/2025 5:32 AM EDT us Man Costa MD LAB BLOOD ORDERABLES Final Resu lt [facility] ([facility]) [address] [place] [address] * (ABNORMAL) CBC (03/25/2025 5:57 AM EDT) Auto WBC 16.77(H) 4.00 - 10.60 10*3/uL 03/25/2025 6:36 AM EDT [facility] ([facility]) RBC 3.63(L) 4.20 - 5.70 10*6/uL 03/25/2025 6:36 AM EDT [facility] ([facility]) Hemoglobin 11.8(L) 13.0 - 17.0 g/dL 03/25/2025 6:36 AM EDT [facility] ([facility]) Hematocrit 34.5(L) 39.0 - 50.0 % 03/25/2025 6:36 AM EDT [facility] ([facility]) MCV 95.0 82.0 - 98.0 fL 03/25/2025 6:36 AM EDT [facility] ([facility]) MCH 32.5 27.0 - 33.0 pg 03/25/2025 6:36 AM EDT [facility] ([facility]) MCHC 34.2 32.0 - 35.0 g/dL 03/25/2025 6:36 AM EDT [facility] ([facility]) RDW 19.3(H) 11.5 - 15.0 % 03/25/2025 6:36 AM EDT [facility] ([facility]) Platelets 343 150 - 400 10*3/uL 03/25/2025 6:36 AM EDT [facility] ([facility]) Blood Venous blood specimen / Unknown Venipuncture / Unknown 03/25/2025 5:57 AM EDT 03/25/2025 6:21 AM EDT us Man Costa MD LAB BLOOD ORDERABLES Final Resu lt [facility] ([facility]) [address] [place] [address] * (ABNORMAL) Comprehensive metabolic panel (03/25/2025 5:56 AM EDT) Sodium 135(L) 136 - 145 mmol/L 03/25/2025 6:47 AM EDT [facility] ([facility]) Potassium 3.3(L) 3.5 - 5.1 mmol/L 03/25/2025 6:47 AM EDT [facility] ([facility]) Chloride 102 98 - 107 mmol/L 03/25/2025 6:47 AM EDT [facility] ([facility]) CO2 25 21 - 31 mmol/L 03/25/2025 6:47 AM EDT [facility] ([facility]) Anion Gap 11 7 - 20 mmol/L 03/25/2025 6:47 AM EDT [facility] ([facility]) BUN 23 7 - 25 mg/dL 03/25/2025 6:47 AM EDT [facility] ([facility]) Creatinine 0.92 0.70 - 1.30 mg/dL 03/25/2025 6:47 AM EDT [facility] ([facility]) BUN/Creatinine Ratio 25.0 03/09 6:47 AM EDT [facility] ([facility]) Glucose 113(H) 70 - 100 mg/dL 03/25/2025 6:47 AM EDT [facility] ([facility]) Calcium 8.7 8.6 - 10.3 mg/dL 03/25/2025 6:47 AM EDT [facility] ([facility]) AST 125(H) 13 - 39 U/L 03/25/2025 6:47 AM EDT [facility] ([facility]) ALT (SGPT) 89(H) 7 - 52 U/L 03/25/2025 6:47 AM EDT [facility] ([facility]) Alkaline Phosphatase 669(H) 34 - 104 U/L 03/25/2025 6:47 AM EDT [facility] ([facility]) Total Protein 6.4 6.0 - 8.3 g/dL 03/25/2025 6:47 AM EDT [facility] ([facility]) Albumin 3.1(L) 3.5 - 5.7 g/dL 03/25/2025 6:47 AM EDT [facility] ([facility]) Total Bilirubin 17.7(H) 0.3 - 1.0 mg/dL 03/25/2025 6:47 AM EDT [facility] ([facility]) eGFR 84.1 >60.0 mL/min/1. 73m*2 03/25/2025 6:47 AM EDT [facility] ([facility]) Comment:[facility] s estimated glomerular filtration rate (eGFR) will no longer include consideration of race in its calculation. The [employer] s eGFR Task Force developed new recommendations for the estimation of the glomerular filtration rate in the [place] They recommend immediate implementation of the new equation refit without the race variable in all laboratories because the calculation does not include race. In addition to not including race in the calculation and reporting, it included diversity in its development, and has acceptable performance characteristics and potential consequences that do not disproportionately affect any one group of individuals. Blood Venous blood specimen / Unknown Venipuncture / Unknown 03/25/2025 5:56 AM EDT 03/25/2025 6:19 AM EDT us Man Costa MD LAB BLOOD ORDERABLES Final Resu lt [facility] ([facility]) [address] [place], [place] [id number] * (ABNORMAL) CBC (03/24/2025 6:10 AM EDT) Auto WBC 14.84(H) 4.00 - 10.60 10*3/uL 03/24/2025 6:48 AM EDT [facility] ([facility]) RBC 3.83(L) 4.20 - 5.70 10*6/uL 03/24/2025 6:48 AM EDT [facility] ([facility]) Hemoglobin 12.2(L) 13.0 - 17.0 g/dL 03/24/2025 6:48 AM EDT [facility] ([facility]) Hematocrit 36.1(L) 39.0 - 50.0 % 03/24/2025 6:48 AM EDT [facility] ([facility]) MCV 94.3 82.0 - 98.0 fL 03/24/2025 6:48 AM EDT [facility] ([facility]) MCH 31.9 27.0 - 33.0 pg 03/24/2025 6:48 AM EDT [facility] ([facility]) MCHC 33.8 32.0 - 35.0 g/dL 03/24/2025 6:48 AM EDT [facility] ([facility]) RDW 19.4(H) 11.5 - 15.0 % 03/24/2025 6:48 AM EDT [facility] ([facility]) Platelets 374 150 - 400 10*3/uL 03/24/2025 6:48 AM EDT [facility] ([facility]) Blood Venous blood specimen / Unknown Venipuncture / Unknown 03/24/2025 6:10 AM EDT 03/24/2025 6:37 AM EDT us Man Costa MD LAB BLOOD ORDERABLES Final Resu lt [facility] ([facility]) [address] [place] [address] * (ABNORMAL) Comprehensive metabolic panel (03/24/2025 6:10 AM EDT) Sodium 137 136 - 145 mmol/L 03/24/2025 7:10 AM EDT [facility] ([facility]) Potassium 3.2(L) 3.5 - 5.1 mmol/L 03/24/2025 7:10 AM EDT [facility] ([facility]) Chloride 103 98 - 107 mmol/L 03/24/2025 7:10 AM EDT [facility] ([facility]) CO2 24 21 - 31 mmol/L 03/24/2025 7:10 AM [facility] ([facility]) Anion Gap 13 7 - 20 mmol/L 03/24/2025 7:10 AM [facility] ([facility]) BUN 22 7 - 25 mg/dL 03/24/2025 7:10 AM [facility] ([facility]) Creatinine 0.99 0.70 - 1.30 mg/dL 03/24/2025 7:10 AM [facility] ([facility]) BUN/Creatinine Ratio 22.2 03/09 7:10 AM [facility] ([facility]) Glucose 118(H) 70 - 100 mg/dL 03/24/2025 7:10 AM [facility] ([facility]) Calcium 9.0 8.6 - 10.3 mg/dL 03/24/2025 7:10 AM [facility] ([facility]) AST 126(H) 13 - 39 U/L 03/24/2025 7:10 AM [facility] ([facility]) ALT (SGPT) 92(H) 7 - 52 U/L 03/24/2025 7:10 AM [facility] ([facility]) Alkaline Phosphatase 778(H) 34 - 104 U/L 03/24/2025 7:10 AM [facility] ([facility]) Total Protein 6.9 6.0 - 8.3 g/dL 03/24/2025 7:10 AM [facility] ([facility]) Albumin 3.3(L) 3.5 - 5.7 g/dL 03/24/2025 7:10 AM [facility] ([facility]) Total Bilirubin 17.9(H) 0.3 - 1.0 mg/dL 03/24/2025 7:10 AM [facility] ([facility]) eGFR 77.0 >60.0 mL/min/1. 73m*2 03/24/2025 7:10 AM [facility] ([facility]) Comment:[facility] s estimated glomerular filtration rate (eGFR) will no longer include consideration of race in its calculation. The [employer] s eGFR Task Force developed new recommendations for the estimation of the glomerular filtration rate in the [place] They recommend immediate implementation of the new equation refit without the race variable in all laboratories because the calculation does not include race. In addition to not including race in the calculation and reporting, it included diversity in its development, and has acceptable performance characteristics and potential consequences that do not disproportionately affect any one group of individuals. Blood Venous blood specimen / Unknown Venipuncture / Unknown 03/24/2025 6:10 AM EDT 03/24/2025 6:36 AM EDT Man Costa MD LAB BLOOD ORDERABLES Final Resu lt [facility] ([facility]) [address] [place] [address] * Transfuse fresh frozen plasma (03/24/2025 1:03 AM EDT) Lisseth Turner MD BLOOD TRANSFUSION ORDERABLE S Final Result * Transfuse fresh frozen plasma: 2 Units (03/24/2025 1:03 AM EDT) Lisseth Turner MD BLOOD TRANSFUSION ORDERABLE S Final Result * FL LESS THAN 1 HOUR INTRAOPERATIVE (03/23/2025 8:18 PM EDT) Anatomical Region Laterality Modality X-Ray Angiograph y 03/24/2025 8:42 AM EDT Impressions 03/24/2025 8:43 AM EDT * Intraoperative fluoroscopy provided for ERCP, biopsy and stent. Please note, no radiologist was present during the procedure. A radiologist reviewed the procedural images. Electronically signed: AKBAR ALBRIGHT MD. Narrative 03/24/2025 8:43 AM EDT CLINICAL INFORMATION: Obstructive jaundice. FINDINGS: Reference air kerma = 442 mGy. Procedure Note Akbar Albright MD - 03/24/2025 CLINICAL INFORMATION: Obstructive jaundice. FINDINGS: Reference air kerma = 442 mGy. IMPRESSION: *Intraoperative fluoroscopy provided for ERCP, biopsy and stent. Please note, no radiologist was present during the procedure. Aradiologist reviewed the procedural images. Electronically signed: AKBAR ALBRIGHT MD. us Lisseth Turner MD IMG FLUOROSCOPY PROCEDURES Final Result * ERCP w/ Biopsy, w/ Stent Placement (03/23/2025 8:09 PM EDT) Anatomical Region Laterality Modality Other Narrative 03/24/2025 7:39 AM EDT Table formatting from the original result was not included. Endoscopic Retrograde Cholangiopancreatography (ERCP) Procedure Note Procedure: ERCP with stent placement, balloon dilations, biopsies, brushing, and biliary sphincterotomy Indications: An 79-year-old male presented with jaundice and weight loss. CT abdomen pelvis at [facility] demonstrated intrahepatic biliary dilation, ectatic common bile duct, and cholecystectomy. Total bilirubin of 14.6, direct bilirubin 8.1. MRCP revealed nodular lesion near the biliary confluence causing moderate to severe intrahepatic biliary dilatation, findings worrisome for Klatskin tumor. Plan for ERCP today. 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 Risks of pancreatitis, infection, perforation, hemorrhage, adverse drug reaction and aspiration were discussed. The patient was placed in the left lateral decubitus position. The patient was monitored continuously with ECG tracing, pulse oximetry, blood pressure monitoring, and direct observations. The duodenoscope was inserted into the mouth and advanced to the third portion of the duodenum; findings and interventions are described below. The patient tolerated the procedure well, and there were no immediate complications. He was taken to the recovery area in stable condition. Findings: The major papilla was identified and looked unremarkable. The Rx/44 sphincterotome loaded with a 0.035 inch guidewire was then used to cannulate the common bile duct which was successfully achieved. Contrast was injected. High-grade stricture was noted at the common hepatic duct extending to right and left main hepatic ducts. Biliary sphincterotomy was performed and the sphincterotome was removed after placing the guidewire up to the left intrahepatic ducts. A second guidewire was then used through the sphincterotome to access the right intrahepatic duct which was successfully achieved. The sphincterotome was removed over the guidewire. A 6 mm x 4 cm HurriCaine dilating balloon catheter was then advanced over the guidewire up to the right main hepatic duct. The stricture was dilated then the balloon was advanced up to the left intrahepatic duct and the stricture was dilated as well. The dilating balloon catheter was removed over the guidewire and the pediatric biopsy forceps was advanced into the common bile duct. Biopsies were obtained from the common hepatic duct/right main hepatic duct. The biopsy forceps was removed and the brushing catheter was then advanced over the guidewire into the common bile duct and up to the common hepatic duct and left main hepatic duct. Brushing for cytology was performed. The brushing catheter was removed over the guidewire and two 7 Gibral[place] by 15 cm plastic biliary stents were placed up to the right and left intrahepatic ducts. Good biliary drainage was achieved. The procedure was performed under fluoroscopic guidance and I did the interpretation of the fluoroscopic images. The scope was then withdrawn and the patient tolerated the procedure well and was sent to the recovery area in stable condition. 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 Biopsies and brushing were obtained to rule out malignancy. The common hepatic duct stricture and the right and main hepatic ducts were dilated with 6 mm balloon dilator. Two 7 [place] by 15 cm plastic biliary stents were placed into the common bile duct up to the right and left intrahepatic ducts. Good biliary drainage was achieved. Recommendations: Keep the patient n.p.o. overnight and start diet the following day if patient is asymptomatic. Follow-up histopathology results. Follow-up liver function test. Further plan depends upon the histopathology results. Repeat ERCP in 6 weeks for biliary stents replacement. Attending Attestation: I performed the procedure. Lisseth Turner MD ENDOSCOPY PROCEDURE ORDERAB LES Final Result * Non-locomotive engineer electric cytology - cellular exam (03/23/2025 7:49 PM EDT) Case Report Non-gynecologic Cytology Case: [id number] Authorizing Provider: Connor Pollard MD Collected: 03/23/20251948 Ordering Location: [facility]AB Ortho Surgery Received: 03/24/2025 0954 Pathologist: Sergo Beatty MD Specimen: Hepatic Duct brushing, r/o malignancy 03/26/2025 4:28 PM EDT [facility] ([facility]) Final Diagnosis A. Hepatic duct brushing: - Adenocarcinoma. 03/26/2025 4:28 PM EDT [facility] ([facility]) at 1628 EDT Comment See also concurrent surgical case, [id number]. This case was reviewed in intradepartmental consensus. 03/26/2025 4:28 PM EDT [facility] ([facility]) Microscopic Description Satisfactory for evaluation. Examination of the ThinPrep slide and cell block reveals crowded groups of abnormal glandular epithelium exhibiting enlarged nuclei, unevenly distributed fine chromatin, and conspicuous nucleoli in a background of necrotic debris. Anisonucleosis is noted within the cell clusters. 03/26/2025 4:28 PM EDT [facility] ([facility]) Clinical Information Jaundice, weight loss, MRCP revealed nodular lesion near the biliary confluence causing moderate to severe intrahepatic biliary dilatation, findings worrisome for Klatskin tumor 03/26/2025 4:28 PM EDT [facility] ([facility]) Gross Description One brush received in 30 mL CytoLyt with hazy, light red fluid 03/26/2025 4:28 PM EDT [facility] ([facility]) Brushing (Hepatic Duct brushing) 03/23/2025 7:49 PM EDT 03/24/2025 9:54 AM EDT us Connor Pollard MD LAB CYTOLOGY ORDERABLES Final Re sult [facility] ([facility]) [address] [place] [address] * Prepare fresh frozen plasma (03/23/2025 6:19 PM EDT) PRODUCT CODE [id number] [facility] Unit Number [id number] [facility] Unit ABO A [facility] Rh POS [facility] Dispense Status TR [facility] Blood Expiration Date [id number] [facility] Product Blood Type 6200 [facility] Unit Volume 250 mL [facility] Akin Jade MD BLOOD BANK PRODUCT ORDERABLES Fi nal Result [facility] * Transfuse fresh frozen plasma (03/23/2025 4:45 PM EDT) Lisseth Turner MD BLOOD TRANSFUSION ORDERABLE S Final Result * (ABNORMAL) Protime-INR (03/23/2025 4:23 PM EDT) Protime 15.7(H) 12.3 - 14.8 Seconds 03/23/2025 5:35 PM EDT [facility] ([facility]) INR 1.24(H) 0.90 - 1.10 03/23/2025 5:35 PM EDT [facility] ([facility]) Comment: [facility] RECOMMENDED INR FOR WARFARIN THERAPY CONDITION INR PROPHYLAXIS OF VENOUS THROMBOSIS 2-3 (HIGH-RISK SURGERY) TREATMENT OF VENOUS THROMBOSIS 2-3 TREATMENT OF PULMONARY EMBOLISM 2-3 PREVENTION OF SYSTEMIC EMBOLISM: 2-3 ACUTE MYOCARDIAL INFARCTION TISSUE HEART VALVES VALVULAR HEART DISEASE ATRIAL FIBRILLATION RECURRENT SYSTEMIC EMBOLISM MECHANICAL HEART VALVE 2.5-3.5 FROM: ORAL ANTICOAGULANTS. MECHANISM OF ACTION, CLINICAL EFFECTIVENESS, AND OPTIMAL THERAPEUTIC RANGE. CHEST 1995;108:231S-246S. Blood Venous blood specimen / Unknown Venipuncture / Unknown 03/23/2025 4:23 PM EDT 03/23/2025 4:56 PM EDT Lisseth Turner MD LAB BLOOD ORDERABLES Final Result [facility] ([place]) [place] [address] * Prepare fresh frozen plasma: 2 Units (03/23/2025 4:15 PM EDT) PRODUCT CODE E1499M01 [facility] Unit Number [id number] [facility] Unit ABO A [facility] Unit Rh POS [facility] Dispense Status RE [facility] Blood Expiration Date [facility] Product Blood Type 6200 [facility] Unit Volume 300 ML [facility] PRODUCT CODE [id number] [facility] Unit Number [id number] [facility] Unit ABO A [facility] Unit Rh POS [facility] Dispense Status TR [facility] Blood Expiration Date [id number] [facility] Product Blood Type 6200 [facility] Blood Venous blood specimen / Unknown Lisseth Turner MD BLOOD BANK PRODUCT ORDERABL ES Final Result Performing Organization Address [facility] Co de Phone Number [facility] * Type and screen (03/23/2025 10:03 AM EDT) ABO Grouping A 03/23/2025 11:09 AM EDT [facility] Rh Type POS 03/23/2025 11:09 AM EDT [facility] Ab Scrn NEG 03/23/2025 11:09 AM EDT [facility] Blood Venous blood specimen / Unknown Venipuncture / Unknown 03/23/2025 10:03 AM EDT 03/23/2025 10:06 AM EDT Lisseth Turner MD LAB BLOOD BANK TEST ORDERAB LES Final Result [facility] * (ABNORMAL) Clostridioides difficile DNA amplification (03/23/2025 9:08 AM EDT) Clostridioides difficile (Toxin A/B) Positive( AA) Negative 03/23/2025 11:33 AM EDT [facility] ([facility]) Stool Rectal contents / Unknown Non-blood Collection / Unknown 03/23/2025 9:08 AM EDT 03/23/2025 9:10 AM EDT Narrative [facility] ([place]) - 03/23/2025 11:33 AM EDT Testing methodology is an in vitro diagnostic test for the direct, qualitative detection of the Clostridioides difficile Toxin A gene (tcdA) in unformed stool specimens of patients suspected of having Clostridioides difficile-infection (CDI). The Every[employer] C. difficile Assay is intended for use as an aid in diagnosis of CDI. The assay utilizes helicase-dependent amplification (HDA) for the amplification of a highly conserved fragment of the Toxin A gene sequence. us Shaikh Alana [facility] Final Result [facility] ([place]) [address] [place] [address] * US abdomen limited liver (03/23/2025 8:56 AM EDT) Anatomical Region Laterality Modality Abdomen, Liver Ultrasound 03/23/2025 9:00 AM EDT Impressions 03/23/2025 9:02 AM EDT * Moderate intrahepatic biliary ductal dilatation. Please refer to separate MRI report for further details and findings. Electronically signed: Charles Childs MD. Narrative 03/23/2025 9:02 AM EDT ULTRASOUND ABDOMEN LIMITED HISTORY: Jaundice COMPARISON: MRI abdomen 03/22/2025 FINDINGS: Visualized portions of pancreatic body are unremarkable. Remaining portions of the pancreas are obscured by overlying bowel gas. Moderate intrahepatic biliary ductal dilatation. Main portal vein is patent. No focal mass identified on CT. The common bile duct is not dilated measuring 0.5 cm. Gallbladder not visualized. Procedure Note Charles Childs MD - 03/23/2025 ULTRASOUND ABDOMEN LIMITED HISTORY: Jaundice COMPARISON: MRI abdomen 03/22/2025 FINDINGS: Visualized portions of pancreatic body are unremarkable. Remainingportions of the pancreas are obscured by overlying bowel gas. Moderate intrahepatic biliary ductal dilatation. Main portal vein ispatent. No focal mass identified on CT. The common bile duct is not dilated measuring0.5 cm. Gallbladder not visualized. IMPRESSION: *Moderate intrahepatic biliary ductal dilatation. Please refer toseparate MRI report for further details and findings. Electronically signed: Charles Childs MD. us Dario Prieto PA-C IMG US PROCEDURES Final Result * (ABNORMAL) CBC (03/23/2025 5:21 AM EDT) Auto WBC 11.78(H) 4.00 - 10.60 10*3/uL 03/23/2025 5:55 AM EDT [facility] ([facility]) RBC 3.48(L) 4.20 - 5.70 10*6/uL 03/23/2025 5:55 AM EDT [facility] ([facility]) Hemoglobin 11.1(L) 13.0 - 17.0 g/dL 03/23/2025 5:55 AM EDT [facility] ([facility]) Hematocrit 33.2(L) 39.0 - 50.0 % 03/23/2025 5:55 AM EDT [facility] ([facility]) MCV 95.4 82.0 - 98.0 fL 03/23/2025 5:55 AM EDT [facility] ([facility]) MCH 31.9 27.0 - 33.0 pg 03/23/2025 5:55 AM EDT [facility] ([facility]) MCHC 33.4 32.0 - 35.0 g/dL 03/23/2025 5:55 AM EDT [facility] ([facility]) RDW 19.4(H) 11.5 - 15.0 % 03/23/2025 5:55 AM EDT [facility] ([facility]) Platelets 331 150 - 400 10*3/uL 03/23/2025 5:55 AM EDT [facility] ([facility]) Blood Venous blood specimen / Unknown Venipuncture / Unknown 03/23/2025 5:21 AM EDT 03/23/2025 5:44 AM EDT Dario Prieto PA-C LAB BLOOD ORDERABLES Final Resu lt [facility]) [address] [place] [address] * (ABNORMAL) Hepatic function panel (03/23/2025 5:20 AM EDT) Total Bilirubin 13.7(H) 0.3 - 1.0 mg/dL 03/23/2025 9:35 AM EDT [facility] ([facility]) Bilirubin, Direct 7.9(H) 0 - 0.2 mg/dL 03/23/2025 9:35 AM EDT [facility] ([facility]) Alkaline Phosphatase 796(H) 34 - 104 U/L 03/23/2025 9:35 AM EDT [facility] ([facility]) AST 123(H) 13 - 39 U/L 03/23/2025 9:35 AM EDT [facility]) ALT (SGPT) 96(H) 7 - 52 U/L 03/23/2025 9:35 AM EDT [facility] ([facility]) Total Protein 5.7(L) 6.0 - 8.3 g/dL 03/23/2025 9:35 AM EDT [facility]) Albumin 2.9(L) 3.5 - 5.7 g/dL 03/23/2025 9:35 AM EDT [facility]) Blood Venous blood specimen / Unknown Venipuncture / Unknown 03/23/2025 5:20 AM EDT 03/23/2025 5:44 AM EDT Guilherme Brink CNP LAB BLOOD ORDERABLES Final Result [facility] ([facility]) [address] [place] [address] * (ABNORMAL) Basic metabolic panel (03/23/2025 5:20 AM EDT) Sodium 137 136 - 145 mmol/L 03/23/2025 6:09 AM [facility] ([facility]) Potassium 3.2(L) 3.5 - 5.1 mmol/L 03/23/2025 6:09 AM [facility] ([facility]) Chloride 108(H) 98 - 107 mmol/L 03/23/2025 6:09 AM [facility] ([facility]) CO2 23 21 - 31 mmol/L 03/23/2025 6:09 AM [facility] ([facility]) BUN 25 7 - 25 mg/dL 03/23/2025 6:09 AM [facility] ([facility]) Creatinine 1.10 0.70 - 1.30 mg/dL 03/23/2025 6:09 AM [facility] ([facility]) Glucose 100 70 - 100 mg/dL 03/23/2025 6:09 AM [facility] ([facility]) Calcium 8.2(L) 8.6 - 10.3 mg/dL 03/23/2025 6:09 AM [facility] ([facility]) Anion Gap 9 7 - 20 mmol/L 03/23/2025 6:09 AM [facility] ([facility]) eGFR 67.9 >60.0 mL/min/1. 73m*2 03/23/2025 6:09 AM [facility] ([facility]) Comment:The [facility] s estimated glomerular filtration rate (eGFR) will no longer include consideration of race in its calculation. The [employer] s eGFR Task Force developed new recommendations for the estimation of the glomerular filtration rate in the [place] They recommend immediate implementation of the new equation refit without the race variable in all laboratories because the calculation does not include race. In addition to not including race in the calculation and reporting, it included diversity in its development, and has acceptable performance characteristics and potential consequences that do not disproportionately affect any one group of individuals. BUN/Creatinine Ratio 22.7 03/09 6:09 AM [facility] ([facility]) Blood Venous blood specimen / Unknown Venipuncture / Unknown 03/23/2025 5:20 AM EDT 03/23/2025 5:44 AM EDT Dario Prieto PA-C LAB BLOOD ORDERABLES Final Resu lt [facility] ([facility]) [address] [place] [address] * MR abdomen w and wo contrast MRCP (03/22/2025 9:41 PM EDT) Anatomical Region Laterality Modality Abdomen Magnetic Resonan ce 03/23/2025 6:52 AM EDT Impressions 03/23/2025 6:59 AM EDT Impression: 1. Apparent nodular lesion near the biliary confluence causing moderate to severe intrahepatic biliary dilatation, findings worrisome for Kl[place] tumor. Consider ERCP/tissue sampling, as appropriate. 2. Nodular 2 cm enhancing splenic observation, favor benign angiomatous lesion. Electronically signed: Conner Benavides MD. Narrative 03/23/2025 6:59 AM EDT Study: MRI abdomen with and without contrast and M.R.C.P. Clinical history: Obstructive jaundice, abdominal pain. Comparison: None. Technique: Technique: Routine multiplanar multisequence MR imaging of the abdomen was performed prior to and following uneventful administration of 20 cc Gadoterate Meglumine intravenous gadolinium contrast. M.R.C.P. was performed with 3-D volume rendered reformatted and maximum intensity projection rotational images for the evaluation of the pancreatic and biliary ductal system at the MR console under concurrent physician supervision. Findings: Moderate to severe intrahepatic biliary dilatation involving left and right lobes extending to the biliary confluence where there is a. 1.5 cm nodular enhancing lesion [series [id number]]. Nondistended common bile duct. No pancreatic ductal dilatation. Notable to D2 segment duodenal diverticula near the ampulla. 3D reformatted images confirm the source data findings 2 cm nodular splenic observation, likely angiomatous. Simple and hemorrhagic renal cysts, no suspicious renal lesion. No collecting system dilatation. No dilatation or wall thickening of the bowel. Mild colonic stool burden. Normal appendix. Dextroconvex lumbar curvature. No aggressive osseous lesions. Procedure Note Conner Benavides MD - 03/23/2025 Study: MRI abdomen with and without contrast and M.R.C.P. Clinical history: Obstructive jaundice, abdominal pain. Comparison: None. Technique: Technique: Routine multiplanar multisequence MR imaging ofthe abdomen was performed prior to and following uneventful administration of20 cc Gadoterate Meglumine intravenous gadolinium contrast. M.R.C.P. wasperformed with 3-D volume rendered reformatted and maximum intensity projectionrotational images for the evaluation of the pancreatic and biliary ductal system atthe MR console under concurrent physician supervision. Findings: Moderate to severe intrahepatic biliary dilatation involving left andright lobes extending to the biliary confluence where there is a. 1.5 cmnodular enhancing lesion [series [id number]]. Nondistended common bile duct. No pancreatic ductal dilatation. Notable toD2 segment duodenal diverticula near the ampulla. 3D reformatted images confirm the source data findings 2 cm nodular splenic observation, likely angiomatous. Simple and hemorrhagic renal cysts, no suspicious renal lesion. Nocollecting system dilatation. No dilatation or wall thickening of the bowel. Mild colonic stool burden.Normal appendix. Dextroconvex lumbar curvature. No aggressive osseous lesions. IMPRESSION: Impression: 1. Apparent nodular lesion near the biliary confluence causing moderateto severe intrahepatic biliary dilatation, findings worrisome for Klatskintumor. Consider ERCP/tissue sampling, as appropriate. 2. Nodular 2 cm enhancing splenic observation, favor benign angiomatouslesion. Electronically signed: Conner Beanvides MD. us Lisseth Turner MD IMG MRI PROCEDURES Final Re sult * ECG 12 lead (03/22/2025 12:59 PM EDT) Ventricular Rate 78 BPM GE MUSE Atrial Rate 78 BPM GE MUSE RI Interval 218 ms GE MUSE QRS DURATION 136 ms GE MUSE QT Interval 424 ms GE MUSE QTC CALCULATION(BAZE TT) 483 ms GE MUSE P Vera 57 degrees GE MUSE R-Vera 93 degrees GE MUSE T Wave Vera 23 degrees GE MUSE 03/22/2025 12:5 8 PM EDT 03/23/2025 10:30 AM EDT Impressions GE MUSE - 03/23/2025 10:30 AM EDT Sinus rhythm with 1st degree A-V block Right bundle branch block Abnormal ECG No previous ECGs available Confirmed by Cedric YEUNG, ARIELA Robertson ([id number]) on 03/23/2025 10:30:10 AM Narrative Procedure Note Ariela Yeung MD - 03/23/2025 IMPRESSION: Sinus rhythm with 1st degree A-V block Right bundle branch block Abnormal ECG No previous ECGs available Confirmed by Cedric YEUNG SAMER J. ([id number]) on 03/23/2025 10:30:10 AM Dario GUIDRY-Ole ECG ORDERABLES Final Result GE MUSE * (ABNORMAL) Protime-INR (03/22/2025 12:34 PM EDT) Protime 19.4(H) 12.3 - 14.8 Seconds 03/22/2025 3:10 PM EDT [facility] ([facility]) INR 1.63(H) 0.90 - 1.10 03/22/2025 3:10 PM EDT [facility] ([facility]) Comment: [facility] RECOMMENDED INR FOR WARFARIN THERAPY CONDITION INR PROPHYLAXIS OF VENOUS THROMBOSIS 2-3 (HIGH-RISK SURGERY) TREATMENT OF VENOUS THROMBOSIS 2-3 TREATMENT OF PULMONARY EMBOLISM 2-3 PREVENTION OF SYSTEMIC EMBOLISM: 2-3 ACUTE MYOCARDIAL INFARCTION TISSUE HEART VALVES VALVULAR HEART DISEASE ATRIAL FIBRILLATION RECURRENT SYSTEMIC EMBOLISM MECHANICAL HEART VALVE 2.5-3.5 FROM: ORAL ANTICOAGULANTS. MECHANISM OF ACTION, CLINICAL EFFECTIVENESS, AND OPTIMAL THERAPEUTIC RANGE. CHEST 1995;108:231S-246S. Blood Venous blood specimen / Unknown Venipuncture / Unknown 03/22/2025 12:34 PM EDT 03/22/2025 12:36 PM EDT Lisseth Turner MD LAB BLOOD ORDERABLES Final Result Performing Organization Address City/[facility]/ZIP Co de Phone Number [facility]) [address] [place] [address] * (ABNORMAL) Bilirubin, direct (03/22/2025 12:34 PM EDT) Bilirubin, Direct 8.1(H) 0 - 0.2 mg/dL 03/22/2025 3:52 PM EDT [facility]) Blood Venous blood specimen / Unknown Venipuncture / Unknown 03/22/2025 12:34 PM EDT 03/22/2025 12:39 PM EDT Dario PRADOC LAB BLOOD ORDERABLES Final Resu lt Performing Organization Address [facility] Co de Phone Number [facility]) [address] [place] [address] * (ABNORMAL) Gamma GT (03/22/2025 12:34 PM EDT) GGT 573(H) 9 - 64 U/L 03/22/2025 3:52 PM EDT [facility]) Blood Venous blood specimen / Unknown Venipuncture / Unknown 03/22/2025 12:34 PM EDT 03/22/2025 12:39 PM EDT Dario GUIDRY-C LAB BLOOD ORDERABLES Final Resu lt Performing Organization Address City/[facility]/ZIP Co de Phone Number [facility]) [address] [place] [address] * (ABNORMAL) APTT (03/22/2025 12:34 PM EDT) Pathologist [facility] aPTT 37.9(H) 25.0 - 35.0 Seconds 03/22/2025 1:00 PM EDT [facility] ([facility]) Comment:Clinical significanc e of the APTT is questionable in the presence of heparin. Blood Venous blood specimen / Unknown Venipuncture / Unknown 03/22/2025 12:34 PM EDT 03/22/2025 12:36 PM EDT Dario Prieto PA-C LAB BLOOD ORDERABLES Final Resu lt [facility] ([facility]) [address] [place] [address] * Latia-Jackson Virus by Quantitative NAAT, Plasma (03/22/2025 12:34 PM EDT) [facility] EBV Qnt by NAAT, Plasma IU/mL Not Detected IU/mL 03/24/2025 3:27 PM EDT [facility] ([facility]) EBV Qnt by NAAT, Plasma log IU/mL Not Detected log IU/mL 03/24/2025 3:27 PM EDT [facility] ([facility]) EBV Qnt by NAAT, Plasma Interp Not Detected Not Detected 03/24/2025 3:27 PM EDT [facility] ([facility]) Comment: INTERPRETIVE INFORMATION: EBV by Quantitative NAAT, Plasma The quantitative range of this test is 1.54 - 8.00 log IU/mL (35.0 - 100,000,000 IU/mL). An interpretation of Not Detected does not rule out the presence of inhibitors or EBV DNA concentration below the level of detection of the assay. Care should be taken in the interpretation of any single viral load determination. International standardization has improved comparability of assay results across laboratories, but discrepancies still exist due to commutability issues with the standard. Performed By: [facility] [address] [place] [id number] General Manager Farm: Rolly Solomon MD, PhD CLIA Number: [id number] Blood Venous blood specimen / Unknown Venipuncture / Unknown 03/22/2025 12:34 PM EDT 03/22/2025 12:41 PM EDT [facility] LAB BLOOD ORDERABLES Final Resu lt Performing Organization Address City/[facility] Co de Phone Number [facility] ([facility]) [address] [place] [address] * CMV DNA, qualitative, PCR (03/22/2025 12:34 PM EDT) Pathologist [facility] Cytomegalovirus Quant. PCR Plasma 03/25/2025 12:29 AM EDT [facility] ([facility]) Cytomegalovirus Qual PCR Not Detected 03/25/2025 12:29 AM EDT [facility] ([facility]) Comment: NOT DETECTED - A negative result does not rule out the presence of PCR inhibitors in the patient specimen or assay specific nucleic acid in concentrations below the level of detection by the assay. INTERPRETIVE INFORMATION: Cytomegalovirus Detection by PCR This test was developed and its performance characteristics determined by [facility]. It has not been cleared or approved by the [place] Food and Drug Administration. This test was performed in a CLIA certified laboratory and is intended for clinical purposes. Performed By: [facility] [address] [place] [address] General Manager Farm: Rolly Solomon MD, PhD CLIA Number: [id number] Blood Venous blood specimen / Unknown Venipuncture / Unknown 03/22/2025 12:34 PM EDT 03/22/2025 12:40 PM EDT Dario [place] PA-C LAB BLOOD ORDERABLES Final Resu lt Performing Organization Address City/[facility]/ZIP Co de Phone Number [facility] ([facility]) [address] [place] [address] * Drug screen panel 9, serum (03/22/2025 12:34 PM EDT) Pathologist [facility] Amphetamine Scrn Negative 03/24/20 11:07 AM EDT [facility] ([facility]) Comment: Presumptively Negative by immunoassay. Testing by mass spectrometry is available on request. Interpretive Information: Amphetamines Screen, S/P Methodology: Immunoassay Positive Cutoff: 20 ng/mL Methamphetamine Scrn Negative 03/24/2025 11:07 AM [facility] ([facility]) Comment: Presumptively Negative by immunoassay. Testing by mass spectrometry is available on request. Interpretive Information: Methamphetamine Screen, S/P Methodology: Immunoassay Positive Cutoff: 20 ng/mL Barbiturate Scrn Negative 03/24/20 11:07 AM [facility] ([facility]) Comment: Presumptively Negative by immunoassay. Testing by mass spectrometry is available on request. Interpretive Information: Barbiturates Screen, S/P Methodology: Immunoassay Positive Cutoff: 50 ng/mL Benzodiazepine Scrn Negative 03/24 11:07 AM [facility] ([facility]) Comment: Presumptively Negative by immunoassay. Testing by mass spectrometry is available on request. Interpretive Information: Benzodiazepines Screen, S/P Methodology: Immunoassay Positive Cutoff: 50 ng/mL Buprenorphine Scrn Negative 2024 11:07 AM [facility] ([facility]) Comment: Presumptively Negative by immunoassay. Testing by mass spectrometry is available on request. Interpretive Information: Buprenorphine Screen, S/P Methodology: Immunoassay Positive Cutoff: 1 ng/mL Cocaine Scrn Negative 03/24/2025 11:07 AM [facility] ([facility]) Comment: Presumptively Negative by immunoassay. Testing by mass spectrometry is available on request. Interpretive Information: Cocaine Screen, S/P Methodology: Immunoassay Positive Cutoff: 20 ng/mL Methadone Scrn Negative 03/24/2025 11:07 AM [facility] ([facility]) Comment: Presumptively Negative by immunoassay. Testing by mass spectrometry is available on request. Interpretive Information: Methadone Screen, S/P Methodology: Immunoassay Positive Cutoff: 25 ng/mL Opiates Scrn Negative 03/24/2025 11:07 AM [facility] ([facility]) Comment: Presumptively Negative by immunoassay. Testing by mass spectrometry is available on request. Interpretive Information: Opiates Screen, S/P Methodology: Immunoassay Positive Cutoff: 20 ng/mL Oxycodone Scrn Negative 03/24/2025 11:07 AM [facility] ([facility] Comment: Presumptively Negative by immunoassay. Testing by mass spectrometry is available on request. Interpretive Information: Oxycodone/Oxymorphone Screen, S/P Methodology: Immunoassay Positive Cutoff: 20 ng/mL PCP Scrn Negative 03/24/2025 11:07 AM EDT [facility] Comment: Presumptively Negative by immunoassay. Testing by mass spectrometry is available on request. Interpretive Information: Phencyclidine Screen, S/P Methodology: Immunoassay Positive Cutoff: 10 ng/mL Cannabinoid Scrn Negative 03/24/20 11:07 AM EDT [facility] ([facility]) Comment: Presumptively Negative by immunoassay. Testing by mass spectrometry is available on request. Interpretive Information: Carboxy-THC Screen, S/P Methodology: Immunoassay Positive Cutoff: 20 ng/mL This test does not distinguish between the delta-8 and delta-9 forms of Carboxy-THC or their metabolites. Drug Screen Comments, Serum or Plasma See Note 03/24/2025 11:07 AM EDT [facility] ([facility]) Comment: Interpretive Information: Drug Screen with Reflex to Quant S/P Presumptive negative results for drug(s) and/or drug metabolite(s) may indicate non-compliance, inappropriate timing of specimen collection relative to drug administration, poor drug absorption, or limitations of testing. The concentration at which the screening test can detect a drug or metabolite varies within a drug class. For medical purposes only; not valid for forensic use. This test was developed and its performance characteristics determined by [facility]. It has not been cleared or approved by the [place] Food and Drug Administration. This test was performed in a CLIA certified laboratory and is intended for clinical purposes. Performed By: [facility] [address] [place] [id number] General Manager Farm: Rolly Solomon MD, PhD CLIA Number: [id number] Blood Venous blood specimen / Unknown Venipuncture / Unknown 03/22/2025 12:34 PM EDT 03/22/2025 12:39 PM EDT Dario Prieto PA-C LAB BLOOD ORDERABLES Final Resu lt [facility] ([facility]) [address] [place] [id number] * Hepatitis panel, acute (03/22/2025 12:34 PM EDT) [facility] Hepatitis B Surface Ag Nonreactive Nonreactive 03/22/2025 2:26 PM EDT [facility] ([facility]) Hep A IgM Nonreactive Nonreactive 03/22/2025 2:26 PM EDT [facility] ([facility]) Hepatitis C Ab Nonreactive Nonreactive 03/22/2025 2:26 PM EDT [facility] ([facility]) Hep B Core Total Ab Nonreactive Nonreactive 03/22/2025 2:26 PM EDT [facility] ([facility]) Blood Venous blood specimen / Unknown Venipuncture / Unknown 03/22/2025 12:34 PM EDT 03/22/2025 12:39 PM EDT Dario Prieto PA-C LAB BLOOD ORDERABLES Final Resu lt [facility] [address] [place] [address] * (ABNORMAL) CBC (03/22/2025 12:34 PM EDT) [facility] Auto WBC 12.96(H) 4.00 - 10.60 10*3/uL 03/22/2025 12:58 PM EDT [facility] ([facility]) RBC 3.75(L) 4.20 - 5.70 10*6/uL 03/22/2025 12:58 PM EDT [facility] ([facility]) Hemoglobin 12.1(L) 13.0 - 17.0 g/dL 03/22/2025 12:58 PM EDT [facility] ([facility]) Hematocrit 35.3(L) 39.0 - 50.0 % 03/22/2025 12:58 PM EDT [facility] ([facility]) MCV 94.1 82.0 - 98.0 fL 03/22/2025 12:58 PM EDT [facility] ([facility]) MCH 32.3 27.0 - 33.0 pg 03/22/2025 12:58 PM EDT [facility] ([facility]) MCHC 34.3 32.0 - 35.0 g/dL 03/22/2025 12:58 PM EDT [facility] ([facility]) RDW 19.6(H) 11.5 - 15.0 % 03/22/2025 12:58 PM EDT [facility] ([facility]) Platelets 337 150 - 400 10*3/uL 03/22/2025 12:58 PM EDT [facility] ([facility]) Blood Venous blood specimen / Unknown Venipuncture / Unknown 03/22/2025 12:34 PM EDT 03/22/2025 12:41 PM EDT Dario Prieto PA-C LAB BLOOD ORDERABLES Final Resu lt [facility] ([facility]) [address] [place] [address] * (ABNORMAL) Comprehensive metabolic panel (03/22/2025 12:34 PM EDT) Sodium 137 136 - 145 mmol/L 03/22/2025 1:05 PM EDT [facility] ([facility]) Potassium 3.3(L) 3.5 - 5.1 mmol/L 03/22/2025 1:05 PM EDT [facility] ([facility]) Chloride 107 98 - 107 mmol/L 03/22/2025 1:05 PM EDT [facility] ([facility]) CO2 22 21 - 31 mmol/L 03/22/2025 1:05 PM EDT [facility] ([facility]) Anion Gap 11 7 - 20 mmol/L 03/22/2025 1:05 PM EDT [facility] ([facility]) BUN 19 7 - 25 mg/dL 03/22/2025 1:05 PM EDT [facility] ([facility]) Creatinine 0.76 0.70 - 1.30 mg/dL 03/22/2025 1:05 PM EDT [facility] ([facility]) BUN/Creatinine Ratio 25.0 03/09 1:05 PM EDT [facility] ([facility]) Glucose 102(H) 70 - 100 mg/dL 03/22/2025 1:05 PM EDT [facility] ([facility]) Calcium 8.5(L) 8.6 - 10.3 mg/dL 03/22/2025 1:05 PM EDT [facility] ([facility]) AST 133(H) 13 - 39 U/L 03/22/2025 1:05 PM EDT [facility] ([facility]) ALT (SGPT) 103(H) 7 - 52 U/L 03/22/2025 1:05 PM EDT [facility] ([facility]) Alkaline Phosphatase 901(H) 34 - 104 U/L 03/22/2025 1:05 PM EDT [facility] ([facility]) Total Protein 6.2 6.0 - 8.3 g/dL 03/22/2025 1:05 PM EDT [facility] ([facility]) Albumin 3.0(L) 3.5 - 5.7 g/dL 03/22/2025 1:05 PM EDT [facility] ([facility]) Total Bilirubin 14.6(H) 0.3 - 1.0 mg/dL 03/22/2025 1:05 PM EDT [facility] ([facility]) eGFR 90.9 >60.0 mL/min/1. 73m*2 03/22/2025 1:05 PM T [facility] ([facility]) Comment:The [facility] s estimated glomerular filtration rate (eGFR) will no longer include consideration of race in its calculation. The [employer] s eGFR Task Force developed new recommendations for the estimation of the glomerular filtration rate in the [place] They recommend immediate implementation of the new equation refit without the race variable in all laboratories because the calculation does not include race. In addition to not including race in the calculation and reporting, it included diversity in its development, and has acceptable performance characteristics and potential consequences that do not disproportionately affect any one group of individuals. Blood Venous blood specimen / Unknown Venipuncture / Unknown 03/22/2025 12:34 PM EDT 03/22/2025 12:39 PM EDT Dario Prieto PA-C LAB BLOOD ORDERABLES Final Resu lt [facility] ([facility]) [address] [place] [address] documented in this encounter Visit Diagnoses Diagnosis Jaundice- Primary Jaundice, unspecified, not of Increased bilirubin level Disorders of bilirubin excretion Coagulopathy Other and unspecified coagulation defects Primary hypertension Unspecified essential hypertension Hyperlipidemia Other and unspecified hyperlipidemia Benign prostatic hyperplasia with lower urinary tract symptoms Coagulopathy Other and unspecified coagulation defects Transaminitis Nonspecific elevation of levels of transaminase or lactic acid dehydrogenase (LDH) Hypokalemia Hypopotassemia C. difficile colitis documented in this encounter Admitting Diagnoses Diagnosis Increased bilirubin level Disorders of bilirubin excretion documented in this encounter Administered Medications Inactive Administered Medications - up to 3 most recent administrations Medication Order MAR Action Action Date Dose Rate Site amLODIPine (Norvasc) tablet 10 mg 10 mg, oral, Daily, First dose on Sat03/22/25 at 1230, For 99 days Given 03/26/2025 9:31 AM EDT 10 mg Given 03/25/2025 10:36 AM EDT 10 mg Given 03/24/2025 10:19 AM EDT 10 mg fentaNYL (Sublimaze) injection 50 mcg 50 mcg, intravenous, Every 10 min PRN, moderate-severe pain (4-10 pain score), Starting on Sat03/23/25 at 2030, For 2 doses, Recovery (only) Given 03/23/2025 8:47 PM EDT 50 mcg gadoterate meglumine 0.5 mmol/mL contrast injection 20 mL 20 mL, intravenous, Once in imaging, Starting on Sat03/22/25 at 2048, For 1 dose, Administer undiluted as rapid I.V. bolus injection New Bag 03/22/2025 8:48 PM EDT 20 mL hydroCHLOROthiazide (Microzide) capsule 12.5 mg 12.5 mg, oral, Daily, First dose on Sat03/22/25 at 1230, For 99 days Given 03/26/2025 9:31 AM EDT 12.5 mg Given 03/25/2025 10:36 AM EDT 12.5 mg Given 03/24/2025 10:20 AM EDT 12.5 mg lisinopril tablet 30 mg 30 mg, oral, Daily, First dose on Sat03/22/25 at 1230, For 99 days Given 03/26/2025 9:31 AM EDT 30 mg Given 03/25/2025 10:36 AM EDT 30 mg Given 03/24/2025 10:20 AM EDT 30 mg ondansetron HCl (PF) (Zofran) injection 4 mg 4 mg, intravenous, Every 6 hours PRN, nausea, vomiting, Starting on Sat03/22/25 at 1116, For 99 days, Give IV if patient is unable to take orally. Administer as an IV push over 2 to 5 minutes. ondansetron ODT (Zofran-ODT) disintegrating tablet 4 mg 4 mg, oral, Every 8 hours PRN, nausea, vomiting, Starting on Sat03/22/25 at 1116, For 99 days phytonadione (Vitamin K) 10 mg in sodium chloride 0.9 % 50 mL IVPB 10 mg, intravenous, at 200 mL/hr, Administer over 15 Minutes, Once, On Sat03/23/25 at 0745, For 1 dose, Protect from light. New Bag 03/23/2025 10:38 AM EDT 10 mg 200 mL/hr potassium chloride CR (Klor-Con M20) ER tablet 20 mEq 20 mEq, oral, Every 1 hour, First dose on Sat03/24/25 at 0830, For 2 doses, Serum K 3-3.4 Do not crush or chew. Given 03/24/2025 10:20 AM EDT 20 mEq Given 03/24/2025 9:40 AM EDT 20 mEq potassium chloride CR (Klor-Con M20) ER tablet 40 mEq 40 mEq, oral, Every 1 hour, First dose on Sat03/26/25 at 0830, For 2 doses, Serum K 3-3.4 Do not crush or chew. Given 03/26/2025 10:50 AM EDT 40 mEq Given 03/26/2025 9:31 AM EDT 40 mEq sodium chloride 0.9 % infusion 20 mL/hr, intravenous, Continuous, Starting on Sat03/23/25 at 0745, For 12 hours, With Blood Transfusion Given 03/23/2025 8:17 PM EDT 800 mL Continued by Anesthesia 03/23/2025 6:52 PM EDT 20 mL/hr 20 mL/hr Rate/Dose Verify 03/23/2025 1:13 PM EDT 20 mL/hr 20 mL/h r sodium chloride flush 10 mL 10 mL, intravenous, Every 8 hours PRN, line care, Starting on Sat03/22/25 at 1116, For 99 days tamsulosin (Flomax) 24 hr capsule 0.4 mg 0.4 mg, oral, Daily, First dose on Sat03/22/25 at 1230, For 99 days, Do not crush, chew, or split. Given 03/26/2025 9:31 AM EDT 0.4 mg Given 03/25/2025 10:36 AM EDT 0.4 mg Given 03/24/2025 10:20 AM EDT 0.4 mg vancomycin (Firvanq) solution 125 mg 125 mg, oral, 4 times daily, First dose on Sat03/23/25 at 1800, For 10 days, Shake well before each use., Episode (Specify): initial episode, non-severe (WBC < 15,000 and SCr < 1.5) Given 03/26/2025 9:30 AM EDT 125 mg Given 03/25/2025 10:09 PM EDT 125 mg Given 03/25/2025 6:17 PM EDT 125 mg documented in this encounter Active and Recently Administered Medications Times are shown in EDT. Scheduled Medication Order 03/24/2025 03/25/2025 03/26/2025 amLODIPine (Norvasc) tablet 10 mg 10 mg, oral, Daily, First dose on Sat03/22/25 at 1230, For 99 days 1019 (Given - Provider: Waylon Blum, RN) 1036 (Given - Provider: Patricia Alexis, RN) 0931 (Given - Provider: Radha Larose RN) enoxaparin (Lovenox) syringe 40 mg 40 mg, subcutaneous, Daily, First dose on Sat03/23/25 at 1000, For 99 days, On hold since Sat03/22/2025 at 1438 until manually unheld 1000 (Dose Auto Held - Provider: Dario Prieto PA-C) 1000 (Dose Auto Held - Provider: Dario Prieto PA-C) 1000 (Dose Auto Held - Provider: Dario Prieto PA-C)1325 (Unheld by provider - Provider: Automatic Discharge Provider) hydroCHLOROthiazide (Microzide) capsule 12.5 mg 12.5 mg, oral, Daily, First dose on Sat03/22/25 at 1230, For 99 days 1020 (Given - Provider: Waylon Blum RN) 1036 (Given - Provider: Patricia Alexis, RN) 0931 (Given - Provider: Radha Larose RN) lisinopril tablet 30 mg 30 mg, oral, Daily, First dose on Sat03/22/25 at 1230, For 99 days 1020 (Given - Provider: Waylon Blum RN) 1036 (Given - Provider: Patricia Alexis RN) 0931 (Given - Provider: Radha Larose RN) potassium chloride CR (Klor-Con M20) ER tablet 20 mEq (COMPLETED) 20 mEq, oral, Every 1 hour, First dose on Sat03/24/25 at 0830, For 2 doses, Serum K 3-3.4 Do not crush or chew. 0940 (Given - Provider: Waylon Blum RN)1020 (Given - Provider: Waylon Blum RN) potassium chloride CR (Klor-Con M20) ER tablet 40 mEq (COMPLETED) 40 mEq, oral, Every 1 hour, First dose on Sat03/26/25 at 0830, For 2 doses, Serum K 3-3.4 Do not crush or chew. 0931 (Given - Provider: Radha Larose RN)1050 (Given - Provider: Radha Larose RN) tamsulosin (Flomax) 24 hr capsule 0.4 mg 0.4 mg, oral, Daily, First dose on Sat03/22/25 at 1230, For 99 days, Do not crush, chew, or split. 1020 (Given - Provider: Waylon Blum RN) 1036 (Given - Provider: Patricia Alexis RN) 0931 (Given - Provider: Radha Larose RN) vancomycin (Firvanq) solution 125 mg 125 mg, oral, 4 times daily, First dose on Sat03/23/25 at 1800, For 10 days, Shake well before each use., Episode (Specify): initial episode, non-severe (WBC < 15,000 and SCr < 1.5) 1019 (Given - Provider: Waylon Blum RN)1454 (Given - Provider: Waylon Blum RN)1851 (Given - Provider: Lashell Lawton RN)2106 (Given - Provider: Vincent Basas, RN) 1133 (Given - Provider: Patricia Alexis, RN)1453 (Given - Provider: Patricia Alexis, RN)1817 (Given - Provider: Patricia Alexis, KAYLIN)2209 (Given - Provider: Serge De La Rosa RN) 0930 (Given - Provider: Radha Larose, RN) PRN Medication Order 03/24/2025 03/25/2025 03/26/2025 acetaminophen (Tylenol) tablet 650 mg 650 mg, oral, Every 6 hours PRN, mild pain (1-3 pain score), headaches, fever greater than or equal to 38 degrees Celsius, (1-3), Starting on Sat03/22/25 at 1116, For 99 days, On hold since Sat03/22/2025 at 1125 until manually unheld 1325 (Unheld by prov ider - Provider: Automatic Discharge Provider) ondansetron HCl (PF) (Zofran) injection 4 mg(Linked Group 1) 4 mg, intravenous, Every 6 hours PRN, nausea, vomiting, Starting on Sat03/22/25 at 1116, For 99 days, Give IV if patient is unable to take orally. Administer as an IV push over 2 to 5 minutes. ondansetron ODT (Zofran-ODT) disintegrating tablet 4 mg(Linked Group 1) 4 mg, oral, Every 8 hours PRN, nausea, vomiting, Starting on Sat03/22/25 at 1116, For 99 days sennosides-docusate sodium (Isaura-Colace) 8.6-50 mg per tablet 1 tablet 1 tablet, oral, 2 times daily PRN, constipation, Starting on Sat03/22/25 at 1116, For 99 days sodium chloride flush 10 mL(Linked Group 2) 10 mL, intravenous, Every 8 hours PRN, line care, Starting on Sat03/22/25 at 1116, For 99 days Linked Groups Order Group 1: ondansetron ODT (Zofran-ODT) disintegrating tablet 4 mgJump to med 4 mg, oral, Every 8 hours PRN, nausea, vomiting, Starting on Sat03/22/25 at 1116, For 99 days Or ondansetron HCl (PF) (Zofran) injection 4 mgJump to med 4 mg, intravenous, Every 6 hours PRN, nausea, vomiting, Starting on Sat03/22/25 at 1116, For 99 days, Give IV if patient is unable to take orally. Administer as an IV push over 2 to 5 minutes. Group 2: Insert peripheral IV (CANCELED) Once, On Sat03/22/25 at 1117, For 1 occurrence And Saline lock IV (CANCELED) Once, On Sat03/22/25 at 1117, For 1 occurrence And sodium chloride flush 10 mLJump to med 10 mL, intravenous, Every 8 hours PRN, line care, Starting on Sat03/22/25 at 1116, For 99 days documented in this encounter Additional Health Concerns Infection Onset Date Last Indicated Resolved Time C. difficile Rule-Out 03/22/2025 03/23/20252024 11:33 AM EDT C.difficile 03/23/2025 03/23/2025 documented as of this encounter Care Teams M[employer] Operator Relationship Specialty Start Date End Date Rodger Orozco DO [address] [place] [id number] PCP - General Family Medicine 03/26/25 documented as of this encounter
--- OUTSIDE RECORDS SUMMARY | 2025-03-23 18:52 | XMS_ITS | Encounter Summary ---
Author Organization [facility] Address [address] [place] [address] Care Team Providers Care Ice Plant Operator Name Role Phone Unavailable Primary Care Provider Unavailabl e Reason for Visit * Auth/Cert (Routine) Specialty Diagnoses / Procedures Referred By Contac t Referred To Contact Diagnoses Liver failure, Elevated liver enzymes Procedures NO CODEDED SERVICE Mazin Marks MD [address] [place] [address] Phone: tel: fax: [facility] 6AB Ortho Surgery [address] [place] [address] Phone: tel: Referral ID Status Reason Start Date Expiration Date Visits Re quested Visits Authorized [id number] 1 1 Encounter Details Date Type Department Care Team (Late st Contact Info) Description 03/23/2025 6:52 PM EDT Anesthesia Event [facility] Main Operating Room [address] [place] [phone] Mark Chow MD [address] [facility] [place] [address] Dario Peña CAA [address] [place] [phone] 269- Anesthesia Record Procedure Summary Procedure Name Responsible Anesthesiologist Anesthesia Start Time Anesthesia Stop Time ENDOSCOPIC RETROGRADE CHOLANGIOPANCREATOGRAPHY Mark Chow MD 03/23/25185103/23/252013 Events Date Time Event Comment 03/23/2025 1745 1852 An Start 1852 An Start Data 185 An Induction The patient was reevaluated immediately before moderate or deep sedation use and before anesthesia induction. 1910 Time Out Time out comple sarabjit (confirmed patient ID, surgeon, procedure, and operative site). 2004 An Extubation 2009 an stop data 2013 An Stop 2018 Handoff to Receiving I compl eted my handoff to the receiving clinician during which we: 1. Identified the patient 2. Identified the responsible provider 3. Reviewed the pertinent medical history 4. Discussed the surgical course 5. Reviewed intra-op anesthesia management and issues during anesthesia 6. Set expectations for post-procedure period 7. Allowed opportunity for questions and acknowledgement of understanding. Meds Name Total fentaNYL (SUBLIMAZE) injection 100 mcg lidocaine (Xylocaine) 20 mg/ml injection 2 % 100 mg propofol 10 mg/mL 110 mg succinylcholine 20 mg/mL 120 mg rocuronium 20 mg ePHEDrine 50 mg/ml injection 10 mg phenylephrine (Leobardo-Synephrine) 10 mg/ml injection 600 mcg sugammadex 200 mg/2mL 300 mg sodium chloride 0.9 % infusion 828.33 mL ondansetron (Zofran) 4 mg/2 ml injection 4 mg * Agents Name O2 N2O Air Sevoflurane Isoflurane Inspired Isoflurane Inspired Sevoflurane N2O Inspired N2O Inspired O2 Setting * Blood No blood administrations on file. Lines, Drains, and Airways Type Details Placement Removal Peripheral IV Placement Date: 03/09 01/01; Placement Time: 0000; Existing LDA Placed by: Other hospital; Orientation: Anterior, Proximal, Right; Location: Forearm; Removal Date: 03/26/25; Removal Time: 1102; Removal Reason: Pt discharged 03/22/25 0000 by Bj Sosa RN 03/26/25 1102 by Radha Larose RN Peripheral IV Placement Date: 03/09 01/31; Placement Time: 1038; Catheter Size: 20 G; Orientation: Anterior, Right; Location: Forearm; Removal Date: 03/26/25; Removal Time: 1102; Removal Reason: Pt discharged 03/23/25 1038 by Radha Larose RN 03/26/25 1102 by Radha Larose RN documented in this encounter Social History Tobacco Use Types Packs/Day Years Used Date Smoking Tobacco: Former Cigarettes Smokeless Tobacco: Never [facility] Utilities Answer Date Recorded In the past 12 months has [employer], gas, oil, or water [employer] threatened to shut off services in your [...] any time in the past 12 m [facility], were you homeless or living in a senior living (including now)? No 03/22/2025 Hunger Vital Sign Answer Date Recorded Within the past 12 months, y ou worried that your food would run out before you got the money to buy more. Never true 03/22/20 Ran Out of Food in the Last Year Not on file 03/22/2025 Sex and Gender Information Value Date Recorded Sex Assigned at Male 03/23/2025 4:50 PM EDT Legal Sex Male 11:55 PM EDT Gender Identity Male 03/23/2025 4:50 PM EDT Sexual Orientation Heterosexual or Straight 03/09 4:50 PM EDT Travel History Travel Start Travel End [place] 03/20/2025 03/22/2025 documented as of this encounter Miscellaneous Notes * Addendum Note - Mark Chow MD - 03/23/2025 9:06 PM EDT Addendum created 03/23/252105 by Mark Chow MD Clinical Note Signed documented in this encounter Plan of Treatment Upcoming Encounters Date Type Department Care Team (Late st Contact Info) Description 03/29/2025 10:30 AM EDT Office Visit [facility] [address] [place] [phone] Lew Contreras MD [address] [place] [address] documented as of this encounter Visit Diagnoses * Anesthesia Postprocedure Evaluation - Mark Chow MD - 03/23/2025 9:04 PM EDT Patient: Bro Stover Procedure Summary Date: 03/23/25 Room / Location: [facility] Main Operating Room Anesthesia Start: 1851 Anesthesia Stop: 2013 Procedure: ENDOSCOPIC RETROGRADE CHOLANGIOPANCREATOGRAPHY Diagnosis: Scheduled Providers: Ulices Dunbar MD; VIOLET Bee; Connor Pollard MD Responsible Provider: Mark Chow MD Anesthesia Type: general ASA Status: 3 Anesthesia Type: general Vitals Value Taken Time BP 142/67 03/23/25 21:00 Temp 36.3 ??C (97.3 ??F) 03/23/25 20:15 Pulse 99 03/23/25 21:03 Resp 12 03/23/25 21:00 SpO2 91 % 03/23/25 21:03 Vitals shown include unfiled device data. Anesthesia Post Evaluation Patient location during evaluation: PACU Patient participation: complete - patient participated Level of consciousness: awake and alert Pain score: 2 Pain management: adequate Multimodal analgesia pain management approach Airway patency: patent Two or more strategies used to mitigate risk of obstructive sleep apnea Cardiovascular status: hemodynamically stable Respiratory status: nonlabored ventilation and room air Hydration status: euvolemic Patient is hemodynamically stable and is able to be discharged from PACU per anesthesia protocol. There were no known notable events for this encounter. * Anesthesia Preprocedure Evaluation - Mark Chow MD - 03/23/2025 5:49 PM EDT Images from the original note were not included. Patient: Bro Stover Procedure Information Date/Time: 03/23/25 1600 Scheduled providers: Ulices Dunbar MD; VIOLET Bee; Connor Pollard MD Procedure: ENDOSCOPIC RETROGRADE CHOLANGIOPANCREATOGRAPHY Location: [facility] Main Operating Room Relevant Problems Cardio (+) Primary hypertension Clinical information reviewed: Tobacco Allergies Meds Med Hx Surg Hx Fam Hx Soc Hx Physical Exam Airway Mallampati: II TM distance: >3 FB Neck ROM: limited Cardiovascular - normal exam Rhythm: regular Rate: normal Dental - normal exam Pulmonary Neurological Abdominal - normal exam Other findings: Patient quit smoking approximately 1974; denies PA, CAD, CVA, DM, CKD. Anesthesia Plan ASA 3 general The patient is not a current smoker. Patient was previously instructed to abstain from smoking on day of procedure. Patient did not smoke on day of procedure. intravenous induction Trial extubation is planned. Anesthetic plan and risks discussed with patient and spouse. Use of blood products discussed with patient and spouse who consented to blood products. Plan discussed with CAA and resident. Additional Equipment Requests documented in this encounter Administered Medications Inactive Administered Medications - up to 3 most recent administrations Medication Order MAR Action Action Date Dose Rate Site ePHEDrine injection intravenous, As needed, Starting on Sat03/23/25 at 195, Anesthesia Intraprocedure Given 03/23/2025 7:52 PM EDT 10 mg fentaNYL (Sublimaze) injection intravenous, As needed, Starting on Sat03/23/25 at 185, Anesthesia Intraprocedure Given 03/23/2025 7:13 PM EDT 50 mcg Given 03/23/2025 6:55 PM EDT 50 mcg lidocaine HCl (Xylocaine) 20 mg/mL (2 %) injection intravenous, As needed, Starting on Sat03/23/25 at 185, Anesthesia Intraprocedure Given 03/23/2025 6:55 PM EDT 1 00 mg ondansetron HCl (PF) (Zofran) injection intravenous, As needed, Starting on Sat03/23/25 at 2002, Anesthesia Intraprocedure Given 03/23/2025 8:03 PM EDT 4 mg phenylephrine (Leobardo-Synephrine) injection intravenous, As needed, Starting on Sat03/23/25 at 1914, Anesthesia Intraprocedure Given 03/23/2025 7:47 PM ED T 100 mcg Given 03/23/2025 7:25 PM EDT 200 mcg Given 03/23/2025 7:19 PM EDT 100 mcg propofol (Diprivan) 10 mg/mL infusion intravenous, As needed, Starting on Sat03/23/25 at 1855, Anesthesia Intraprocedure Given 03/23/2025 6:55 PM EDT 1 10 mg rocuronium (ZeMuron) injection intravenous, As needed, Starting on Sat03/23/25 at 1944, Anesthesia Intraprocedure Given 03/23/2025 7:44 PM EDT 2 0 mg sodium chloride 0.9 % infusion 20 mL/hr, intravenous, Continuous, Starting on Sat03/23/25 at 0745, For 12 hours, With Blood Transfusion Given 03/23/2025 8:17 PM EDT 800 mL Continued by Anesthesia 03/23/2025 6:52 PM EDT 20 mL/hr 20 mL/hr Rate/Dose Verify 03/23/2025 1:13 PM EDT 20 mL/hr 20 mL/h r succinylcholine (Anectine) injection intravenous, As needed, Starting on Sat03/23/25 at 1855, Anesthesia Intraprocedure Given 03/23/2025 6:55 PM EDT 1 20 mg sugammadex (Bridion) injection intravenous, As needed, Starting on Sat03/23/25 at 2002, Anesthesia Intraprocedure Given 03/23/2025 8:02 PM EDT 3 00 mg documented in this encounter Additional Health Concerns Infection Onset Date Last Indicated Resolved Time C.difficile 03/23/2025 03/23/2025 documented as of this encounter
--- OUTSIDE RECORDS SUMMARY | 2025-03-24 05:00 | XMS_ITS ---
Author Organization [facility] [place] Address [address] [place] [address] Care Team Providers Care Fresh Foods Cake Decorator Name Role Phone Rodger Orozco Primary Care Provider REASON FOR VISIT MCW Encounters Encounter Location Date Provider Diagnosis [address] [place] [address] 03/24/2025 Rodger Orozco Plan Of Treatment No Information Progress Notes * Bro STOVERDOB:1945 (79 yo M)Acc No.[id number]:03/24/2025 UNLOCKED PROGRESS NOTE Progress Note Patient: Bro ENGEL Provider: Yasmine Orozco DO :1945 A ge:79 Y S ex:Male Date:03/24/2025 Address:[address] [place], [place] [id number] Subjective: * Chief Complaints: * 1 . MCW. * Medical History: Objective: * Vitals: Assessment: Plan: * Treatment: * * Electronic signature of Jesús Orozco DO, [id number] on 03/29/2025 at 07:33 AM EDT Sign off status: Pending Visit Status: C ANC (Cancelled) * Provider: Yasmine Orozco DO Date: 0 03/24/2025 Generated for Printi ng/Faxing/eTransmitting on: 0 03/29/2025 07:33 AM EDT
--- OUTSIDE RECORDS SUMMARY | 2025-03-29 07:33 | XMS_ITS | Encounter Summary ---
Author Organization [facility] Address [address] [place] [address] Care Team Providers Care Informatics Spec Name Role Phone Unavailable Primary Care Provider Unavailabl e Encounter Details Date Type Department Care Team (Latest Contact Info) Description 03/23/2025 Travel Social History Tobacco Use Types Packs/Day Years Used Date Smoking Tobacco: Former Cigarettes Smokeless Tobacco: Never [facility] Utilities Answer Date Recorded In the past 12 months has th e electric, gas, oil, or water company threatened to shut off services in your [...] any time in the past 12 m [facility], were you homeless or living in a correction (including now)? No 03/22/2025 Hunger Vital Sign [...] 03/20/2025 03/22/2025 documented as of this encounter Plan of Treatment Upcoming Encounters Date Type Department Care Team (Late st Contact Info) Description 03/29/2025 10:30 AM EDT [facility] [address] [place] [phone] Lew Contreras MD [address] [place] [address] documented as of this encounter Visit Diagnoses Not on filedocumented in this encounter Additional Health Concerns Infection Onset Date Last Indicated Resolved Time C. difficile Rule-Out 03/22/2025 03/23/20252024 11:33 AM EDT C.difficile 03/23/2025 03/23/2025 documented as of this encounter
--- OUTSIDE RECORDS SUMMARY | 2025-03-29 07:33 | XMS_ITS | Patient Health Record ---
Author Organization [facility] [place] Address [address] [place] [address] Care Team Providers Care Tire Center Supervisor Name Role Phone Rodger Orozco Primary Care Provider Allergies No Known Allergies Results Component Value Reference Range Notes LIPID PANEL (CHOL/TRIG/HDL/L DL) Reviewed date:01/27/2025 11:49:20 AM Interpretation: Performing Lab: Notes/Report: UA DIP AUTO WO MICRO (11516) - IN OFFICE Reviewed date:07/30/2024 10:11:51 AM [...] Administration Date Status Comme nts Flu, Flublok (42730) 18yr+, single-dose (7970-4184) Unknown 08/08/2022 Administered Pneumococcal (Pneumovax 23) Unknown [...] Problem Status W/U Status Risk Notes Problem 11386963 Peripheral vascu lar disease, unspecified (I73.9) Active confirmed Problem 318239148 Gastro-esophagea l reflux disease without esophagitis (K21.9) 2019 Active confirmed diet stable monitor pepcid 20mg daily if worsens Problem 164356553 Personal history of malignant neoplasm of prostate (Z85.46) Active confirmed Problem 914828280 Other obesity du e to excess calories (E66.09) Active confirmed Problem 228591391531616 Obesity, unspeci fied (E66.9) Active confirmed Problem 63969933 Post-traumatic stress disorder, unspecified (F43.10) Active confirmed Problem 82791052 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, or unspecified chronic kidney disease (I12.9) Active confirmed Problem 889595759 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) 2017 Active confirmed rec echo - pt to hold off as no acute CHF s/s Problem 8225867 Other ill-define d heart diseases (I51.89) Active confirmed Problem 45207760 Heart disease, unspecified (I51.9) 2019 Active confirmed continue meds stable monitor echo BP control Problem 35999579 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) 2017 Active confirmed continue compression stockings refer to vascular if worsens Problem 201095774 Other seasonal allergic rhinitis (J30.2) Active confirmed Problem 78757467 Other allergic rhinitis (J30.89) Active confirmed Problem 148427777 Spondylosis with out myelopathy or radiculopathy, lumbar region (M47.816) Active confirmed Problem 940969247 Chronic kidney disease, stage 2 (mild) (N18.2) Active confirmed Problem 73208118 Cramp and spasm (R25.2) 2020 Active confirmed hydrate d/w pt that he can try otc Mg/Ca/K if wishes daily to see if helps Problem 23975934 Left ventricular hypertrophy (I51.7) 2019 Active confirmed Problem 786573795 Prostate cancer (C61) Active confirmed Problem 52067246 Constipation, unspecified constipation type (K59.00) Active confirmed Problem 574318967 Primary osteoarthritis of both knees (M17.0) Active confirmed Problem 245654833 Primary pulmonar y HTN (I27.0) Active confirmed Problem 21651211 Hyperlipidemia, unspecified hyperlipidemia type (E78.5) 2017 Active confirmed continue lipitor 10mg daily - erx done labs yearly diet/exercis e Problem 0958782343840 Benign prostatic hyperplasia with lower urinary tract symptoms (N40.1) Active confirmed Problem 259314435 Pure hypercholesterolemia (E78.00) Active confirmed Problem 849168452 Nonexudative age-related macular degeneration, left eye, 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) Active confirmed Problem 345318324 Other specified diabetes mellitus without complication, without long-term current use of insulin (E13.9) Active confirmed Problem 39031851 Primary hyperten bettina (I10) Active confirmed Problem 038321294 Benign prostatic hyperplasia with lower urinary tract symptoms, symptom details unspecified (N40.1) 2020 Active confirmed d/w pt flomax if wishes Problem 226429375 Macular degenera tion of both eyes, unspecified type (H35.30) 2021 Active confirmed f/u eye doctor as directed Problem 17938555 Allergic rhiniti s, unspecified seasonality, unspecified trigger (J30.9) 2017 Active confirmed flonase/clar itin otc rtc if s/s worsen Problem 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) Active confirmed Problem 063993819 Body mass index [BMI] 31.0-31.9, adult (Z68.31) Active confirmed Problem 138980746 Body mass index [BMI] 32.0-32.9, adult (Z68.32) Active confirmed Problem 913318329 Body mass index [BMI] 30.0-30.9, adult (Z68.30) Active confirmed Vital Signs Heart Rate 92 /min 01/15/2025 Respiratory Rate 16 /min 01/15/2025 Oximetry 95 % 01/15/2025 Blood pressure diastolic 62 mm Hg 01/15/2025 Height 67 in 01/15/2025 Blood pressure systolic 150 mm Hg 01/15/2025 Weight 201.7 lbs 01/15/2025 BMI 31.59 kg/m2 01/15/2025 Encounters Encounter Location Date Provider Diagnosis [facility] [address] [place] [address] 12/22/2024 Rodger Orozco Hypertensive chronic kidney disease with stage 1 through stage 4 chronic kidney disease, or unspecified chronic kidney disease I12.9 ; Hyperlipidemia, unspecified hyperlipidemia type E78.5 and Benign prostatic hyperplasia with lower urinary tract symptoms N40.1 [facility] [address] [place] [address] 01/16/2025 Rodger Orozco [facility] [address] [place] [address] 06/03/2024 Rodger Orozco Hyperlipidemia, unspecified hyperlipidemia type E78.5 [facility] [address] [place] [address] 06/17/2024 Rodger Orozco [facility] [address] [place] [address] 06/22/2024 Rodger Orozco Hypertensive chronic kidney disease with stage 1 through stage 4 chronic kidney disease, or unspecified chronic kidney disease I12.9 [facility] [address] [place] [address] 06/30/2024 Rodger Orozco Hypertensive chronic kidney disease with stage 1 through stage 4 chronic kidney disease, or unspecified chronic kidney disease I12.9 [facility] [address] [place] [address] 08/19/2024 Rodger Orozco Hypertensive chronic kidney disease with stage 1 through stage 4 chronic kidney disease, or unspecified chronic kidney disease I12.9 [facility] [address] [place] [address] 09/07/2024 Rodger Orozco Hyperlipidemia, unspecified hyperlipidemia type E78.5 [facility] [address] [place] [address] 04/01/2024 Rodger Orozco Primary hypertension I10 [facility] [address] [place] [address] 04/02/2024 Rodger Orozco Primary hypertension I10 [facility] [address] [place] [address] 05/09/2024 Rodger Orozco [facility] [address] [place] [address] 05/08/2024 Rodger Orozco Other obesity due to [...] disease, or unspecified chronic kidney disease I12.9 [facility] [address] [place] [address] 07/30/2024 Rodger Orozco Generalized abdomina l pain R10.84 ; Other obesity due to excess calories E66.09 ; Body mass index [BMI] 30.0-30.9, adult Z68.30 ; Obesity, class 1 E66.811 and Spondylosis without myelopathy or radiculopathy, lumbar region M47.816 [address] [place] [address] 01/15/2025 Rodger Orozco Cellulitis of right toe [...] unspecified (ICD-10 - F43.10) f/u counselor at [place] as directed 05/08/2024 Nonrheumatic aortic (valve) stenosis [...] Name Order Date HEMOGLOBIN A1C (GLYCO) 01/15/2025 Cerumen Removal - performed 03/11/2023 Echocardiogram 2D M Mode w/ Doppler (maria teresa sure RVSP) 03/11/2023 PSA, TOTAL 01/15/2025 MARYANA Ankle Brachial Index (73864) 023 MICROALBUMIN w INVESTIGATIVE ASSISTANT RATIO 01/15/2025 CMP (COMP MET CHE) w/eGFR CKD-EPI 2024 Insurance Providers Payer Name Payer Address Payer Phone Subscriber Number Group Number Insured Name Patient Relationship to Insured Coverage Start Date Coverage End Date [employer] ADV PLAN [address] [place] [address] [id number] Bro Stover Self - patient is the [...]
--- OUTSIDE RECORDS SUMMARY | 2025-03-29 07:33 | XMS_ITS | Encounter Summary ---
Author Organization [facility] Address [address] [place] [address] Care Team Providers Care Product Inspection Coordinator Name Role Phone Unavailable Primary Care Provider Unavailabl e Encounter Details Date Type Department Care Team (Latest Contact Info) Description 03/22/2025 Travel Social History Tobacco Use Types Packs/Day Years Used Date Smoking Tobacco: Former Cigarettes Smokeless Tobacco: Never [place] Utilities Answer Date Recorded In the past [...] any time in the past 12 m [facility], were you homeless or living in a retirement (including now)? No 03/22/2025 Hunger Vital Sign [...] EDT Travel History Travel Start Travel End [place] 03/20/2025 03/22/2025 documented as of this encounter Functional Status * Suicidal Ideation Question Answer Date of Assessment Author 1. Wish to be (Lifetime) No 03/22/2025 10:20 AM EDT Ata Pacheco, RN 2. Non-Specific Active Suici barbi Thoughts (Lifetime) No 03/22/2025 10:20 AM EDT Ata Pacheco R N documented as of this encounter Plan of Treatment Upcoming Encounters Date Type Department Care Team (Late st Contact Info) Description 03/29/2025 10:30 AM EDT Office Visit [facility] Clinic [address] [place] [address] Lew Contreras MD [address] [place] [address] documented as of this encounter Visit Diagnoses Not on filedocumented in this encounter Additional Health Concerns Infection Onset Date Last Indicated Resolved Time C. difficile Rule-Out 03/22/2025 03/23/20252024 11:33 AM EDT documented as of this encounter
--- OUTSIDE RECORDS SUMMARY | 2025-03-29 07:34 | XMS_ITS | Clinical Summary ---
Author Organization [facility] Address [address] [place] [address] Care Team Providers Care Nut Sifter Name Role Phone Rodger Orozco DO Primary Care Provider [phone] Allergies Active Allergy Reactions Criticality Noted Date Comments Latex Fever 03/22/2025 Medications tamsulosin (Flomax) 0.4 mg 24 hr capsule Take 0.4 mg by mouth in the morning. Active lisinopril 30 mg tablet Take 30 mg by mouth in the morning. Active hydroCHLOROthia zide 12.5 mg tablet Take 12.5 mg by mouth in the morning. Active meloxicam (Mobic) 7.5 mg tablet Take 7.5 mg by mouth in the morning. Active amLODIPine (Norvasc) 10 mg tablet Take 10 mg by mouth in the morning. Active vancomycin (Firvanq) 50 mg/mL oral solutionIndicat ions:Increased bilirubin level Take 2.5 mL (125 mg) by mouth four times daily for 31 doses. 77.5 mL 03/26/2025 04/03/20 25 Active atorvastatin (Lipitor) 10 mg tablet Take 10 mg by mouth in the morning. 03/26/20 25 Discontinu ed(Stop Taking at Discharge) Active Problems Problem Noted Date Diagnosed Date Coagulopathy 03/23/2025 Assessment & Plan (03/25/2025 3:42 PM EDT): -Due to liver injury, status post vitamin K and FFP infusion preoperatively Assessment & Plan (03/24/2025 12:45 PM EDT): -Due to liver injury, status post vitamin K and FFP infusion preoperatively Assessment & Plan (03/23/2025 5:50 PM EDT): - Due to liver injury, status post vitamin K and FFP infusion preoperatively Transaminitis 03/23/2025 Assessment & Plan (03/25/2025 3:42 PM EDT): - Status post MRCP 03/23/2025 showing nodular lesion near the biliary confluence causing moderate to severe intrahepatic biliary dilation. 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 we will send referrals to hematology/oncology clinic. Assessment & Plan (03/24/2025 12:45 PM EDT): - Status post MRCP 03/23/2025 showing nodular lesion near the biliary confluence causing moderate to severe intrahepatic biliary dilation. 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 we will send referrals to hematology/oncology clinic. - discussed with GI. Assessment & Plan (03/23/2025 5:50 PM EDT): - Status post MRCP 03/23/2025 showing nodular lesion near the biliary confluence causing moderate to severe intrahepatic biliary dilation. Discussed with GI at the bedside, plan for ERCP today. Hypokalemia 03/23/2025 Assessment & Plan (03/25/2025 3:42 PM EDT): -Replace and monitor. Assessment & Plan (03/24/2025 12:45 PM EDT): -Replace and monitor. Assessment & Plan (03/23/2025 5:50 PM EDT): - Replace and monitor. C. difficile colitis 03/23/2025 Assessment & Plan (03/25/2025 3:42 PM EDT): - continue with oral vancomycin Assessment & Plan (03/24/2025 12:45 PM EDT): - continue with oral vancomycin Assessment & Plan (03/23/2025 5:50 PM EDT): - Started on oral vancomycin Jaundice 03/22/2025 Assessment & Plan (03/25/2025 3:42 PM EDT): - Status post MRCP 03/23/2025 showing nodular lesion near the biliary confluence causing moderate to severe intrahepatic biliary dilation. 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 we will send referrals to hematology/oncology clinic. Assessment & Plan (03/24/2025 12:45 PM EDT): - Status post MRCP 03/23/2025 showing nodular lesion near the biliary confluence causing moderate to severe intrahepatic biliary dilation. 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 we will send referrals to hematology/oncology clinic. - discussed with GI. Assessment & Plan (03/23/2025 5:50 PM EDT): - Status post MRCP 03/23/2025 showing nodular lesion near the biliary confluence causing moderate to severe intrahepatic biliary dilation. Discussed with GI at the bedside, plan for ERCP today. Assessment & Plan (03/22/2025 4:13 PM EDT): Relevant Hx: patient present [place] with ja[place]ice. Patient had elevated LFTs and bilirubin. Course: patient has an alkaline phosphatase of 901, ast 133, alt 103, albumin 3.0, total bilirubin of 14.6, APTT 37.9 Daily Update: patient admitted to the floor Today's Plan: GI consulted, ultrasound of liver ordered, GGT ordered, direct bilirubin ordered. Defer to GI regarding management of jaundice. Primary hypertension 03/22/2025 Assessment & Plan (03/22/2025 2:59 PM EDT): Continue home medications Hyperlipidemia 03/22/2025 Assessment & Plan (03/25/2025 3:42 PM EDT): Atorvastatin held at this time Assessment & Plan (03/24/2025 12:45 PM EDT): Atorvastatin held at this time Assessment & Plan (03/23/2025 5:50 PM EDT): Atorvastatin held at this time Assessment & Plan (03/22/2025 2:59 PM EDT): Atorvastatin held at this time Benign prostatic hyperplasia with lower urinary tract symptoms 03/22/2025 Assessment & Plan (03/25/2025 3:42 PM EDT): Continue home medication Assessment & Plan (03/24/2025 12:45 PM EDT): Continue home medication Assessment & Plan (03/23/2025 5:50 PM EDT): Continue home medication Assessment & Plan (03/22/2025 2:59 PM EDT): Continue home medication Encounters Date Type Department Care Team Description 03/23/2025 6:52 PM EDT Anesthesia Event [facility] Main Operating Room [address] [place] [phone] Mark Chow MD Smay, Kyle, CAA 03/23/2025 Travel 03/22/2025 9:17 AM EDT - 03/26/2025 11:25 AM EDT Hospital Encounter [facility] 6AB Ortho Surgery [address] [place] [phone] Mazin Marks MD Mansur, Sarmed, MD Fawwad, Shaikh, MD Increased bilirubin level (Primary Dx); Coagulopathy Discharge Disposition: Home or Self Care () 03/22/2025 Travel from Last 3 Months Social History Tobacco Use Types Packs/Day Years Used Date Smoking Tobacco: Former Cigarettes Smokeless Tobacco: Never Tobacco Cessation:Counseling Given: No [facility] Utilities Answer Date Recorded In the past [...] [facility] time in the [facility] were you homeless or living in a snf (including now)? No 03/22/2025 Hunger Vital Sign [...] EDT Travel History Travel Start Travel End [place] 03/20/2025 03/22/2025 Last Filed Vital Signs Vital Sign Reading [...] Mass Index 27.45 03/23/2025 5:32 PM EDT Plan of Treatment Upcoming Encounters Date Type Department Care Team (Late st Contact Info) Description 03/29/2025 10:30 AM EDT [facility] [address] [place] [phone] Lew Contreras MD [address] [place] [phone] Health Maintenance Due Date Last Done Comments Diabetes: Hemoglobin A1C 1945 Medicare Annual Wellness (AWV) 1945 Diabetes: Retinopathy Screening 1954 Depression Screening 1956 Diabetes: Urine Protein Screening 1963 Adult Tetanus 1966 COVID-19 Vaccine ( season) 2024 Influenza Vaccine (#1) 2025 , 08/08/2022, 06/06/2021, Additional history exists Fall Risk Screening 03/26/2026 03/26/2025 Pneumococcal Vaccine: 50+ Years Completed 12/18/2022, 06/30/2015, 09/09/2009 Zoster Vaccines Completed 07/04/2023, 01/11/2023 HIB Vaccines Aged Out No longer eligi ble based on patient's age to complete this topic HPV Vaccines Aged Out No longer eligi ble based on patient's age to complete this topic IPV Vaccines Aged Out No longer eligi ble based on patient's age to complete this topic Meningococcal B Vaccine Aged Out No l onger eligible based on patient's age to complete this topic Meningococcal Vaccine Aged Out No ok dimitrios eligible based on patient's age to complete this topic Rotavirus Vaccines Aged Out No longer eligible based on patient's age to complete this topic Medical Devices Implanted Type Area Property Accountant Device Identifier Shelf Expiration Date Model / Serial / Lot Stent,Bili,Adv [id number] - [id number] Implanted:Qty: 1 on 03/23/2025 by Connor Pollard MD at [facility] Stent N/A: Bile Duct [employer] [id number] 12/18/2026 [id number] / / [id number] Stent,Bili,Adv anix,[id number] - [id number] Implanted:Qty: 1 on 03/23/2025 by Connor Pollard MD at [facility] Stent N/A: Bile Duct [employer] [id number] 12/18/2026 [id number] / / [id number] Procedures Procedure Name Priority Date/Time Associated Diagnosis [...] RETROGRADE CHOLANGIOPANCREATOGRAPHY Routine 03/23/2025 8:09 PM EDT NON-PROGRAM EVALUATOR CYTOLOGY - CELLULAR EXAM Routine 03/23/2025 7:49 [...] ECG 12-LEAD Routine 03/22/2025 12:59 PM EDT PROTIME-INR STAT Add-on 03/22/2025 12:34 PM EDT BILIRUBIN, DIRECT Add-On 03/22/2025 12:34 PM EDT GAMMA GT Add-On 03/22/2025 12:34 PM EDT APTT Routine 03/22/2025 12:34 PM EDT LATIA-JACKSON VIRUS BY QUANTITATIVE NAAT, PLASMA Routine 03/22/2025 12:34 PM EDT CMV DNA, QUALITATIVE, PCR Routine 2024 12:34 PM EDT DRUG SCREEN PANEL 9, SERUM Routine 03/22 12:34 PM EDT HEPATITIS PANEL, ACUTE Routine 12:34 PM EDT CBC Routine 03/22/2025 12:34 PM EDT COMPREHENSIVE METABOLIC PANEL Routine 12:34 PM EDT from Last 3 Months Results * (ABNORMAL) CBC (03/26/2025 4:40 AM EDT) Only the most recent of5 resultswithin the time period is included. Auto WBC 14.43(H) 4.00 - 10.60 10*3/uL 03/26/2025 5:59 AM EDT [facility] ([facility]) RBC 3.30(L) 4.20 - 5.70 10*6/uL 03/26/2025 5:59 AM EDT [facility] ([facility]) Hemoglobin 10.9(L) 13.0 - 17.0 g/dL 03/26/2025 5:59 AM EDT [facility] ([facility]) Hematocrit 31.4(L) 39.0 - 50.0 % 03/26/2025 5:59 AM EDT [facility] ([facility]) MCV 95.2 82.0 - 98.0 fL 03/26/2025 5:59 AM EDT [facility] ([facility]) MCH 33.0 27.0 - 33.0 pg 03/26/2025 5:59 AM EDT [facility] ([facility]) MCHC 34.7 32.0 - 35.0 g/dL 03/26/2025 5:59 AM EDT [facility] ([facility]) RDW 19.6(H) 11.5 - 15.0 % 03/26/2025 5:59 AM EDT [facility] ([facility]) Platelets 355 150 - 400 10*3/uL 03/26/2025 5:59 AM EDT [facility] ([facility]) Blood Venous blood specimen / Unknown Venipuncture / Unknown 03/26/2025 4:40 AM EDT 03/26/2025 5:34 AM EDT us Man Costa MD LAB BLOOD ORDERABLES Final Resu lt [facility] ([facility]) [address] [place] [address] * (ABNORMAL) Comprehensive metabolic panel (03/26/2025 4:40 AM EDT) Only the most recent of4 resultswithin the time period is included. Sodium 136 136 - 145 mmol/L 03/26/2025 6:03 AM EDT [facility] ([facility]) Potassium 3.0(L) 3.5 - 5.1 mmol/L 03/26/2025 6:03 AM EDT [facility] ([facility]) Chloride 102 98 - 107 mmol/L 03/26/2025 6:03 AM EDT [facility] ([facility]) CO2 27 21 - 31 mmol/L 03/26/2025 6:03 AM EDT [facility] ([facility]) Anion Gap 10 7 - 20 mmol/L 03/26/2025 6:03 AM EDT [facility] ([facility]) BUN 25 7 - 25 mg/dL 03/26/2025 6:03 AM EDT [facility] ([facility]) Creatinine 0.89 0.70 - 1.30 mg/dL 03/26/2025 6:03 AM EDT [facility] ([facility]) BUN/Creatinine Ratio 28.1 03/09 6:03 AM EDT [facility] ([facility]) Glucose 105(H) 70 - 100 mg/dL 03/26/2025 6:03 AM EDT [facility] ([facility]) Calcium 8.4(L) 8.6 - 10.3 mg/dL 03/26/2025 6:03 AM EDT [facility] ([facility]) AST 118(H) 13 - 39 U/L 03/26/2025 6:03 AM EDT [facility] ([facility]) ALT (SGPT) 86(H) 7 - 52 U/L 03/26/2025 6:03 AM EDT [facility] ([facility]) Alkaline Phosphatase 664(H) 34 - 104 U/L 03/26/2025 6:03 AM EDT [facility] ([facility]) Total Protein 5.6(L) 6.0 - 8.3 g/dL 03/26/2025 6:03 AM EDT [facility] ([facility]) Albumin 2.9(L) 3.5 - 5.7 g/dL 03/26/2025 6:03 AM EDT [facility] ([facility]) Total Bilirubin 16.9(H) 0.3 - 1.0 mg/dL 03/26/2025 6:03 AM EDT [facility] ([facility]) eGFR 86.6 >60.0 mL/min/1. 73m*2 03/26/2025 6:03 AM EDT [facility] ([facility]) Comment:[facility] s estimated glomerular filtration rate (eGFR) will [...] MD LAB BLOOD ORDERABLES Final Resu lt [facility] ([facility]) [address] [place], [place] [phone] * Transfuse fresh frozen plasma (03/24/2025 1:03 AM EDT) Only the most recent of2 resultswithin the time period is included. Lisseth Turner MD BLOOD TRANSFUSION ORDERABLE S [...] procedural images. Electronically signed: AKBAR ALBRIGHT MD. Lisseth Turner MD IMG FLUOROSCOPY PROCEDURES Final [...] and weight loss. CT abdomen pelvis at [facility] demonstrated intrahepatic biliary dilation, ectatic common bile duct, and cholecystectomy. Total bilirubin of 14.6, direct bilirubin 8.1. MRCP revealed nodular lesion near the biliary confluence causing moderate to severe intrahepatic biliary dilatation, findings worrisome for Klatskin tumor. Plan for ERCP today. 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 Two 7 [place] by 15 cm plastic biliary stents were [...] replacement. Attending Attestation: I performed the procedure. us Lisseth Turner MD ENDOSCOPY PROCEDURE ORDERAB LES Final Result * Non-cone runner cytology - cellular exam (03/23/2025 7:49 PM EDT) Case Report Non-gynecologic Cytology Case: [id number] Authorizing Provider: Connor Pollard MD Collected: 03/23/2025 194 Ordering Location: [address] Surgery Received: 03/24/2025 0954 Pathologist: Sergo Beatty MD Specimen: Hepatic Duct brushing, r/o malignancy 03/26/2025 4:28 PM EDT [facility] ([facility]) Final Diagnosis A. Hepatic duct brushing: - Adenocarcinoma. 03/26/2025 4:28 PM EDT [facility] ([facility]) at 1628 EDT Comment See also concurrent surgical case, [id number]. This case was reviewed in intradepartmental consensus. 03/26/2025 4:28 PM EDT [facility] ([facility]) Microscopic Description Satisfactory for evaluation. Examination of the ThinPrep slide and cell block reveals crowded groups of abnormal glandular epithelium exhibiting enlarged nuclei, unevenly distributed fine chromatin, and conspicuous nucleoli in a background of necrotic debris. Anisonucleosis is noted within the cell clusters. 03/26/2025 4:28 PM EDT [facility] ([facility]) Clinical Information Jaundice, weight loss, MRCP revealed nodular lesion near the biliary confluence causing moderate to severe intrahepatic biliary dilatation, findings worrisome for Klatskin tumor 03/26/2025 4:28 PM EDT [facility] ([facility]) Gross Description One brush received in 30 mL CytoLyt with hazy, light red fluid 03/26/2025 4:28 PM EDT [facility] ([facility]) Brushing (Hepatic Duct brushing) 03/23/2025 7:49 PM EDT 03/24/2025 9:54 AM EDT us Connor Pollard MD LAB CYTOLOGY ORDERABLES Final Re sult Performing Organization Address City/[facility]/ZIP Co de Phone Number [facility] ([facility]) [address] [place] [address] * Prepare fresh frozen plasma (03/23/2025 6:19 PM EDT) Only the most recent of2 resultswithin the time period is included. PRODUCT CODE [id number] [facility] BL OOD BANK Unit Number [id number] [facility] BLOOD BANK Unit ABO A [facility] BLOOD BANK Unit Rh POS [facility] BLOOD BANK Dispense Status TR [facility] BLOOD BANK Blood Expiration Date [id number] [facility] BLOOD BANK Product Blood Type 6200 [facility] BLOOD BANK Unit Volume 250 mL [facility] BLO OD BANK us Akin Jade MD BLOOD BANK PRODUCT ORDERABLES Fi nal Result Performing Organization Address City/[facility]/ZIP Co de Phone Number [facility] BLOOD BANK * (ABNORMAL) Protime-INR (03/23/2025 4:23 PM EDT) Only the most recent of2 resultswithin the time period is included. Protime 15.7(H) 12.3 - 14.8 Seconds 03/23/2025 5:35 PM EDT [facility] ([facility]) INR 1.24(H) 0.90 - 1.10 03/23/2025 5:35 PM EDT [facility] ([facility]) Comment: ACCCP RECOMMENDED INR FOR WARFARIN THERAPY [...] Turner MD LAB BLOOD ORDERABLES Final Result [facility] ([facility]) [address] [place] [phone] * Type and screen (03/23/2025 10:03 AM EDT) ABO Grouping A 03/23/2025 11:09 AM EDT [facility] BLOOD BANK Rh Type POS 03/23/2025 11:09 AM EDT [facility] BLOOD BANK Ab Scrn NEG 03/23/2025 11:09 AM EDT [facility] BLOOD BANK Blood Venous blood specimen / Unknown Venipuncture / Unknown 03/23/2025 10:03 AM EDT 03/23/2025 10:06 AM EDT Lisseth Turner MD LAB BLOOD BANK TEST ORDERAB LES Final Result [facility] BLOOD BANK * (ABNORMAL) Clostridioides difficile DNA amplification (03/23/2025 9:08 AM EDT) Clostridioides difficile (Toxin A/B) Positive( AA) Negative 03/23/2025 11:33 AM EDT [facility] ([facility]) Stool Rectal contents / Unknown Non-blood Collection / Unknown 03/23/2025 9:08 AM EDT 03/23/2025 9:10 AM EDT Narrative [facility] ([facility]) - 03/23/2025 11:33 AM EDT Testing methodology is an in vitro diagnostic test for the direct, qualitative detection of the Clostridioides difficile Toxin A gene (tcdA) in unformed stool specimens of patients suspected of having Clostridioides difficile-infection (CDI). The evidanza C. difficile Assay is intended for use as an aid in diagnosis of CDI. The assay utilizes helicase-dependent amplification (HDA) for the amplification of a highly conserved fragment of the Toxin A gene sequence. us Shaikh Alana PYLE LAB MICROBIOLOGY - GENERAL SLAUGHTERSSpencer [facility] Final Result [facility] ([facility]) [address] [place] [address] * US abdomen limited liver (03/23/2025 8:56 AM EDT) Anatomical Region Laterality Modality Abdomen, Liver Ultrasound 03/23/2025 9:00 AM EDT Impressions 03/23/2025 9:02 AM EDT * Moderate intrahepatic biliary ductal dilatation. Please refer to separate MRI report for further details and findings. Electronically signed: Chrales Childs MD. Narrative 03/23/2025 9:02 AM EDT [...] and findings. Electronically signed: Charles Childs MD. Dario Prieto PA-C IMG US PROCEDURES Final Result * (ABNORMAL) Hepatic function panel (03/23/2025 5:20 AM EDT) Total Bilirubin 13.7(H) 0.3 - 1.0 mg/dL 03/23/2025 9:35 AM EDT [facility] ([facility]) Bilirubin, Direct 7.9(H) 0 - 0.2 mg/dL 03/23/2025 9:35 AM EDT [facility] ([facility]) Alkaline Phosphatase 796(H) 34 - 104 U/L 03/23/2025 9:35 AM EDT [facility] ([facility]) AST 123(H) 13 - 39 U/L 03/23/2025 9:35 AM EDT [facility] ([facility]) ALT (SGPT) 96(H) 7 - 52 U/L 03/23/2025 9:35 AM EDT [facility] ([facility]) Total Protein 5.7(L) 6.0 - 8.3 g/dL 03/23/2025 9:35 AM EDT [facility] ([facility]) Albumin 2.9(L) 3.5 - 5.7 g/dL 03/23/2025 9:35 AM T [facility] ([facility]) Blood Venous blood specimen / Unknown Venipuncture / Unknown 03/23/2025 5:20 AM EDT 03/23/2025 5:44 AM EDT Guilherme Brink DOOR TO DOOR SALES REPRESENTATIVE LAB BLOOD ORDERABLES Final Result [facility] ([facility]) [address] [place] [address] * (ABNORMAL) Basic metabolic panel (03/23/2025 5:20 AM EDT) Sodium 137 136 - 145 mmol/L 03/23/2025 6:09 AM EDT [facility] ([facility]) Potassium 3.2(L) 3.5 - 5.1 mmol/L 03/23/2025 6:09 AM EDT [facility] ([facility]) Chloride 108(H) 98 - 107 mmol/L 03/23/2025 6:09 AM EDT [facility] ([facility]) CO2 23 21 - 31 mmol/L 03/23/2025 6:09 AM EDT [facility] ([facility]) BUN 25 7 - 25 mg/dL 03/23/2025 6:09 AM EDT [facility] ([facility]) Creatinine 1.10 0.70 - 1.30 mg/dL 03/23/2025 6:09 AM EDT [facility] ([facility]) Glucose 100 70 - 100 mg/dL 03/23/2025 6:09 AM EDT [facility] ([facility]) Calcium 8.2(L) 8.6 - 10.3 mg/dL 03/23/2025 6:09 AM EDT [facility] ([facility]) Anion Gap 9 7 - 20 mmol/L 03/23/2025 6:09 AM EDT [facility] ([facility]) eGFR 67.9 >60.0 mL/min/1. 73m*2 03/23/2025 6:09 AM T [facility] ([facility]) Comment:[facility] s estimated glomerular filtration rate (eGFR) will [...] individuals. BUN/Creatinine Ratio 22.7 03/09 6:09 AM EDT [facility] ([facility]) Blood Venous blood specimen / Unknown Venipuncture / Unknown 03/23/2025 5:20 AM EDT 03/23/2025 5:44 AM EDT us Dario Prieto PA-C LAB BLOOD ORDERABLES Final Resu lt [facility] [facility] ([facility]) [address] [place] [address] * MR abdomen w and wo contrast [...] observation, favor benign angiomatouslesion. Electronically signed: Conner Benavides MD. Lisseth Turner MD IM MRI PROCEDURES Final Re sult * ECG 12 lead (03/22/2025 12:59 PM EDT) Ventricular Rate 78 BPM GE MUSE Atrial Rate 78 BPM GE MUSE VT Interval 218 ms GE MUSE QRS DURATION 136 ms GE MUSE QT Interval 424 ms GE MUSE QTC CALCULATION(BAZE TT) 483 ms GE MUSE P [place] 57 degrees GE MUSE R-[place] 93 degrees GE MUSE T Wave [place] 23 degrees GE MUSE 03/22/2025 12:5 8 PM EDT 03/23/2025 10:30 AM EDT Impressions GE MUSE - 03/23/2025 10:30 AM EDT Sinus rhythm with 1st degree A-V block Right bundle branch block Abnormal ECG No previous ECGs available Confirmed by Cedric YEUNG SAMER J. ([id number]) on 03/23/2025 10:30:10 AM Narrative Procedure Note Ariela Yeung MD - 03/23/2025 IMPRESSION: Sinus rhythm with 1st degree A-V block Right bundle branch block Abnormal ECG No previous ECGs available Confirmed by Cedric YEUNG SAMER J. ([id number]) on 03/23/2025 10:30:10 AM Dario Prieto PA-C ECG ORDERABLES Final Result GE MUSE * CMV DNA, qualitative, PCR (03/22/2025 12:34 PM EDT) Cytomegalovirus Quant. PCR Plasma 03/25/2025 12:29 AM EDT [facility] Cytomegalovirus Qual PCR Not Detected 03/25/2025 12:29 AM EDT [facility]) Comment: NOT DETECTED - A negative result does not rule out the presence of PCR inhibitors in the patient specimen or assay specific nucleic acid in concentrations below the level of detection by the assay. INTERPRETIVE INFORMATION: Cytomegalovirus Detection by PCR This test was developed and its performance characteristics determined by [facility]. It has not been cleared or approved by the [place] Food and Drug Administration. This test was performed in a CLIA certified laboratory and is intended for clinical purposes. Performed By: [facility] [address] [place] [id number] Account Engineer: Rolly Solomon MD, PhD CLIA Number: [id number] Blood Venous blood specimen / Unknown Venipuncture / Unknown 03/22/2025 12:34 PM EDT 03/22/2025 12:40 PM EDT Dario Prieto PA-C LAB BLOOD ORDERABLES Final Resu lt [facility] ([facility]) [address] [place] [address] * Drug screen panel 9, serum (03/22/2025 12:34 PM EDT) Amphetamine Scrn Negative 03/24/20 11:07 AM EDT [facility] ([facility]) Comment: Presumptively Negative by immunoassay. Testing by mass spectrometry is available on request. Interpretive Information: Amphetamines Screen, S/P Methodology: Immunoassay Positive Cutoff: 20 ng/mL Methamphetamine Scrn Negative 03/24/2025 11:07 AM T [facility] ([facility]) Comment: Presumptively Negative by immunoassay. Testing by mass spectrometry is available on request. Interpretive Information: Methamphetamine Screen, S/P Methodology: Immunoassay Positive Cutoff: 20 ng/mL Barbiturate Scrn Negative 03/24/20 11:07 AM [facility] ([facility]) Comment: Presumptively Negative by immunoassay. Testing by mass spectrometry is available on request. Interpretive Information: Barbiturates Screen, S/P Methodology: Immunoassay Positive Cutoff: 50 ng/mL Benzodiazepine Scrn Negative 03/24 11:07 AM [facility] ([facility]) Comment: Presumptively Negative by immunoassay. Testing by mass spectrometry is available on request. Interpretive Information: Benzodiazepines Screen, S/P Methodology: Immunoassay Positive Cutoff: 50 ng/mL Buprenorphine Scrn Negative 2024 11:07 AM EDT [facility] ([facility]) Comment: Presumptively Negative by immunoassay. Testing by mass spectrometry is available on request. Interpretive Information: Buprenorphine Screen, S/P Methodology: Immunoassay Positive Cutoff: 1 ng/mL Cocaine Scrn Negative 03/24/2025 11:07 AM T [facility] ([facility]) Comment: Presumptively Negative by immunoassay. Testing by mass spectrometry is available on request. Interpretive Information: Cocaine Screen, S/P Methodology: Immunoassay Positive Cutoff: 20 ng/mL Methadone Scrn Negative 03/24/2025 11:07 AM T [facility] ([facility]) Comment: Presumptively Negative by immunoassay. Testing by mass spectrometry is available on request. Interpretive Information: Methadone Screen, S/P Methodology: Immunoassay Positive Cutoff: 25 ng/mL Opiates Scrn Negative 03/24/2025 11:07 AM [facility] ([facility]) Comment: Presumptively Negative by immunoassay. Testing by mass spectrometry is available on request. Interpretive Information: Opiates Screen, S/P Methodology: Immunoassay Positive Cutoff: 20 ng/mL Oxycodone Scrn Negative 03/24/2025 11:07 AM [facility] ([facility]) Comment: Presumptively Negative by immunoassay. Testing by mass spectrometry is available on request. Interpretive Information: Oxycodone/Oxymorphone Screen, S/P Methodology: Immunoassay Positive Cutoff: 20 ng/mL PCP Scrn Negative 03/24/2025 11:07 AM [facility] ([facility]) Comment: Presumptively Negative by immunoassay. Testing by mass spectrometry is available on request. Interpretive Information: Phencyclidine Screen, S/P Methodology: Immunoassay Positive Cutoff: 10 ng/mL Cannabinoid Scrn Negative 03/24/20 11:07 AM [facility] ([facility]) Comment: Presumptively Negative by immunoassay. Testing by mass spectrometry is available on request. Interpretive Information: Carboxy-THC Screen, S/P Methodology: Immunoassay Positive Cutoff: 20 ng/mL This test does not distinguish between the delta-8 and delta-9 forms of Carboxy-THC or their metabolites. Drug Screen Comments, Serum or Plasma See Note 03/24/2025 11:07 AM [facility] ([facility]) Comment: Interpretive Information: Drug Screen with Reflex [...] developed and its performance characteristics determined by [facility]. It has not been cleared or approved by the [place] Food and Drug Administration. This test was performed in a CLIA certified laboratory and is intended for clinical purposes. Performed By: [facility] [address] [place] [id number] Account Engineer: Rolly Solomon MD, PhD CLIA Number: [id number] Blood Venous blood specimen / Unknown Venipuncture / Unknown 03/22/2025 12:34 PM EDT 03/22/2025 12:39 PM EDT [facility] PA-C LAB BLOOD ORDERABLES Final Resu lt [facility] [address] [place] [address] * Hepatitis panel, acute (03/22/2025 12:34 PM EDT) Hepatitis B Surface Ag Nonreactive Nonreactive 03/22/2025 2:26 PM EDT [facility] ([facility]) Hep A IgM Nonreactive Nonreactive 03/22/2025 2:26 PM EDT [facility] ([facility]) Hepatitis C Ab Nonreactive Nonreactive 03/22/2025 2:26 PM EDT [facility]) Hep B Core Total Ab Nonreactive Nonreactive 03/22/2025 2:26 PM EDT [facility] ([facility]) Blood Venous blood specimen / Unknown Venipuncture / Unknown 03/22/2025 12:34 PM EDT 03/22/2025 12:39 PM EDT [facility] PA-C LAB BLOOD ORDERABLES Final Resu lt [facility] [address] [place] [address] * Latia-Jackson Virus by Quantitative NAAT, Plasma (03/22/2025 12:34 PM EDT) EBV Qnt by NAAT, Plasma IU/mL Not Detected IU/mL 03/24/2025 3:27 PM EDT [facility]) EBV Qnt by NAAT, Plasma log IU/mL Not Detected log IU/mL 03/24/2025 3:27 PM EDT [facility]) EBV Qnt by NAAT, Plasma Interp Not Detected Not Detected 03/24/2025 3:27 PM EDT [facility] ([facility]) Comment: INTERPRETIVE INFORMATION: EBV by Quantitative NAAT, [...] commutability issues with the standard. Performed By: [facility] [address] [place] [address] Account Engineer: Rolly Solomon MD, PhD CLIA Number: [id number] Blood Venous blood specimen / Unknown Venipuncture / Unknown 03/22/2025 12:34 PM EDT 03/22/2025 12:41 PM EDT [facility] LAB BLOOD ORDERABLES Final Resu lt Performing Organization Address City/[facility]/ZIP Co de Phone Number [facility] ([facility]) [address] [place] [address] * (ABNORMAL) APTT (03/22/2025 12:34 PM EDT) [facility] aPTT 37.9(H) 25.0 - 35.0 Seconds 03/22/2025 1:00 PM EDT [facility] ([facility]) Comment:Clinical significanc e of the APTT is questionable in the presence of heparin. Blood Venous blood specimen / Unknown Venipuncture / Unknown 03/22/2025 12:34 PM EDT 03/22/2025 12:36 PM EDT [facility] LAB BLOOD ORDERABLES Final Resu lt [facility] ([facility]) [address] [place] [address] * (ABNORMAL) Gamma GT (03/22/2025 12:34 PM EDT) [facility] GGT 573(H) 9 - 64 U/L 03/22/2025 3:52 PM EDT [facility] ([facility]) Blood Venous blood specimen / Unknown Venipuncture / Unknown 03/22/2025 12:34 PM EDT 03/22/2025 12:39 PM EDT Dario Lyonson PA-C LAB BLOOD ORDERABLES Final Resu lt [facility] ([facility]) [address] [place], [place] [id number] * (ABNORMAL) Bilirubin, direct (03/22/2025 12:34 PM EDT) Bilirubin, Direct 8.1(H) 0 - 0.2 mg/dL 03/22/2025 3:52 PM EDT [facility] ([facility]) Blood Venous blood specimen / Unknown Venipuncture / Unknown 03/22/2025 12:34 PM EDT 03/22/2025 12:39 PM EDT Dario Prieto PA-C LAB BLOOD ORDERABLES Final Resu lt [facility] ([facility]) [address] [place] [address] from Last 3 Months Additional Health Concerns Infection Onset Date Last Indicated C.difficile 03/23/2025 03/23/2025 Insurance [facility] MEDICARE ADVANTAGE Advance Directives * Full Code (Latest Code Status on File) Date Activated Date Inactivated Comments 03/22/2025 11:20 AM 03/26/2025 1:25 PM Care Teams Nut Sifter Relationship Specialty Start Date End Date Rodger Orozco DO [address] [place] [address] PCP - General Family Medicine 03/26/25
[2025-03-29 07:59] LABS: Anion Gap 14.6; Blood Urea Nitrogen 23.0 mg/dL (7.0-18.0); Calcium 8.9 mg/dL (8.5-10.1); Carbon Dioxide 25.2 mmol/L (21.0-32.0); Chloride 102 mmol/L (98-107); Estimated GFR (African America >60 (>=60 mL/min/1.73m^2); Estimated GFR (Non-African Ame >60 (>=60 mL/min/1.73m^2); Glucose 118 mg/dL (74-106); Potassium 3.8 mmol/L (3.5-5.1); Sodium 138 mmol/L (136-145)
== END 2025-03-29 07:31 | disposition home or self-care (01) ==
LOC: LAB 07:31
PROVIDERS: PCP Family Medicine; Visit Provider Family Medicine
DX: R17 Unspecified jaundice (principal)
CPT/HCPCS: 36415; 80048